=== PATIENT | female | born 1965 | race Caucasian/White ===

== ENCOUNTER → 2017-11-23 15:37 | Outpatient (CLI) | payer OTHER, SELFPAY ==
[2017-11-23 17:53] LABS: ALB/GLOB Ratio 1.3 RATIO (0.9-2.4); AST(SGOT) 10 U/L (15-37); Alanine Aminotransfer ALT/SGPT 23 U/L (13-56); Albumin, Serum 3.7 g/dL (3.2-5.0); Alkaline Phosphatase 45 U/L (45-117); Anion Gap 9 (5-15); BUN 13 mg/dL (7-18); BUN/Creat Ratio 14.6 RATIO (10-20); Calcium,Total 7.8 mg/dL (8.5-10.1); Chloride 105 mmol/L (98-107); Creatinine, Serum 0.89 mg/dL (0.55-1.02); EST Glomerular Filtration Rate 70 mL/min (>60); Est Glom Filt Rate - Afr Amer 85 mL/min (>60); Globulin 2.9 g/dL (2.2-4.2); Glucose 103 mg/dL (74-106); Phosphorus 3.5 mg/dL (2.5-4.9); Potassium 3.6 mmol/L (3.5-5.1); Protein, Total 6.6 g/dL (6.4-8.2); Sodium Level 139 mmol/L (136-145)
[2017-11-23 18:01] LABS: PTHIN 34.9 pg/mL (18.4-80.1)
[2017-11-25 10:27] LABS: Vitamin D,25 Hydroxy 41.2 ng/mL (19.95-100.01)
== END ==
PROVIDERS: Family Provider Family Medicine; PCP Family Medicine; Visit Provider Family Medicine
DX: E83.51 Hypocalcemia (principal)
CPT/HCPCS: 36415; 80053; 82306; 82330; 83970; 84100

== ENCOUNTER → 2018-01-02 18:43 | Outpatient (CLI) | payer OTHER, SELFPAY ==
[2018-01-02 18:46] LABS: Bacteria 0 SEEN /hpf (None Seen); Mucous, Urine 0 SEEN /hpf (<or=2+); Red Blood Cells-Urine 0 SEEN /hpf (0-5); White Blood Cells 0 SEEN /hpf (0-5)
[2018-01-02 19:09] LABS: Color, Urine YELLOW (Yellow); Glucose, Dipstick Normal (Normal); Ketone-Dipstick Negative (Negative); Leukocyte Esterase-Dipstick Negative /ul (Negative); Nitrite-Dipstick Negative (Negative); Occult Blood-Urine Negative /ul (Negative); Protein-Dipstick Negative (Negative); Squamous Epithelial Cells - UA 0-5 SEEN /hpf (5-10); Urine Bilirubin Dipstick Negative (Negative); Urine Clarity Sl Cldy (Clear); Urine Urobilinogen Normal (Normal)
[2018-01-02 19:10] LABS: Urine pH 6.5 (5.0 - 8.0)
== END ==
PROVIDERS: Family Provider Family Medicine; PCP Family Medicine; Visit Provider Physician Assistant
DX: R30.0 Dysuria (principal)
CPT/HCPCS: 81001; 87086

== ENCOUNTER → 2018-01-10 10:03 | Outpatient (CLI) | payer OTHER, SELFPAY | PROVIDERS: Visit Provider Family Medicine | DX: N39.0 Urinary tract infection, site not specified (principal) | CPT/HCPCS: 87086; 87088 ==

== ENCOUNTER → 2020-01-03 16:26 | Outpatient (CLI) | payer OTHER, SELFPAY ==
[2019-01-06 09:18] VITALS: BMI 29.7
--- NOTE | 2020-01-03 16:31 | RAD_ITS ---
STUDY: X-RAY - SOFT TISSUE NECK REASON FOR EXAM: Female, 54 years old. anterior neck throat pain and swelling for several days TECHNIQUE: 2 view(s) of the neck were obtained. COMPARISON: None. FINDINGS: Normal visualized nasopharynx, oropharynx, hypopharynx. Normal epiglottis. Normal visualized subglottic tracheal air column. Normal prevertebral soft tissue structures. Normal visualized osseous structures. The soft tissue structures are unremarkable. Diffuse degenerative disc changes of the cervical spine. RAD/Neck for Soft Tissue IMPRESSION: Normal x-ray soft tissue neck. Electronically Signed: Negar Mae MD at 17:11 EDT , Service support ,
[2020-01-03 18:12] LABS: Absolute Lymphocyte Count 1.87 X10^3/uL (0.83-4.51); Absolute Neutrophil Count 3.1 X10^3/uL (2.0-7.7); Basophil# 0.05 X10^3/uL; Basophil% 0.9 % (0-1); Eosinophil# 0.29 X10^3/uL; Eosinophils% 5.1 % (0-5); Hematocrit 38.2 % (37-47); Hemoglobin 12.8 g/dL (12.0-15.0); Lymphocyte # 1.87 X10^3/ul (4.0); Lymphocyte % 33.2 % (19-41); Mean Corp Hgb Conc 33.5 g/dL (32-36); Mean Corpuscular Hgb 30.5 pg (27.0-32.0); Mean Corpuscular Volume 91.2 fL (81-99); Mean Platelet Vol. 9.8 fl (6.2-12.0); Monocyte# 0.34 X10^3/uL; NRBC Flagged by Analyzer 0 % (0-5); Neutrophil # 3.07 X10^3/uL (2.7-7.7); Neutrophil % 54.4 % (47-70); Platelet Count 305 K/mm3 (150-450); RBC Distribution Width CV 12.6 % (11.6-14.6); RBC Distribution Width SD 41.3 fl (35.1-43.9); Red Blood Count 4.19 M/mm3 (4.2-5.4); White Blood Count 5.6 K/mm3 (4.4-11.0)
[2020-01-03 18:18] LABS: Erythrocyte Sedimentation Rate < 1 mm/hr (0-30)
== END ==
PROVIDERS: PCP Family Medicine; Referring Provider Family Medicine; Visit Provider Family Medicine
DX: M54.2 Cervicalgia (principal)
CPT/HCPCS: 36415; 70360; 85025; 85652

== ENCOUNTER → 2020-01-17 08:34 | Outpatient (CLI) | payer OTHER, SELFPAY ==
[2019-01-06 09:18] VITALS: BMI 29.7
--- NOTE | 2020-01-17 08:37 | RAD_ITS ---
STUDY: AIR-CONTRAST ESOPHAGRAM STUDY REASON FOR EXAM: Female, 54 years old. Difficulty swelling FLUOROSCOPY TIME (if supplied): (0:38) minutes/seconds, 14 images. TECHNIQUE: Barium pill swallow with sips of water is performed at the beginning of the study without difficulty. Multiple barium swallows were performed under fluoroscopic monitoring. Multiple views of the esophagus, the upper stomach were performed. COMPARISON: None. FINDINGS: Barium pill swallow with sips of water is performed at the beginning of the study without difficulty. The esophagus appears normal in size and shape it shows unremarkable mucosal pattern. There is no evidence of hiatal hernia or abnormal vascular compression. RAD/Esophagus Dual Contrast IMPRESSION: Unremarkable study. Electronically Signed: Renata Sanz, at 13:05 EDT Tel , Service support ,
== END ==
PROVIDERS: PCP Family Medicine; Referring Provider Family Medicine; Visit Provider Family Medicine
DX: R13.10 Dysphagia, unspecified (principal)
CPT/HCPCS: 74221

== ENCOUNTER → 2020-08-27 15:33 | Outpatient (CLI) | payer OTHER, SELFPAY ==
[2019-01-06 09:18] VITALS: BMI 29.7
[2020-08-27 17:30] LABS: Absolute Lymphocyte Count 1.56 X10^3/uL (0.83-4.51); Absolute Neutrophil Count 2.5 X10^3/uL (2.0-7.7); Basophil# 0.04 X10^3/uL; Basophil% 0.9 % (0-1); Eosinophil# 0.11 X10^3/uL; Eosinophils% 2.5 % (0-5); Hematocrit 39.6 % (37-47); Hemoglobin 13.4 g/dL (12.0-15.0); Lymphocyte # 1.56 X10^3/ul (4.0); Lymphocyte % 34.8 % (19-41); Mean Corp Hgb Conc 33.8 g/dL (32-36); Mean Corpuscular Hgb 31.2 pg (27.0-32.0); Mean Corpuscular Volume 92.3 fL (81-99); Mean Platelet Vol. 10.5 fl (6.2-12.0); Monocyte# 0.23 X10^3/uL; Monocyte% 5.1 % (0-10); NRBC Flagged by Analyzer 0 % (0-5); Neutrophil # 2.53 X10^3/uL (2.7-7.7); Neutrophil % 56.5 % (47-70); Platelet Count 287 K/mm3 (150-450); RBC Distribution Width CV 12.5 % (11.6-14.6); RBC Distribution Width SD 42.1 fl (35.1-43.9); Red Blood Count 4.29 M/mm3 (4.2-5.4); White Blood Count 4.5 K/mm3 (4.4-11.0)
[2020-08-27 17:44] LABS: Erythrocyte Sedimentation Rate 4 mm/hr (0-30)
[2020-08-27 17:57] LABS: ALB/GLOB Ratio 1.3 RATIO (0.9-2.4); AST(SGOT) 21 U/L (15-37); Alanine Aminotransfer ALT/SGPT 35 U/L (13-56); Alkaline Phosphatase 59 U/L (45-117); Anion Gap 6 (5-15); BUN 13 mg/dL (7-18); BUN/Creat Ratio 13.5 RATIO (10-20); CRP < 2.90 mg/L (0.0-3.0); Calcium,Total 7.7 mg/dL (8.5-10.1); Chloride 107 mmol/L (98-107); Creatinine, Serum 0.96 mg/dL (0.55-1.02); EST Glomerular Filtration Rate 64 mL/min (>60); Est Glom Filt Rate - Afr Amer 77 mL/min (>60); Ferritin 31 ng/mL (8-252); Glucose 120 mg/dL (74-106); Iron 86 ug/dL (50-170); Magnesium 2.2 mg/dL (1.6-2.6); Potassium 3.8 mmol/L (3.5-5.1); Sodium Level 138 mmol/L (136-145); Thyroid Stim Hormone (TSH) 2.17 uIU/mL (0.358-3.74)
[2020-08-29 14:19] LABS: Vitamin B12 414 pg/mL (211-911); Vitamin D,25 Hydroxy 32.3 ng/mL
[2020-09-01 20:06] LABS: ANTINUCLEAR ANTIBODIES DIRECT Negative (Negative)
== END ==
PROVIDERS: PCP Family Medicine; Referring Provider Family Medicine; Visit Provider Family Medicine
DX: G62.9 Polyneuropathy, unspecified (principal)
CPT/HCPCS: 36415; 80053; 82306; 82607; 82728; 83540; 83735; 84443; 85025; 85652; 86038; 86140

== ENCOUNTER → 2020-09-09 10:43 | Outpatient (CLI) | payer OTHER, SELFPAY ==
[2019-01-06 09:18] VITALS: BMI 29.7
[2020-09-09 12:43] LABS: PTHIN 38.5 pg/mL (18.4-80.1)
== END ==
PROVIDERS: PCP Family Medicine; Visit Provider Family Medicine
DX: E05.00 Thyrotoxicosis with diffuse goiter without thyrotoxic crisis or storm (principal); G62.9 Polyneuropathy, unspecified
CPT/HCPCS: 36415; 83970

== ENCOUNTER → 2020-11-17 10:59 | Outpatient (CLI) | payer OTHER, SELFPAY ==
[2019-01-06 09:18] VITALS: BMI 29.7
[2020-11-17 12:28] LABS: Anion Gap 6 (5-15); BUN 12 mg/dL (7-18); BUN/Creat Ratio 14.1 RATIO (10-20); Calcium,Total 8.1 mg/dL (8.5-10.1); Chloride 103 mmol/L (98-107); Creatinine, Serum 0.85 mg/dL (0.55-1.02); EST Glomerular Filtration Rate 73 mL/min (>60); Est Glom Filt Rate - Afr Amer 89 mL/min (>60); Glucose 126 mg/dL (74-106); Potassium 3.8 mmol/L (3.5-5.1); Sodium Level 137 mmol/L (136-145)
[2020-11-17 12:30] LABS: Vitamin D,25 Hydroxy 44.8 ng/mL
[2020-11-24 13:02] LABS: VITAMIN B6 34.3 ug/L (2.0-32.8)
== END ==
PROVIDERS: PCP Family Medicine; Visit Provider Family Medicine
DX: E83.51 Hypocalcemia (principal)
CPT/HCPCS: 36415; 80048; 82306; 83735; 84207

== ENCOUNTER → 2021-02-18 09:35 | Outpatient (CLI) | payer OTHER, SELFPAY ==
[2019-01-06 09:18] VITALS: BMI 29.7
[2021-02-18 12:40] LABS: Phosphorus 2.9 mg/dL (2.5-4.9)
[2021-02-18 12:52] LABS: BNP,B-Type NATRIURETIC PEPTIDE 46.8 pg/mL (0-100)
[2021-02-18 14:00] LABS: PTHIN 26.1 pg/mL (18.4-80.1)
== END ==
PROVIDERS: PCP Family Medicine; Referring Provider Family Medicine; Visit Provider Family Medicine
DX: E83.51 Hypocalcemia (principal)
CPT/HCPCS: 36415; 82330; 83735; 83880; 83970; 84100

== ENCOUNTER → 2021-04-22 09:06 | Outpatient (CLI) | payer OTHER, SELFPAY ==
[2019-01-06 09:18] VITALS: BMI 29.7
[2021-04-22 10:51] LABS: Ferritin 49 ng/mL (8-252); Iron 125 ug/dL (50-170)
[2021-04-22 10:56] LABS: Vitamin B12 > 2000 pg/mL (211-911)
[2021-04-22 10:57] LABS: Vitamin D,25 Hydroxy 48.1 ng/mL
[2021-04-25 08:34] LABS: Zinc, Plasma or Serum 74 ug/dL (44-115)
== END ==
PROVIDERS: PCP Family Medicine; Visit Provider Family Medicine
DX: L60.8 Other nail disorders (principal)
CPT/HCPCS: 36415; 82306; 82607; 82728; 83540; 84630

== ENCOUNTER → 2021-05-29 08:22 | Outpatient (CLI) | payer OTHER, SELFPAY ==
[2019-01-06 09:18] VITALS: BMI 29.7
--- NOTE | 2021-05-29 09:58 | NEURO_ITS ---
NCS and/or EMG Patient Report Ordering Doctor: Angela King DATE OF SERVICE: 05/29/21 Indication: Approximately one year of bilateral foot pain, numbness, burning and tingling. Evaluate for peripheral neuropathy Findings: Nerve conduction studies were performed in the bilateral lower extremities. The right peroneal motor study recording the extensor digitorum brevis showed a normal amplitude, normal distal latency and normal conduction velocity. No conduction block or focal slowing was present across the fibular neck. The right tibial motor study recording the abductor hallucis brevis showed a normal amplitude, normal distal latency and normal conduction velocity. Right sural sensory response showed a normal amplitude and conduction velocity. Right superficial peroneal sensory response showed a normal amplitude and conduction velocity. Right medial plantar sensory response showed a normal amplitude and conduction velocity. Right lateral plantar sensory response showed a normal amplitude and conduction velocity. The left peroneal motor study recording the extensor digitorum brevis showed a normal amplitude, normal distal latency and normal conduction velocity. No conduction block or focal slowing was present across the fibular neck. The left tibial motor study recording the abductor hallucis brevis showed a normal amplitude, normal distal latency and normal conduction velocity. Left sural sensory response showed a normal amplitude and conduction velocity. Left superficial peroneal sensory response showed a normal amplitude and conduction velocity. Left medial plantar sensory response showed a normal amplitude and conduction velocity. Left lateral plantar sensory response showed a normal amplitude and conduction velocity. Needle EMG of the right lower extremity muscles was performed. No denervation was present in any muscle. Motor unit morphology, activation, and recruitment pa tterns were normal. Needle EMG of the left lower extremity was deferred given the symmetry of symptoms and the paucity of findings on the right side. Impression: This is a normal study. There is no electrophysiologic evidence of peripheral neuropathy. In addition, there was no electrophysiologic evidence of lumbar radiculopathy in the right lower extremity. Please note: routine nerve conduction studies and needle EMG assess the larger, myelinated motor and sensory fibers. Thus, routine electrodiagnostic studies may be insensitive in detecting a peripheral neuropathy restricted to small fibers alone (i.e., pain, temperature and autonomic fibers). However, most peripheral neuropathies with predominantly small fiber large dysfunction will also involve large fibers to a lesser extent, and will demonstrate abnormalities on electrodiagnostic studies. Thus, clinical correlation is required in the interpretation of this negative electrodiagnostic study if an isolated small fiber neuropathy is considered. Albino Goodwin D.O.
== END ==
PROVIDERS: PCP Family Medicine; Referring Provider Podiatrist Foot & Ankle Surgery; Visit Provider Podiatrist Foot & Ankle Surgery
DX: G62.9 Polyneuropathy, unspecified (principal); T87.33 Neuroma of amputation stump, right lower extremity; D36.10 Benign neoplasm of peripheral nerves and autonomic nervous system, unspecified
CPT/HCPCS: 95886; 95912

== ENCOUNTER 2021-12-10 08:30 | Outpatient (CLI) | payer OTHER, SELFPAY ==
[2021-12-10 10:23] LABS: Vitamin D,25 Hydroxy 30.2 ng/mL
[2021-12-10 10:37] LABS: PTHIN 32.7 pg/mL (18.4-80.1)
[2021-12-10 10:40] LABS: ALB/GLOB Ratio 1.3 RATIO (0.9-2.4); AST(SGOT) 15 U/L (15-37); Alanine Aminotransfer ALT/SGPT 29 U/L (13-56); Alkaline Phosphatase 51 U/L (45-117); Anion Gap 5 (5-15); BUN 13 mg/dL (7-18); BUN/Creat Ratio 14.6 RATIO (10-20); Calcium,Total 8.1 mg/dL (8.5-10.1); Chloride 105 mmol/L (98-107); Cholesterol 254 mg/dL (200); Creatinine, Serum 0.89 mg/dL (0.55-1.02); EST Glomerular Filtration Rate 69 mL/min (>60); Est Glom Filt Rate - Afr Amer 84 mL/min (>60); Free T3 2.2 pg/mL (2.18-3.98); Glucose 101 mg/dL (74-106); High Density Lipoprotein 48 mg/dL; Phosphorus 3.5 mg/dL (2.5-4.9); Potassium 3.9 mmol/L (3.5-5.1); Sodium Level 138 mmol/L (136-145); T4 Free Direct 1.34 ng/dL (0.76-1.46); Thyroid Stim Hormone (TSH) 0.56 uIU/mL (0.358-3.74); Triglycerides 156 mg/dL; Very Low Density Lipoprotein 31 mg/dL (5-40)
== END 2021-12-10 23:59 | disposition home or self-care (01) ==
LOC: MTLAB 08:32
PROVIDERS: PCP Family Medicine; Referring Provider Family Medicine; Visit Provider Family Medicine
DX: E03.2 Hypothyroidism due to medicaments and other exogenous substances (principal); E05.00 Thyrotoxicosis with diffuse goiter without thyrotoxic crisis or storm; E83.51 Hypocalcemia
CPT/HCPCS: 36415; 80053; 80061; 82306; 82330; 83970; 84100; 84439; 84443; 84481

== ENCOUNTER 2021-12-17 07:14 | Outpatient (CLI) | payer OTHER, SELFPAY ==
--- NOTE | 2021-12-17 07:24 | MRI_ITS ---
STUDY: MRI LEFT FOREFOOT WITHOUT CONTRAST REASON FOR EXAM: Left forefoot pain across distal metatarsals, evaluate for capsulitis, neuroma. TECHNIQUE: Standardized fat and water weighted pulse sequences were obtained in all 3 orthogonal planes. COMPARISON: None. FINDINGS: Normal metatarsophalangeal joint of the hallux. Normal tibial and fibular sesamoids, with normal sesamoids-first metatarsal articulations. Normal interphalangeal joint of the hallux. Normal proximal and distal phalanges of the great toe. Normal medial and lateral heads of the flexor hallucis brevis tendons. Normal flexor and extensor hallucis longus tendons. Normal second through fifth metatarsophalangeal (MTP) joints without demonstrated capsulitis. Normal interphalangeal joints of the second through fifth toes. Normal proximal, middle and distal phalanges of the second through fifth toes. There is soft tissue fullness at the plantar aspect of the second webspace (T1 short axis image 22) measuring 0.3 cm in transverse dimension suggestive of a small intermetatarsal neuroma. There is a small volume of fluid in the intermetatarsal bursa of the second webspace (inversion recovery short axis image 22). Normal flexor and extensor tendons of the second through fifth toes. Normal metatarsals. Normal intrinsic muscles of the forefoot. There is a pressure lesion in the subcutis adipose space plantar to the fifth metatarsal head (T1 short axis image 16). MRI/Lower Ext/No Jt/w/o IMPRESSION: Small intermetatarsal neuroma and mild intermetatarsal bursitis of the second webspace. Pressure lesion in the subcutis adipose space plantar to the fifth metatarsal head. No demonstrated capsulitis of the metatarsophalangeal joints. Electronically Signed: Zi Crow MD at 10:22 EDT ,
== END 2021-12-17 23:59 | disposition home or self-care (01) ==
PROVIDERS: PCP Family Medicine; Visit Provider Podiatrist
DX: M77.52 Other enthesopathy of left foot and ankle (principal); G57.62 Lesion of plantar nerve, left lower limb
CPT/HCPCS: 73718

== ENCOUNTER 2021-12-29 15:20 | Outpatient (CLI) | payer OTHER, SELFPAY ==
--- NOTE | 2021-12-29 | IMM_PTH ---
PATIENT: RONNIE REINOSO LOC: [facility] U#:[id number] AGE/SX: 56/F ROOM: RE12/29/[address]: Dr. Albino Richards MD : 1965 BED: DIS: 12/29/2021 SPEC #: [id number] RECD: 01/01/22 07:42 STATUS: DELIO WATSON #: [id number] SOPHIE: 12/29/21 00:[address]: Albino Richards DEPT: IMMUNOHISTOCHEMISTRY RECD BY: Angie Gonsales Tissues: Skin of arm Procedures: CK5-6 (add) MART1 (add) P40 (add) S100 (initial) PHYSICIAN & INSTITUTION [place] [id number] SPECIMEN INFORMATION: Tissue Source: Right arm mole Clinical Info: Right arm mole, rule out melanoma Specimen Number: [id number] CPT code: 70448, 78570 x3 METHODOLOGY: Deparaffinized sections of prefer/formalin-fixed tissue or PAP/DQ stained slides are incubated with monoclonal/polyclonal antibodies/oligonucleotide probes. Localization is made via biotin free immunoperoxidase method. Appropriate controls are performed and reacted as expected. Results on target cell population are indicated in the following table: RESULTS: ANTIBODY / CLONE RESULT S-100 (4C4.9) positive MART-1 (A-103) positive CK5-6 (D5 & 1684) negative P40 (BC28) negative These tests were developed and their performance characteristics determined by [facility]. They may not have been cleared or approved by the U.S. Food and Drug Administration. The FDA has determined that such clearance or approval is not necessary. The above immunohistochemical/dualISH markers are ordered and reviewed by the Pathologist. INTERPRETATION: Right arm mole, punch excision: Atypical melanocytic proliferation at junction, close to lateral margin. See comment. OLIVER:vania 01/05/2022 Comment: The specimen is sent to [facility] for expert opinion, reviewed by Dr. Abiel Rod and the above diagnosis is rendered. The complete report is viewable in the patient's EMR. Case has been reviewed in consultation with Dr. Bowden who concurs with the above diagnosis. IDC:AM
--- NOTE | 2021-12-29 11:45 | TISS_PTH ---
PATIENT: RONNIE REINOSO LOC: [facility] U#:[id number] AGE/SX: 56/F ROOM: RE12/29/[address]: Dr. Albino Richards MD : 1965 BED: DIS: 12/29/2021 SPEC #: [id number] RECD: 12/29/21 15:08 STATUS: DELIO WATSON #: [id number] SOPHIE: 12/29/21 11:[address]: Albino Richards DEPT: SURGICAL PATHOLOGY RECD BY: Teetee Ring Tissues: TISSUE SURGICALLY REMOVED Procedures: Surgery Specimen Level IV HEADER OPERATION: Punch excision right arm PRE-OP DIAGNOSIS: Rule out melanoma TISSUE SUBMITTED: Right arm mole MICROSCOPIC DIAGNOSIS Right arm mole, punch excision: Atypical melanocytic proliferation at junction, close to lateral margin. See comment. OLIVER:vania 01/05/2022 COMMENT The specimen is sent to [facility] for expert opinion, reviewed by Dr. Abiel Rod and the above diagnosis is rendered. Dr. Abiel Rod also commented that ?the lesion is small and close to lateral margin. Early melanoma in situ cannot be ruled out. Re-excision to ensure a clear margin is recommended.? The complete report is viewable in the patient's EMR. Immunohistochemistry ([id number]) supports the above diagnosis. Case has been reviewed in consultation with Dr. Bowden who concurs with the above diagnosis. IDC:AM MICROSCOPIC DESCRIPTION Slides are reviewed. GROSS DESCRIPTION Received in fixative is one container labeled with the patient's name and designated right arm. The specimen consists of a punch biopsy of angulo-white skin measuring 0.3 cm in diameter and up to 0.4 cm in length. A angulo-brown lesion is noted in the center measuring 0.2 cm in greatest dimension. The specimen is totally submitted in one cassette. / SJ:rg 12/30/2021 TC: CPT: 08017
== END 2021-12-29 23:59 | disposition home or self-care (01) ==
PROVIDERS: PCP Family Medicine; Visit Provider Family Medicine
DX: D22.61 Melanocytic nevi of right upper limb, including shoulder (principal)
CPT/HCPCS: 88305; 88341; 88342

== ENCOUNTER 2022-01-01 09:47 | Outpatient (CLI) | payer OTHER, SELFPAY ==
--- NOTE | 2022-01-01 10:25 | MRI_ITS ---
STUDY: MRI RIGHT FOREFOOT WITHOUT CONTRAST REASON FOR EXAM: Right foot pain at the ball of the foot and toes for one year, prior surgery, evaluate for stump neuroma in the second webspace. TECHNIQUE: Standardized fat and water weighted pulse sequences were obtained in all 3 orthogonal planes. COMPARISON: None. FINDINGS: Normal metatarsophalangeal joint of the hallux. Normal tibial and fibular sesamoids, with normal sesamoids-first metatarsal articulations. Normal interphalangeal joint of the hallux. Normal proximal and distal phalanges of the great toe. Normal medial and lateral heads of the flexor hallucis brevis tendons. Normal flexor and extensor hallucis longus tendons. There is a small subchondral cyst at the third proximal phalangeal base (T2 long axis image 15). Otherwise, unremarkable second through fifth metatarsophalangeal (MTP) joints without demonstrated capsulitis. Normal interphalangeal joints of the second through fifth toes. Normal proximal, middle and distal phalanges of the second through fifth toes. There is soft tissue fullness at the plantar aspect of the second webspace (T1 short axis images 16, 17) measuring 0.25 cm in transverse dimension suggestive of a stump neuroma. Normal flexor and extensor tendons of the second through fifth toes. Normal metatarsals. Normal intrinsic muscles of the forefoot. There is a small pressure lesion in the subcutis adipose space at the plantar aspect of the fifth metatarsophalangeal joint (T1 short axis image 7). MRI/Lower Ext/No Jt/w/o IMPRESSION: Stump neuroma of the second webspace. Small pressure lesion in the subcutis adipose space plantar to the fifth metatarsophalangeal joint. Electronically Signed: Zi Crow MD at 12:31 EDT ,
== END 2022-01-01 23:59 | disposition home or self-care (01) ==
PROVIDERS: PCP Family Medicine; Referring Provider Podiatrist; Visit Provider Podiatrist
DX: M77.51 Other enthesopathy of right foot and ankle (principal); G57.61 Lesion of plantar nerve, right lower limb; M79.671 Pain in right foot
CPT/HCPCS: 73718

== ENCOUNTER → 2022-07-29 | Outpatient (CLI) | payer OTHER, SELFPAY ==
[2022-07-29 15:22] LABS: Absolute Lymphocyte Count 1.78 X10^3/uL (0.83-4.51); Absolute Neutrophil Count 3.1 X10^3/uL (2.0-7.7); Basophil# 0.05 X10^3/uL; Basophil% 0.9 % (0-1); Eosinophil# 0.08 X10^3/uL; Eosinophils% 1.5 % (0-5); Hematocrit 39.2 % (37-47); Hemoglobin 13.3 g/dL (12.0-15.0); Lymphocyte # 1.78 X10^3/ul (0.83-4.51); Lymphocyte % 33.5 % (19-41); Mean Corp Hgb Conc 33.9 g/dL (32-36); Mean Corpuscular Hgb 30.8 pg (27.0-32.0); Mean Corpuscular Volume 90.7 fL (81-99); Mean Platelet Vol. 10.9 fl (6.2-12.0); Monocyte% 5.6 % (0-10); NRBC Flagged by Analyzer 0 % (0-5); Neutrophil # 3.09 X10^3/uL (2.7-7.7); Neutrophil % 58.1 % (47-70); Platelet Count 256 K/mm3 (150-450); RBC Distribution Width SD 43.2 fl (35.1-43.9); Red Blood Count 4.32 M/mm3 (4.2-5.4); White Blood Count 5.3 K/mm3 (4.4-11.0)
[2022-07-29 15:51] LABS: ALB/GLOB Ratio 1.2 RATIO (0.9-2.4); AST(SGOT) 13 U/L (15-37); Alanine Aminotransfer ALT/SGPT 20 U/L (13-56); Albumin, Serum 3.5 g/dL (3.2-5.0); Alkaline Phosphatase 51 U/L (45-117); Anion Gap 7 (5-15); BUN 16 mg/dL (7-18); BUN/Creat Ratio 16.8 RATIO (10-20); Calcium,Total 7.8 mg/dL (8.5-10.1); Chloride 105 mmol/L (98-107); Creatinine, Serum 0.95 mg/dL (0.55-1.02); EST Glomerular Filtration Rate 64 mL/min (>60); Est Glom Filt Rate - Afr Amer 78 mL/min (>60); Globulin 2.9 g/dL (2.2-4.2); Glucose 85 mg/dL (74-106); Potassium 3.8 mmol/L (3.5-5.1); Protein, Total 6.4 g/dL (6.4-8.2); Sodium Level 137 mmol/L (136-145); Thyroid Stim Hormone (TSH) 1.26 uIU/mL (0.358-3.74)
== END | disposition home or self-care (01) ==
LOC: MFPLAB 12:01
PROVIDERS: PCP Family Medicine; Referring Provider Family Medicine; Visit Provider Family Medicine
DX: Z01.812 Encounter for preprocedural laboratory examination (principal); E03.2 Hypothyroidism due to medicaments and other exogenous substances
CPT/HCPCS: 36415; 80053; 84443; 85025

== ENCOUNTER 2022-08-13 06:00 | Day surgery (SDC) | payer OTHER, SELFPAY ==
--- NOTE | 2022-08-13 | NEUR_PTH ---
PATIENT: RONNIE REINOSO LOC: [facility] [place] U#:[id number] AGE/SX: 57/F ROOM: RE08/13/[address]: Dr. Hernando Gonzalez DPM : 1965 BED: DIS: 08/13/2022 SPEC #: [id number] RECD: 08/13/22 12:00 STATUS: DELIO SHIRLEY #: [id number] SOPHIE: 08/13/22 00:[address]: Hernando Gonzalez DEPT: SURGICAL PATHOLOGY RECD BY: Uri Bui ENTERED: 08/13/22 12:01 SP TYPE: NEUROMA OTHR DR: Dr. Albino Richards MD Tissues: NEUROMA Procedures: Surgery Specimen Level III HEADER OPERATION: Excision of foot second interspace stump neuroma PRE-OP DIAGNOSIS: Right foot second interspace stump neuroma TISSUE SUBMITTED: Neuroma right foot MICROSCOPIC DIAGNOSIS Neuroma right foot: Consistent with traumatic/Croft?s neuroma. /SJ 08/16/22 MICROSCOPIC DESCRIPTION Slides are reviewed. GROSS DESCRIPTION Received in fixative is one container labeled with the patient's name and designated neuroma right foot. The specimen consists of an elongated piece of angulo soft tissue measuring 2.2 x 0.5 x 0.2 cm. The specimen is bisected and submitted entirely in one cassette. / OLIVER:vania 08/13/2022 TC:5 [facility]: [id number]
[2022-08-13] MEDS: Lactated Ringers 1,000 ML 15 ML IV (06:15)
[2022-08-13 06:36] VITALS: BP 117/73; PULSE 70; RESP 16; TEMP 36.5; O2SAT 98; BMI 32.4
[2022-08-13] MEDS: Cefazolin 2 GM in 0.9% Normal Saline 100 ML IV (07:38)
[2022-08-13] MEDS: Bupivacaine 0.25% 30 ML Vial (08:43)
--- NOTE | 2022-08-13 08:53 | PCM.OPRPT ---
Problems Associated Problem List Diagnoses (1) Croft's neuroma of right foot: (2) Neuroma of second interspace of right foot: Report of Operation Date of Procedure: 08/13/22 Pre-Operative Diagnosis: Stump neuroma right second interspace Post-Operative Diagnosis: Neuroma right second interspace Surgery/Procedure Performed:: Excision neuroma right second interspace Description of Surgical Findings:: Upon dissection there is noted to be an intact plantar interdigital nerve into the second interspace just plantar to the deep transverse intermetatarsal ligament which appeared bulbous in nature with significant fibrosis this was excised and appeared to be fully intact and not previously resected Surgeon: Hernando Gonzalez Type of Anesthesia: Local MAC and Local Special Medications: 20 cc of quarter percent Marcaine plain Specimen's removed: Neuroma right second interspace Drains: None Estimated Blood Loss (mL): Minimal Description of Procedure: Patient brought back the operating placed comfortably in the supine position on the operating room table. Patient induced under MAC anesthesia. Enriquez block performed to the second metatarsal using 10 cc quarter percent Marcaine plain preoperatively using aseptic technique. Well-padded right ankle tourniquet applied. Hip bump applied to knock out any external rotation right lower extremity. Right lower extremity scrubbed prepped draped using typical aseptic manner. Right lower extremity was elevated exsanguinated tourniquet inflated 250 mmHg. The second metatarsal head as well as the plantar aspect of the third metatarsal head were palpated and identified a linear incision was made along the plantar foot extending into the second digit in between the second and third metatarsal heads a splint was made with a 15 blade through epidermis dermis into subcutaneous tissue blunt dissection was taken further any bleeders were cauterized all neurovascular structures were identified and bluntly retracted. A thickened bulbous neuroma was noted just deep to the deep transverse intermetatarsal ligament within the second interdigital space this was completely dissected out from its digital branches and proximal branches. Upon examination it did not appear to be previously resected and may have represented a fully intact neuroma that may have been missed on initial treatment. This was resected from its digital branches distally and proximally just proximal to the second and third metatarsal heads in the stump was then the 8 buried into the interossei muscle bellies. This was sent to pathology for further examination. Additional exploration yielded no residual stump neuroma or any other issues at this time. Incision site was flushed with copious gloria normal sterile saline. Incision was closed with deep closure using 3-0 Vicryl simple interrupted buried. Skin closure was performed with 3-0 Prolene using simple interrupted and horizontal mattress technique. Tourniquet was deflated any hematoma was decompressed using the hematoma rules. Incision was then dressed with Betadine paint Adaptic 4 x 4's Kerlix and Tuan bandage. Patient was then transferred to PACU vital signs stable vascular status intact all digits for further monitoring prior to discharge patient tolerated procedure and anesthesia well apparent satisfactory condition. Patient remain nonweightbearing until follow-up which time we will change her dressing. No complications, minimal bleeding, resection of previously on resected neuroma to the plantar second interspace Admit VTE Documentation VTE Present on Admission: Yes VTE Mechan Device Prophylaxis: SCD's VTE Pharm Prophylaxis ordered?: Yes
[2022-08-13 08:57] VITALS: BP 117/73; BP 134/85; PULSE 70; RESP 18; TEMP 36.6; O2SAT 98
[2022-08-13 09:00] VITALS: BP 117/73; BP 123/88; PULSE 71; RESP 16; O2SAT 99
[2022-08-13 09:15] VITALS: BP 117/73; BP 134/91; PULSE 66; RESP 16; O2SAT 100
[2022-08-13 09:27] VITALS: BP 117/73; BP 133/86; PULSE 65; RESP 12; TEMP 36.5; O2SAT 99
[2022-08-13] MEDS: oxyCODONE 5 MG Tablet PO (09:49)
[2022-08-13 10:00] VITALS: BP 117/73
== END 2022-08-13 10:10 | disposition home or self-care (01) ==
LOC: SDC 06:00 → AC 06:01
PROVIDERS: PCP Family Medicine; Referring Provider Podiatrist; Visit Provider Podiatrist
PROC: (CPT 64782; principal; 2022-08-13 07:15)
DX: G57.61 Lesion of plantar nerve, right lower limb (principal); Z87.891 Personal history of nicotine dependence; E03.2 Hypothyroidism due to medicaments and other exogenous substances; Z87.19 Personal history of other diseases of the digestive system; Z97.3 Presence of spectacles and contact lenses
CPT/HCPCS: 64782; 01470; 88304; J7120; J2405

== ENCOUNTER 2022-09-10 06:01 | Day surgery (SDC) | payer OTHER, SELFPAY ==
[2022-09-10 06:43] VITALS: BP 109/75; PULSE 74; RESP 18; TEMP 36.7; O2SAT 98; BMI 32.3
[2022-09-10] MEDS: Lactated Ringers 1,000 ML 15 ML IV (06:50)
--- NOTE | 2022-09-10 07:30 | NEUR_PTH ---
PATIENT: RONNIE REINOSO [place] [facility] [place][id number] AGE/SX: 57/F ROOM: RE09/10/[address]: Dr. Hernando Gonzalez DPM : 1965 BED: DIS: 09/10/2022 SPEC #: [id number] RECD: 09/10/22 11:52 STATUS: DELIO SHIRLEY #: [id number] SOPHIE: 09/10/22 07:[address]: Hernando Gonzalez DEPT: SURGICAL PATHOLOGY RECD BY: Courtney Hogan ENTERED: 09/10/22 12:15 SP TYPE: NEUROMA OTHR DR: Dr. Albino Richards MD Tissues: NEUROMA Procedures: Surgery Specimen Level III HEADER OPERATION: Excision neuroma foot PRE-OP DIAGNOSIS: Left foot neuroma TISSUE SUBMITTED: Left foot neuroma MICROSCOPIC DIAGNOSIS Left foot neuroma, excision: Consistent with Lang?s neuroma. SJ:vania 09/13/2022 MICROSCOPIC DESCRIPTION Slides are reviewed. GROSS DESCRIPTION Received in fixative is one container labeled with the patient's name and designated left foot neuroma. The specimen consists of an elongated fragment of glistening angulo-white soft tissue measuring 4 cm in length and 0.2 cm in greatest diameter. The specimen is submitted in its entirety in one cassette. / AM:vania 09/10/2022 TC:5 CPT: 77638
[2022-09-10] MEDS: Cefazolin 2 GM in 0.9% Normal Saline 100 ML IV (07:36)
[2022-09-10] MEDS: Bupivacaine Mpf 0.5% 30 ML VIAL (07:58)
--- NOTE | 2022-09-10 08:28 | PCM.OPRPT ---
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 Patient induced under MAC anesthesia.? Enriquez block performed to let the second metatarsal using 10 cc quarter percent Marcaine plain preoperatively using aseptic technique.? Well-padded left ankle tourniquet applied.? Hip bump applied to knock out any external rotation right lower extremity.? Left lower extremity scrubbed prepped draped using typical aseptic manner. left lower extremity was elevated exsanguinated tourniquet inflated 250 mmHg.? The second metatarsal head as well as the plantar aspect of the third metatarsal head were palpated and identified a linear incision was made along the plantar foot extending into the second digit in between the second and third metatarsal heads a splint was made with a 15 blade through epidermis dermis into subcutaneous tissue blunt dissection was taken further any bleeders were cauterized all neurovascular structures were identified and bluntly retracted.? A thickened bulbous neuroma was noted just deep to the deep transverse intermetatarsal ligament within the second interdigital space this was completely dissected out from its digital branches and proximal branches.? This was resected from its digital branches distally and proximally just proximal to the second and third metatarsal heads in the stump was then the 8 buried into the interossei muscle bellies.? This was sent to pathology for further examination.? Additional exploration yielded no residual neuroma or any other issues at this time.? Incision site was flushed with copious gloria normal sterile saline.? Incision was closed with deep closure using 3-0 Vicryl simple interrupted buried.? Skin closure was performed with 3-0 Prolene using simple interrupted and horizontal mattress technique.? Tourniquet was deflated any hematoma was decompressed using the hematoma rolls.? Incision was then dressed with Betadine paint Adaptic 4 x 4's Kerlix and Tuan bandage.? Patient was then transferred to PACU vital signs stable vascular status intact all digits for further monitoring prior to discharge patient tolerated procedure and anesthesia well apparent satisfactory condition.? Patient remain nonweightbearing until follow-up which time we will change her dressing. No complications, minimal bleeding, resection of previously on resected neuroma to the plantar second interspace Admit VTE Documentation VTE Present on Admission: Yes VTE Mechan Device Prophylaxis: SCD's VTE Pharm Prophylaxis ordered?: Yes
[2022-09-10 08:44] VITALS: BP 109/75; BP 111/63; PULSE 69; RESP 14; TEMP 36; O2SAT 99
[2022-09-10 08:52] VITALS: BP 109/75; BP 114/74; PULSE 62; RESP 14; TEMP 36.2; O2SAT 99
[2022-09-10 09:06] VITALS: BP 109/75
[2022-09-10] MEDS: oxyCODONE 5 MG Tablet PO (09:41)
[2022-09-10 10:05] VITALS: BP 109/75; BP 114/70; PULSE 74; RESP 18; TEMP 36.6; O2SAT 100
== END 2022-09-10 10:08 | disposition home or self-care (01) ==
LOC: SDC 06:01 → AC 06:03
PROVIDERS: PCP Family Medicine; Referring Provider Podiatrist; Visit Provider Podiatrist
PROC: (CPT 28080; principal; 2022-09-10 07:15)
DX: G57.82 Other specified mononeuropathies of left lower limb (principal); E89.0 Postprocedural hypothyroidism; Z79.890 Hormone replacement therapy; Z79.899 Other long term (current) drug therapy; Z87.891 Personal history of nicotine dependence
CPT/HCPCS: 28080; 01470; 88304; J7120

== ENCOUNTER → 2022-11-11 | Outpatient (CLI) | payer OTHER, SELFPAY ==
[2022-11-11 10:56] LABS: Erythrocyte Sedimentation Rate 5 mm/hr (0-30)
[2022-11-11 11:14] LABS: Rheumatoid Factor < 10.0 IU/mL (<15); Uric Acid 5.5 mg/dL (2.6-6.0)
[2022-11-12 20:06] LABS: ANTINUCLEAR ANTIBODIES DIRECT Negative (Negative)
== END | disposition home or self-care (01) ==
LOC: MFPLAB 08:43
PROVIDERS: PCP Family Medicine; Referring Provider Family Medicine; Visit Provider Family Medicine
DX: M13.0 Polyarthritis, unspecified (principal)
CPT/HCPCS: 36415; 84550; 85652; 86038; 86431

== ENCOUNTER → 2023-08-29 | Outpatient (CLI) | payer OTHER, SELFPAY ==
[2023-08-29 10:51] LABS: Anion Gap 8 (5-15); BUN 12 mg/dL (7-18); BUN/Creat Ratio 10.9 RATIO (10-20); Calcium,Total 8.5 mg/dL (8.5-10.1); Chloride 106 mmol/L (98-107); Cholesterol 289 mg/dL (200); EST Glomerular Filtration Rate 54 mL/min (>60); Est Glom Filt Rate - Afr Amer 66 mL/min (>60); Glucose 105 mg/dL (74-106); High Density Lipoprotein 57 mg/dL; Potassium 3.9 mmol/L (3.5-5.1); Sodium Level 142 mmol/L (136-145); Triglycerides 153 mg/dL; Very Low Density Lipoprotein 31 mg/dL (5-40)
[2023-08-29 10:56] LABS: Vitamin D,25 Hydroxy 54.4 ng/mL
== END | disposition home or self-care (01) ==
PROVIDERS: PCP Family Medicine; Referring Provider Family Medicine; Visit Provider Family Medicine
DX: R79.89 Other specified abnormal findings of blood chemistry (principal); E78.00 Pure hypercholesterolemia, unspecified; E83.51 Hypocalcemia
CPT/HCPCS: 36415; 80048; 80061; 82306

== ENCOUNTER → 2023-10-31 | Outpatient (CLI) | payer OTHER, SELFPAY ==
--- OUTSIDE RECORDS SUMMARY | 2023-10-31 13:06 | XMS RPT_ITS | CCD ---
Author Name Unknown Address [address] [place] [address] Organization [facility] Care Team Providers Care Shade Classifier Name Role Phone Richard Richards MD Primary Care Provider DARRELL BAI Referring Unavailable RICHARD RICHARDS Primary Care DARRELL Deng Referring Unavailable RICHARD RICHARDS Primary Care UnavailRICHARD Callahan Primary Care UnavailDARRELL Wiley Referring Unavailable Richard Richards MD Primary Care Provider DARRELL BAI Attending Unavailable RICHARD RICHARDS Primary Care UnavailDARRELL Wiley Referring Unavailable RICHARD RICHARDS Primary Care UnavailDARRELL Wiley Attending Unavailable RICHARD RICHARDS Primary Care Richard Delacruz Primary Care Provider [phone] RICHARD RICAHRDS Primary Care Unavailable WILBER ZAMBRANO Referring Unavailable WILBER ZAMBRANO Attending Unavailable RICHARD RICHARDS Primary Care Unavailable WILBER ZAMBRANO Attending Unavailable Allergies Allergy Classification Reported Allergen(s) Allergy Type Date of Onset Reaction(s) Facility (11 sources) Chlorhexidine; Translations: [CHLORHEXIDINE] Drug Allergy 12-06-2018 [facility] Work Phone: Medications Current Medications Medication Drug Class(es) Dates Sig (Normalized) Sig (Original) bifidobacterium infantis 10.5 mg chewable tablet (3 sources) Probiotic Produc t (Align) chewable tablet Chew. 0 Active calcitriol 0.0005 mg oral capsule (9 sources) Vitamin D3 Analog take 1 capsule by mouth in the morning calcitriol (Rocaltrol) 0.5 MCG capsule Take 0.5 mcg by mouth in the morning. 0 Active Completed/Discontinued Medications Medication Drug Class(es) Dates Sig (Normalized) Sig (Original) ascorbic acid/zinc (ZINC WITH VITAMIN C ORAL) (6 sources) ascorbic acid/zi nc (ZINC WITH VITAMIN C ORAL) Take by mouth. 0 Active Problems Active Problems Problem Classification Problem Date Documented Date Episodic/Chronic Cancer of thyroid (7 sources) Papillary thyroid carcinoma; Translations: [Malignant neoplasm of thyroid gland] Onset: 05-18-2016 05-18-2016 Chronic Complications of surgical procedures or medical care (11 sources) Postoperative hypothyroidism; Translations: [Postprocedural hypothyroidism] Onset: 11-11-2011 05-18-2016 Chronic Disorders of lipid metabolism (9 sources) Mixed hyperlipidemia; Translations: [Mixed hyperlipidemia] Onset: 10-09-2019 04-08-2020 Chronic Nonmalignant breast conditions (9 sources) Fibrocystic changes of bilateral breasts; Translations: [Diffuse cystic mastopathy of right breast] Onset: 09-06-2017 04-08-2020 Chronic Nutritional deficiencies (6 sources) Vitamin D deficiency; Translations: [Vitamin D deficiency, unspecified] Onset: 03-25-2017 03-25-2017 Chronic Other nutritional; endocrine; and metabolic disorders (9 sources) Body mass index 30+ - obesity; Translations: [Body mass index (BMI) 31.0-31.9, adult] Onset: 09-11-2018 04-08-2020 Chronic Other upper respiratory disease (6 sources) Seasonal allergy; Translations: [Other seasonal allergic rhinitis] Onset: 11-30-2018 11-30-2018 Chronic Other upper respiratory disease (6 sources) Allergic rhinitis; Translations: [Allergic rhinitis, unspecified] Onset: 04-08-2020 04-08-2020 Chronic Residual codes; unclassified (1 source) Flushing; Translations: [Flushing] Episodic Spondylosis; intervertebral disc disorders; other back problems (6 sources) Cervical spondylosis; Translations: [Spondylosis without myelopathy or radiculopathy, cervical region] Onset: 04-16-2020 04-16-2020 Chronic Past or Other Problems Problem Classification Problem Date Documented Da te Episodic/Chronic Nonmalignant breast conditions (18 sources) Breast lump; Translations: [Unspecified lump in the right breast, upper outer quadrant] Onset: 09-29-2015 04-08-2020 Episodic Other non-traumatic joint disorders (5 sources) Shoulder pain; Translations: [Pain in right shoulder] Onset: 04-16-2020 04-16-2020 Episodic Other non-traumatic joint disorders (1 source) Pain in right shoulder; Translations: [Pain in joint, shoulder region] Onset: 04-16-2020 04-16-2020 Episodic Residual codes; unclassified (9 sources) Family history of malignant neoplasm of breast in first degree relative; Translations: [Family history of malignant neoplasm of breast] Onset: 09-06-2017 04-08-2020 Episodic Residual codes; unclassified (2 sources) Flushing; Translations: [Flushing] Onset: 12-14-2022 Episodic Sprains and strains (6 sources) Strain of rotator cuff of shoulder; Translations: [Strain of muscle(s) and tendon(s) of the rotator cuff of unspecified shoulder, initial encounter] Onset: 04-16-2020 04-16-2020 Episodic Results Test Name Value Interpretation Reference Range Facil ity Encounters Encounter Date Encounter Type Care Provider Facility Start: 08-30-2023 Telephone encounter Wilber hillman MD Work Phone: [facility] Procedures Date Procedure Procedure Detail Performing Clinician Start: 08-15-2023 Thyrotropin [Units/v olume] in Serum or Plasma Wilber Zambrano MD Work Phone: Start: 02-16-2023 Mammography Wilber hillman MD Work Phone: Start: 12-21-2022 Thyrotropin [Units/v olume] in Serum or Plasma Wilber Zambrano MD Work Phone: Start: 01-11-2022 Mammography Wilber hillman MD Work Phone: Start: 10-18-2018 Mammography Darrell zhou MD Work Phone: Start: 09-11-2018 Lipid 1996 panel - S [place] or Plasma Darrell Bai MD Work Phone: Plan of Treatment Date Care Activity Detail Author Start: 11-05-2030 DTaP/Tdap/Td Vaccines (3 - Td or Tdap) DTaP/Tdap/Td Vaccines (3 - Td or Tdap) [facility] Start: 11-05-2030 Urine microalbumin profile [facility] Start: 2025 RSV Immunization aged 60 or older (1 - 1-dose 60+ series) RSV Immunization aged 60 or older (1 - 1-dose 60+ series) [facility] Start: 08-15-2024 Thyroid stimulating hormone measurement TSH Level [facility] Start: 02-17-2024 Mammography Mammogram Screening [facility] Start: 02-17-2024 Screening for malignant neoplasm of breast Mammogram [facility] Start: 02-16-2024 End: 05-17-2024 Thyrotropin [Units/volume] in Serum or Plasma TSH BLD Lab Routine Postsurgical hypothyroidism Expected: 02/16/2024 (Approximate), Expires: 05/17/2024 [facility] Work Phone: Immunizations Immunization Date Immunization Notes Care Provider Fa nanette 07-01-2022 influenza virus vacc ine, unspecified formulation Darrell Bai MD Work Phone: [facility] 11-05-2020 tetanus toxoid, redu al diphtheria toxoid, and acellular pertussis vaccine, adsorbed Darrell Bai MD Work Phone: [facility] 09-01-2019 influenza virus vacc ine, unspecified formulation Darrell Bai MD Work Phone: [facility] 07-24-2019 influenza, seasonal, injectable Darrell Bai MD Work Phone: [facility] 08-07-2018 influenza, injectabl e, quadrivalent, contains preservative Darrell Bai MD Work Phone: [facility] 07-07-2018 influenza virus vacc ine, unspecified formulation Darrell Bai MD Work Phone: [facility] 08-10-2017 influenza, injectabl e, quadrivalent, contains preservative Darrell Bai MD Work Phone: [facility] 07-21-2016 influenza, seasonal, injectable Darrell Bai MD Work Phone: [facility] 09-03-2015 influenza, seasonal, injectable Darrell Bai MD Work Phone: [facility] 08-07-2014 influenza, injectabl e, quadrivalent, preservative free Darrell Bai MD Work Phone: [facility] 08-02-2014 influenza virus vacc ine, unspecified formulation Darrell Bai MD Work Phone: [facility] 07-30-2014 tetanus toxoid, redu al diphtheria toxoid, and acellular pertussis vaccine, adsorbed Darrell Bai MD Work Phone: [facility] 08-03-2013 influenza, injectabl e, quadrivalent, preservative free Darrell Bai MD Work Phone: [facility] 07-03-2012 influenza, seasonal, injectable Darrell Bai MD Work Phone: [facility] 08-02-2009 novel Influenza-H1N1 -09, live virus for nasal administration Darrell Bai MD Work Phone: [facility] Payers Date Payer Category Payer Unknown [facility] [employer] [id number] 2020-Present [phone] [address] [place] [address] O [id number] 2020 Unknown [id number] 2020 Unknown [id number] Social History Date Type Detail Facility [facility]: [facility]11-[facility] Work Phone: Start: 11-11-2011 End: 02-16-2023 Tobacco use and exposure Smokeless tobacco non-user [facility] Work Phone: Start: 11-13-2021 End: 02-16-2023 Alcohol intake Current drinker of alcohol (finding) [facility] Start: 11-13-2021 End: 02-16-2023 Alcohol intake [facility] Start: 1965 Sex Assigned At Female C [facility] Start: 1965 Sex Assigned At Not on file S [facility] Start: 11-13-2021 End: 02-16-2023 Tobacco use panel [facility] National Score (1-10 0), lower number is lower risk 61 [facility] Start: 04-23-2020 Gender identity Identifies as female gender (finding) [facility] Start: 04-23-2020 Sexual orientation Heterosexual (fin ding) [facility] Start: 02-16-2023 Tobacco smoking stat [facility] Ex-smoker [facility] History of tobacco use Current smoker [facility] History of tobacco use Cigarette Smoker S [facility] Clinical Notes 01-21-2022 to 09-05-2023 Telephone Encounter - Jonny Parmar MA - 09/05/2023 12:55 PM ESTTelephone Encounter - Jonny Parmar MA - 09/05/2023 12:55 PM ESTTelephone Encounter - Yolie Sanders - 08/30/2023 3:28 PM EST Note Date & Type Note Facility 09-05-2023 Telephone encounter Note Spoke with patient, Patient will contact insurance company and get back with us. [facility] 09-05-2023 Miscellaneous Notes Spoke with patient, Patient will contact insurance company and get back with us. Name of caller: Ewa Hope Contact phone number: [phone] Relationship to Patient: patient Provider: Dr Zambrano Practice: [facility] location Chief Complaint/Reason for Call: 08/30/23 Pt calling to check to see if medication very expensive estradiol (Vivelle-DOT) 0.0375 MG/24HR asking if anything is comparable too but cheaper for her ? pt would like a call back to discuss options Best time of day caller can be reached: PM Patient advised that office/PCP has 24-48 business hours to return their call: Yes documented in this encounter [facility] 08-30-2023 Telephone encounter Note Name of caller: Ewa Hope Contact phone number: [phone] Relationship to Patient: patient Provider: Dr Zambrano Practice: [facility] location Chief Complaint/Reason for Call: 08/30/23 Pt calling to check to see if medication very expensive estradiol (Vivelle-DOT) 0.0375 MG/24HR asking if anything is comparable too but cheaper for her ? pt would like a call back to discuss options Best time of day caller can be reached: PM Patient advised that office/PCP has 24-48 business hours to return their call: Yes [facility] 08-18-2023 Note HNO ID: [id number] Author: Darrell Bai MD Service: ? Author Type: Physician Type: Progress Notes Filed: 08/18/2023 7:08 PM Note Text: Virtual Visit utilizing both audio and video components [employer] I have communicated my name and active licensure. The patient's identity and physical location were verified at the time of this visit. Either the patient or their legal manufacturers representative has been informed of the risks and benefits of -- and alternatives to -- treatment through a remote evaluation and consents to proceed with the evaluation remotely. Patient location: at parents' home in [place], [place] Assessment / Plan Assessment: 1) Surgical hypothyroidism for resolution of Graves disease (she failed 2 rounds of tapazole). Labs are ideal now on 125 mcg levothyroxine daily, I'll keep her on this and have her return in 6 months for followup Unchanged 1) Papillary microcarcinoma, multifocal, <0.1cm max diameter, no need for intervention. TG undetectable with low Ab 2) Vaccine hesitancy, never vaccinated against COVID. Plan: 1) continue on 125 mcg levothyroxine daily. 2) return to [place] 6 [place] with labs before the visit. Darrell Bai MD Data Component Latest Ref Rng AND Units 02/16/2023 07/22/2023 08/15/2023 Free T4 0.9 - 1.7 ng/dL 1.8 (H) 1.6 1.9 (H) TSH 0.270 - 4.200 mIU/L 0.908 5.300 (H) 1.970 History Problem name: hypothyroidism Quality: postsurgical Severity: complete Duration: surgery 12/26/15 Context: 1) Graves disease, s/p failed 2 cycles of tapazole 2) Incidental papillary microcarcinoma, multifocal, largest nodule <0.1cm Modifying factors: levothyroxine 125 mc daily Thyroid CA History Surgery (12/26/15): total thyroidectomy, Dr. Ibarra Pathology (05/18/16): multifocal papillary microcarcinoma in right lobe, 2 foci, <0.1cm max diam, no extrathyroidal extension, one node=neg, Scan (05/18/16): not needed LOMBARDO (05/18/16): not needed Thyroglobulin Component Thyroglobulin TG Antibody Screen Latest Ref Rng AND Units <14.4 IU/mL 10/15/2016 <0.2 (L) 2.1 04/27/2017 <0.2 (L) 1.4 03/23/2019 <0.2 <1.0 ([facility]) Graves Ab Component TSI Latest Ref Rng <150 % Normal 08/11/2011 833 (H) Vitamin D Component Vitamin D 25 Hydroxy Latest Ref Rng 31.0 - 80.0 ng/mL 11/03/2015 24.9 (L) 12/06/18 49 (done at [facility]) ROS PHYSICAL EXAM PAST MED / SURG / FAMILY / SOCIAL HISTORY PAST MEDICAL HISTORY Diagnosis Date Diverticulitis Goiter Graves disease IBS (irritable bowel syndrome) Kidney stones Postsurgical hypothyroidism Seasonal allergies 11/30/2018 Thyroid cancer (HCC) PAST SURGICAL HISTORY Procedure Laterality Date APPENDECTOMY BREAST BIOPSY 2010 benign BREAST BIOPSY INCISIONAL RIGHT 12/01/2018 EXCISION INTERDIGITAL PRIETO NEUROMA SINGLE EACH Right HYSTERECTOMY HX 2003 without bso LITHOTRIPSY ESWL FORTEC 2004 THYROIDECTOMY TOTAL/COMPLETE 12/23/2014 FAMILY HISTORY Problem Relation Age of Onset Breast Cancer Mother Ischemic Heart Disease Father Prostate Cancer Father Asthma Father COPD Father Heart Attack Brother other (Liver disease) Brother Social History Tobacco Use Smoking status: Never Smokeless tobacco: Never Vaping Use Vaping Use: Never used Substance Use Topics Alcohol use: Yes Alcohol/week: 5.0 standard drinks of alcohol Types: 2 Mixed Drinks per week Drug use: No MEDICATIONS AND ALLERGIES Current Outpatient Medications Medication Sig Dispense Refill levothyroxine (SYNTHROID) 125 mcg tablet Take 1 tablet by mouth once daily. 90 tablet 4 calcitriol (ROCALTROL) 0.5 mcg capsule Take 0.5 mcg by mouth once daily. gabapentin (NEURONTIN) 300 mg capsule Take 300 mg by mouth three times daily. ESTRADIOL TRANSDERM. Apply 1 Patch as directed two times a week. Estradiol 0.05mg patch cyanocobalamin, vitamin B-12, (VITAMIN B12 ORAL) Take 5,000 mcg by mouth twice daily. ascorbic acid/zinc (ZINC WITH VITAMIN C ORAL) Take by mouth. aspirin, enteric coated (ASPIRIN, ENTERIC COATED) 81 mg EC tablet Take 81 mg by mouth once daily. Potassium 99 mg tab Take by mouth. EPINEPHrine (EPIPEN) 0.3 mg/0.3 mL auto-injector ADMINISTER 1 PEN INJECTOR INTRAMUSCULARLY SINGLE DOSE NEEDED escitalopram oxalate (LEXAPRO) 10 mg tablet Take 10 mg by mouth once daily. glucosamine HCl/chondroitin pierce (GLUCOSAMINE-CHONDROITIN ORAL) 1,000 mg. mv,Ca,min-folic acid-vit K1 (ONE-A-DAY WOMEN'S 50 PLUS) 400-20 mcg tab Gummies BIOTIN ORAL Take 5,000 mcg by mouth. L.acid/B.bifidum/B.animal/FOS (PROBIOTIC COMPLEX ORAL) Take by mouth. Align gummies Cholecalciferol, Vitamin D3, 25 mcg (1,000 unit) cap Take 1 capsule by mouth once daily. Olopatadine 0.6 % spry Use 1 [place] in each nostril once daily. (Patient not taking: Reported on 11/13/2021 ) Carbinoxamine Maleate (PALGIC) 4 mg ORAL Tab Take 1 tablet by mouth once daily. 0 COMPOUNDED PRESCRIPTION Allergy injections ever 2-3 weeks (P (more content not included)... [facility] 08-18-2023 Instructions Darrell Bai MD - 08/18/2023 7:08 PM EST Assessment / Plan Assessment: 1) Surgical hypothyroidism for resolution of Graves disease (she failed 2 rounds of tapazole). Labs are ideal now on 125 mcg levothyroxine daily, I'll keep her on this and have her return in 6 months for followup Unchanged 1) Papillary microcarcinoma, multifocal, <0.1cm max diameter, no need for intervention. TG undetectable with low Ab 2) Vaccine hesitancy, never vaccinated against COVID. Plan: 1) continue on 125 mcg levothyroxine daily. 2) return to [place] 6 [place] with labs before the visit. Darrell Bai MD Data Component Latest Ref Rng & Units 02/16/2023 07/22/2023 08/15/2023 Free T4 0.9 - 1.7 ng/dL 1.8 (H) 1.6 1.9 (H) TSH 0.270 - 4.200 mIU/L 0.908 5.300 (H) 1.970 documented in this encounter [facility] 08-18-2023 History of Presen t illness Narrative Virtual Visit utilizing both audio and video components [employer] I have communicated my name and active licensure. The patient's identity and physical location were verified at the time of this visit. Either the patient or their legal manufacturers representative has been informed of the risks and benefits of -- and alternatives to -- treatment through a remote evaluation and consents to proceed with the evaluation remotely. Patient location: at parents' home in [place], [place] Assessment / Plan Assessment: 1) Surgical hypothyroidism for resolution of Graves disease (she failed 2 rounds of tapazole). Labs are ideal now on 125 mcg levothyroxine daily, I'll keep her on this and have her return in 6 months for followup Unchanged 1) Papillary microcarcinoma, multifocal, <0.1cm max diameter, no need for intervention. TG undetectable with low Ab 2) Vaccine hesitancy, never vaccinated against COVID. Plan: 1) continue on 125 mcg levothyroxine daily. 2) return to [place] 6 months with labs before the visit. Darrell Bai MD Data Component Latest Ref Rng & Units 02/16/2023 07/22/2023 08/15/2023 Free T4 0.9 - 1.7 ng/dL 1.8 (H) 1.6 1.9 (H) TSH 0.270 - 4.200 mIU/L 0.908 5.300 (H) 1.970 History Problem name: hypothyroidism Quality: postsurgical Severity: complete Duration: surgery 12/26/15 Context: 1) Graves disease, s/p failed 2 cycles of tapazole 2) Incidental papillary microcarcinoma, multifocal, largest nodule <0.1cm Modifying factors: levothyroxine 125 mc daily Thyroid CA History Surgery (12/26/15): total thyroidectomy, Dr. Ibarra Pathology (05/18/16): multifocal papillary microcarcinoma in right lobe, 2 foci, <0.1cm max diam, no extrathyroidal extension, one node=neg, Scan (05/18/16): not needed LOMBARDO (05/18/16): not needed Thyroglobulin Component Thyroglobulin TG Antibody Screen Latest Ref Rng & Units <14.4 IU/mL 10/15/2016 <0.2 (L) 2.1 04/27/2017 <0.2 (L) 1.4 03/23/2019 <0.2 <1.0 ([facility]) Graves Ab Component TSI Latest Ref Rng <150 % Normal 08/11/2011 833 (H) Vitamin D Component Vitamin D 25 Hydroxy Latest Ref Rng 31.0 - 80.0 ng/mL 11/03/2015 24.9 (L) 12/06/18 49 (done at [facility]) ROS PHYSICAL EXAM PAST MED / SURG / FAMILY / SOCIAL HISTORY PAST MEDICAL HISTORY Diagnosis Date Diverticulitis Goiter Graves disease IBS (irritable bowel syndrome) Kidney stones Postsurgical hypothyroidism Seasonal allergies 11/30/2018 Thyroid cancer (HCC) PAST SURGICAL HISTORY Procedure Laterality Date APPENDECTOMY BREAST BIOPSY 2010 benign BREAST BIOPSY INCISIONAL RIGHT 12/01/2018 EXCISION INTERDIGITAL PRIETO NEUROMA SINGLE EACH Right HYSTERECTOMY HX 2003 without bso LITHOTRIPSY ESWL FORTEC 2004 THYROIDECTOMY TOTAL/COMPLETE 12/23/2014 FAMILY HISTORY Problem Relation Age of Onset Breast Cancer Mother Ischemic Heart Disease Father Prostate Cancer Father Asthma Father COPD Father Heart Attack Brother other (Liver disease) Brother Social History Tobacco Use Smoking status: Never Smokeless tobacco: Never Vaping Use Vaping Use: Never used Substance Use Topics Alcohol use: Yes Alcohol/week: 5.0 standard drinks of alcohol Types: 2 Mixed Drinks per week Drug use: No MEDICATIONS & ALLERGIES Current Outpatient Medications Medication Sig Dispense Refill levothyroxine (SYNTHROID) 125 mcg tablet Take 1 tablet by mouth once daily. 90 tablet 4 calcitriol (ROCALTROL) 0.5 mcg capsule Take 0.5 mcg by mouth once daily. gabapentin (NEURONTIN) 300 mg capsule Take 300 mg by mouth three times daily. ESTRADIOL TRANSDERM. Apply 1 Patch as directed two times a week. Estradiol 0.05mg patch cyanocobalamin, vitamin B-12, (VITAMIN B12 ORAL) Take 5,000 mcg by mouth twice daily. ascorbic acid/zinc (ZINC WITH VITAMIN C ORAL) Take by mouth. aspirin, enteric coated (ASPIRIN, ENTERIC COATED) 81 mg EC tablet Take 81 mg by mouth once daily. Potassium 99 mg tab Take by mouth. EPINEPHrine (EPIPEN) 0.3 mg/0.3 mL auto-injector ADMINISTER 1 PEN INJECTOR INTRAMUSCULARLY SINGLE DOSE NEEDED escitalopram oxalate (LEXAPRO) 10 mg tablet Take 10 mg by mouth once daily. glucosamine HCl/chondroitin pierce (GLUCOSAMINE-CHONDROITIN ORAL) 1,000 mg. mv,Ca,min-folic acid-vit K1 (ONE-A-DAY WOMEN'S 50 PLUS) 400-20 mcg tab Gummies BIOTIN ORAL Take 5,000 mcg by mouth. L.acid/B.bifidum/B.animal/FOS (PROBIOTIC COMPLEX ORAL) Take by mouth. Align gummies Cholecalciferol, Vitamin D3, 25 mcg (1,000 unit) cap Take 1 capsule by mouth once daily. Olopatadine 0.6 % spry Use 1 [place] in each nostril once daily. (Patient not taking: Reported on 11/13/2021 ) Carbinoxamine Maleate (PALGIC) 4 mg ORAL Tab Take 1 tablet by mouth once daily. 0 COMPOUNDED PRESCRIPTION Allergy injections ever 2-3 weeks (Patient not taking: Reported on 11/13/2021 ) 0 No current facility-administered medications for this visit. ALLERGIES Allergen Reactions Chlorhexidine Rash documented in this encounter [facility] 01-24-2023 Telephone encounter Note 01/24/23 Pt requesting Estradiol 0.0375 mg patch Last visit 12/14/22 Next visit [facility] 01-24-2023 Miscellaneous Notes 01/24/23 Pt requesting Estradiol 0.0375 mg patch Last visit 12/14/22 Next visit documented in this encounter [facility] 01-24-2023 Telephone encounter Note Name of caller: Ewa Contact phone number: [phone] Relationship to Patient: patient Provider: Bryce Practice: [facility] Oralia Guzman Chief Complaint/Reason for Call: Patient reported that her estradiol (Vivelle-DOT) 0.025 MG/24HR is not working to control her hot flashes. Patient requesting to go back to the marco a dose - estradiol (Vivelle-DOT) 0.0375 MG/24HR. Please advise. Best time of day caller can be reached: Any Patient advised that office/PCP has 24-48 business hours to return their call: No [facility] 01-24-2023 Miscellaneous Notes Name of caller: Ewa Contact phone number: [phone] Relationship to Patient: patient Provider: [place] Practice: [facility] Megan Chief Complaint/Reason for Call: Patient reported that her estradiol (Vivelle-DOT) 0.025 MG/24HR is not working to control her hot flashes. Patient requesting to go back to the [facility] a dose - estradiol (Vivelle-DOT) 0.0375 MG/24HR. Please advise. Best time of day caller can be reached: Any Patient advised that office/PCP has 24-48 business hours to return their call: No documented in this encounter [facility] 12-20-2022 Note HNO ID: [id number] Author: Darrell Bai MD Service: ? Author Type: Physician Type: Progress Notes Filed: 12/20/2022 4:40 PM Note Text: Virtual Visit utilizing both audio and video components [employer] I have communicated my name and active licensure. The patient's identity and physical location were verified at the time of this visit. Either the patient or their legal manufacturers representative has been informed of the risks and benefits of -- and alternatives to -- treatment through a remote evaluation and consents to proceed with the evaluation remotely. Patient location: at parents' home in [place], [place] Assessment / Plan Assessment: 1) Surgical hypothyroidism for resolution of Graves disease (she failed 2 rounds of tapazole). No labs prior to this visit, will order these now and send comment. Followup in a year. 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 TG undetectable with low Ab 2) Vaccine hesitancy, never vaccinated against COVID. Plan: 1) continue on 6 AND 1/2 per week of levothyroxine 137 mcg, thus 1/2 pill on Tuesday, whole pill daily the rest of the week. 2) return to [place] 1 [place], with labs before the visit, by virtual visit Darrell Bai MD Data Review History Problem name: hypothyroidism Quality: postsurgical Severity: complete Duration: surgery 12/26/15 Context: 1) Graves disease, s/p failed 2 cycles of tapazole 2) Incidental papillary microcarcinoma, multifocal, largest nodule <0.1cm Modifying factors: levothyroxine 137 mcg x 6.5/wk Thyroid CA History Surgery (12/26/15): total thyroidectomy, Dr. Ibarra Pathology (05/18/16): multifocal papillary microcarcinoma in right lobe, 2 foci, <0.1cm max diam, no extrathyroidal extension, one node=neg, Scan (05/18/16): not needed LOMBARDO (05/18/16): not needed Thyroglobulin Component Thyroglobulin TG Antibody Screen Latest Ref Rng AND Units <14.4 IU/mL 10/15/2016 <0.2 (L) 2.1 04/27/2017 <0.2 (L) 1.4 03/23/2019 <0.2 <1.0 ([facility]) Graves Ab Component TSI Latest Ref Rng <150 % Normal 08/11/2011 833 (H) Vitamin D Component Vitamin D 25 Hydroxy Latest Ref Rng 31.0 - 80.0 ng/mL 11/03/2015 24.9 (L) 12/06/18 49 (done at [facility]) ROS PHYSICAL EXAM PAST MED / SURG / FAMILY / SOCIAL HISTORY PAST MEDICAL HISTORY Diagnosis Date Diverticulitis Goiter Graves disease IBS (irritable bowel syndrome) Kidney stones Postsurgical hypothyroidism Seasonal allergies 11/30/2018 Thyroid cancer (HCC) PAST SURGICAL HISTORY Procedure Laterality Date APPENDECTOMY BREAST BIOPSY 2010 benign BREAST BIOPSY INCISIONAL RIGHT 12/01/2018 EXCISION INTERDIGITAL PRIETO NEUROMA SINGLE EACH Right HYSTERECTOMY HX 2003 without bso LITHOTRIPSY ESWL FORTEC 2003 THYROIDECTOMY TOTAL/COMPLETE 12/23/2014 FAMILY HISTORY Problem Relation Age of Onset Breast Cancer Mother Ischemic Heart Disease Father Prostate Cancer Father Asthma Father COPD Father Heart Attack Brother other (Liver disease) Brother Social History Tobacco Use Smoking status: Never Smokeless tobacco: Never Vaping Use Vaping Use: Never used Substance Use Topics Alcohol use: Yes Alcohol/week: 5.0 standard drinks Types: 2 Mixed Drinks per week Drug use: No MEDICATIONS AND ALLERGIES Current Outpatient Medications Medication Sig Dispense Refill levothyroxine (SYNTHROID) 137 mcg tablet TAKE ONE TABLET BY MOUTH ONCE A DAY, BUT ONLY HALF TABLET ON TUESDAY (6 AND 1/2 PER WEEK) 90 tablet 3 calcitriol (ROCALTROL) 0.5 mcg capsule Take 0.5 mcg by mouth once daily. gabapentin (NEURONTIN) 300 mg capsule Take 300 mg by mouth three times daily. ESTRADIOL TRANSDERM. Apply 1 Patch as directed two times a week. Estradiol 0.05mg patch cyanocobalamin, vitamin B-12, (VITAMIN B12 ORAL) Take 5,000 mcg by mouth twice daily. ascorbic acid/zinc (ZINC WITH VITAMIN C ORAL) Take by mouth. aspirin, enteric coated (ASPIRIN, ENTERIC COATED) 81 mg EC tablet Take 81 mg by mouth once daily. Potassium 99 mg tab Take by mouth. EPINEPHrine (EPIPEN) 0.3 mg/0.3 mL auto-injector ADMINISTER 1 PEN INJECTOR INTRAMUSCULARLY SINGLE DOSE NEEDED escitalopram oxalate (LEXAPRO) 10 mg tablet Take 10 mg by mouth once daily. glucosamine HCl/chondroitin pierce (GLUCOSAMINE-CHONDROITIN ORAL) 1,000 mg. mv,Ca,min-folic acid-vit K1 (ONE-A-DAY WOMEN'S 50 PLUS) 400-20 mcg tab Gummies BIOTIN ORAL Take 5,000 mcg by mouth. L.acid/B.bifidum/B.animal/FOS (PROBIOTIC COMPLEX ORAL) Take by mouth. Align gummies Cholecalciferol, Vitamin D3, 25 mcg (1,000 unit) cap Take 1 capsule by mouth once daily. Olopatadine 0.6 % spry Use 1 [place] in each nostril once daily. (Patient not taking: Reported on 11/13/2021 ) Carbinoxamine Maleate (PALGIC) 4 mg ORAL Tab Take 1 tablet by mouth once daily. 0 COMPOUNDED PRESCRIPTION Allergy injections ever 2-3 weeks (Patient not taking: Reported on 11/13/2021 ) (more content not included)... [facility] 02-15-2022 Instructions Darrell Bai MD - 02/15/2022 4:01 PM EDT Assessment / Plan Assessment: 1) Surgical hypothyroidism for resolution of Graves disease (she failed 2 rounds of tapazole). TSH again ideal, I will have her continue on present dose of 6.5/wk x 137 mcg levothyroxine. 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 TG undetectable with low Ab 3) Vaccine hesitancy, never vaccinated against COVID. Plan: 1) continue on 6 & 1/2 per week of levothyroxine 137 mcg, thus 1/2 pill on Tuesday, whole pill daily the rest of the week. 2) return to [place] in 1 [place], with labs before the visit, by virtual visit Darrell Bai MD Data Review Component Latest Ref Rng & Units 01/28/2022 TSH 0.270 - 4.200 mIU/L 0.393 Free T4 0.9 - 1.7 ng/dL 1.7 Thyroglobulin Ab <14.4 IU/mL <1.0 Thyroglobulin 1.6 - 59.9 ng/mL <0.2 (L) documented in this encounter [facility] 02-15-2022 History of Presen t illness Narrative This Team Access Model visit is a phone encounter. It required patient-provider interaction for the medical decision making as documented below. The patient consented to a telephone visit. Duration 15 min Assessment / Plan Assessment: 1) Surgical hypothyroidism for resolution of Graves disease (she failed 2 rounds of tapazole). TSH again ideal, I will have her continue on present dose of 6.5/wk x 137 mcg levothyroxine. 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 TG undetectable with low Ab 3) Vaccine hesitancy, never vaccinated against COVID. Plan: 1) continue on 6 & 1/2 per week of levothyroxine 137 mcg, thus 1/2 pill on Tuesday, whole pill daily the rest of the week. 2) return to me in 1 year, with labs before the visit, by virtual visit Darrell Bai MD Data Review Component Latest Ref Rng & Units 01/28/2022 TSH 0.270 - 4.200 mIU/L 0.393 Free T4 0.9 - 1.7 ng/dL 1.7 Thyroglobulin Ab <14.4 IU/mL <1.0 Thyroglobulin 1.6 - 59.9 ng/mL <0.2 (L) History Problem name: hypothyroidism Quality: postsurgical Severity: complete Duration: surgery 12/26/15 Context: 1) Graves disease, s/p failed 2 cycles of tapazole 2) Incidental papillary microcarcinoma, multifocal, largest nodule <0.1cm Modifying factors: levothyroxine 137 mcg x 6.5/wk Thyroid CA History Surgery (12/26/15): total thyroidectomy, Dr. Ibarra Pathology (05/18/16): multifocal papillary microcarcinoma in right lobe, 2 foci, <0.1cm max diam, no extrathyroidal extension, one node=neg, Scan (05/18/16): not needed LOMBARDO (05/18/16): not needed Thyroglobulin Component Thyroglobulin TG Antibody Screen Latest Ref Rng & Units <14.4 IU/mL 10/15/2016 <0.2 (L) 2.1 04/27/2017 <0.2 (L) 1.4 03/23/2019 <0.2 <1.0 ([facility]) Graves Ab Component TSI Latest Ref Rng <150 % Normal 08/11/2011 833 (H) Vitamin D Component Vitamin D 25 Hydroxy Latest Ref Rng 31.0 - 80.0 ng/mL 11/03/2015 24.9 (L) 12/06/18 49 (done at [facility]) ROS PHYSICAL EXAM PAST MED / SURG / FAMILY / SOCIAL HISTORY PAST MEDICAL HISTORY Diagnosis Date Diverticulitis Goiter Graves disease IBS (irritable bowel syndrome) Kidney stones Postsurgical hypothyroidism Seasonal allergies 11/30/2018 Thyroid cancer (HCC) PAST SURGICAL HISTORY Procedure Laterality Date APPENDECTOMY BREAST BIOPSY 2010 benign BREAST BIOPSY INCISIONAL RIGHT 12/01/2018 EXCISION INTERDIGITAL PRIETO NEUROMA SINGLE EACH Right HYSTERECTOMY HX 2003 without bso LITHOTRIPSY ESWL FORTEC 2003 THYROIDECTOMY TOTAL/COMPLETE 12/23/2014 FAMILY HISTORY Problem Relation Age of Onset Breast Cancer Mother Ischemic Heart Disease Father Prostate Cancer Father Asthma Father COPD Father Heart Attack Brother other (Liver disease) Brother Social History Tobacco Use Smoking status: Never Smoker Smokeless tobacco: Never Used Vaping Use Vaping Use: Never used Substance Use Topics Alcohol use: Yes Alcohol/week: 5.0 standard drinks Types: 2 Mixed Drinks per week Drug use: No MEDICATIONS & ALLERGIES Current Outpatient Medications Medication Sig Dispense Refill levothyroxine (SYNTHROID) 137 mcg tablet take one a day, but only half pill on Tuesday (6 & 1/2 per week) 30 tablet 0 calcitriol (ROCALTROL) 0.5 mcg capsule Take 0.5 mcg by mouth once daily. gabapentin (NEURONTIN) 300 mg capsule Take 300 mg by mouth three times daily. ESTRADIOL TRANSDERM. Apply 1 Patch as directed two times a week. Estradiol 0.05mg patch cyanocobalamin, vitamin B-12, (VITAMIN B12 ORAL) Take 5,000 mcg by mouth twice daily. ascorbic acid/zinc (ZINC WITH VITAMIN C ORAL) Take by mouth. aspirin, enteric coated (ASPIRIN, ENTERIC COATED) 81 mg EC tablet Take 81 mg by mouth once daily. Potassium 99 mg tab Take by mouth. EPINEPHrine (EPIPEN) 0.3 mg/0.3 mL auto-injector ADMINISTER 1 PEN INJECTOR INTRAMUSCULARLY SINGLE DOSE NEEDED escitalopram oxalate (LEXAPRO) 10 mg tablet Take 10 mg by mouth once daily. glucosamine HCl/chondroitin pierce (GLUCOSAMINE-CHONDROITIN ORAL) 1,000 mg. mv,Ca,min-folic acid-vit K1 (ONE-A-DAY WOMEN'S 50 PLUS) 400-20 mcg tab Gummies BIOTIN ORAL Take 5,000 mcg by mouth. L.acid/B.bifidum/B.animal/FOS (PROBIOTIC COMPLEX ORAL) Take by mouth. Align gummies Cholecalciferol, Vitamin D3, 25 mcg (1,000 unit) cap Take 1 capsule by mouth once daily. Olopatadine 0.6 % spry Use 1 [place] in each nostril once daily. (Patient not taking: Reported on 11/13/2021 ) Carbinoxamine Maleate (PALGIC) 4 mg ORAL Tab Take 1 tablet by mouth once daily. 0 COMPOUNDED PRESCRIPTION Allergy injections ever 2-3 weeks (Patient not taking: Reported on 11/13/2021 ) 0 No current facility-administered medications for this visit. ALLERGIES Allergen Reactions Chlorhexidine Rash documented in this encounter [facility] 01-25-2022 Miscellaneous Notes Patient scheduled for first VV available 02/[address] Bai. Patient requesting lab work be ordered for her to complete prior to visit and for her levothyroxine to be refilled because she just took her last one today. Callback: [phone] Thank you documented in this encounter [facility] 01-21-2022 Miscellaneous Notes Patient has been identified by name and date of : Yes RX INSTRUCTIONS: Patient aware RX will be sent to pharmacy. No need to notify patient. Pharmacy verified:Yes [facility]- [id number] [place] [address] - [address] [phone] [facility] [place] [address] documented in this encounter [facility] documented [facility] Diagnosis Postsurgical hypothyroidism- Primary [facility] Diagnosis Hot [facility]- [facility] Diagnosis Postsurgical hypothyroidism- Primary documented in this encounter [facility] Summary Purpose Family History No Family History Records FoundNo Family History Records FoundNo Family History Records FoundNo Family History Records FoundNo Family History Records Found Advance Directives No Advanced Directives Records FoundDocuments on File Type Date Recorded Patient Commission Associate Expl anation Advance Directive(s) 11/05/2020 7:33 PM Advance Directive(s) 12/01/2018 8:14 AM Advance Directive(s) 09/19/2018 2:14 PM Additional Source Comments INFORMATION SOURCE (unrecogn ized section and content) DATE CREATED AUTHOR AUTHOR'S ORGANIZ ATION 01/12/2022 [facility] DATE CREATED AUTHOR AUTHOR'S ORGANIZ ATION 08/16/2023 [facility] DATE CREATED AUTHOR AUTHOR'S ORGANIZ ATION 08/21/2023 [facility] DATE CREATED AUTHOR AUTHOR'S ORGANIZ ATION 09/07/2023 [facility] Source Comments (unrecognize d section and content) In the event this informatio n is protected by the Federal Confidentiality of Alcohol and Drug Abuse Patient Records regulations: The Federal rules restrict any use of the information to criminally investigate or prosecute any alcohol or drug abuse patient.[facility] the event this information is protected by the Federal Confidentiality of Alcohol and Drug Abuse Patient Records regulations: The Federal rules restrict any use of the information to criminally investigate or prosecute any alcohol or drug abuse patient.[facility] the event this information is protected by the Federal Confidentiality of Alcohol and Drug Abuse Patient Records regulations: The Federal rules restrict any use of the information to criminally investigate or prosecute any alcohol or drug abuse patient.[facility] the event this information is protected by the Federal Confidentiality of Alcohol and Drug Abuse Patient Records regulations: The Federal rules restrict any use of the information to criminally investigate or prosecute any alcohol or drug abuse patient.[facility] the event this information is protected by the Federal Confidentiality of Alcohol and Drug Abuse Patient Records regulations: The Federal rules restrict any use of the information to criminally investigate or prosecute any alcohol or drug abuse patient.[facility] the event this information is protected by the Federal Confidentiality of Alcohol and Drug Abuse Patient Records regulations: The Federal rules restrict any use of the information to criminally investigate or prosecute any alcohol or drug abuse patient.[facility] Reason for Visit (unrecogniz ed section and content) Reason Comments thyroid Reason Comments Med Refill Reason Onset Date Comments Medication Problem 01/24/2023 Reason Comments Thyroid Problem Reason Onset Date Comments Medication Problem 08/30/2023 08/30/23 Pt c alling to check to see if medication very expensive estradiol (Vivelle-DOT) 0.0375 MG/24HR asking if anything is comparable too but cheaper for her ? pt would like a call back to discuss options Care Teams (unrecognized sec tion and content) Shade Classifier Relationship Specialty Start Date End Date Richard Richards MD [address] [place] [address] PCP - General Family Practice 04/15/20 Shade Classifier Relationship Specialty Start Date End Date Richard Richards MD [address] [place] [address] PCP - General Family Practice 04/15/20 Shade Classifier Relationship Specialty Start Date End Date Richard Richards MD [address] [place] [address] PCP - General Family Medicine 04/15/20 Shade Classifier Relationship Specialty Start Date End Date Richard Richards [address] [facility] [address] [place] [address] PCP - General 10/09/19 Shade Classifier Relationship Specialty Start Date End Date Richard Richards [address] [facility] [address] [place] [address] PCP - General 10/09/19 Shade Classifier Relationship Specialty Start Date End Date Richard Richards MD [address] [place] [address] PCP - General Family Medicine 04/15/20 Shade Classifier Relationship Specialty Start Date End Date Richard Richards [address] [place] [address] PCP - General 10/09/19 FOR RECORDS PERTAINING TO PATIENTS WHO ARE OR HAVE BEEN ENROLLED IN A CHEMICAL DEPENDENCY/SUBSTANCEABUSE PROGRAM, SOME INFORMATION MAY BE OMITTED. This clinical summary was aggregated from multiple sources. Caution should be exercised in using it in the provision of clinical care. This summary normalizes information from multiple sources, and as a consequence, information in this document may materially change the coding, format and clinical context of patient data. In addition, data may be omitted in some cases. CLINICAL DECISIONS SHOULD BE BASED ON THE PRIMARY CLINICAL RECORDS. [facility] [employer] [facility]. provides no warranty or guarantee of the accuracy or completeness of information in this document.
[2023-10-31 15:04] LABS: Absolute Lymphocyte Count 1.75 X10^3/uL (0.83-4.51); Absolute Neutrophil Count 2.1 X10^3/uL (2.0-7.7); Basophil# 0.06 X10^3/uL; Basophil% 1.3 % (0-1); Eosinophil# 0.45 X10^3/uL; Eosinophils% 9.6 % (0-5); Hematocrit 37.4 % (37-47); Hemoglobin 12.8 g/dL (12.0-15.0); Lymphocyte # 1.75 X10^3/ul (0.83-4.51); Lymphocyte % 37.5 % (19-41); Mean Corp Hgb Conc 34.2 g/dL (32-36); Mean Corpuscular Volume 81.8 fL (81-99); Mean Platelet Vol. 10.4 fl (6.2-12.0); Monocyte# 0.27 X10^3/uL; Monocyte% 5.8 % (0-10); NRBC Flagged by Analyzer 0 % (0-5); Neutrophil # 2.14 X10^3/uL (2.7-7.7); Neutrophil % 45.8 % (47-70); Platelet Count 324 K/mm3 (150-450); RBC Distribution Width CV 13.5 % (11.6-14.6); RBC Distribution Width SD 39.8 fl (35.1-43.9); Red Blood Count 4.57 M/mm3 (4.2-5.4); White Blood Count 4.7 K/mm3 (4.4-11.0)
[2023-10-31 15:20] LABS: ALB/GLOB Ratio 1.5 RATIO (0.9-2.4); AST(SGOT) 16 U/L (15-37); Alanine Aminotransfer ALT/SGPT 29 U/L (13-56); Alkaline Phosphatase 70 U/L (45-117); Anion Gap 9 (5-15); BUN 14 mg/dL (7-18); BUN/Creat Ratio 13.7 RATIO (10-20); Calcium,Total 8.9 mg/dL (8.5-10.1); Chloride 106 mmol/L (98-107); Creatinine, Serum 1.02 mg/dL (0.55-1.02); EST Glomerular Filtration Rate 59 mL/min (>60); Est Glom Filt Rate - Afr Amer 71 mL/min (>60); Globulin 2.7 g/dL (2.2-4.2); Glucose 96 mg/dL (74-106); Protein, Total 6.7 g/dL (6.4-8.2); Sodium Level 140 mmol/L (136-145)
== END | disposition home or self-care (01) ==
LOC: MFPLAB 12:44
PROVIDERS: PCP Family Medicine; Visit Provider Family Medicine
DX: R10.9 Unspecified abdominal pain (principal)
CPT/HCPCS: 36415; 80053; 85025

== ENCOUNTER → 2023-11-16 | Outpatient (CLI) | payer OTHER, SELFPAY ==
--- NOTE | 2023-11-16 09:51 | RAD_ITS ---
STUDY: X-RAY - LEFT HAND REASON FOR EXAM: Female, 58 years old. ARTHRITIS TECHNIQUE: 3 view(s) of the hand. COMPARISON: None. FINDINGS: Normal radiocarpal articulation. Normal distal radioulnar joint. Normal visualized carpal bones. Normal carpal articulations Normal carpometacarpal articulation of the thumb. Normal second through fifth carpometacarpal joints. Normal metacarpi. Normal metacarpophalangeal joint of the thumb. Normal interphalangeal joint of the thumb. Normal proximal and distal phalanges of the thumb. Normal metacarpophalangeal joints of the second through fifth fingers. Normal proximal and distal interphalangeal joints of the second through fifth fingers. Normal phalanges of the second through fifth fingers. The soft tissue structures are unremarkable. RAD/Hand Min 3 Views IMPRESSION: Normal x-ray examination of the hand. Electronically Signed: Herberth Gary MD at 14:41 EST ,
--- NOTE | 2023-11-16 09:51 | RAD_ITS ---
STUDY: X-RAY - RIGHT HAND REASON FOR EXAM: Female, 58 years old. ARTHRITIS TECHNIQUE: 3 view(s) of the hand. COMPARISON: None. FINDINGS: Normal radiocarpal articulation. Normal distal radioulnar joint. Normal visualized carpal bones. Normal carpal articulations Normal carpometacarpal articulation of the thumb. Normal second through fifth carpometacarpal joints. Normal metacarpi. Normal metacarpophalangeal joint of the thumb. Normal interphalangeal joint of the thumb. Normal proximal and distal phalanges of the thumb. Normal metacarpophalangeal joints of the second through fifth fingers. Normal proximal and distal interphalangeal joints of the second through fifth fingers. Normal phalanges of the second through fifth fingers. The soft tissue structures are unremarkable. RAD/Hand Min 3 Views IMPRESSION: Normal x-ray examination of the hand. Electronically Signed: Herberth Gary MD at 14:41 EST ,
== END | disposition home or self-care (01) ==
PROVIDERS: PCP Family Medicine; Referring Provider Family Medicine; Visit Provider Family Medicine
DX: M19.041 Primary osteoarthritis, right hand (principal); M19.042 Primary osteoarthritis, left hand
CPT/HCPCS: 73130

== ENCOUNTER → 2024-02-02 | Outpatient (CLI) | payer OTHER, SELFPAY ==
[2024-02-02 12:41] LABS: Cholesterol 276 mg/dL (200); High Density Lipoprotein 55 mg/dL; Triglycerides 146 mg/dL; Very Low Density Lipoprotein 29 mg/dL (5-40)
== END | disposition home or self-care (01) ==
LOC: MFPLAB 09:55
PROVIDERS: PCP Family Medicine; Visit Provider Family Medicine
DX: E78.5 Hyperlipidemia, unspecified (principal)
CPT/HCPCS: 36415; 80061

== ENCOUNTER → 2024-05-07 | Outpatient (CLI) | payer OTHER, SELFPAY ==
[2024-05-07 12:27] LABS: ALB/GLOB Ratio 1.2 RATIO (0.9-2.4); AST(SGOT) 19 U/L (15-37); Alanine Aminotransfer ALT/SGPT 26 U/L (13-56); Albumin, Serum 3.8 g/dL (3.2-5.0); Alkaline Phosphatase 68 U/L (45-117); Anion Gap 7 (5-15); BUN 15 mg/dL (7-18); BUN/Creat Ratio 14.3 RATIO (10-20); Calcium,Total 8.8 mg/dL (8.5-10.1); Chloride 106 mmol/L (98-107); Cholesterol 183 mg/dL (200); Creatinine, Serum 1.05 mg/dL (0.55-1.02); EST Glomerular Filtration Rate 57 mL/min (>60); Est Glom Filt Rate - Afr Amer 69 mL/min (>60); Globulin 3.1 g/dL (2.2-4.2); Glucose 99 mg/dL (74-106); High Density Lipoprotein 54 mg/dL; Protein, Total 6.9 g/dL (6.4-8.2); Sodium Level 139 mmol/L (136-145); Triglycerides 128 mg/dL; Very Low Density Lipoprotein 26 mg/dL (5-40)
== END | disposition home or self-care (01) ==
LOC: MTLAB 09:24
PROVIDERS: PCP Family Medicine; Referring Provider Family Medicine; Visit Provider Family Medicine
DX: E78.5 Hyperlipidemia, unspecified (principal)
CPT/HCPCS: 36415; 80053; 80061

== ENCOUNTER → 2024-11-06 | Outpatient (CLI) | payer OTHER, SELFPAY ==
[2024-11-06 13:21] LABS: Ferritin 4 ng/mL (8-252); Iron 22 ug/dL (50-170); Iron Binding Capacity,Total 368 ug/dL (250-450)
[2024-11-06 13:23] LABS: Absolute Lymphocyte Count 1.19 X10^3/uL (0.83-4.51); Absolute Neutrophil Count 1.7 X10^3/uL (2.0-7.7); Basophil# 0.04 X10^3/uL; Basophil% 1.2 % (0-1); Eosinophil# 0.08 X10^3/uL; Eosinophils% 2.5 % (0-5); Hematocrit 28.8 % (37-47); Hemoglobin 8.8 g/dL (12.0-15.0); Lymphocyte # 1.19 X10^3/ul (0.83-4.51); Lymphocyte % 36.8 % (19-41); Mean Corp Hgb Conc 30.6 g/dL (32-36); Mean Corpuscular Hgb 22.4 pg (27.0-32.0); Mean Corpuscular Volume 73.5 fL (81-99); Mean Platelet Vol. 10.7 fl (6.2-12.0); Monocyte# 0.23 X10^3/uL; Monocyte% 7.1 % (0-10); NRBC Flagged by Analyzer 0 % (0-5); Neutrophil # 1.68 X10^3/uL (2.7-7.7); Neutrophil % 52.1 % (47-70); Platelet Count 326 K/mm3 (150-450); RBC Distribution Width CV 15.2 % (11.6-14.6); RBC Distribution Width SD 39.8 fl (35.1-43.9); Red Blood Count 3.92 M/mm3 (4.2-5.4); White Blood Count 3.2 K/mm3 (4.4-11.0)
== END | disposition home or self-care (01) ==
LOC: MFPLAB 09:27
PROVIDERS: PCP Family Medicine; Referring Provider Family Medicine; Visit Provider Family Medicine
DX: D64.9 Anemia, unspecified (principal)
CPT/HCPCS: 36415; 82728; 83540; 83550; 85025

== ENCOUNTER → 2024-12-03 | Outpatient (CLI) | payer OTHER, SELFPAY ==
[2024-12-03 10:48] LABS: Absolute Neutrophil Count 1.9 X10^3/uL (2.0-7.7); Basophil# 0.04 X10^3/uL; Basophil% 1.1 % (0-1); Eosinophil# 0.05 X10^3/uL; Eosinophils% 1.4 % (0-5); Hematocrit 23.9 % (37-47); Hemoglobin 7.3 g/dL (12.0-15.0); Lymphocyte % 38.9 % (19-41); Mean Corp Hgb Conc 30.5 g/dL (32-36); Mean Corpuscular Hgb 22.7 pg (27.0-32.0); Mean Corpuscular Volume 74.5 fL (81-99); Mean Platelet Vol. 10.3 fl (6.2-12.0); Monocyte# 0.24 X10^3/uL; Monocyte% 6.7 % (0-10); NRBC Flagged by Analyzer 0 % (0-5); Neutrophil # 1.86 X10^3/uL (2.7-7.7); Neutrophil % 51.6 % (47-70); Platelet Count 333 K/mm3 (150-450); RBC Distribution Width CV 18.3 % (11.6-14.6); RBC Distribution Width SD 49.2 fl (35.1-43.9); RET-HE 24.2 pg (30-35); Red Blood Count 3.21 M/mm3 (4.2-5.4); Reticulocyte Count 2.97 % (0.5-1.5); White Blood Count 3.6 K/mm3 (4.4-11.0)
[2024-12-03 13:38] LABS: Ferritin 60 ng/mL (22-378); Iron 17 ug/dL (50-170); Iron Binding Capacity,Total 356 ug/dL (250-450); Iron Binding Capacity,Unsat 339 ug/dL (228-428)
== END | disposition home or self-care (01) ==
LOC: MFPLAB 09:18
PROVIDERS: PCP Family Medicine; Referring Provider Family Medicine; Visit Provider Family Medicine
DX: D64.9 Anemia, unspecified (principal)
CPT/HCPCS: 36415; 82728; 83540; 83550; 85025; 85045

== ENCOUNTER 2024-12-05 10:58 | Outpatient (CLI) | payer OTHER, SELFPAY ==
[2024-12-05 11:28] VITALS: BP 128/55; PULSE 91; RESP 16; TEMP 36.3; O2SAT 99; BMI 29.9
[2024-12-05] MEDS: Iron Sucrose Complex 200 MG in 0.9% Normal Saline (100mL Bag) 100 ML 220 MG IV (11:53)
[2024-12-05 12:56] VITALS: BP 106/59; PULSE 67; RESP 16; TEMP 36.1; O2SAT 97
== END 2024-12-05 23:59 | disposition home or self-care (01) ==
LOC: MEDOUTP 10:59
PROVIDERS: PCP Family Medicine; Referring Provider Family Medicine; Visit Provider Family Medicine
DX: D64.9 Anemia, unspecified (principal)
CPT/HCPCS: 96365; J1756; A4216

== ENCOUNTER 2024-12-07 08:52 | Outpatient (CLI) | payer OTHER, SELFPAY ==
[2024-12-07 09:07] VITALS: BP 107/44; PULSE 68; RESP 16; TEMP 36.3; O2SAT 100; BMI 30.2
[2024-12-07] MEDS: 0.9% NaCl Peripheral Flush Adult/Peds IV (09:24)
[2024-12-07] MEDS: Iron Sucrose Complex 200 MG in 0.9% Normal Saline (100mL Bag) 100 ML 220 MG IV (09:24)
[2024-12-07 10:08] VITALS: BP 101/50; PULSE 82; RESP 16; O2SAT 98
== END 2024-12-07 23:59 | disposition home or self-care (01) ==
LOC: MEDOUTP 08:52
PROVIDERS: PCP Family Medicine; Referring Provider Family Medicine; Visit Provider Family Medicine
DX: D64.9 Anemia, unspecified (principal)
CPT/HCPCS: 96365; J1756; A4216

== ENCOUNTER 2024-12-10 10:21 | Outpatient (CLI) | payer OTHER, SELFPAY ==
[2024-12-10 10:40] VITALS: BP 108/64; PULSE 85; RESP 16; TEMP 36; O2SAT 100; BMI 30.2
[2024-12-10] MEDS: 0.9% NaCl Peripheral Flush Adult/Peds IV (10:49)
[2024-12-10] MEDS: Iron Sucrose Complex 200 MG in 0.9% Normal Saline (100mL Bag) 100 ML 220 MG IV (10:54)
[2024-12-10 11:40] VITALS: BP 95/45; PULSE 62; RESP 16; TEMP 36.2; O2SAT 99
== END 2024-12-10 23:59 | disposition home or self-care (01) ==
LOC: MEDOUTP 10:21
PROVIDERS: PCP Family Medicine; Referring Provider Family Medicine; Visit Provider Family Medicine
DX: D64.9 Anemia, unspecified (principal)
CPT/HCPCS: 96365; J1756; A4216

== ENCOUNTER 2024-12-12 10:38 | Outpatient (CLI) | payer OTHER, SELFPAY ==
[2024-12-12] MEDS: 0.9% NaCl Peripheral Flush Adult/Peds IV (10:46)
[2024-12-12] MEDS: 0.9% Normal Saline (100mL Bag) 100 ML 15 ML IV (10:46)
[2024-12-12 10:47] VITALS: BP 106/60; PULSE 76; RESP 16; TEMP 35.9; O2SAT 100
[2024-12-12] MEDS: Iron Sucrose Complex 200 MG in 0.9% Normal Saline (100mL Bag) 100 ML 220 MG IV (11:06)
[2024-12-12 11:51] VITALS: BP 99/58; PULSE 66; RESP 16; TEMP 36.1; O2SAT 97
== END 2024-12-12 23:59 | disposition home or self-care (01) ==
LOC: MEDOUTP 10:38
PROVIDERS: PCP Family Medicine; Referring Provider Family Medicine; Visit Provider Family Medicine
DX: D64.9 Anemia, unspecified (principal)
CPT/HCPCS: 96365; J1756; A4216

== ENCOUNTER 2024-12-14 10:28 | Outpatient (CLI) | payer OTHER, SELFPAY ==
[2024-12-14 11:00] VITALS: BP 98/56; PULSE 68; RESP 16; TEMP 36.2; O2SAT 94; BMI 30.2
[2024-12-14] MEDS: Iron Sucrose Complex 200 MG in 0.9% Normal Saline (100mL Bag) 100 ML 220 MG IV (11:02)
[2024-12-14] MEDS: 0.9% Normal Saline (100mL Bag) 100 ML 15 ML IV (11:02)
[2024-12-14] MEDS: 0.9% NaCl Peripheral Flush Adult IV (11:02)
[2024-12-14 11:59] VITALS: BP 89/58; PULSE 80
== END 2024-12-14 23:59 | disposition home or self-care (01) ==
LOC: MEDOUTP 10:28
PROVIDERS: PCP Family Medicine; Referring Provider Family Medicine; Visit Provider Family Medicine
DX: D64.9 Anemia, unspecified (principal)
CPT/HCPCS: 96365; J1756; A4216

== ENCOUNTER → 2024-12-20 | Outpatient (CLI) | payer OTHER, SELFPAY | END | disposition home or self-care (01) | LOC: PAVLAB 11:47 | PROVIDERS: PCP Family Medicine; Referring Provider Internal Medicine Medical Oncology; Visit Provider Internal Medicine Medical Oncology | DX: D50.0 Iron deficiency anemia secondary to blood loss (chronic) (principal) | CPT/HCPCS: 82274 ==

== ENCOUNTER → 2025-01-30 | Outpatient (CLI) | payer OTHER, SELFPAY ==
[2025-01-30 10:36] LABS: Absolute Lymphocyte Count 1.51 X10^3/uL (0.83-4.51); Absolute Neutrophil Count 1.7 X10^3/uL (2.0-7.7); Basophil# 0.04 X10^3/uL; Basophil% 1.1 % (0-1); Eosinophil# 0.06 X10^3/uL; Eosinophils% 1.7 % (0-5); Hematocrit 39.8 % (37-47); Hemoglobin 13.5 g/dL (12.0-15.0); Lymphocyte # 1.51 X10^3/ul (0.83-4.51); Lymphocyte % 42.2 % (19-41); Mean Corp Hgb Conc 33.9 g/dL (32-36); Mean Corpuscular Hgb 26.8 pg (27.0-32.0); Mean Platelet Vol. 9.9 fl (6.2-12.0); Monocyte# 0.22 X10^3/uL; Monocyte% 6.1 % (0-10); NRBC Flagged by Analyzer 0 % (0-5); Neutrophil # 1.73 X10^3/uL (2.7-7.7); Neutrophil % 48.3 % (47-70); Platelet Count 261 K/mm3 (150-450); RBC Distribution Width CV 18.6 % (11.6-14.6); RBC Distribution Width SD 53.8 fl (35.1-43.9); Red Blood Count 5.04 M/mm3 (4.2-5.4); White Blood Count 3.6 K/mm3 (4.4-11.0)
[2025-01-30 13:25] LABS: Ferritin 95 ng/mL (22-378); Iron 92 ug/dL (50-170); Iron Binding Capacity,Total 311 ug/dL (250-450); Iron Binding Capacity,Unsat 219 ug/dL (228-428)
[2025-01-30 13:49] LABS: ALB/GLOB Ratio 1.8 RATIO (0.9-2.4); AST(SGOT) 21 U/L (<=31); Alanine Aminotransfer ALT/SGPT 21 U/L (<=34); Albumin, Serum 4.5 g/dL (3.5-5.0); Alkaline Phosphatase 61 U/L (35-104); Anion Gap 14 (5-15); BUN 15 mg/dL (4-19); BUN/Creat Ratio 16.1 RATIO (10-20); Calcium,Total 9.3 mg/dL (7.6-11.0); Carbon Dioxide 20.8 mmol/L (21.0-32.0); Chloride 104 mmol/L (98-108); Cholesterol 266 mg/dL (<=200); Creatinine, Serum 0.94 mg/dL (0.70-1.20); EST Glomerular Filtration Rate 70 (>60); Globulin 2.5 g/dL (2.2-4.2); Glucose 92 mg/dL (70-99); High Density Lipoprotein 50 mg/dL; Low Density Lipoprotein Calc. 190 mg/dL; Potassium 3.8 mmol/L (3.3-5.1); Sodium Level 139 mmol/L (133-145); Thyroid Stim Hormone (TSH) 0.057 uIU/mL (0.300-4.200); Total Bilirubin 0.31 mg/dL (0.00-1.30); Triglycerides 128 mg/dL; Very Low Density Lipoprotein 26 mg/dL (5-40); Vitamin D,25 Hydroxy 60.7 ng/mL (30-100); cholesterol:hdl ratio screen 5.32
== END | disposition home or self-care (01) ==
LOC: MFPLAB 09:24
PROVIDERS: Internal Medicine Hematology & Oncology; PCP Family Medicine; Referring Provider Family Medicine; Visit Provider Family Medicine
DX: Z00.00 Encounter for general adult medical examination without abnormal findings (principal); D50.0 Iron deficiency anemia secondary to blood loss (chronic)
CPT/HCPCS: 36415; 80053; 80061; 82306; 82728; 83540; 83550; 84439; 84443; 85025

== ENCOUNTER → 2025-03-20 | Outpatient (CLI) | payer OTHER, SELFPAY ==
[2025-03-20 18:01] LABS: Hematocrit 24.3 % (37-47); Hemoglobin 8.1 g/dL (12.0-15.0); Mean Corp Hgb Conc 33.3 g/dL (32-36); Mean Corpuscular Hgb 28.8 pg (27.0-32.0); Mean Corpuscular Volume 86.5 fL (81-99); Mean Platelet Vol. 10.6 fl (6.2-12.0); Platelet Count 311 K/mm3 (150-450); RBC Distribution Width CV 16.6 % (11.6-14.6); RBC Distribution Width SD 52.4 fl (35.1-43.9); Red Blood Count 2.81 M/mm3 (4.2-5.4); White Blood Count 3.6 K/mm3 (4.4-11.0)
[2025-03-20 18:37] LABS: Ferritin 17 ng/mL (22-378); Iron 174 ug/dL (50-170)
[2025-03-26 08:08] LABS: Endomysial Antibody IgA Negative (Negative); Immunoglobulin A 50 mg/dL (87-352); t-Transglutaminase IgA <2 U/mL (0-3)
== END | disposition home or self-care (01) ==
LOC: MTLAB 14:14
PROVIDERS: PCP Family Medicine; Referring Provider Internal Medicine Gastroenterology; Visit Provider Internal Medicine Gastroenterology
DX: D50.9 Iron deficiency anemia, unspecified (principal)
CPT/HCPCS: 36415; 82728; 82784; 83516; 83540; 85027; 86255

== ENCOUNTER 2025-05-21 05:46 | Day surgery (SDC) | payer OTHER, SELFPAY ==
[2025-05-21] VITALS (8 sets, daily range): BP systolic 88–96; BP diastolic 57–64; PULSE 61–71; RESP 16–18; TEMP 36.1–36.2; O2SAT 87–100; BMI 30.9
--- OUTSIDE RECORDS SUMMARY | 2025-05-21 05:52 | XMS RPT_ITS | CCD ---
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 Ramos Primary Care Provider Susie CHAVEZ, Dr. Ramos Referring Provider [phone] Richard Richards MD Attending Provider Marian Richards MD, Dr. Ramos Attending Provider Susie CHAVEZ, Dr. Ramos Primary Care Provider Susie CHAVEZ, Dr. Ramos Referring Provider Richard Richards MD Attending Provider Marian Richards MD, Dr. Ramos Attending Provider Nicol CHAVEZ, Dr. Diaz Attending Provider Nicol CHAVEZ, Dr. Diaz Referring Provider Susie CHAVEZ, Dr. Ramos Primary Care Provider Susie CHAVEZ, Dr. Ramos Referring Provider Nicol CHAVEZ, Dr. Diaz Referring Provider Dr. Daniel Flynn MD Attending Provider Sallie CHAVEZ, Dr. Price Attending Provider Sallie CHAVEZ, Dr. Price Referring Provider DARRELL BAI Referring Unavailable RANNEY, CHRISTOPHER B Primary Care Unavailabl e SHEDARRELL JANSEN Referring Unavailable RANNEY, CHRISTOPHER B Primary Care Unavailabl e DARRELL BAI Referring Unavailable RANNEY, CHRISTOPHER B Primary Care Unavailabl e SHEWDARRELL ZHOU Attending Unavailable RANNEY, CHRISTOPHER B Primary Care Unavailabl e SHEWDARRELL ZHOU Attending Unavailable RANNEY, CHRISTOPHER B Primary Care Unavailabl e SHEWDARRELL ZHOU Attending Unavailable RANNEY, CHRISTOPHER B Primary Care Unavailabl e COOK, WILBER Attending Unavailable COOK, WILBER Referring Unavailable RANNEY, CHRISTOPHER Primary Care Unavailable COOK WILBER Attending Unavailable SUSIE, CHRISTOPHER Primary Care Unavailable Susie CHAVEZ, Dr. Ramos Primary Care Provider Susie CHAVEZ, Dr. Ramos Referring Provider Susie CHAVEZ, Dr. Ramos Attending Provider Dr. Joe Camarena MD Attending Provider Dr. Joe Camarena MD Referring Provider Marga Childs Attending Provider SALLIE CHAVEZ, DR PRICE Attending UnavailDR RICHARD Callahan MD Primary Care Unavai vega Richards, Christophrodrick Primary Care Unavailable Richard Richards Referring Unavailable Richard Contreras Attending Unavaila ble Richard Richards Attending Unavailable Ranlarry, Christopher Primary Care Unavailable Susie, Christmeme Referring Unavailable Susie Christmeme Referring Unavailable Marga Figueroa Attending Unavailable Susie, Christopher Primary Care Unavailable Ranlarry, Richard Referring Unavailable Ranlarry, Christopher Primary Care Unavailable Daniel Flynn Attending Unavailable Susie, Richard Referring Unavailable Daniel Flynn Attending Unavailable Ranlarry, Christopher Primary Care Unavailable Ranlarry, Christopher Primary Care Unavailable Ranlarry, Christopher Referring Unavailable Marga Figueroa Attending Unavailable Ranney, Christopher Referring Unavailable Ranney, Christopher Primary Care Unavailable Prah, Joe Attending Unavailable Ranney, Christopher Attending Unavailable Ranney, Christopher Primary Care Unavailable Ranney, Christopher Referring Unavailable Ranney, Christopher Attending Unavailable Ranney, Christopher Referring Unavailable Ranney, Christopher Primary Care Unavailable Ranney, Christopher Attending Unavailable Ranney, Christopher Referring Unavailable Ranney, Christopher Primary Care Unavailable Ranney, Christopher Attending Unavailable Ranney, Christopher Primary Care Unavailable Ranney, Christopher Referring Unavailable Ranney, Christopher Attending Unavailable Ranney, Christopher Primary Care Unavailable Ranney, Christopher Referring Unavailable Prah, Joe Attending Unavailable Ranney, Christopher Primary Care Unavailable Prah, Joe Referring Unavailable Ranney, Christopher Referring Unavailable Ranney, Christopher Attending Unavailable Ranney, Christopher Primary Care Unavailable Prah, Joe Attending Unavailable Ranney, Christopher Primary Care Unavailable Prah, Joe Referring Unavailable Albert Rizo Referring Unavailable Albert Rizo Attending Unavailable Ranney, [facility] Primary Care Unavailable Ranney, Christopher Primary Care Unavailable Ranney, Christopher Referring Unavailable Al Kyle Attending Unavailable Allergies Allergy Classification Reported Allergen(s) Allergy Type Date of Onset Reaction(s) Facility (20 sources) Chlorhexidine; Translations: [CHLORHEXIDINE] Drug Allergy 12-06-2018 Rash [facility] Work Phone: Medications Current Medications Medication Drug Class(es) Dates Sig (Normalized) Sig (Original) allergy shots (20 sources) Start: 01-06-2019 allergy shots Active IM January 06, 2019 9:20am Start: 01-06-2019 allergy shots Active 1 NMA IM .Q3W 0 January 06, 2019 12:00am Start: 01-06-2019 allergy shots Active 1 NMA IM .Q3W January 06, 2019 12:00am Start: 01-06-2019 allergy shots Active 1 NMA IM .Q3W January 05, 2019 11:00pm Start: 01-06-2019 allergy shots Active 1 EACH IM .Q3W January 06, 2019 12:00am Start: 01-06-2019 allergy shots Active 1 EACH IM .Q3W January 05, 2019 11:00pm Start: 01-06-2019 allergy shots Active IM .Q3W January 05, 2019 11:00pm Start: 01-06-2019 allergy shots Active IM January 06, 2019 12:00am Ascorbic Acid (8 sources) Vitamin C Start: 12-05-2024 take 1 tablet by mouth once daily Ascorbic Acid (Vitamin C) (C-1000) 1,000 mg tablet Active 1 g PO DAILY December 05, 2024 1:00am Start: 12-05-2024 take 1 tablet by mouth once da karl Ascorbic Acid (Vitamin C) (C-1000) 1,000 mg tablet Active 1 g PO DAILY December 05, 2024 12:00am ascorbic acid/zinc (ZINC WIT H VITAMIN C ORAL) (14 sources) ascorbic acid/zi nc (ZINC WITH VITAMIN C ORAL) Take by mouth. Active ascorbic acid/zi nc (ZINC WITH VITAMIN C ORAL) Take by mouth. 0 Active Comment on above: Take by mouth. aspirin 81 mg delayed release oral tablet (19 sources) Platelet Aggregation Inhibitor, Nonsteroidal Anti-inflammatory Drug End: 12-15-19 take 1 tablet by mouth once daily aspirin, enteric coated (ASPIRIN, ENTERIC COATED) 81 mg EC tablet Take 81 mg by mouth once daily. Active Comment on above: Take 81 mg by mouth once daily. bifidobacterium infantis 10.5 mg chewable tablet (16 sources) Probiotic Produc t (Align) chewable tablet Chew. Active biotin 1 mg oral capsule (20 sources) Start: 12-06-19 take 1 capsule by mouth once daily Biotin 1 mg capsule Active 1 mg PO DAILY December 05, 2024 1:00am BIOTIN ORAL Take 5,000 mcg by mouth. Active BIOTIN ORAL Take 5,000 mcg by mouth. 0 Active Comment on above: Take 5,000 mcg by [facility]. calcitriol 0.0005 mg oral capsule (20 sources) Vitamin D3 Analog Start: 12-26-2023 calcitriol 0.5 mcg oral capsule Dose : 0.5 mcg = 1 cap(s), Oral, Daily, 0 Refill(s) Start Date: 12/26/23 Status: Ordered Repeat number: 1 Start: 08-06-2022 take 1 capsule by [facility] once daily Calcitriol 0.5 mcg capsule Active 0.5 ug PO DAILY August 06, 2022 12:00am Comment on above: Take 0.5 mcg by [facility] once daily. calcium carbonate 1250 mg oral tablet (3 sources) Start: 01-03-20 18 take 1 tablet by mouth twice daily Calcium Carbonate (Calcium 500) 500 mg calcium (1,250 mg) tablet Active 500 MG PO TWICE A DAY January 02, 2018 3:42pm carbinoxamine maleate 4 mg oral tablet (20 sources) Histamine-1 Receptor Antagonist Start: 11-30-19 19 take 1 tablet by mouth once daily Carbinoxamine Maleate 4 mg tablet Active 4 mg PO DAILY January 06, 2019 12:00am ALLERGIES Comment on above: Take 1 tablet by [facility] once daily. cholecalciferol 0.025 mg oral capsule (17 sources) Vitamin D Start: 12-20-19 take 1 capsule by mouth once daily Cholecalciferol (Vitamin D3) 25 mcg (1,000 unit) capsule Active 25 ug PO daily December 19, 2024 12:00am take 1 capsule by mouth once [place] Cholecalciferol, Vitamin D3, 25 mcg (1,000 unit) cap Take 1 capsule by mouth once daily. Active Comment on above: Take 1 capsule by [facility] once daily. COMPOUNDED PRESCRIPTION (14 sources) Start: 2 COMPOUNDED PRESCRIPTION Allergy injections ever 2-3 weeks 0 11/11/2011 Active Comment on above: Allergy injections e jose 2-3 weeks cyanocobalamin, vitamin B-12, (VITAMIN B12 ORAL) (14 sources) take 5000 ug by mouth twice daily cyanocobalamin, vitamin B-12, (VITAMIN B12 ORAL) Take 5,000 mcg by mouth twice daily. Active take 5000 ug by mouth twice jaime y cyanocobalamin, vitamin B-12, (VITAMIN B12 ORAL) Take 5,000 mcg by mouth twice daily. 0 Active Comment on above: Take 5,000 mcg by [facility] twice daily. [id number] 0.3 ml EPINEPHrine 1 mg/ml auto-injector (14 sources) alpha-Adrenergic Agonist, beta-Adrenergic Agonist, Catecholamine Start: 020 EPINEPHrine (EPIPEN) 0.3 mg/0.3 mL auto-injector ADMINISTER 1 PEN INJECTOR INTRAMUSCULARLY SINGLE DOSE NEEDED 01/10/2020 Active Comment on above: ADMINISTER 1 PEN INJ FELICIA INTRAMUSCULARLY SINGLE DOSE NEEDED escitalopram 10 mg oral tablet (20 sources) Serotonin Reuptake Inhibitor Start: 025 take 1 tablet by mouth once daily Escitalopram Oxalate 10 mg tablet Active 10 mg PO DAILY December 05, 2024 1:00am Start: 03-17-2020 End: 2024 take 1 tablet by mouth once daily escitalopram oxalate (LEXAPRO) 10 mg tablet Take 10 mg by mouth once daily. 03/17/2020 Active Comment on above: Take 10 mg by mouth once daily. 84 hr estradiol 0.51021 mg/hr transdermal system (20 sources) Estrogen Start: 04-22-2025 apply 1 dose transdermal route two times weekly Grace 0.025 MG/24HR Indications: Hot flashes Place 1 patch on the skin Twice a Week. 24 patch 4 04/22/2025 Active Start: 02-16-2024 End: 02-15-2025 estradiol (Vivelle-DOT) 0.02 5 MG/24HR Indications: Hot flashes Place 1 patch on the skin Twice a Week. 24 patch 4 02/16/2024 Active Start: 01-24-2023 End: 2024 estradiol (Vivelle-DOT) 0.03 75 MG/24HR Indications: Hot flashes APPLY 1 PATCH TWICE WEEKLY 8 patch 12 01/24/2023 2024 Discontinued (Therapy completed) Start: 12-16-2022 End: 2024 estradiol (Vivelle-DOT) 0.02 5 MG/24HR Indications: Hot flashes Place 1 patch on the skin Twice a Week. 24 patch 4 12/16/2022 2024 Discontinued (Reorder) Start: 07-20-2022 End: 12-14-2022 estradiol (Vivelle-DOT) 0.03 75 MG/24HR APPLY 1 PATCH TWICE A WEEK Strength: 0.0375 MG/24HR 8 patch 0 11/30/2022 12/14/2022 Discontinued (Therapy completed) ESTRADIOL TRANSDERM. (14 sources) apply 0.05 mg transd ermal route two times weekly ESTRADIOL TRANSDERM. Apply 1 Patch as directed two times a week. Estradiol 0.05mg patch Active apply 0.05 mg transd ermal route two times weekly ESTRADIOL TRANSDERM. Apply 1 Patch as directed two times a week. Estradiol 0.05mg patch 0 Active Comment on above: Apply 1 Patch as dir ected two times a week. Estradiol 0.05mg patch ferrous sulfate 325 mg oral tablet (8 sources) Start: 5 take 1 tablet by mouth once daily Ferrous Sulfate 325 mg (65 mg iron) tablet Active 325 mg PO daily December 05, 2024 1:00am On Hold: on hold per gabapentin 300 mg oral capsule (20 sources) Anti-epileptic Agent Start: 2 take 1 capsule by mouth three times daily Gabapentin 300 mg capsule Active 300 mg PO THREE TIMES A DAY August 06, 2022 12:00am Comment on above: Take 300 mg by mouth three times daily. glucosamine HCl/chondroitin pierce (GLUCOSAMINE-CHONDROI TIN ORAL) (14 sources) Start: 9 glucosamine HCl/chondroitin pierce (GLUCOSAMINE-CHONDRO ITIN ORAL) 1,000 mg. 09/02/2019 Active Start: 09-02-2019 glucosamine HC l/chondroitin pierce (GLUCOSAMINE-CHONDROITIN ORAL) 1,000 mg. 0 09/02/2019 Active Comment on above: 1,000 mg. Ejipjybejwz-Tpqlff-Cyi well-Tur 750 mg-600 mg- 50 mg-125 mg tablets, sequential (3 sources) Start: 12-19-2024 Pjyiltvlfih-Lpkkmb-Cc swell-Tur 750 mg-600 mg- 50 mg-125 mg tablets, sequential Active 1 NMA PO TWICE A DAY December 19, 2024 12:00am ipratropium bromide 0.042 mg/actuat metered dose nasal spray (2 sources) Anticholinergic Start: 12-26-2023 take 2 spray(s) nasal route three times daily as needed ipratropium 42 mcg/inh (0.06%) nasal spray instill 2 sprays in EACH nostril THREE TIMES DAILY NEEDED Start Date: 12/26/23 Status: Ordered Repeat number: 1 L.acid/B.bifidum/B.ani mal/FOS (PROBIOTIC COMPLEX ORAL) (14 sources) L.acid/B.bifidum /B.an imal/FOS (PROBIOTIC COMPLEX ORAL) Take by mouth. Align gummies Active L.acid/B.bifidum /B.animal/FOS (PROBIOTIC COMPLEX ORAL) Take by mouth. Align gummies 0 Active Comment on above: Take by mouth. Align gummies levothyroxine sodium 0.112 mg oral tablet (20 sources) l-Thyroxine Start: 5 take 1 tablet by mouth once daily levothyroxine (SYNTHROID) 112 mcg tablet Take 1 tablet by mouth once daily. 90 tablet 3 03/07/2025 Active Start: 12-26-2023 levothyroxine 125 mcg (0.125 mg) oral tablet Dose : 125 mcg = 1 tab(s), Oral, qDay, # 30 tab(s), 0 Refill(s) Start Date: 12/26/23 Status: Ordered Quantity: 30.0 Unit: tab(s) Repeat number: 1 Start: 07-31-2023 End: 03-01-2024 take 1 tablet by mouth once daily levothyroxine (SYNTHROID) 125 mcg tablet Take 1 tablet by mouth once daily. 90 tablet 4 07/31/2023 03/01/2024 Discontinued Start: 12-24-2022 take 1 tablet by ambreen [facility] once daily levothyroxine (SYNTHROID) 112 mcg tablet Take 1 tablet by mouth once daily. 90 tablet 3 12/24/2022 Active Start: 01-02-2018 End: 03-07-2025 take 1 tablet by mouth once daily Levothyroxine (Synthroid) 137 mcg tablet Active 137 ug PO DAILY 0 January 02, 2018 12:00am Start: 01-02-2018 Levothyroxine (Synthroid) 137 mcg tablet Active PO January 02, 2018 3:41pm Comment on above: take one a day, but only half pill on Tuesday (6 & 1/2 per week) Take 1 tablet by [facility] once daily. TAKE ONE TABLET BY M OUT ONCE A DAY, BUT ONLY HALF TABLET ON TUESDAY (6 & 1/2 PER WEEK) magnesium oxide 400 mg oral tablet (3 sources) Start: 12-19-2024 take 1 tablet by mouth once daily Magnesium Oxide 400 mg (241.3 mg magnesium) tablet Active 400 mg PO daily December 19, 2024 12:00am Multivitamin (Daily Multi-Vitamin) tablet (8 sources) Start: 12-05-2024 Multivitamin (Daily Multi-Vitamin) tablet Active 1 {tbl} PO DAILY December 05, 2024 1:00am Start: 12-05-2024 Multivitamin ( Daily Multi-Vitamin) tablet Active 1 {tbl} PO DAILY December 05, 2024 12:00am mv,Ca,min-folic acid-vit K1 (ONE-A-DAY WOMEN'S 50 PLUS) 400-20 mcg tab (14 sources) Start: 10-03-2019 mv,Ca,min-foli c acid-vit K1 (ONE-A-DAY WOMEN'S 50 PLUS) 400-20 mcg tab Gummies 10/03/2019 Active Start: 10-03-2019 mv,Ca,min-foli c acid-vit K1 (ONE-A-DAY WOMEN'S 50 PLUS) 400- 20 mcg tab Gummies 0 10/03/2019 Active Comment on above: Gummies olopatadine hydrochloride 0.665 mg/actuat metered dose nasal spray (14 sources) Histamine-1 Receptor Inhibitor Start: 9 take 1 spray(s) nasal route once daily Olopatadine 0.6 % spry Use 1 [place] in each nostril once daily. 10/27/2018 Active Comment on above: Use 1 [place] in each nostril once daily. omeprazole 40 mg delayed release oral capsule (10 sources) Proton Pump Inhibitor Start: 4 take 1 capsule by mouth once daily Omeprazole 40 mg capsule,delayed release(DR/EC) Active 40 mg PO DAILY December 05, 2024 1:00am ondansetron 4 mg disintegrating oral tablet (1 source) Serotonin-3 Receptor Antagonist Start: 2 take 4 mg by mouth every eight hours Ondansetron Active 4 MG PO Q8H August 13, 2022 12:00am potassium 99 mg extended release oral tablet (3 sources) Start: 5 take 1 tablet by mouth once daily Potassium 99 mg tablet Active 99 mg PO daily December 19, 2024 12:00am potassium gluconate 2.5 meq oral tablet (19 sources) Potassium 99 mg tab Take by mouth. Active End: 12-14-2022 Potassium Gluconate 2.5 MEQ tablet Take by mouth. 0 12/14/2022 Discontinued (Therapy completed) Comment on above: Take by mouth. Completed/Discontinued Medications Medication Drug Class(es) Dates Sig (Normalized) Sig (Original) amoxicillin 875 mg / clavulanate 125 mg oral tablet (20 sources) Penicillin-class Antibacterial Start: 01-06-2019 End: 01-16-2019 Amoxicillin-Pot Clavulanate 875-125 mg tablet Discontinued 1 {tbl} PO Q12H 20 10 0 January 06, 2019 12:00am January 15, 2019 12:00am January 16, 2019 12:09am Start: 01-06-2019 End: 01-16-2019 take 1 tablet by mouth every twelve hours Amoxicillin-Pot Clavulanate Discontinued 1 TABLET PO Q12H 20 10 January 06, 2019 12:00am January 16, 2019 12:09am carbinoxamine / Pseudoephedrine (8 sources) alpha-Adrenergic Agonist, Histamine-1 Receptor Antagonist Start: 01-02-2018 End: 01-06-2019 Carbinoxamine-Pseudoephedrin e 8-80 mg tablet extended release 12 hr Discontinued {tbl} PO 0 January 02, 2018 12:00am January 06, 2019 9:19am Start: 01-02-2018 End: 01-06-2019 Carbinoxamine-Pseudoephedrin e 8-80 mg tablet extended release 12 hr Discontinued {tbl} PO January 02, 2018 12:00am January 06, 2019 9:19am Start: 01-02-2018 End: 01-06-2019 Carbinoxamine-Pseudoephedrin e 8-80 mg tablet extended release 12 hr Discontinued {tbl} PO January 01, 2018 11:00pm January 06, 2019 8:19am carbinoxamine-pseudoephedrin e ER 8 mg-80 mg tablet,ext.release,12 hr (13 sources) Start: 01-02-2018 End: 01-06-2019 take 1 tablet by mouth every hour carbinoxamine-pseudoephedrine ER 8 mg-80 mg tablet,ext.release,12 hr Discontinued TABLET PO January 02, 2018 3:41pm January 06, 2019 9:19am Start: 01-02-2018 End: 01-06-2019 take 1 tablet by mouth every hour carbinoxamine-pseudoephedrine ER 8 mg-80 mg tablet,ext.release,12 hr Discontinued TABLET PO January 01, 2018 11:00pm January 06, 2019 8:19am Start: 01-02-2018 End: 01-06-2019 take 1 tablet by mouth every hour carbinoxamine-pseudoephedrine ER 8 mg-80 mg tablet,ext.release,12 hr Discontinued TABLET PO January 02, 2018 12:00am January 06, 2019 9:19am oxyCODONE hydrochloride 5 mg oral capsule (15 sources) Opioid Agonist Start: 09-10-2022 End: 01-16-2025 take 1 capsule by mouth every four hours as needed for pain Oxycodone 5 mg capsule Discontinued 5 mg PO EVERY 4 HOURS NEEDED as needed for pain 42 7 0 September 10, 2022 January 16, 2025 1:08pm Neuroma of second interspace of left foot Lesion of plantar nerve, left lower limb Start: 08-13-2022 take 5 mg by mouth e very four hours Oxycodone Active 5 MG PO Q4H 42 7 August 13, 2022 predniSONE 10 mg oral tablet (20 sources) Start: 03-19-2023 Prednisone [place] 10 MG PO As Directed March 19, 2023 12:00am 40 mg x 3 days 20 mg x 3 days 10 mg x 3 days Start: 02-16-2023 End: 12-05-2024 Prednisone 10 mg tablet Disc ontinued 10 mg PO As Directed March 19, 2023 12:00am December 05, 2024 12:20pm Contact dermatitis due to poison fartun Allergic contact dermatitis due to plants, except food 40 mg x 3 days 20 mg x 3 days 10 mg x 3 days therapeutic multivitamin-minerals (Theragran-M) tablet (5 sources) End: 12-14-2022 take 1 tablet by mouth once daily therapeutic multivitamin-minerals (Theragran-M) tablet Take 1 tablet by mouth daily. 0 12/14/2022 Discontinued (Therapy completed) take 1 tablet by mouth once jaime y therapeutic multivitamin-minerals (Theragran- M) tablet Take 1 tablet by mouth daily. 0 Active triamcinolone acetonide 1 mg/ml topical cream (12 sources) Corticosteroid Start: 03-19-2023 End: 12-19-2024 Triamcinolone Acetonide 0.1 % cream Discontinued 1 NMA TOPICAL TWICE A DAY 30 0 March 19, 2023 12:00am December 19, 2024 3:02pm Contact dermatitis due to poison fartun Allergic contact dermatitis due to plants, except food Problems Active Problems Problem Classification Problem Date Documented Da te Episodic/Chronic Allergic reactions (12 sources) Contact dermatitis due to poison fartun; Translations: [Allergic contact dermatitis due to plants, except food] 02-16-2023 Episodic Cancer of thyroid (15 sources) Papillary thyroid carcinoma; Translations: [Malignant neoplasm of thyroid gland] Onset: 05-18-2016 05-18-2016 Chronic Complications of surgical procedures or medical care (20 sources) Postoperative hypothyroidism; Translations: [Postprocedural hypothyroidism] Onset: 11-11-2011 05-18-2016 Chronic Deficiency and other anemia (6 sources) Iron 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 Still tired. Deficiency and other anemia (5 sources) Deficiency and other anemia Disorders of lipid metabolism (20 sources) Mixed hyperlipidemia; Translations: [Mixed hyperlipidemia] Onset: 10-09-2019 04-08-2020 Chronic Gastrointestinal hemorrhage (2 sources) Melena; Translations: [Melena] Onset: 12-26-2023 Episodic Genitourinary symptoms and ill-defined conditions (20 sources) Dysuria; Translations: [Dysuria] 01-02-2018 Episodic Hemorrhoids (5 sources) Hemorrhoids; Translations: [Unspecified hemorrhoids] 12-19-2024 Episodic Comment on above: She bleeds on and of f. Nonmalignant breast conditions (20 sources) Fibrocystic changes of bilateral breasts; Translations: [Diffuse cystic mastopathy of right breast] Onset: 09-06-2017 04-08-2020 Chronic Nutritional deficiencies (14 sources) Vitamin D deficiency; Translations: [Vitamin D deficiency, unspecified] Onset: 03-25-2017 03-25-2017 Chronic Osteoarthritis (3 sources) Arthritis; Translations: [Unspecified osteoarthritis, unspecified site] 12-19-2024 Chronic Other nervous system disorders (15 sources) Mortons neuroma of right foot; Translations: [Lesion of plantar nerve, right lower limb] 08-13-2022 Chronic Other nervous system disorders (20 sources) Neuroma of foot; Translations: [Lesion of plantar nerve, right lower limb] 09-10-2022 Chronic Other nervous system disorders (6 sources) Lesion of plantar nerve, right lower limb; Translations: [Lesion of plantar nerve] Chronic Other nervous system disorders (2 sources) Lesion of plantar nerve, left lower limb; Translations: [Lesion of plantar nerve] Chronic Other nutritional; endocrine; and metabolic disorders (20 sources) Body mass index 30+ - obesity; Translations: [Body mass index (BMI) 31.0-31.9, adult] Onset: 09-11-2018 04-08-2020 Chronic Other screening for suspected conditions (not mental disorders or infectious disease) (8 sources) Patient encounter status; Translations: [Encounter for screening mammogram for malignant neoplasm of breast] Onset: 04-10-2025 02-20-2024 Episodic Other upper respiratory disease (14 sources) Seasonal allergy; Translations: [Other seasonal allergic rhinitis] Onset: 11-30-2018 11-30-2018 Chronic Other upper respiratory disease (14 sources) Allergic rhinitis; Translations: [Allergic rhinitis, unspecified] Onset: 04-08-2020 04-08-2020 Chronic Residual codes; unclassified (4 sources) Flushing; Translations: [Flushing] Episodic Spondylosis; intervertebral disc disorders; other back problems (14 sources) Cervical spondylosis; Translations: [Spondylosis without myelopathy or radiculopathy, cervical region] Onset: 04-16-2020 04-16-2020 Chronic Past or Other Problems Problem Classification Problem Date Documented Da te Episodic/Chronic Deficiency and other anemia (1 source) Anemia, unspecified; Translations: [Anemia, unspecified] Onset: 12-25-2024 Episodic Nonmalignant breast conditions (20 sources) Breast lump; Translations: [Unspecified lump in the right breast, upper outer quadrant] Onset: 09-29-2015 04-08-2020 Episodic Other non-traumatic joint disorders (5 sources) Shoulder pain; Translations: [Pain in right shoulder] Onset: 04-16-2020 04-16-2020 Episodic Other non-traumatic joint disorders (9 sources) Pain in right shoulder; Translations: [Pain in joint, shoulder region] Onset: 04-16-2020 04-16-2020 Episodic Residual codes; unclassified (20 sources) Family history of malignant neoplasm of breast in first degree relative; Translations: [Family history of malignant neoplasm of breast] Onset: 09-06-2017 04-08-2020 Episodic Sprains and strains (14 sources) Strain of rotator cuff of shoulder; Translations: [Strain of muscle(s) and tendon(s) of the rotator cuff of unspecified shoulder, initial encounter] Onset: 04-16-2020 04-16-2020 Episodic Results Test Name Value Interpretation Reference [facility] Facility Gastroenterology Visit Repor ton 05-03-2025 Gastroenterology Visit Report [facility] Gastroenterology [address] [place] [address] OFFICE VISIT Date of Service: 05/03/25 MR#: [id number] Acct: [id number] Name: RONNIE HOPE Rep #: [id number] : 1965 Provider: DEBORAH tello Age/Sex: 60/F Location: [facility] Status: Signed Intake Vital Signs 04/11/25 13:09 04/25/25 10:15 Height 5 ft 5 ft Intake Visit Reasons: CONSULT TO DISCUSS CAPSULE Chief Complaint: Anemia Allergies No Known Allergies Allergy (Verified 05/03/25 09:37) Medications ???Medication ???Instructions ???Recorded ???Confirmed ???Type levothyroxine 137 mcg tablet 137 mcg PO DAILY 01/02/18 05/03/25 History (Synthroid) allergy shots 1 ea IM .Q3W 01/06/19 05/03/25 His tory carbinoxamine maleate 4 mg tablet 4 mg PO DAILY ALLERGIES 01/06/19 05/03/25 History calcitriol 0.5 mcg capsule 0.5 mcg PO DAILY 08/06/22 05/03/25 History gabapentin 300 mg capsule 300 mg PO TID 08/06/22 05/03/25 Hi story ascorbic acid (vitamin C) 1,000 mg 1 g PO DAILY 12/05/24 05/03/25 H istory tablet (C-1000) biotin 1 mg capsule 1 mg PO DAILY 12/05/24 05/03/25 Hi story escitalopram oxalate 10 mg tablet 10 mg PO DAILY 12/05/24 05/03/25 History ferrous sulfate 325 mg (65 mg 325 mg PO QDAY 12/05/24 05/03/25 H istory iron) tablet Held on 12/07/24. Instructions: on hold per multivitamin (Daily Multi-Vitamin 1 tab PO DAILY 12/05/24 05/03/25 History tablet) omeprazole 40 mg capsule,delayed 40 mg PO DAILY 12/05/24 05/03/25 H istory release cholecalciferol (vitamin D3) 25 25 mcg PO QDAY 12/19/24 05/03/25 H istory mcg (1,000 unit) capsule glucosamine 750 mg-chondr 600 1 ea PO BID 12/19/24 05/03/25 Hist ory mg-[place] 50 mg-turmeric 125 mg tablets magnesium oxide 400 mg (241.3 mg 400 mg PO QDAY 12/19/24 05/03/25 H istory magnesium) tablet potassium 99 mg tablet 99 mg PO QDAY 12/19/24 05/03/25 Hi story [facility] Medical History Iron deficiency anemia due to chronic blood loss Arthritis Anemia Contact dermatitis due to poison fartun Wears glasses Wears contact lenses Alcohol use Thyroid disease History of IBS Non-smoker Graves disease Surgical History History of foot surgery History of breast biopsy History of lithotripsy History of partial hysterectomy Hx of section History of thyroidectomy Family History Mother Breast cancer Father Prostate cancer Social History Smoking Status: Never smoker alcohol intake: current alcohol intake frequency: a few times a month substance use type: does not use HPI HPI Chief Complaint: Anemia Details: RONNIE HOPE, is a 60 F who presents to the office today for for establishment with [facility] regarding possible capsule endoscopy. She has been working with a another GI provider with last colonoscopy performed March 2025, without upper endoscopy as it was felt unnecessary at that time, last EGD done was this provider December 2023. She has been treated for acute blood loss anemia by her PCP since November of this year. She is transition from oral iron to IV iron infusions. She is also working with hematology, Dr. Flynn. She reports dark stools, but notes she is on iron. She is familiar with dark tarry stools from GI bleeding. She states that she has a BM every other day with occasional straining, increased flatulence, and uses MiraLAX 3 times a week. She denies heartburn, reflux, nausea, diarrhea, abdominal pain, hematochezia, and melena. ROS Const Constitutional: Positive for fatigue; No fever(s) or weight change ENT ENT: Positive for difficulty swallowing Gastro GI: Positive for abdominal pain, bloating, change in bowel habits, constipation, difficulty swallowing and excessive flatus; No belching, change in stool character, coffee ground emesis, cramping, diarrhea, heartburn, feeling full early, incontinent of stools, Vomiting blood/hematemesis, Blood in stool, loose stools, Black,tarry stools, nausea/dyspepsia, pain with swallowing, vomiting or other Musc Musculoskeletal: Positive for joint pain, muscle cramps, Arthritis and restless legs Skin Skin: No yellowing of the eye or itchy eyes Neuro Neurology: Positive for restless legs Psych Psychiatric: No anxiety and No depression Endo Endocrine: Positive for fatigue; No weight change Aller/Imm Allergy/Immunologic: No itchy eyes Ulises/Lymp Hematologic/Lymphatic: No easy bleeding or easy bruising Exam Const General: cooperative, healthy appearing, comfortable, no acute distress and well groomed Nutritional Appearance: average body habitus O (more content not included)... Normal [facility] 36on 04-22-2025 36 EVON: 03/12/2025 NOV: 04/01/2026 Refill pended for approval Grace with 4 refills. Normal [facility] DBT Breast - bilateral scree galilea 04-10-2025 No mammographic evidence of malignancy. ASSESSMENT: Category 2 Benign RECOMMENDATION: Routine screening mammogram in 1 year. Bilateral CANCER RISK ASSESSMENT: This risk assessment is based on patient provided information collected in a risk survey taken at the time of this examination. LIFETIME BREAST CANCER RISK: Stormy 8: 15.61% - If greater than or equal to 20%, consider annual mammogram and annual screening Breast MRI or follow up in high risk clinic. Is the patient at elevated risk based on the HBOC criteria? No (Hereditary Breast and Ovarian Cancer) - If Yes, consider genetic counseling and testing with high risk follow up Is the patient at elevated risk based on the Talbot Syndrome criteria? No - If Yes, consider genetic counseling and testing with high risk follow up. Report Dictated on Electronically Signed By: Misael Collazo MD Electronically Signed Date/Time: 04/10/2025 1:13 PM EDT [facility] Patient Name: RONNIE HOPE : 1965 Exam Date/Time: 04/10/2025 09:54 Procedure: BI MAMMOGRAM SCREENING TOMOSYNTHESIS BILATERAL Ordering Provider: WU JOHANNA Reason For Exam: This exam was performed at [facility] [address] [place] [address] PATIENT CANCER HISTORY: No Personal History of Cancer FAMILY CANCER HISTORY: Mother Breast Cancer age 70 Father Prostate Cancer Image views: 2D Bilateral CC and MLO views were acquired. 3D Bilateral CC and MLO views were acquired. Images were reviewed with CAD. Markings on images: BB's = Nipples; skin lesions Open havasupai = Palpable Line = Scar COMPARISON: 2021 TISSUE DENSITY: BIRADS C - The breasts are heterogeneously dense, which may obscure small masses. FINDINGS: There are post surgical changes in the right breast. No suspicious masses, architectural distortions or suspiciously clustered microcalcifications are identified. There are no significant changes when compared with prior studies. [facility] Misael Collazo MD - 04/10/2025 Patient Name: RONNIE HOPE : 1965 Exam Date/Time: 04/10/2025 09:54 Procedure: BI MAMMOGRAM SCREENING TOMOSYNTHESIS BILATERAL Ordering Provider: WU JOHANNA Reason For Exam: This exam was performed at [facility] at [facility] [address] [place] [address] PATIENT CANCER HISTORY: No Personal History of Cancer FAMILY CANCER HISTORY: Mother Breast Cancer age 70 Father Prostate Cancer Image views: 2D Bilateral CC and MLO views were acquired. 3D Bilateral CC and MLO views were acquired. Images were reviewed with CAD. Markings on images: BB's = Nipples; skin lesions Open havasupai = Palpable Line = Scar COMPARISON: 2023; 2021 TISSUE DENSITY: BIRADS C - The breasts are heterogeneously dense, which may obscure small masses. FINDINGS: There are post surgical changes in the right breast. No suspicious masses, architectural distortions or suspiciously clustered microcalcifications are identified. There are no significant changes when compared with prior studies. IMPRESSION: No mammographic evidence of malignancy. ASSESSMENT: Category 2 Benign RECOMMENDATION: Routine screening mammogram in 1 year. Bilateral CANCER RISK ASSESSMENT: This risk assessment is based on patient provided information collected in a risk survey taken at the time of this examination. LIFETIME BREAST CANCER RISK: Stormy 8: 15.61% - If greater than or equal to 20%, consider annual mammogram and annual screening Breast MRI or follow up in high risk clinic. Is the patient at elevated risk based on the HBOC criteria? No (Hereditary Breast and Ovarian Cancer) - If Yes, consider genetic counseling and testing with high risk follow up Is the patient at elevated risk based on the Talbot Syndrome criteria? No - If Yes, consider genetic counseling and testing with high risk follow up. Report Dictated on Electronically Signed By: Misael Collazo MD Electronically Signed Date/Time: 04/10/2025 1:13 PM EDT [facility] Radiology Study observation (narrative) [facility] DBT Breast - bilateral scree ningOrdered By: Misael Collazo on 04-10-2025 [facility] [employer] Work Phone: Absolute lymphocyte countOrd ered By: Daniel Flynn on 04-03-2025 Lymphocytes Auto (Unsp spec) [#/Vol] 1.27 10*3/uL 0.83-4.51 [facility] Absolute neutrophil countOrd ered By: Daniel Flynn on 04-03-2025 Neutrophils (Bld) [#/Vol] 2.4 10*3/uL 2.0-7.7 [facility] Automated lymphocyte count a s percentage of total leukocytesOrdered By: Daniel Flynn on 04-03-2025 Lymphocytes/100 WBC Auto (Unsp spec) 30.8 % 19-41 [facility] Basophil percentageOrdered B y: Daniel Flynn on 04-03-2025 Basophils/100 WBC (Bld) 1.0 % 0-[address] [facility] CBC W/Diff, Automatedon 07-0 2-2024 Absolute Lymph 1.27 X10 3/uL Normal 0.83-4.51 [facility] Comment on above: Performed By: #### L 100.0100, L503.6030, L503.6550, L3410.9998 #### [facility] [address] [place], [address] Absolute Neut 2.4 X10 3/uL Normal 2.0-7.7 [facility] Comment on above: Performed By: #### L 100.0100, L503.6030, L503.6550, [id number] #### [facility] [address] [place], [address] Basophils/100 WBC (Bld) 1.0 % Normal 0-[address] [facility] Comment on above: Performed By: #### L 100.0100, L503.6030, L503.6550, [id number] #### [facility] [address] [place], [address] Eosinophils/100 WBC (Bld) 3.2 % Normal 0-5 [facility] Comment on above: Performed By: #### L 100.0100, L503.6030, L503.6550, [id number] #### [facility] [address] [place], [address] Erythrocyte distribution width (RBC) [Ratio] 15.1 % High 11.6-14.6 [facility] Comment on above: Performed By: #### L 100.0100, L503.6030, L503.6550, [id number] #### [facility] [address] [place], [address] Hematocrit (Bld) [Volume fraction] 32.1 % Low 37-47 [facility] Comment on above: Performed By: #### L 100.0100, L503.6030, L503.6550, [id number] #### [facility] [address] [place], [address] Hemoglobin (Bld) [Mass/Vol] 10.5 g/dL Low 12.0-15.0 [facility] Comment on above: Performed By: #### L 100.0100, L503.6030, L503.6550, [id number] #### [facility] [address] [place], [address] IG% 0.200 Normal 0.0-0.9 [facility] Comment on above: Result Comment: IG% - Immature Granulocytes (promyelocytes, myelocytes and metamyelocytes) > 1% indicates that a LEFT SHIFT is Present. Performed By: #### L 100.0100, L503.6030, L503.6550, [id number] #### [facility] [address] [place], [address] Lymphocytes/100 WBC (Bld) 30.8 % Normal 19-41 [facility] Comment on above: Performed By: #### L 100.0100, L503.6030, L503.6550, [id number] #### [facility] [address] [place], [address] MCH (RBC) [Entitic mass] 28.5 pg Normal 27.0-32.0 [facility] Comment on above: Performed By: #### L 100.0100, L503.6030, L503.6550, [id number] #### [facility] [address] [place], [address] MCHC (RBC) [Mass/Vol] 32.7 g/dL Normal 32-36 [facility] Comment on above: Performed By: #### L 100.0100, L503.6030, L503.6550, [id number] #### [facility] [address] [place], [address] MCV (RBC) [Entitic vol] 87.0 fL Normal 81-[address] [facility] Comment on above: Performed By: #### L 100.0100, L503.6030, L503.6550, [id number] #### [facility] [address] [place], [address] Monocytes/100 WBC (Bld) 5.6 % Normal 0-10 [facility] Comment on above: Performed By: #### L 100.0100, L503.6030, L503.6550, [id number] #### [facility] [address] [place], [address] Neutrophils/100 WBC (Bld) 59.2 % Normal 47-70 [facility] Comment on above: Performed By: #### L 100.0100, L503.6030, L503.6550, [id number] #### [facility] [address] [place], [address] Nucleated RBC (Bld) [#/Vol] 0 10*3/uL Normal 0-5 [facility] Comment on above: Performed By: #### L 100.0100, L503.6030, L503.6550, [id number] #### [facility] [address] [place], [address] Platelet mean volume (Bld) [Entitic vol] 9.9 fL Normal 6.2-12.0 [facility] Comment on above: Performed By: #### L 100.0100, L503.6030, L503.6550, L3410.9998 #### [facility] [address] [place], [address] Platelets (Bld) [#/Vol] 322 10*3/uL Normal 150-450 [facility] Comment on above: Performed By: #### L 100.0100, L503.6030, L503.6550, [id number] #### [facility] [address] [place], [address] RBC (Bld) [#/Vol] 3.69 10*6/uL Low 4.2-5.4 [facility] Comment on above: Performed By: #### L 100.0100, L503.6030, L503.6550, [id number] #### [facility] [address] [place], [address] RDW SD 47.7 fl High 35.1-43.9 [facility] Comment on above: Performed By: #### L 100.0100, L503.6030, L503.6550, [id number] #### [facility] [address] [place], [address] WBC (Bld) [#/Vol] 4.1 10*3/uL Low 4.4-11.0 [facility] Comment on above: Performed By: #### L 100.0100, L503.6030, L503.6550, [id number] #### [facility] [address] [place], [address] Eosinophil percentageOrdered By: Daniel Flynn on 04-03-2025 Eosinophils/100 WBC (Bld) 3.2 % 0-5 [facility] Erythrocyte distribution wid th ratioOrdered By: Daniel Flynn on 04-03-2025 Erythrocyte distribution width (RBC) [Ratio] 15.1 % High 11.6-14.6 [facility] Erythrocyte distribution wid th standard deviationOrdered By: Daniel Flynn on 04-03-2025 Erythrocyte distribution width (RBC) [Ratio] 47.7 fl High 35.1-43.9 [facility] Ferritinon 04-03-2025 Ferritin [Mass/Vol] 48 ng/mL Normal 22-378 [facility] Comment on above: Performed By: #### L 100.0100, L503.6030, L503.6550, [id number] #### [facility] [address] [place], [address] Hematocrit Auto (Bld) [Volum e fraction]Ordered By: Daniel Flynn on 04-03-2025 Hematocrit (Bld) [Volume fraction] 32.1 % Low 37-47 [facility] Hemoglobin measurementOrdere d By: Daniel Flynn on 04-03-2025 Hemoglobin (Bld) [Mass/Vol] 10.5 g/dL Low 12.0-15.0 [facility] Immature granulocytes/100 WB C Auto (Bld)Ordered By: [facility] Flynn on 04-03-2025 Immature granulocytes/100 WBC (Bld) 0.200 % 0.0-0.9 [facility] Comment on above: IG% - Immature Granu locytes (promyelocytes, myelocytes and metamyelocytes) > 1% indicates that a LEFT SHIFT is Present. Iron measurement (mass/mass) Ordered By: Daniel Flynn on 04-03-2025 Iron (Unsp spec) [Mass/Mass] 34 ug/dL Low 50-170 [facility] Iron+Iron Binding Capacityon 04-03-2025 Iron [Mass/Vol] 34 ug/dL Low 50-170 [facility] Comment on above: Performed By: #### L 100.0100, L503.6030, L503.6550, [id number] #### [facility] [address] [place], [address] IRON SATURATION 9.0 Low 13-59 [facility] Comment on above: Performed By: #### L 100.0100, L503.6030, L503.6550, [id number] #### [facility] [address] [place], [address] TIBC 360 ug/dL Normal 250-450 [facility] Comment on above: Performed By: #### L 100.0100, L503.6030, L503.6550, [id number] #### [facility] [address] [place], [address] UIBC 326 ug/dL Normal 228-428 [facility] Comment on above: Performed By: #### L 100.0100, L503.6030, L503.6550, L3410.9998 #### [facility] [address] [place], [address] MCV (mean corpuscular volume ) determinationOrdered By: Daniel Flynn on 04-03-2025 MCV (RBC) [Entitic vol] 87.0 fL 81-[address] [facility] Mean corpuscular hemoglobin (MCH) determinationOrdered By: Daniel Flynn on 04-03-2025 MCH (RBC) [Entitic mass] 28.5 pg 27.0-32.0 [facility] Mean corpuscular hemoglobin concentration (MCHC) determinationOrdered By: Daniel Flynn on 04-03-2025 MCHC (RBC) [Mass/Vol] 32.7 g/dL 32-36 [facility] Mean platelet volume determi nationOrdered By: Daniel Flynn on 04-03-2025 Platelet mean volume (Bld) [Entitic vol] 9.9 fL 6.2-12.0 [facility] Monocyte percentageOrdered B y: Daniel Flynn on 04-03-2025 Monocytes/100 WBC (Bld) 5.6 % 0-[address] [facility] Neutrophil percentageOrdered By: Daniel Flynn on 04-03-2025 Neutrophils/100 WBC (Bld) 59.2 % 47-70 [facility] No Panel InformationOrdered By: Daniel Flynn on 04-03-2025 Unsaturated Iron Binding Capacity 326 ug/dL 228-428 [facility] Nucleated red blood cell per centageOrdered By: Daniel Flynn on 04-03-2025 Nucleated RBC/100 WBC (Bld) [Ratio] 0 % 0-5 [facility] Platelet countOrdered By: oSfia Flynn on 04-03-2025 Platelets (Bld) [#/Vol] 322 10*3/uL 150-450 [facility] RBC Auto (Bld) [#/Vol]Ordere d By: Daniel Flynn on 04-03-2025 RBC (Bld) [#/Vol] 3.69 10*6/uL Low 4.2-5.4 [facility] Retic Panelon 04-03-2025 IM RET FRACTION 18.70 High 3.00-15.90 [facility] Comment on above: Performed By: #### L 100.0100, L503.6030, L503.6550, L3410.9998 #### [facility] [address] [place], [address] RET-HE 31.3 pg Normal -35 [facility] Comment on above: Performed By: #### L 100.0100, L503.6030, L503.6550, L3410.9998 #### [facility] [address] [place], [address] Retic Count 4.39 High 0.5-1.5 [facility] Comment on above: Performed By: #### L 100.0100, L503.6030, L503.6550, [id number] #### [facility] [address] [place], [address] Reticulocyte hemoglobin equi valent (RET-He) measurementOrdered By: Daniel Flynn on 04-03-2025 Hemoglobin (Reticulocytes) [Entitic mass] 31.3 pg 30-35 [facility] Reticulocytes Auto (Bld) [#/ Vol]Ordered By: Daniel Flynn on 04-03-2025 Reticulocytes/100 RBC (Bld) 4.39 % High 0.5-1.5 [facility] Serum or plasma ferritin damian surement (mass/volume)Ordered By: Daniel Flynn on 04-03-2025 Ferritin [Mass/Vol] 48 ng/mL 22-378 [facility] Serum or plasma iron saturat ion measurement (mass fraction)Ordered By: Daniel Flynn on 07-02-2025 Iron saturation [Mass fraction] 9.0 % Low 13-59 [facility] T4 Free SerPl-mCncon 025 Free T4 [Mass/Vol] 1.7 ng/dL Normal 0.9-1.7 [facility] Comment on above: Order Comment: Tavon kelly Type: BLOOD SPECIMEN Ordering Facility: [facility] Address: [address] [place] [address] Performed By: #### 3 024-7 #### [facility] [place] [place] [facility] CLIA [id number] [address] [place] TSH SerPl-aCncon 04-03-2025 TSH Qn 1.150 m[IU]/L Normal 0.270-4.200 [facility] Comment on above: Order Comment: Tavon kelly Type: BLOOD SPECIMEN Ordering Facility: [facility] Address: [address] [place] [address] Performed By: #### 3 016-3 #### [facility] [place] [place] [facility] CLIA [id number] [address] [place], [place] [id number] [place] White blood cell (WBC) count Ordered By: Daniel Flynn on 04-03-2025 WBC (Bld) [#/Vol] 4.1 10*3/uL Low 4.4-11.0 [facility] Oncology Visit Reporton 03-04 Oncology Visit Report [facility] [address] [place] [address]. [place] [address] OFFICE VISIT Date of Service: 03/28/25 1353 MR#: [id number] Acct: [id number] Name: RONNIE HOPE Rep #: [id number] : 1965 From: Daniel Flynn MD Age/Sex: 60/F Location: [facility] Status: Signed HPI Subjective Date of Service 03/28/25 Chief Complaint Iron deficiency anemia. History of Present Illness 59-year-old woman with a history of hemorrhoids, was found to have a deficiency anemia. She was started on oral iron, she had a decrease in hemoglobin to 7.3 so received IV iron-Venofer from 12/05/2024 to 12/14/2024 and had anemia was corrected. She reports that she had upper and lower GI endoscopies by Dr. Sosa and no other source of bleeding was identified. Then she had a colonoscopy in March 2025 that she reports followed an episode of lower GI bleeding (bright red ) by a couple of weeks. The colonoscopy showed internal hemorrhoids that were not bleeding at the time [facility] Medical History Iron deficiency anemia due to chronic blood loss Arthritis Anemia Contact dermatitis due to poison fartun Wears glasses Wears contact lenses Alcohol use Thyroid disease History of IBS Non-smoker Graves disease Surgical History History of foot surgery History of breast biopsy History of lithotripsy History of partial hysterectomy Hx of section History of thyroidectomy Family History Mother Breast cancer Father Prostate cancer Social History Smoking Status: Never smoker alcohol intake: current alcohol intake frequency: a few times a month substance use type: does not use ROS Constitutional Constitutional: Reports fatigue ENT HEENT: Denies bleeding gums Gastrointestinal Gastrointestinal: Reports as per HPI, hemorrhoids and other Details: An episode on red rectal bleed in early March 2025 ; Denies change in bowel habits or melena Genitourinary Genitourinary: Reports other Details: No vaginal bleeding Integumentary Integumentary: Denies bleeding lesions Intake Vital Signs 01/16/25 13:10 03/28/25 13:54 Height 5 ft 5 ft Weight: 70.307 kg BMI 30.2 BP 106/71 Blood Pressure Location Lt brachial Position Sitting Respiration 18 Pulse 73 Pulse Source Monitor Temp 98.5 F Temperature Source Temporal Artery Pulse Oximetry (%) 97 Oxygen Delivery Method room air Intake Is patient in pain?: No Allergies No Known Allergies Allergy (Verified 03/28/25 13:53) Medications ???Medication ???Instructions ???Recorded ???Confirmed ???Type levothyroxine 137 mcg tablet 137 mcg PO DAILY 01/02/18 03/28/25 History (Synthroid) allergy shots 1 ea IM .Q3W 01/06/19 03/28/25 His tory carbinoxamine maleate 4 mg tablet 4 mg PO DAILY ALLERGIES 01/06/19 03/28/25 History calcitriol 0.5 mcg capsule 0.5 mcg PO DAILY 08/06/22 03/28/25 History gabapentin 300 mg capsule 300 mg PO TID 08/06/22 03/28/25 Hi story ascorbic acid (vitamin C) 1,000 mg 1 g PO DAILY 12/05/24 03/28/25 H istory tablet (C-1000) biotin 1 mg capsule 1 mg PO DAILY 12/05/24 03/28/25 Hi story escitalopram oxalate 10 mg tablet 10 mg PO DAILY 12/05/24 03/28/25 History ferrous sulfate 325 mg (65 mg 325 mg PO QDAY 12/05/24 03/28/25 H istory iron) tablet Held on 12/07/24. Instructions: on hold per multivitamin (Daily Multi-Vitamin 1 tab PO DAILY 12/05/24 03/28/25 History tablet) omeprazole 40 mg capsule,delayed 40 mg PO DAILY 12/05/24 03/28/25 H istory release cholecalciferol (vitamin D3) 25 25 mcg PO QDAY 12/19/24 03/28/25 H istory mcg (1,000 unit) capsule glucosamine 750 mg-chondr 600 1 ea PO BID 12/19/24 03/28/25 Hist ory mg-Michael 50 mg-turmeric 125 mg tablets magnesium oxide 400 mg (241.3 mg 400 mg PO QDAY 12/19/24 03/28/25 H istory magnesium) tablet potassium 99 mg tablet 99 mg PO QDAY 12/19/24 03/28/25 Hi story Central Venous Access Central Venous Access: No Laboratory Tests 10/31/23 11/06/24 12/03/24 12:49 09:36 09:19 Hgb 12.8 8.8 L 7.3 L Retic Count Iron Saturation Ferritin 4 L 60 Vitamin B12 12/19/24 01/15/25 01/30/25 16:00 09:52 09:25 Hgb 10.3 L 13.5 13.5 Retic Count 1.02 Iron Saturation 29.8 29.0 Ferritin 84 95 Vitamin B12 725 03/20/25 14:19 Hgb 8.1 L Retic Count Iron Saturation Ferritin 17 L Vitamin B12 Coding Level of Care Code Off vis,est,level 3 Exam Problem Focused Diagnoses Iron deficiency anemia due to chronic blood loss D50.0 Asses (more content not included)... Normal [facility] Celiac Disease Profileon ENDOMYSIAL IGA Negative Normal Negative [facility] Comment on above: Performed By: #### L 100.0100, L503.6030, L503.6550, L3410.9998 #### [facility] [address] [place], [place], [id number] IMMUNOGLOB A QN 50 mg/dL Low 87-352 [facility] Comment on above: Result Comment: Resu lt confirmed on concentration. Performed By: #### L 100.0100, L503.6030, L503.6550, L3410.9998 #### [facility] [address] [place], [place], [id number] tTG IGA <2 Normal 0-3 [facility] Comment on above: Result Comment: Nega tive 0 - 3 Weak Positive 4 - 10 Positive >10 Tissue Transglutaminase (tTG) has been identified as the endomysial antigen. Studies have demonstr- ated that endomysial IgA antibodies have over 99% specificity for gluten sensitive enteropathy. Performed By: #### L 100.0100, L503.6030, L503.6550, L3410.9998 #### [facility] [address] [place], [place], [id number] tTG IGG 3 U/mL Normal 0-5 [facility] Comment on above: Result Comment: Nega tive 0 - 5 Weak Positive 6 - 9 Positive >9 Performed at: [address] [id number] Reimbursement Coordinator: Albert Romero PhD, Phone: [phone] Performed By: #### L 100.0100, L503.6030, L503.6550, L3410.9998 #### [facility] [address] [place], [address] CBC-Complete Blood Cnt No Di ffon 03-20-2025 Erythrocyte distribution width (RBC) [Ratio] 16.6 % High 11.6-14.6 [facility] Comment on above: Performed By: #### L 100.0100, L503.6030, L503.6550, L3410.9998 #### [facility] [address] [place], [address] Hematocrit (Bld) [Volume fraction] 24.3 % Low 37-47 [facility] Comment on above: Performed By: #### L 100.0100, L503.6030, L503.6550, L3410.9998 #### [facility] [address] [place], [address] Hemoglobin (Bld) [Mass/Vol] 8.1 g/dL Low 12.0-15.0 [facility] Comment on above: Performed By: #### L 100.0100, L503.6030, L503.6550, L3410.9998 #### [facility] [address] [place], [address] MCH (RBC) [Entitic mass] 28.8 pg Normal 27.0-32.0 [facility] Comment on above: Performed By: #### L 100.0100, L503.6030, L503.6550, L3410.9998 #### [facility] [address] [place], [address] MCHC (RBC) [Mass/Vol] 33.3 g/dL Normal 32-36 [facility] Comment on above: Performed By: #### L 100.0100, L503.6030, L503.6550, L3410.9998 #### [facility] [address] [place], [address] MCV (RBC) [Entitic vol] 86.5 fL Normal 81-[address] [facility] Comment on above: Performed By: #### L 100.0100, L503.6030, L503.6550, L3410.9998 #### [facility] [address] [place], [address] Platelet mean volume (Bld) [Entitic vol] 10.6 fL Normal 6.2-12.0 [facility] Comment on above: Performed By: #### L 100.0100, L503.6030, L503.6550, L3410.9998 #### [facility] [address] [place], [address] Platelets (Bld) [#/Vol] 311 10*3/uL Normal 150-450 [facility] Comment on above: Performed By: #### L 100.0100, L503.6030, L503.6550, L3410.9998 #### [facility] [address] [place], [address] RBC (Bld) [#/Vol] 2.81 10*6/uL Low 4.2-5.4 [facility] Comment on above: Performed By: #### L 100.0100, L503.6030, L503.6550, L3410.9998 #### [facility] [address] [place], [address] RDW SD 52.4 fl High 35.1-43.9 [facility] Comment on above: Performed By: #### L 100.0100, L503.6030, L503.6550, L3410.9998 #### [facility] [address] [place], [address] WBC (Bld) [#/Vol] 3.6 10*3/uL Low 4.4-11.0 [facility] Comment on above: Performed By: #### L 100.0100, L503.6030, L503.6550, L3410.9998 #### [facility] [address] [place], [place], [id number] Erythrocyte distribution wid th ratioOrdered By: Albert Rizo on 03-20-2025 Erythrocyte distribution width (RBC) [Ratio] 16.6 % High 11.6-14.6 [facility] Erythrocyte distribution wid th standard deviationOrdered By: Albert Rizo on 03-20-2025 Erythrocyte distribution width (RBC) [Ratio] 52.4 fl High 35.1-43.9 [facility] Ferritinon 03-20-2025 Ferritin [Mass/Vol] 17 ng/mL Low 22-378 [facility] Comment on above: Performed By: #### L 100.0100, L503.6030, L503.6550, L3410.9998 #### [facility] [address] [place], [place], [id number] Hematocrit Auto (Bld) [Volum e fraction]Ordered By: Albert Rizo on 03-20-2025 Hematocrit (Bld) [Volume fraction] 24.3 % Low 37-47 [facility] Hemoglobin measurementOrdere d By: Albert Rizo on 03-20-2025 Hemoglobin (Bld) [Mass/Vol] 8.1 g/dL Low 12.0-15.0 [facility] Ironon 03-20-2025 Iron [Mass/Vol] 174 ug/dL High 50-170 [facility] Comment on above: Performed By: #### L 100.0100, L503.6030, L503.6550, L3410.9998 #### [facility] [address] [place], [place], [id number] Iron measurement (mass/mass) Ordered By: Albert Rizo on 03-20-2025 Iron (Unsp spec) [Mass/Mass] 174 ug/dL High 50-170 [facility] MCV (mean corpuscular volume ) determinationOrdered By: Albert Rizo on 03-20-2025 MCV (RBC) [Entitic vol] 86.5 fL 81-[address] [facility] Mean corpuscular hemoglobin (MCH) determinationOrdered By: Albert Rizo on 03-20-2025 MCH (RBC) [Entitic mass] 28.8 pg 27.0-32.0 [facility] Mean corpuscular hemoglobin concentration (MCHC) determinationOrdered By: Albert Rizo on 03-20-2025 MCHC (RBC) [Mass/Vol] 33.3 g/dL 32-36 [facility] Mean platelet volume determi nationOrdered By: Albert Rizo on 03-20-2025 Platelet mean volume (Bld) [Entitic vol] 10.6 fL 6.2-12.0 [facility] No Panel InformationOrdered By: Albert Rizo on 03-20-2025 Tissue Transglutaminase IgG Ab 3 U/mL 0-5 [facility] Comment on above: Negative 0 - 5 Weak Positive 6 - 9 Positive >9Performed at: [facility] [id number] Director: Albert Romero PhD, Phone: [phone] Platelet countOrdered By: Olivia Rizo on 03-20-2025 Platelets (Bld) [#/Vol] 311 10*3/uL 150-450 [facility] RBC Auto (Bld) [#/Vol]Ordere d By: Albert Rizo on 03-20-2025 RBC (Bld) [#/Vol] 2.81 10*6/uL Low 4.2-5.4 [facility] Serum or plasma IgA measurem ent (mass/volume)Ordered By: Albert Rizo on 03-20-2025 IgA [Mass/Vol] 50 mg/dL Low 87-352 [facility] Comment on above: Result confirmed on concentration. Serum or plasma ferritin damian surement (mass/volume)Ordered By: Albert Rizo on 03-20-2025 Ferritin [Mass/Vol] 17 ng/mL Low 22-378 [facility] Serum tissue transglutaminas e (tTG) IgA antibody assay (units/volume)Ordered By: Albert Rizo on 03-20-2025 tTG IgA Qn (S) <2 U/mL 0-3 [facility] Comment on above: Negative 0 - 3 Weak Positive 4 - 10 Positive >10 Tissue Transglutaminase (tTG) has been identified as the endomysial antigen. Studies have demonstr- ated that endomysial IgA antibodies have over 99% specificity for gluten sensitive enteropathy. White blood cell (WBC) count Ordered By: Albert Rizo on 03-20-2025 WBC (Bld) [#/Vol] 3.6 10*3/uL Low 4.4-11.0 [place] [facility] Office Visiton 03-12-2025 Follow-up visit [id number] Ronnie Hope 1965 F Date Provider Department Center 03/12/2025 [facility] Family History Problem Relation Age of Onset Heart disease Father Hypertension Father Prostate cancer Father Heart attack Brother 56 No Known Problems Brother No Known Problems Other No Known Problems Maternal Grandmother No Known Problems Daughter No Known Problems Daughter Alzheimer's disease Paternal Grandfather Lung cancer Maternal Grandfather No Known Problems Son Breast cancer Mother 70 No Known Problems Paternal Grandmother Family Status - Relation Status Age at Father Alive Brother Brother Alive Other Alive Maternal Grandmother Daughter Alive Daughter Alive Paternal Grandfather Maternal Grandfather Son Alive Mother Alive Paternal Grandmother Level of Service:28559 MA PERIODIC PREVENTIVE MED EST PATIENT 40-64YRS Reason for Visit and Comments: Annual Exam [83] Normal [facility] Progress Noteon 03-12-2025 Progress Note Ronnie Cohen Meng 03/12/2025 60 y.o. Primary Care Physician: Richard Richards Chief Complaint Patient presents with Annual Exam HPI : Ronnie Cohen Meng is a 60 y.o. female here for annual exam On estrogen patch 0.025 mg for vasomotor symptoms, symptoms are well controlled. She tried to go off this past year, and was off for about 5-6 months, but reports her symptoms of hot flashes were bad enough that she restarted. She did experience some relief from hot flashes while anemic, because [she] was always cold but which correction of her anemia, the hot flashes became worse again. Father in Oct 2021. She lives with her elderly Mother. S/p supracervical hysterectomy ____ Gynecologic History: No LMP recorded. Patient has had a hysterectomy. Vaginal Bleeding in past year: No Sexually Active: Yes, with Rik of 30 years. Monogamous relationship. Feels safe. OB History Para Term AB Living 3 3 3 3 SAB IAB Ectopic Multiple Live Births 3 # Outcome Date GA Lbr Jamin/2nd Weight Sex Type Anes PTL Lv 3 Term 1995 M CS-Unspec DOMINGO 2 Term 1993 F CS-Unspec [place]O 1 Term 1989 F CS-Unspec [place]O Preventative Health Testing: Date of Last Pap Smear: 2021 Abnormal Pap Smear History: none Date of Last Mammogram: 02/2024 ___ Medical History[1] Surgical History[2] Family History[3] Social History Socioeconomic History Marital status: Spouse name: Not on file Number of children: Not on file Years of education: Not on file Highest education level: Not on file Occupational History Not on file Tobacco Use Smoking status: Former Types: Cigarettes Smokeless tobacco: Never Vaping Use Vaping status: Never Used Substance and Sexual Activity Alcohol use: Yes Drug use: No Sexual activity: Yes Comment: Tubal ligation Other Topics Concern Not on file Social History Narrative Not on file Social Drivers of Health Financial Resource Strain: Low Risk (2024) Overall Financial Resource Strain (CARDIA) Difficulty of Paying Living Expenses: Not hard at all Food Insecurity: Not on file Transportation Needs: No Transportation Needs (2024) PRAPARE - Transportation Lack of Transportation (Medical): No Lack of Transportation (Non-Medical): No Physical Activity: Not on file Stress: No Stress Concern Present (2024) [employer] - Occupational Stress Questionnaire Feeling of Stress : Not at all Social Connections: Not on file Intimate Partner Violence: Not At Risk (2024) Humiliation, Afraid, Rape, and Kick questionnaire Fear of Current or Ex-Partner: No Emotionally Abused: No Physically Abused: No Sexually Abused: No Housing Stability: Unknown (2024) Housing Stability Vital Sign Unable to Pay for Housing in the Last Year: No Number of Places Lived in the Last Year: Not on file Unstable Housing in the Last Year: No MEDICATIONS: Current Medications[4] ALLERGIES: Allergies as of 03/12/2025 - Reviewed 03/12/2025 Allergen Reaction Noted Chlorhexidine Rash 12/06/2018 REVIEW OF SYSTEMS: CONSTITUTIONAL: No unexpected weight change or fatigue CV: No Chest Pain with Exertion. RESPIRATORY: No SOB or Cough BREAST: No breast abnormalities or lumps GI: Hemorrhoids and hematochezia. See's her GI next weeks. No melena : No Dysuria or Hematuria. No Vaginal Discharge. No vaginal bleeding. No dyspareunia. Occasional UI (improved from last year, no longer wears a pad daily). NEURO: No CVA, Migraines, Seizure Hx, or Limb Weakness DERM: No Rash, Itching, Mole Changes or Cancer PSYCH: Depression and anxiety controlled. No SI. MUSCULOSKELETAL: arthritis in hands and feet HEME and LYMPH: Anemia of unknown cause. Following with hematology. No Lymphoma, Von Willebrand's, Hemophillia or Bleeding History PHYSICAL EXAM: Vitals: 03/12/25 1042 BP: 117/68 Weight: 154 lb (69.9 kg) Height: 5' (1.524 m) Body mass index is 30.08 kg/m?. TERMINAL SYSTEM OPERATOR: BREASTS: normal, no masses, tenderness or skin changes. EXTERNAL GENITALIA: normal female structures VAGINA: atrophy CERVIX: cervical stenosis, no lesions. UTERUS: N/A ADNEXA: normal, non tender no masses. URETHRA: normal. nontender BLADDER: non tender. PELVIC SUPPORT DEFECTS: Normal support of vagina, uterus, and bladder ANUS/PERINEUM: no hemorrhoids, masses or warts noted. GENERAL EXAM CONSTITUTIONAL: Well developed, well nourished, well groomed. no acute distress NECK: no thyromegaly, supple. CARDIOVASCULAR: normal rate, no edema LUNGS: Normal effort, ABDOMEN:soft, non-tender, non-distended, no hepatospleenomegaly NEUROLOGICAL: no gross motor or sensory deficits noted. . LYMPH NODES: no lymphadenapathy axillary or inguinal. SKIN: intact, dry MUSCULOSKELETAL: normal gait, no cyanosis. PSYCHIATRIC Normal mood and affect, A&O x (more content not included)... Normal [facility] Progress Note Editor [place] was offere d to the patient for exam. 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 Yes Duration of symptoms: N/A Person calling: Melonie from Dr Jeffrey Richards's Call patient at: [phone] Was an appointment scheduled: No Closing statement: Results or non-symptom based questions: Thank you for calling [facility], your call will be returned within the next business day. Melonie from Dr Jeffrey Richards's calling regarding the recommendation that the patient has a colonoscopy; the patient is not due for one and they would like more information and visit notes. Please advise. Thank you, Darrell Salgado MD 03/11/2025 5:54 PM Signed The reason was because of her anemia without an etiology. Please let Dr. Richards's office know, though whether he wants to pursue this is up to him. Beata Nunez, RN 03/12/2025 11:25 AM Addendum RN spoke with Rafaela nurse at Dr. Richards and explained that Dr. Bai reasoning regarding colonoscopy. Rafaela states that patient has been refereed to GI already. Most recent chart note faxed to them [phone] with confirmation. Allergies As of Date: 03/07/2025 Noted Allergy Reaction CHLORHEXIDINE 12/06/2018 2 - Rash Date Reviewed: 11/13/2021 Reviewed by: Clara Crocker MA - Fully Assessed Reason for Visit: Wheel Assembler - Other [3602] Prescriptions as of 03/12/2025 - levothyroxine (SYNTHROID) 112 mcg tablet Take 1 tablet by mouth once daily. - calcitriol (ROCALTROL) 0.5 mcg capsule Take 0.5 mcg by mouth once daily. - gabapentin (NEURONTIN) 300 mg capsule Take 300 mg by mouth three times daily. - ESTRADIOL TRANSDERM. Apply 1 Patch as directed two times a week. Estradiol 0.05mg patch - cyanocobalamin, vitamin B-12, (VITAMIN B12 ORAL) Take 5,000 mcg by mouth twice daily. - ascorbic acid/zinc (ZINC WITH VITAMIN C ORAL) Take by mouth. - aspirin, enteric coated (ASPIRIN, ENTERIC COATED) 81 mg EC tablet Take 81 mg by mouth once daily. - Potassium 99 mg tab Take by mouth. - EPINEPHrine (EPIPEN) 0.3 mg/0.3 mL auto-injector ADMINISTER 1 PEN INJECTOR INTRAMUSCULARLY SINGLE DOSE NEEDED - escitalopram oxalate (LEXAPRO) 10 mg tablet Take 10 mg by mouth once daily. - glucosamine HCl/chondroitin pierce (GLUCOSAMINE-CHONDROIT IN ORAL) 1,000 mg. - mv,Ca,min-folic acid-vit K1 (ONE-A-DAY WOMEN'S 50 PLUS) 400-20 mcg tab Gummies - BIOTIN ORAL Take 5,000 mcg by mouth. - L.acid/B.bifidum/B.ani mal/FOS (PROBIOTIC COMPLEX ORAL) Take by mouth. Align gummies - Cholecalciferol, Vitamin D3, 25 mcg (1,000 unit) cap Take 1 capsule by mouth once daily. - Olopatadine 0.6 % spry Use 1 [place] in each nostril once daily. - Carbinoxamine Maleate (PALGIC) 4 mg ORAL Tab Take 1 tablet by mouth once daily. 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 Vitamin D deficiency [E55.9] 03/25/2017 BMI 31.0-31.9,adult [Z68.31] 09/11/2018 Seasonal allergies [J30.2] 11/30/2018 Breast lump on right side at 10 o'clock positio*09/29/2015 Family history of breast cancer in mother [Z80.*09/06/2017 Fibrocystic breast changes of both breasts [N60*09/06/2017 Mixed hyperlipidemia [E78.2] 10/09/2019 Breast pain, left [N64.4] 09/02/2016 Allergic rhinitis [J30.9] 04/08/2020 Pain in right shoulder [M25.511] 04/16/2020 Strain of muscle(s) and tendon(s) of the rotato*04/16/2020 Degenerative joint disease of cervical spine [M*04/16/2020 Encounter Status:Closed by BEATA NUNEZ on 03/12/25 Normal [facility] T4 Free SerPl-mCncon 025 Free T4 [Mass/Vol] 1.8 ng/dL High 0.9-1.7 [facility] Comment on above: Order Comment: Tavon kelly Type: BLOOD SPECIMEN Ordering Facility: [facility] Address: [address] [place] [address] Performed By: #### 3 024-7 #### [facility] [place] [place] [facility] CLIA [id number] [address] [place] TSH SerPl-aCncon 03-04-2025 TSH Qn 0.113 m[IU]/L Low 0.270-4.200 [facility] Comment on above: Order Comment: Tavon kelly Type: BLOOD SPECIMEN Ordering Facility: [facility] Address: [address] [place] [address] Performed By: #### 3 016-3 #### [facility] [place] [place] [facility] CLIA [id number] [address] [place] [address] [place] Ericka 02-18-2025 CNPN Telephone (ENDLKW) RONNIE HOPE ([id number]) 1965 F Date Time Provider Department 02/18/25 DARRELL BAI During your visit today, we recorded the following information about you: Monserrat Jordan 02/18/2025 11:28 AM Signed Patient calling in to see if the lab work from her primary care's office was received. Patient states she was anemic and her thyroid levels were out of whack. Patient wants to make sure provider has it before upcoming visit in March. Contact Information [phone] Thank you Chitra Woo RN 02/20/2025 9:29 AM Signed Lab results placed in providers folder and sent to scanning. Chitra Woo RN Allergies As of Date: 02/18/2025 Noted Allergy Reaction CHLORHEXIDINE 12/06/2018 2 - Rash Date Reviewed: 11/13/2021 Reviewed by: Clara Crocker MA - Fully Assessed Reason for Visit: Results [95] Prescriptions as of 02/21/2025 - levothyroxine (LEVOXYL) 137 mcg tablet Take 1 tablet by mouth once daily. - calcitriol (ROCALTROL) 0.5 mcg capsule Take 0.5 mcg by mouth once daily. - gabapentin (NEURONTIN) 300 mg capsule Take 300 mg by mouth three times daily. - ESTRADIOL TRANSDERM. Apply 1 Patch as directed two times a week. Estradiol 0.05mg patch - cyanocobalamin, vitamin B-12, (VITAMIN B12 ORAL) Take 5,000 mcg by mouth twice daily. - ascorbic acid/zinc (ZINC WITH VITAMIN C ORAL) Take by mouth. - aspirin, enteric coated (ASPIRIN, ENTERIC COATED) 81 mg EC tablet Take 81 mg by mouth once daily. - Potassium 99 mg tab Take by mouth. - EPINEPHrine (EPIPEN) 0.3 mg/0.3 mL auto-injector ADMINISTER 1 PEN INJECTOR INTRAMUSCULARLY SINGLE DOSE NEEDED - escitalopram oxalate (LEXAPRO) 10 mg tablet Take 10 mg by mouth once daily. - glucosamine HCl/chondroitin pierce (GLUCOSAMINE-CHONDROIT IN ORAL) 1,000 mg. - mv,Ca,min-folic acid-vit K1 (ONE-A-DAY WOMEN'S 50 PLUS) 400-20 mcg tab Gummies - BIOTIN ORAL Take 5,000 mcg by mouth. - L.acid/B.bifidum/B.ani mal/FOS (PROBIOTIC COMPLEX ORAL) Take by mouth. Align gummies - Cholecalciferol, Vitamin D3, 25 mcg (1,000 unit) cap Take 1 capsule by mouth once daily. - Olopatadine 0.6 % spry Use 1 [place] in each nostril once daily. - Carbinoxamine Maleate (PALGIC) 4 mg ORAL Tab Take 1 tablet by mouth once daily. 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/2016 Vitamin D deficiency [E55.9] 03/25/2017 BMI 31.0-31.9,adult [Z68.31] 09/11/2018 Seasonal allergies [J30.2] 11/30/2018 Breast lump on right side at 10 o'clock positio*09/29/2015 Family history of breast cancer in mother [Z80.*09/06/2017 Fibrocystic breast changes of both breasts [N60*09/06/2017 Mixed hyperlipidemia [E78.2] 10/09/2019 Breast pain, left [N64.4] 09/02/2016 Allergic rhinitis [J30.9] 04/08/2020 Pain in right shoulder [M25.511] 04/16/2020 Strain of muscle(s) and tendon(s) of the rotato*04/16/2020 Degenerative joint disease of cervical spine [M*04/16/2020 Encounter Status:Closed by DIOGENES HARP on 02/18/25 Normal [facility] Absolute lymphocyte countOrd ered By: Richard Richards on 01-30-2025 Lymphocytes Auto (Unsp spec) [#/Vol] 1.51 10*3/uL 0.83-4.51 [facility] Absolute neutrophil countOrd ered By: Richard Richards on 01-30-2025 Neutrophils (Bld) [#/Vol] 1.7 10*3/uL Low 2.0-7.7 [facility] Anion gap in Serum or Plasma Ordered By: Richard Richards on 01-30-2025 Anion gap [Moles/Vol] 14 mmol/L 5-15 [facility] Automated lymphocyte count a s percentage of total leukocytesOrdered By: Richard Richards on 01-30-2025 Lymphocytes/100 WBC Auto (Unsp spec) 42.2 % High 19-41 [facility] BUN/creatinine ratioOrdered By: Richard Richards on 01-30-2025 Urea nitrogen/Creatinine [Mass ratio] 16.1 mg/mg 10- [facility] Basophil percentageOrdered B y: Richard Richards on 01-30-2025 Basophils/100 WBC (Bld) 1.1 % High 0-[address] [facility] Bilirubin, totalOrdered By: Richard Richards on 01-30-2025 Bilirubin [Mass/Vol] 0.31 mg/dL 0.00-1.30 [facility] CBC W/Diff, Automatedon 01-03 Absolute Lymph 1.51 X10 3/uL Normal 0.83-4.51 [facility] Comment on above: Order Comment: Order Date: 12/10/24Order Info: 0184-1 - CBCD Performed By: #### L 100.0100, L503.6030, L503.6550, L3410.9998 #### [facility] [address] [place], [address] Absolute Neut 1.7 X10 3/uL Low 2.0-7.7 [facility] Comment on above: Order Comment: Order Date: 12/10/24Order Info: 0184-1 - CBCD Performed By: #### L 100.0100, L503.6030, L503.6550, [id number] #### [facility] [address] [place], [address] Basophils/100 WBC (Bld) 1.1 % High 0-[address] [facility] Comment on above: Order Comment: Order Date: 12/10/24Order Info: 0184-1 - CBCD Performed By: #### L 100.0100, L503.6030, L503.6550, [id number] #### [facility] [address] [place], [address] Eosinophils/100 WBC (Bld) 1.7 % Normal 0-5 [facility] Comment on above: Order Comment: Order Date: 12/10/24Order Info: 0184-1 - CBCD Performed By: #### L 100.0100, L503.6030, L503.6550, [id number] #### [facility] [address] [place], [address] Erythrocyte distribution width (RBC) [Ratio] 18.6 % High 11.6-14.6 [facility] Comment on above: Order Comment: Order Date: 12/10/24Order Info: 018- - CBCD Performed By: #### L 100.0100, L503.6030, L503.6550, [id number] #### [facility] [address] [place], [address] Hematocrit (Bld) [Volume fraction] 39.8 % Normal 37-47 [facility] Comment on above: Order Comment: Order Date: 12/10/24Order Info: 018-1 - CBCD Performed By: #### L 100.0100, L503.6030, L503.6550, [id number] #### [facility] [address] [place], [address] Hemoglobin (Bld) [Mass/Vol] 13.5 g/dL Normal 12.0-15.0 [facility] Comment on above: Order Comment: Order Date: 12/10/24Order Info: 0184-1 - CBCD Performed By: #### L 100.0100, L503.6030, L503.6550, [id number] #### [facility] [address] [place], [address] IG% 0.600 Normal 0.0-0.9 [facility] Comment on above: Order Comment: Order Date: 12/10/24Order Info: 0184-1 - CBCD Result Comment: IG% - Immature Granulocytes (promyelocytes, myelocytes and metamyelocytes) > 1% indicates that a LEFT SHIFT is Present. Performed By: #### L 100.0100, L503.6030, L503.6550, L3410.9998 #### [facility] [address] [place], [address] Lymphocytes/100 WBC (Bld) 42.2 % High 19-41 [facility] Comment on above: Order Comment: Order Date: 12/10/24Order Info: [id number] - CBCD Performed By: #### L 100.0100, L503.6030, L503.6550, L3410.9998 #### [facility] [address] [place], [address] MCH (RBC) [Entitic mass] 26.8 pg Low 27.0-32.0 [facility] Comment on above: Order Comment: Order Date: 12/10/24Order Info: [id number] - CBCD Performed By: #### L 100.0100, L503.6030, L503.6550, [id number] #### [facility] [address] [place], [address] MCHC (RBC) [Mass/Vol] 33.9 g/dL Normal 32-36 [facility] Comment on above: Order Comment: Order Date: 12/10/24Order Info: [id number] - CBCD Performed By: #### L 100.0100, L503.6030, L503.6550, L3410.9998 #### [facility] [address] [place], [address] MCV (RBC) [Entitic vol] 79.0 fL Low 81-[address] [facility] Comment on above: Order Comment: Order Date: 12/10/24Order Info: [id number] - CBCD Performed By: #### L 100.0100, L503.6030, L503.6550, [id number] #### [facility] [address] [place], [address] Monocytes/100 WBC (Bld) 6.1 % Normal 0-[address] [facility] Comment on above: Order Comment: Order Date: 12/10/24Order Info: [id number] - CBCD Performed By: #### L 100.0100, L503.6030, L503.6550, L3410.9998 #### [facility] [address] [place], [address] Neutrophils/100 WBC (Bld) 48.3 % Normal 47-70 [facility] Comment on above: Order Comment: Order Date: 12/10/24Order Info: [id number]- - CBCD Performed By: #### L 100.0100, L503.6030, L503.6550, L3410.9998 #### [facility] [address] [place], [address] Nucleated RBC (Bld) [#/Vol] 0 10*3/uL Normal 0-5 [facility] Comment on above: Order Comment: Order Date: 12/10/24Order Info: 0184- - CBCD Performed By: #### L 100.0100, L503.6030, L503.6550, L3410.9998 #### [facility] [address] [place], [address] Platelet mean volume (Bld) [Entitic vol] 9.9 fL Normal 6.2-12.0 [facility] Comment on above: Order Comment: Order Date: 12/10/24Order Info: [id number] - CBCD Performed By: #### L 100.0100, L503.6030, L503.6550, L3410.9998 #### [facility] [address] [place], [address] Platelets (Bld) [#/Vol] 261 10*3/uL Normal 150-450 [facility] Comment on above: Order Comment: Order Date: 12/10/24Order Info: [id number] - CBCD Performed By: #### L 100.0100, L503.6030, L503.6550, [id number] #### [facility] [address] [place], [address] RBC (Bld) [#/Vol] 5.04 10*6/uL Normal 4.2-5.4 [facility] Comment on above: Order Comment: Order Date: 12/10/24Order Info: 0184-1 - CBCD Performed By: #### L 100.0100, L503.6030, L503.6550, [id number] #### [facility] [address] [place], [address] RDW SD 53.8 fl High 35.1-43.9 [facility] Comment on above: Order Comment: Order Date: 12/10/24Order Info: 0184-1 - CBCD Performed By: #### L 100.0100, L503.6030, L503.6550, [id number] #### [facility] [address] [place], [address] WBC (Bld) [#/Vol] 3.6 10*3/uL Low 4.4-11.0 [facility] Comment on above: Order Comment: Order Date: 12/10/24Order Info: 0184-1 - CBCD Performed By: #### L 100.0100, L503.6030, L503.6550, [id number] #### [facility] [address] [place], [address] Calculated very low density lipoprotein (VLDL) cholesterol measurementOrdered By: Richard Richards on 01-30-2025 Calculated very low density lipoprotein (VLDL) cholesterol measurement 26 mg/dL 5-40 [facility] Carbon dioxide, total [Moles /volume] in Central venous bloodOrdered By: Richard Richards on 01-30-2025 CO2 [Moles/Vol] 20.8 mmol/L Low 21.0-32.0 [facility] Chloride assayOrdered By: Alanis Richards on 01-30-2025 Chloride [Moles/Vol] 104 mmol/L 98-108 [facility] Comprehensive Metabolic Prof ilon 01-30-2025 Albumin [Mass/Vol] 4.5 g/dL Normal 3.5-5.0 [facility] Comment on above: Order Comment: 0 RETICULOCYTE COUNT RF Performed By: #### L 100.0100, L503.6030, L503.6550, [id number] #### [facility] [address] [place], [address] Albumin/Globulin [Mass ratio] 1.8 {ratio} Normal 0.9-2.4 [facility] Comment on above: Order Comment: 0 RETICULOCYTE COUNT RF Performed By: #### L 100.0100, L503.6030, L503.6550, [id number] #### [facility] [address] [place], [address] ALK PHOS 61 U/L Normal 35-104 [facility] Comment on above: Order Comment: 0 RETICULOCYTE COUNT RF Performed By: #### L 100.0100, L503.6030, L503.6550, [id number] #### [facility] [address] [place], [address] ALT [Catalytic activity/Vol] 21 U/L Normal <=34 [facility] Comment on above: Order Comment: 0 RETICULOCYTE COUNT RF Performed By: #### L 100.0100, L503.6030, L503.6550, L3410.9998 #### [facility] [address] [place], [address] AST [Catalytic activity/Vol] 21 U/L Normal <=31 [facility] Comment on above: Order Comment: 0 RETICULOCYTE COUNT RF Performed By: #### L 100.0100, L503.6030, L503.6550, [id number] #### [facility] [address] [place], [address] Bilirubin [Mass/Vol] 0.31 mg/dL Normal 0.00-1.30 [facility] Comment on above: Order Comment: 0 RETICULOCYTE COUNT RF Performed By: #### L 100.0100, L503.6030, L503.6550, [id number] #### [facility] [address] [place], [address] BUN/CRE 16.1 RATIO Normal 10-20 [facility] Comment on above: Order Comment: 0 RETICULOCYTE COUNT RF Performed By: #### L 100.0100, L503.6030, L503.6550, [id number] #### [facility] [address] [place], [address] Calcium [Mass/Vol] 9.3 mg/dL Normal 7.6-11.0 [facility] Comment on above: Order Comment: 0 RETICULOCYTE COUNT RF Performed By: #### L 100.0100, L503.6030, L503.6550, [id number] #### [facility] [address] [place], [address] Chloride [Moles/Vol] 104 mmol/L Normal 98-108 [facility] Comment on above: Order Comment: 0 RETICULOCYTE COUNT RF Performed By: #### L 100.0100, L503.6030, L503.6550, [id number] #### [facility] [address] [place], [address] CO2 [Moles/Vol] 20.8 mmol/L Low 21.0-32.0 [facility] Comment on above: Order Comment: 0 RETICULOCYTE COUNT RF Performed By: #### L 100.0100, L503.6030, L503.6550, [id number] #### [facility] [address] [place], [address] Creatinine [Mass/Vol] 0.94 mg/dL Normal 0.70-1.20 [facility] Comment on above: Order Comment: 0 RETICULOCYTE COUNT RF Performed By: #### L 100.0100, L503.6030, L503.6550, [id number] #### [facility] [address] [place], [address] GAP 14 Normal 5-15 [facility] Comment on above: Order Comment: 0 RETICULOCYTE COUNT RF Performed By: #### L 100.0100, L503.6030, L503.6550, L3410.9998 #### [facility] [address] [place], [address] GFR/1.73 sq M.predicted among non-blacks MDRD (S/P/Bld) [Vol rate/Area] 70 mL/min/{1.73_m2} Normal >60 [facility] Comment on above: Order Comment: 0 RETICULOCYTE COUNT RF Result Comment: mL/m in/1.73m2 CKD-EPI Creatinine Equation (2020) Performed By: #### L 100.0100, L503.6030, L503.6550, L3410.9998 #### [facility] [address] [place], [address] Globulin (S) [Mass/Vol] 2.5 g/dL Normal 2.2-4.2 [facility] Comment on above: Order Comment: 44185 0 RETICULOCYTE COUNT RF Performed By: #### L 100.0100, L503.6030, L503.6550, [id number] #### [facility] [address] [place], [address] Glucose [Mass/Vol] 92 mg/dL Normal 70-99 [facility] Comment on above: Order Comment: 0 RETICULOCYTE COUNT RF Performed By: #### L 100.0100, L503.6030, L503.6550, [id number] #### [facility] [address] [place], [address] Potassium [Moles/Vol] 3.8 mmol/L Normal 3.3-5.1 [facility] Comment on above: Order Comment: 0 RETICULOCYTE COUNT RF Performed By: #### L 100.0100, L503.6030, L503.6550, [id number] #### [facility] [address] [place], [address] Sodium [Moles/Vol] 139 mmol/L Normal 133-145 [facility] Comment on above: Order Comment: 0 RETICULOCYTE COUNT RF Performed By: #### L 100.0100, L503.6030, L503.6550, L3410.9998 #### [facility] [address] [place], [address] T PROT 7.0 g/dL Normal 5.9-8.4 [facility] Comment on above: Order Comment: 0 RETICULOCYTE COUNT RF Performed By: #### L 100.0100, L503.6030, L503.6550, L3410.9998 #### [facility] [address] [place], [address] Urea nitrogen [Mass/Vol] 15 mg/dL Normal 4-19 [facility] Comment on above: Order Comment: 0 RETICULOCYTE COUNT RF Performed By: #### L 100.0100, L503.6030, L503.6550, L3410.9998 #### [facility] [address] [place], [address] Eosinophil percentageOrdered By: Richard Richards on 01-30-2025 Eosinophils/100 WBC (Bld) 1.7 % 0-5 [facility] Erythrocyte distribution wid th ratioOrdered By: Richard Richards on 01-30-2025 Erythrocyte distribution width (RBC) [Ratio] 18.6 % High 11.6-14.6 [facility] Erythrocyte distribution wid th standard deviationOrdered By: Richard Richards on 01-30-2025 Erythrocyte distribution width (RBC) [Ratio] 53.8 fl High 35.1-43.9 [facility] Ferritinon 01-30-2025 Ferritin [Mass/Vol] 95 ng/mL Normal 22-378 [facility] Comment on above: Performed By: #### L 100.0100, L503.6030, L503.6550, L3410.9998 #### [facility] [place], [place], [id number] Glomerular filtration rate ( GFR) estimation/1.73 sq m using serum, plasma, or whole bOrdered By: Richard Richards on 01-30-2025 GFR/1.73 sq M.predicted among non-blacks MDRD (S/P/Bld) [Vol rate/Area] 70 mL/min/{1.73_m2} >60 [facility] Comment on above: mL/min/1.73m2 CKD-EP I Creatinine Equation (2020) Hematocrit Auto (Bld) [Volum e fraction]Ordered By: Richard Richards on 01-30-2025 Hematocrit (Bld) [Volume fraction] 39.8 % 37-47 [facility] Hemoglobin measurementOrdere d By: Richard Richards on 01-30-2025 Hemoglobin (Bld) [Mass/Vol] 13.5 g/dL 12.0-15.0 [facility] Immature granulocytes/100 WB C Auto (Bld)Ordered By: Richard Richards on 01-30-2025 Immature granulocytes/100 WBC (Bld) 0.600 % 0.0-0.9 [facility] Comment on above: IG% - Immature Granu locytes (promyelocytes, myelocytes and metamyelocytes) > 1% indicates that a LEFT SHIFT is Present. Iron measurement (mass/mass) Ordered By: Daniel Flynn on 01-30-2025 Iron (Unsp spec) [Mass/Mass] 92 ug/dL 50-170 [facility] Iron+Iron Binding Capacityon 01-30-2025 Iron [Mass/Vol] 92 ug/dL Normal 50-170 [facility] Comment on above: Performed By: #### L 100.0100, L503.6030, L503.6550, L3410.9998 #### [facility] [address] [facility] [address] IRON SATURATION 29.0 Normal 13-59 [facility] Comment on above: Performed By: #### L 100.0100, L503.6030, L503.6550, L3410.9998 #### [facility] [address] [place], [address] TIBC 311 ug/dL Normal 250-450 [facility] Comment on above: Performed By: #### L 100.0100, L503.6030, L503.6550, L3410.9998 #### [facility] [address] [place], [address] UIBC 219 ug/dL Low 228-428 [facility] Comment on above: Performed By: #### L 100.0100, L503.6030, L503.6550, L3410.9998 #### [facility] [address] [place], [address] LDL calc ser/plasOrdered By: Richard Richards on 01-30-2025 Cholesterol in LDL [Mass/Vol] 190 mg/dL [facility] Comment on above: Rtxmypmize=076-734 m g/dL & Higher Pidk=690 mg/dL or greater Laboratory - Chemistry and C hemistry - challengeOrdered By: Richard Richards on 01-30-2025 AST [Catalytic activity/Vol] 21 U/L <32 [facility] Lipid Profileon 01-30-2025 CHOL:HDL 5.32 Normal [facility] Comment on above: Order Comment: 0 RETICULOCYTE COUNT RF Performed By: #### L 100.0100, L503.6030, L503.6550, L3410.9998 #### [facility] [address] [facility] [address] Cholesterol [Mass/Vol] 266 mg/dL High <=200 [facility] Comment on above: Order Comment: 0 RETICULOCYTE COUNT RF Result Comment: Chol esterol level, Desirable <200 mg/dL Borderline high cholesterol 200-239 mg/dL High cholesterol >=240 mg/dL Recommendations of the NCEP Adult Treatment Panel for the following risk-cutoff thresholds for the [place] population. Performed By: #### L 100.0100, L503.6030, L503.6550, L3410.9998 #### [facility] [address] [facility] [id number] (148) Cholesterol in HDL [Mass/Vol] 50 mg/dL Normal [facility] Comment on above: Order Comment: 0 RETICULOCYTE COUNT RF Result Comment: Ebonie onal Cholesterol Education Program (NCEP) guidelines: <40 mg/dL: Low HDL-cholesterol (major risk factor for CHD) >= 60 mg/dL: High HDL-cholesterol (negative risk factor for CHD) HDL-cholesterol is affected by a number of factors, e.g. smoking, exercise, hormones, sex and age. Performed By: #### L 100.0100, L503.6030, L503.6550, L3410.9998 #### [facility] [address] [facility] [address] Cholesterol in LDL [Mass/Vol] 190 mg/dL Normal [facility] Comment on above: Order Comment: 0 RETICULOCYTE COUNT RF Result Comment: Bord puarvf=286-050 mg/dL Higher Rxoq=611 mg/dL or greater Performed By: #### L 100.0100, L503.6030, L503.6550, L3410.9998 #### [facility] [address] [place] [id number] Cholesterol in VLDL [Mass/Vol] 26 mg/dL Normal 5-40 [facility] Comment on above: Order Comment: 30672 0 RETICULOCYTE COUNT RF Performed By: #### L 100.0100, L503.6030, L503.6550, L3410.9998 #### [facility] [address] [place], [place], [address] Triglyceride [Mass/Vol] 128 mg/dL Normal [facility] Comment on above: Order Comment: 14704 0 RETICULOCYTE COUNT RF Result Comment: The drugs N-Acetylcysteine and Metamizole may falsely depress this assay. Normal range: <150 mg/dL Borderline High: 150-199 mg/dL High: 200-499 mg/dL Very High: >500 mg/dL Performed By: #### L 100.0100, L503.6030, L503.6550, L3410.9998 #### [facility] [address] [place], [place], [id number] MCV (mean corpuscular volume ) determinationOrdered By: Richard Richards on 01-30-2025 MCV (RBC) [Entitic vol] 79.0 fL Low 81-99 [facility] Mean corpuscular hemoglobin (MCH) determinationOrdered By: Richard Richards on 01-30-2025 MCH (RBC) [Entitic mass] 26.8 pg Low 27.0-32.0 [facility] Mean corpuscular hemoglobin concentration (MCHC) determinationOrdered By: Richard Richards on 01-30-2025 MCHC (RBC) [Mass/Vol] 33.9 g/dL 32-36 [facility] Mean platelet volume determi nationOrdered By: Richard Richards on 01-30-2025 Platelet mean volume (Bld) [Entitic vol] 9.9 fL 6.2-12.0 [facility] Monocyte percentageOrdered B y: Richard Richards on 01-30-2025 Monocytes/100 WBC (Bld) 6.1 % 0-[address] [facility] Neutrophil percentageOrdered By: Richard Richards on 01-30-2025 Neutrophils/100 WBC (Bld) 48.3 % 47-70 [facility] No Panel InformationOrdered By: Daniel Flynn on 01-30-2025 Unsaturated Iron Binding Capacity 219 ug/dL Low 228-428 [facility] Nucleated red blood cell per centageOrdered By: Richard Richards on 01-30-2025 Nucleated RBC/100 WBC (Bld) [Ratio] 0 % 0-5 [facility] Platelet countOrdered By: Alanis Richards on 01-30-2025 Platelets (Bld) [#/Vol] 261 10*3/uL 150-450 [facility] Potassium measurement (mass/ volume)Ordered By: Richard Richards on 01-30-2025 Potassium (Unsp spec) [Mass/Vol] 3.8 mmol/L 3.3-5.1 [facility] RBC Auto (Bld) [#/Vol]Ordere d By: Richard Richards on 01-30-2025 RBC (Bld) [#/Vol] 5.04 10*6/uL 4.2-5.4 [facility] Screening total cholesterol/ high density lipoprotein (HDL) cholesterol ratioOrdered By: Richard Richards on 01-30-2025 Cholesterol.total/Jolene sterol in HDL [Mass ratio] 5.32 {ratio} [facility] Serum creatinine measurement (mass/volume)Ordered By: Richard Richards on 01-30-2025 Creatinine [Mass/Vol] 0.94 mg/dL 0.70-1.20 [facility] Serum globulin measurementOr dered By: Richard Richards on 01-30-2025 Globulin (S) [Mass/Vol] 2.5 g/dL 2.2-4.[address] [facility] Serum glucose measurement (m ass/volume)Ordered By: Richard Richards on 01-30-2025 Glucose [Mass/Vol] 92 mg/dL 70-99 [facility] Serum or plasma alanine christopher otransferase (ALT) measurementOrdered By: Richard Richards on 01-30-2025 ALT [Catalytic activity/Vol] 21 U/L <35 [facility] Serum or plasma albumin irene urement (mass/volume)Ordered By: Richard Richards on 01-30-2025 Albumin [Mass/Vol] 4.5 g/dL 3.5-5.0 [facility] Serum or plasma albumin/glob ulin mass ratioOrdered By: [facility] Richards on 01-30-2025 Albumin/Globulin [Mass ratio] 1.8 {ratio} 0.9-2.4 [facility] Serum or plasma alkaline stephanie sphatase measurementOrdered By: [facility] Richards on 01-30-2025 ALP [Catalytic activity/Vol] 61 U/L 35-104 [facility] Serum or plasma calcium irene urement (mass/volume)Ordered By: Richard Richards on 01-30-2025 Calcium [Mass/Vol] 9.3 mg/dL 7.6-11.0 [facility] Serum or plasma cholesterol in HDL measurement (mass/volume)Ordered By: Richard Richards on 01-30-2025 Cholesterol in HDL [Mass/Vol] 50 mg/dL >40 [facility] Comment on above: National Cholesterol Education Program (NCEP) guidelines:<40 mg/dL: Low HDL-cholesterol (major risk factor for CHD)>= 60 mg/dL: High HDL-cholesterol (negative risk factor for CHD)HDL-cholesterol is affected by a number of factors, e.g. smoking, exercise, hormones, sex and age. Serum or plasma cholesterol measurement (mass/volume)Ordered By: Richard Richards on 01-30-2025 Cholesterol [Mass/Vol] 266 mg/dL High <201 [facility] Comment on above: Cholesterol level, D esirable <200 mg/dLBorderline high cholesterol 200-239 mg/dLHigh cholesterol >=240 mg/dLRecommendations of the NCEP Adult Treatment Panel for the following risk-cutoff thresholds for the [place] population. Serum or plasma ferritin damian surement (mass/volume)Ordered By: Daniel Flynn on 01-30-2025 Ferritin [Mass/Vol] 95 ng/mL 22-378 [facility] Serum or plasma iron saturat ion measurement (mass fraction)Ordered By: Daniel Flynn on 01-30-2025 Iron saturation [Mass fraction] 29.0 % 13-59 [facility] Serum or plasma urea nitroge n measurement (mass/volume)Ordered By: Richard Richards on 01-30-2025 Urea nitrogen [Mass/Vol] 15 mg/dL 4-19 [facility] Sodium levelOrdered By: Maya Richards on 01-30-2025 Sodium [Moles/Vol] 139 mmol/L 133-145 [facility] T4 Free Directon 01-30-2025 T4 FREE DIRECT 2.20 ng/dL High 0.76-1.46 [facility] Comment on above: Order Comment: [id number] 0 RETICULOCYTE COUNT RF Performed By: #### L 100.0100, L503.6030, L503.6550, L3410.9998 #### [facility] [address] [place], [address] T4 freeOrdered By: Ash Richards on 01-30-2025 Free T4 [Mass/Vol] 2.20 ng/dL High 0.76-1.46 [facility] TSH DL <= 0.005 mIU/L QnOrde red By: Richard Richards on 01-30-2025 TSH Qn 0.057 uIU/mL Low 0.300-4.200 [facility] Thyroid Stim Hormone (TSH)on 01-30-2025 TSH 0.057 uIU/mL Low 0.300-4.200 [facility] Comment on above: Order Comment: 18084 0 RETICULOCYTE COUNT RF Performed By: #### L 100.0100, L503.6030, L503.6550, L3410.9998 #### [facility] [address] [place], [address] Total proteinOrdered By: Joe Richards on 01-30-2025 Protein [Mass/Vol] 7.0 g/dL 5.9-8.4 [facility] Triglycerides measurementOrd ered By: Richard Richards on 01-30-2025 Triglyceride [Mass/Vol] 128 mg/dL <[address] [facility] Comment on above: The drugs N-Acetylcy steine and Metamizole may falsely depress this assay. Normal range: <150 mg/dLBorderline High: 150-199 mg/dLHigh: 200-499 mg/dLVery High: >500 mg/dL Vitamin D,25 Hydroxyon 01-30 Vitamin D 25-OH 60.7 ng/mL Normal 30-100 [facility] Comment on above: Order Comment: Order Date: 01/29/25Order Info: [id number] - CMPOrder Info: [id number] - LIPIDOrder Info: [id number] - TSHOrder Info: [id number] - T4F Result Comment: Felecia min D Status Deficiency: <20 ng/mL (50nmol/L) Insufficiency: 20-30 ng/mL (50-75 nmol/L) Sufficiency: 30-100 ng/mL (75-250 nmol/L) Toxicity: >100 ng/mL (>250 nmol/L) Performed By: #### L 100.0100, L503.6030, L503.6550, L3410.9998 #### [facility] [address] [facility] [place], [address] White blood cell (WBC) count Ordered By: Richard Richards on 01-30-2025 WBC (Bld) [#/Vol] 3.6 10*3/uL Low 4.4-11.0 [facility] Oncology Visit Reporton 01-01 Oncology Visit Report [facility] [address] [facility] [place] [address] OFFICE VISIT Date of Service: 01/16/25 1305 MR#: [id number] Acct: [id number] Name: RONNIE HOPE Rep #: [id number] : 1965 From: Daniel Flynn MD Age/Sex: 59/F Location: [facility] Status: Signed HPI Subjective Date of Service 01/16/25 Chief Complaint Iron deficiency anemia. History of Present Illness 59-year-old woman with a history of hemorrhoids, was found to have a deficiency anemia. She was started on oral iron, she had a decrease in hemoglobin to 7.3 so received IV iron-Venofer from 12/05/2024 to 12/14/2024 and had anemia was corrected. She reports that she had upper and lower GI endoscopies by Dr. Sosa and no other source of bleeding was identified. [facility] Medical History (Updated 01/16/25 @ 13:[address] Daniel Flynn MD) Iron deficiency anemia due to chronic blood loss Arthritis Anemia Contact dermatitis due to poison fartun Wears glasses Wears contact lenses Alcohol use Thyroid disease History of IBS Non-smoker Graves disease Surgical History History of foot surgery History of breast biopsy History of lithotripsy History of partial hysterectomy Hx of section History of thyroidectomy Family History Mother Breast cancer Father Prostate cancer Social History Smoking Status: Never smoker alcohol intake: current alcohol intake frequency: a few times a month substance use type: does not use ROS Constitutional Constitutional: Reports systems reviewed and no addt'l complaints, except as documented and fatigue ENT HEENT: Denies bleeding gums or epistaxis Gastrointestinal Gastrointestinal: Reports hemorrhoids and other Details: Hemorrhoids bleed every 2 to 3 months ; Denies heartburn or melena Genitourinary Genitourinary: Reports other Details: No vaginal bleeding ; Denies hematuria Intake Vital Signs 12/19/24 14:50 01/16/25 13:06 01/16/25 13:10 Height 5 ft 5 ft 5 ft Weight: 71.214 kg 69.626 kg BMI 30.7 29.9 BP 96/65 101/69 Blood Pressure Location Lt brachial Lt brachial Position Sitting Sitting Respiration 14 16 Pulse 70 77 Pulse Source Monitor Monitor Temp 98.5 F 98.0 F Temperature Source Temporal Artery Temporal Artery Pulse Oximetry (%) 99 97 Oxygen Delivery Method room air room air Intake Is patient in pain?: No Allergies No Known Allergies Allergy (Verified 01/16/25 13:08) Medications ???Medication ???Instructions ???Recorded ???Confirmed ???Type levothyroxine 137 mcg tablet 137 mcg PO DAILY 01/02/18 01/16/25 History (Synthroid) allergy shots 1 ea IM .Q3W 01/06/19 01/16/25 His tory carbinoxamine maleate 4 mg tablet 4 mg PO DAILY ALLERGIES 01/06/19 01/16/25 History calcitriol 0.5 mcg capsule 0.5 mcg PO DAILY 08/06/22 01/16/25 History gabapentin 300 mg capsule 300 mg PO TID 08/06/22 01/16/25 Hi story ascorbic acid (vitamin C) 1,000 mg 1 g PO DAILY 12/05/24 01/16/25 H istory tablet (C-1000) biotin 1 mg capsule 1 mg PO DAILY 12/05/24 01/16/25 Hi story escitalopram oxalate 10 mg tablet 10 mg PO DAILY 12/05/24 01/16/25 History ferrous sulfate 325 mg (65 mg 325 mg PO QDAY 12/05/24 01/16/25 H istory iron) tablet Held on 12/07/24. Instructions: on hold per multivitamin (Daily Multi-Vitamin 1 tab PO DAILY 12/05/24 01/16/25 History tablet) omeprazole 40 mg capsule,delayed 40 mg PO DAILY 12/05/24 01/16/25 H istory release cholecalciferol (vitamin D3) 25 25 mcg PO QDAY 12/19/24 01/16/25 H istory mcg (1,000 unit) capsule glucosamine 750 mg-chondr 600 1 ea PO BID 12/19/24 01/16/25 Hist ory mg-[place] 50 mg-turmeric 125 mg tablets magnesium oxide 400 mg (241.3 mg 400 mg PO QDAY 12/19/24 01/16/25 H istory magnesium) tablet potassium 99 mg tablet 99 mg PO QDAY 12/19/24 01/16/25 Hi story Have you fallen in the past year?: No Central Venous Access Central Venous Access: No Laboratory Tests 10/31/23 11/06/24 12/03/24 12:49 09:36 09:19 Hgb 12.8 8.8 L 7.3 L Retic Count Iron Saturation Ferritin 4 L 60 Vitamin B12 12/19/24 01/15/25 16:00 09:52 Hgb 10.3 L 13.5 Retic Count 1.02 Iron Saturation 29.8 Ferritin 84 Vitamin B12 725 Exam Physical Exam Const alert, oriented x3 and healthy appearing Coding Level of Care Code Off vis,est,level 3 Exam Problem Focused Diagnoses Iron deficiency anemia due to chronic blood loss D50.0 Assessment and Plan Assessment and Plan (1) Iron deficiency anemia due to chronic blood loss: Status: Chronic Plan 59-year-old f (more content not included)... Normal [facility] Absolute lymphocyte countOrd ered By: Joe Camarena on 01-15-2025 Lymphocytes Auto (Unsp spec) [#/Vol] 1.46 10*3/uL 0.83-4.51 [facility] Absolute neutrophil countOrd ered By: Joe Camarena on 01-15-2025 Neutrophils (Bld) [#/Vol] 2.3 10*3/uL 2.0-7.7 [facility] Anion gap in Serum or Plasma Ordered By: Joe Camarena on 01-15-2025 Anion gap [Moles/Vol] 15 mmol/L - [facility] Comment on above: Previous reported re sult: 12 Edited by: HickiesYessica on 01/15/25:1112 AMENDED REPORT 01/15/25 1112 GAP previously reported as: 12 Automated lymphocyte count a s percentage of total leukocytesOrdered By: Joe Camarena on 01-15-2025 Lymphocytes/100 WBC Auto (Unsp spec) 35.5 % 19-41 [facility] BUN/creatinine ratioOrdered By: Joe Camarena on 01-15-2025 Urea nitrogen/Creatinine [Mass ratio] 13.6 mg/mg 10-20 [facility] Comment on above: Previous reported re sult: 14.0 RATIOEdited by: HickiesYessica on 01/15/25:1112 AMENDED REPORT 01/15/25 1112 BUN/CRE previously reported as: 14.0 RATIO Basophil percentageOrdered B y: Joe Camarena on 01-15-2025 Basophils/100 WBC (Bld) 0.7 % 0-[address] [facility] Bilirubin, totalOrdered By: Joe Camarena on 01-15-2025 Bilirubin [Mass/Vol] 0.29 mg/dL 0.00-1.30 [facility] Comment on above: Previous reported re sult: 0.27 mg/dLEdited by: HickiesYessica on 01/15/25:1112 AMENDED REPORT 01/15/25 1112 T BILI previously reported as: 0.27 mg/dL CBC W/Diff, Automatedon 01-01 Anisocytosis Ql (Bld) 1+ Normal [facility] Comment on above: Performed By: #### L 100.0100, L503.6030, L503.6550, L3410.9998 #### [facility] [address] [place], [address] PLT EST A Normal ADEQ [facility] Comment on above: Performed By: #### L 100.0100, L503.6030, L503.6550, [id number] #### [facility] [address] [place], [address] REACTIVE LYMPH 2+ Normal [facility] Comment on above: Performed By: #### L 100.0100, L503.6030, L503.6550, [id number] #### [facility] [address] [place], [address] CRPon 01-15-2025 C-REACTIVE PROT < 3.00 Normal 0.0-3.0 [facility] Comment on above: Performed By: #### L 100.0100, L503.6030, L503.6550, [id number] #### [facility] [address] [place], [address] Carbon dioxide, total [Moles /volume] in Central venous bloodOrdered By: Joe Camarena on 01-15-2025 CO2 [Moles/Vol] 22.4 mmol/L 21.0-32.0 [facility] Comment on above: Previous reported re sult: 24.1 mmol/LEdited by: LIZBETH on 01/15/25:1112 AMENDED REPORT 01/15/25 111 CO2 previously reported as: 24.1 mmol/L Chloride assayOrdered By: Laura Camarena on 01-15-2025 Chloride [Moles/Vol] 102 mmol/L 98-108 [facility] Comprehensive Metabolic Prof ilon 01-15-2025 Albumin [Mass/Vol] 4.6 g/dL Normal 3.5-5.0 [facility] Comment on above: Performed By: #### L 100.0100, L503.6030, L503.6550, [id number] #### [facility] [address] [place], [address] Albumin/Globulin [Mass ratio] 1.9 {ratio} Normal 0.9-2.4 [facility] Comment on above: Result Comment: AMENDED REPORT 01/15/251111 A/G previously reported as: 1.9 RATIO Performed By: #### L 100.0100, L503.6030, L503.6550, L3410.9998 #### [facility] [address] [place], [address] ALK PHOS 56 U/L Normal 35-104 [facility] Comment on above: Result Comment: AMENDED REPORT 01/15/251111 ALK P previously reported as: 55 U/L Performed By: #### L 100.0100, L503.6030, L503.6550, [id number] #### [facility] [address] [place], [address] ALT [Catalytic activity/Vol] 20 U/L Normal <=34 [facility] Comment on above: Result Comment: AMENDED REPORT 01/15/251111 ALT previously reported as: 21 U/L Performed By: #### L 100.0100, L503.6030, L503.6550, [id number] #### [facility] [address] [place], [address] AST [Catalytic activity/Vol] 23 U/L Normal <=31 [facility] Comment on above: Result Comment: AMENDED REPORT 01/15/251111 AST previously reported as: 22 U/L Performed By: #### L 100.0100, L503.6030, L503.6550, [id number] #### [facility] [address] [place], [address] Bilirubin [Mass/Vol] 0.29 mg/dL Normal 0.00-1.30 [facility] Comment on above: Result Comment: AMENDED REPORT 01/15/251111 T BILI previously reported as: 0.27 mg/dL Performed By: #### L 100.0100, L503.6030, L503.6550, [id number] #### [facility] [address] [place], [address] BUN/CRE 13.6 RATIO Normal 10-20 [facility] Comment on above: Result Comment: AMENDED REPORT 01/15/251111 BUN/CRE previously reported as: 14.0 RATIO Performed By: #### L 100.0100, L503.6030, L503.6550, [id number] #### [facility] [address] [place], [address] Calcium [Mass/Vol] 9.5 mg/dL Normal 7.6-11.0 [facility] Comment on above: Result Comment: AMENDED REPORT 01/15/251111 CA previously reported as: 9.6 mg/dL Performed By: #### L 100.0100, L503.6030, L503.6550, [id number] #### [facility] [address] [place], [address] Chloride [Moles/Vol] 102 mmol/L Normal 98-108 [facility] Comment on above: Performed By: #### L 100.0100, L503.6030, L503.6550, [id number] #### [facility] [address] [place], [address] CO2 [Moles/Vol] 22.4 mmol/L Normal 21.0-32.0 [facility] Comment on above: Result Comment: AMENDED REPORT 01/15/251111 CO2 previously reported as: 24.1 mmol/L Performed By: #### L 100.0100, L503.6030, L503.6550, [id number] #### [facility] [address] [place], [address] Creatinine [Mass/Vol] 1.06 mg/dL Normal 0.70-1.20 [facility] Comment on above: Result Comment: AMENDED REPORT 01/15/251111 CREAT,SERUM previously reported as: 1.05 mg/dL Performed By: #### L 100.0100, L503.6030, L503.6550, [id number] #### [facility] [address] [place], [address] GAP 15 Normal 5-15 [facility] Comment on above: Result Comment: AMENDED REPORT 01/15/251111 GAP previously reported as: 12 Performed By: #### L 100.0100, L503.6030, L503.6550, [id number] #### [facility] [address] [place], [address] Globulin (S) [Mass/Vol] 2.4 g/dL Normal 2.2-4.2 [facility] Comment on above: Result Comment: AMENDED REPORT 01/15/251111 GLOB previously reported as: 2.4 g/dL Performed By: #### L 100.0100, L503.6030, L503.6550, [id number] #### [facility] [address] [place], [address] Glucose [Mass/Vol] 98 mg/dL Normal 70-99 [facility] Comment on above: Result Comment: AMENDED REPORT 01/15/251111 GLU previously reported as: 100 H mg/dL Performed By: #### L 100.0100, L503.6030, L503.6550, [id number] #### [facility] [address] [place], [address] Potassium [Moles/Vol] 4.0 mmol/L Normal 3.3-5.1 [facility] Comment on above: Performed By: #### L 100.0100, L503.6030, L503.6550, [id number] #### [facility] [address] [place], [address] Sodium [Moles/Vol] 140 mmol/L Normal 133-145 [facility] Comment on above: Result Comment: AMENDED REPORT 01/15/251111 NA previously reported as: 138 mmol/L Performed By: #### L 100.0100, L503.6030, L503.6550, [id number] #### [facility] [address] [place], [address] T PROT 7.1 g/dL Normal 5.9-8.4 [facility] Comment on above: Performed By: #### L 100.0100, L503.6030, L503.6550, [id number] #### [facility] [address] [place], [address] Urea nitrogen [Mass/Vol] 14 mg/dL Normal 4-19 [facility] Comment on above: Result Comment: AMENDED REPORT 01/15/251111 BUN previously reported as: 15 mg/dL Performed By: #### L 100.0100, L503.6030, L503.6550, [id number] #### [facility] [address] [place], [address] Eosinophil percentageOrdered By: Joe Camarena on 01-15-2025 Eosinophils/100 WBC (Bld) 1.9 % 0-5 [facility] Erythrocyte Sed Rateon 01-15 SED RATE 4 mm/hr Normal 0-30 [facility] Comment on above: Performed By: #### L 100.0100, L503.6030, L503.6550, [id number] #### [facility] [address] [place], [place], [address] Erythrocyte distribution wid th ratioOrdered By: Joe Camarena on 01-15-2025 Erythrocyte distribution width (RBC) [Ratio] 20.2 % High 11.6-14.6 [facility] Erythrocyte distribution wid th standard deviationOrdered By: Joe Camarena on 01-15-2025 Erythrocyte distribution width (RBC) [Ratio] 57.4 fl High 35.1-43.9 [facility] Erythrocyte sedimentation ra teOrdered By: Joe Camarena on 01-15-2025 ESR (Bld) [Velocity] 4 mm/h 0-30 [facility] Ferritinon 01-15-2025 Ferritin [Mass/Vol] 84 ng/mL Normal 22-378 [facility] Comment on above: Performed By: #### L 503.6550 #### [facility] [address] [place], [place], [id number] Glomerular filtration rate ( GFR) estimation/1.73 sq m using serum, plasma, or whole bOrdered By: Joe Camarena on 01-15-2025 GFR/1.73 sq M.predicted among non-blacks MDRD (S/P/Bld) [Vol rate/Area] 61 mL/min/{1.73_m2} >60 [facility] Comment on above: mL/min/1.73m2 CKD-EP I Creatinine Equation (2020) Hematocrit Auto (Bld) [Volum e fraction]Ordered By: Joe Camarena on 01-15-2025 Hematocrit (Bld) [Volume fraction] 40.4 % 37-47 [facility] Hemoglobin measurementOrdere d By: Joe Camarena on 01-15-2025 Hemoglobin (Bld) [Mass/Vol] 13.5 g/dL 12.0-15.0 [facility] Immature granulocytes/100 WB C Auto (Bld)Ordered By: Joe Camarena on 04-15-2025 Immature granulocytes/100 WBC (Bld) 0.200 % 0.0-0.9 [facility] Comment on above: IG% - Immature Granu locytes (promyelocytes, myelocytes and metamyelocytes) > 1% indicates that a LEFT SHIFT is Present. Iron measurement (mass/mass) Ordered By: Joe Camarena on 01-15-2025 Iron (Unsp spec) [Mass/Mass] 94 ug/dL 50-170 [facility] Iron+Iron Binding Capacityon 01-15-2025 Iron [Mass/Vol] 94 ug/dL Normal 50-170 [facility] Comment on above: Performed By: #### L 100.0100, L503.6030, L503.6550, [id number] #### [facility] [address] [place], [address] UIBC 221 ug/dL Low 228-428 [facility] Comment on above: Performed By: #### L 100.0100, L503.6030, L503.6550, [id number] #### [facility] [address] [place], [address] Laboratory - Chemistry and C hemistry - challengeOrdered By: Joe Camarena on 01-15-2025 AST [Catalytic activity/Vol] 23 U/L <32 [facility] Comment on above: Previous reported re sult: 22 U/LEdited by: AUTOINS on 01/15/25:1112 AMENDED REPORT 01/15/25 1112 AST previously reported as: 22 U/L Laboratory - Hematology and Cell countsOrdered By: Joe Camarena on 01-15-2025 Anisocytosis Ql (Bld) 1+ [facility] MCV (mean corpuscular volume ) determinationOrdered By: Joe Camarena on 01-15-2025 MCV (RBC) [Entitic vol] 79.8 fL Low 81-[address] [facility] Mean corpuscular hemoglobin (MCH) determinationOrdered By: Joe Camarena on 01-15-2025 MCH (RBC) [Entitic mass] 26.7 pg Low 27.0-32.0 [facility] Mean corpuscular hemoglobin concentration (MCHC) determinationOrdered By: Joe Camarena on 01-15-2025 MCHC (RBC) [Mass/Vol] 33.4 g/dL 32-36 [facility] Mean platelet volume determi nationOrdered By: Joe Camarena on 01-15-2025 Platelet mean volume (Bld) [Entitic vol] 9.7 fL 6.2-12.0 [facility] Monocyte percentageOrdered B y: Joe Camarena on 01-15-2025 Monocytes/100 WBC (Bld) 6.6 % 0-[address] [facility] Neutrophil percentageOrdered By: Joe Cmaarena on 01-15-2025 Neutrophils/100 WBC (Bld) 55.1 % 47-70 [facility] No Panel InformationOrdered By: Joe Camarena on 01-15-2025 Unsaturated Iron Binding Capacity 221 ug/dL Low 228-428 [facility] Nucleated red blood cell per centageOrdered By: Joe Camarena on 01-15-2025 Nucleated RBC/100 WBC (Bld) [Ratio] 0 % 0-5 [facility] Platelet countOrdered By: Laura Camarena on 01-15-2025 Platelets (Bld) [#/Vol] 293 10*3/uL 150-450 [facility] Platelet estimateOrdered By: Joe Camarena on 01-15-2025 Platelets LM Ql (Bld) A ADEQ [facility] Potassium measurement (mass/ volume)Ordered By: Joe Camarena on 01-15-2025 Potassium (Unsp spec) [Mass/Vol] 4.0 mmol/L 3.3-5.1 [facility] RBC Auto (Bld) [#/Vol]Ordere d By: oJe Camarena on 01-15-2025 RBC (Bld) [#/Vol] 5.06 10*6/uL 4.2-5.4 [facility] Retic Panelon 01-15-2025 IM RET FRACTION 3.10 Normal 3.00-15.90 [facility] Comment on above: Performed By: #### L 100.0100, L503.6030, L503.6550, L3410.9998 #### [facility] [address] [place], [place], [id number] [phone] RET-HE 33.4 pg Normal 30-35 [facility] Comment on above: Performed By: #### L 100.0100, L503.6030, L503.6550, L3410.9998 #### [facility] [address] [place], [address] Retic Count 1.02 Normal 0.5-1.5 [facility] Comment on above: Performed By: #### L 100.0100, L503.6030, L503.6550, L3410.9998 #### [facility] [address] [place], [address] Reticulocyte hemoglobin equi valent (RET-He) measurementOrdered By: Joe Camarena on 01-15-2025 Hemoglobin (Reticulocytes) [Entitic mass] 33.4 pg 30-35 [facility] Reticulocytes Auto (Bld) [#/ Vol]Ordered By: Joe Camarena on 01-15-2025 Reticulocytes/100 RBC (Bld) 1.02 % 0.5-1.5 [facility] Serum creatinine measurement (mass/volume)Ordered By: Joe Camarena on 01-15-2025 Creatinine [Mass/Vol] 1.06 mg/dL 0.70-1.20 [facility] Comment on above: Previous reported re sult: 1.05 mg/dLEdited by: LIZBETH on 01/15/25:1112 AMENDED REPORT 01/15/25 111 CREAT,SERUM previously reported as: 1.05 mg/dL Serum globulin measurementOr dered By: Joe Camarena on 01-15-2025 Globulin (S) [Mass/Vol] 2.4 g/dL 2.2-4.[address] [facility] Comment on above: Previous reported re sult: 2.4 g/dLEdited by: LIZBETH on 01/15/25:1112 AMENDED REPORT 01/15/25 1112 GLOB previously reported as: 2.4 g/dL Serum glucose measurement (m ass/volume)Ordered By: Joe Camarena on 01-15-2025 Glucose [Mass/Vol] 98 mg/dL 70-99 [facility] Comment on above: Previous reported re sult: 100 mg/dLEdited by: LIZBETH on 01/15/25:1112 AMENDED REPORT 01/15/251111 GLU previously reported as: 100 H mg/dL Serum or plasma C reactive p rotein measurement (mass/volume)Ordered By: Joe Camarena on 01-15-2025 CRP [Mass/Vol] mg/L 0.0-3.0 [facility] Serum or plasma alanine christopher otransferase (ALT) measurementOrdered By: Joe Camarena on 01-15-2025 ALT [Catalytic activity/Vol] 20 U/L <35 [facility] Comment on above: Previous reported re sult: 21 U/LEdited by: LIZBETH on 01/15/25:1112 AMENDED REPORT 01/15/251111 ALT previously reported as: 21 U/L Serum or plasma albumin irene urement (mass/volume)Ordered By: Joe Camarena on 01-15-2025 Albumin [Mass/Vol] 4.6 g/dL 3.5-5.0 [facility] Serum or plasma albumin/glob ulin mass ratioOrdered By: Joe Camarena on 01-15-2025 Albumin/Globulin [Mass ratio] 1.9 {ratio} 0.9-2.4 [facility] Comment on above: Previous reported re sult: 1.9 RATIOEdited by: LIZBETH on 01/15/25:1112 AMENDED REPORT 01/15/251111 A/G previously reported as: 1.9 RATIO Serum or plasma alkaline stephanie sphatase measurementOrdered By: Joe Camarena on 01-15-2025 ALP [Catalytic activity/Vol] 56 U/L 35-104 [facility] Comment on above: Previous reported re sult: 55 U/LEdited by: LIZBETH on 01/15/25:1112 AMENDED REPORT 01/15/251111 ALK P previously reported as: 55 U/L Serum or plasma calcium irene urement (mass/volume)Ordered By: Joe Camarena on 01-15-2025 Calcium [Mass/Vol] 9.5 mg/dL 7.6-11.0 [facility] Comment on above: Previous reported re sult: 9.6 mg/dLEdited by: LIZBETH on 01/15/25:1112 AMENDED REPORT 01/15/25 1112 CA previously reported as: 9.6 mg/dL Serum or plasma ferritin damian surement (mass/volume)Ordered By: Joe Camarena on 01-15-2025 Ferritin [Mass/Vol] 84 ng/mL 22-378 [facility] Serum or plasma iron saturat ion measurement (mass fraction)Ordered By: Joe Camarena on 01-15-2025 Iron saturation [Mass fraction] 29.8 % 13-59 [facility] Comment on above: Previous reported re sult: 30.0 %Edited by: LIZBETH on 01/15/25:1114 AMENDED REPORT 01/15/25 1114 IRON SATURATION previously reported as: 30.0 % Serum or plasma urea nitroge n measurement (mass/volume)Ordered By: Joe Camarena on 01-15-2025 Urea nitrogen [Mass/Vol] 14 mg/dL 4-19 [facility] Comment on above: Previous reported re sult: 15 mg/dLEdited by: LIZBETH on 01/15/25:1112 AMENDED REPORT 01/15/25 1112 BUN previously reported as: 15 mg/dL Sodium levelOrdered By: Luis Camarena on 01-15-2025 Sodium [Moles/Vol] 140 mmol/L 133-145 [facility] Comment on above: Previous reported re sult: 138 mmol/LEdited by: LIZBETH on 01/15/25:1112 AMENDED REPORT 01/15/25 1112 NA previously reported as: 138 mmol/L Total proteinOrdered By: Cali Camarena on 01-15-2025 Protein [Mass/Vol] 7.1 g/dL 5.9-8.4 [facility] Vitamin B12on 01-15-2025 Cobalamin (Vitamin B12) [Mass/Vol] 725 pg/mL Normal 180-914 [facility] Comment on above: Result Comment: AMENDED REPORT 01/15/25 1112 Vitamin B12 previously reported as: 728 pg/mL Performed By: #### L 100.0100, L503.6030, L503.6550, L3410.9998 #### [facility] [address] [place], [address] Vitamin B12 ser/plasOrdered By: Joe Camarena on 01-15-2025 Cobalamin (Vitamin B12) [Mass/Vol] 725 pg/mL 180-914 [facility] Comment on above: Previous reported re sult: 728 pg/mLEdited by: AUTOINS on 01/15/25:1112 AMENDED REPORT 01/15/25 1112 Vitamin B12 previously reported as: 728 pg/mL White blood cell (WBC) count Ordered By: Joe Camarena on 01-15-2025 WBC (Bld) [#/Vol] 4.1 10*3/uL Low 4.4-11.0 [facility] Celiac AB,Comprehensiveon ANTIGLIADIN IGA 2 units Normal 0-19 [facility] Comment on above: Result Comment: Nega tive 0 - 19 Weak Positive 20 - 30 Moderate to Strong Positive >30 Performed By: #### L 3410.2350 #### [facility] [address] [place], [address] ANTIGLIADIN IGG 2 units Normal 0-19 [facility] Comment on above: Result Comment: Nega tive 0 - 19 Weak Positive 20 - 30 Moderate to Strong Positive >30 Performed By: #### L 3410.2350 #### [facility] [address] [place], [place], [id number] ENDOMYSIAL IGA Negative Normal Negative [facility] Comment on above: Performed By: #### L 3410.2350 #### [facility] [address] [place], [place], [id number] IMMUNOGLOB A QN 72 mg/dL Low 87-352 [facility] Comment on above: Result Comment: Perf ormed at: - [facility] [address] [id number] Reimbursement Coordinator: Albert Romero PhD, Phone: [phone] Performed By: #### L 3410.2350 #### [facility] [address] [place], [address] tTG IGA <2 Normal 0-3 [facility] Comment on above: Result Comment: Nega tive 0 - 3 Weak Positive 4 - 10 Positive >10 Tissue Transglutaminase (tTG) has been identified as the endomysial antigen. Studies have demonstr- ated that endomysial IgA antibodies have over 99% specificity for gluten sensitive enteropathy. Performed By: #### L 3410.2350 #### [facility] [address] [place], [address] tTG IGG 4 U/mL Normal 0-5 [facility] Comment on above: Result Comment: Nega tive 0 - 5 Weak Positive 6 - 9 Positive >9 Performed By: #### L 3410.2350 #### [facility] [address] [place], [address] Lower GI hemoglobin IA Ql (S tl)Ordered By: Joe Camarena on 12-20-2024 Stool Occult Blood (EZRA) [facility] Stool Occult Blood iFOBon STOB Negative Normal [facility] Comment on above: Performed By: #### L 100.0100, L503.6030, L503.6550, L3410.9998 #### [facility] [address] [place], [address] Stool gastrointestinal hemog lobin detection by immunologic methodOrdered By: Joe Camarena on 12-20-2024 Lower GI hemoglobin IA Ql (Stl) [facility] Absolute neutrophil countOrd ered By: Joe Camarena on 12-19-2024 Neutrophils (Bld) [#/Vol] 1.6 10*3/uL Low 2.0-7.7 [facility] Basophil percentageOrdered B y: Joe Camarena on 12-19-2024 Basophils/100 WBC (Bld) 1.5 % High 0-[address] [facility] Blood manual differential co mment interpretation (narrative result)Ordered By: Joe Camarena on 12-19-2024 Manual differential comment Christiano (Bld) [Interp] SCANNED [facility] CBC W/Diff, AutomatedOrdered By: Joe Camarena on 12-19-2024 Anisocytosis Ql (Bld) 2+ Normal [facility] Comment on above: Performed By: #### L 100.9950, L501.6710, L100.0100, L101.9900 #### [facility] [address] [place], [address] CBC W/Diff, Automatedon 12-01 SMEAR COMMENT SCANNED Normal [facility] Comment on above: Performed By: #### L 100.9950, L501.6710, L100.0100, L101.9900 #### [facility] [address] [place], [address] CRPon 12-19-2024 C-REACTIVE PROT < 3.00 Normal 0.0-3.0 [facility] Comment on above: Performed By: #### L 100.9950, L501.6710, L100.0100, L101.9900 #### [facility] [address] [place], [address] CRP [Mass/Vol]Ordered By: Laura Camarena on 12-19-2024 C-Reactive Protein Extended Range < 3.00 mg/L 0.0-3.0 [facility] Deamidated gliadin IgA antib maia assayOrdered By: Joe Camarena on 12-19-2024 Anti-Gliadin IgA Antibody 2 units 0- [facility] Comment on above: Negative 0 - 19 Weak Positive 20 - 30 Moderate to Strong Positive >30 Deamidated gliadin IgG antib maia assayOrdered By: Joe Camarena on 12-19-2024 Anti-Gliadin IgG Antibody 2 units 0- [facility] Comment on above: Negative 0 - 19 Weak Positive 20 - 30 Moderate to Strong Positive >30 Endomysial IgA antibody assa yOrdered By: Joe Camarena on 12-19-2024 Endomysial IgA Antibody Negative Negative [facility] Eosinophil percentageOrdered By: Joe Camarena on 12-19-2024 Eosinophils/100 WBC (Bld) 2.7 % 0-5 [facility] Erythrocyte Sed Rateon 12-19 SED RATE 5 mm/hr Normal 0-30 [facility] Comment on above: Performed By: #### L 100.9950, L501.6710, L100.0100, L101.9900 #### [facility] [address] [place], [address] Erythrocyte distribution wid th ratioOrdered By: Joe Camarena on 12-19-2024 Erythrocyte distribution width (RBC) [Ratio] 24.0 % High 11.6-14.6 [facility] Erythrocyte distribution wid th standard deviationOrdered By: Joe Camarena on 12-19-2024 Erythrocyte distribution width (RBC) [Entitic vol] 68.2 fL High 35.1-43.9 [facility] Erythrocyte sedimentation ra teOrdered By: Joe Camarena on 12-19-2024 ESR (Bld) [Velocity] 5 mm/h 0-30 [facility] Hematocrit Auto (Bld) [Volum e fraction]Ordered By: Joe Camarena on 12-19-2024 Hematocrit (Bld) [Volume fraction] 32.5 % Low 37-47 [facility] Hemoglobin (Reticulocytes) [ Entitic mass]Ordered By: Joe Camarena on 12-19-2024 Reticulocyte Hemoglobin Equivalent 34.5 pg 30-35 [facility] Health Hemoglobin measurementOrdere d By: Joe Camarena on 12-19-2024 Hemoglobin (Bld) [Mass/Vol] 10.3 g/dL Low 12.0-15.0 [facility] Immature granulocytes/100 WB C Auto (Bld)Ordered By: Joe Camarena on 12-19-2024 Immature granulocytes/100 WBC (Bld) 0.300 % 0.0-0.9 [facility] Comment on above: IG% - Immature Granu locytes (promyelocytes, myelocytes and metamyelocytes) > 1% indicates that a LEFT SHIFT is Present. Immature reticulocyte fracti onOrdered By: Joe Camarena on 12-19-2024 Immature Reticulocyte Fraction 8.80 % 3.00-15.90 [facility] Lymphocytes Auto (Unsp spec) [#/Vol]Ordered By: Joe Camarena on 12-19-2024 Lymphocytes (Bld) [#/Vol] 1.39 10*3/uL 0.83-4.51 [facility] Lymphocytes/100 WBC Auto (Un sp spec)Ordered By: Joe Camarena on 12-19-2024 Lymphocytes/100 WBC (Bld) 41.0 % 19-41 [facility] MCV (mean corpuscular volume ) determinationOrdered By: Joe Camarena on 12-19-2024 MCV (RBC) [Entitic vol] 80.2 fL Low 81-[address] [facility] Manual differential comment Christiano (Bld) [Interp]Ordered By: Joe Camarena on 12-19-[address] [facility] Mean corpuscular hemoglobin (MCH) determinationOrdered By: Joe Camarena on 12-19-2024 MCH (RBC) [Entitic mass] 25.4 pg Low 27.0-32.0 [facility] Mean corpuscular hemoglobin concentration (MCHC) determinationOrdered By: Joe Camarena on 12-19-2024 MCHC (RBC) [Mass/Vol] 31.7 g/dL Low 32-36 [facility] Mean platelet volume determi nationOrdered By: Joe Camarena on 12-19-2024 Platelet mean volume (Bld) [Entitic vol] 9.9 fL 6.2-12.0 [facility] Monocyte percentageOrdered B y: Joe Camarena on 12-19-2024 Monocytes/100 WBC (Bld) 6.2 % 0-[address] [facility] Neutrophil percentageOrdered By: Joe Camarena on 12-19-2024 Neutrophils/100 WBC (Bld) 48.3 % 47-70 [facility] No Panel InformationOrdered By: Joe Camarena on 12-19-2024 Tissue Transglutaminase IgG Ab 4 U/mL 0-5 [facility] Comment on above: Negative 0 - 5 Weak Positive 6 - 9 Positive >9 Nucleated red blood cell per centageOrdered By: Joe Camarena on 12-19-2024 Nucleated RBC/100 WBC (Bld) [Ratio] 0 % 0-5 [facility] Oncology Visit Reporton 12-01 Oncology Visit Report [facility] [place] [address] OFFICE VISIT Date of Service: 12/19/24 1450 MR#: [id number] Acct: [id number] Name: RONNIE HOPE Rep #: [id number] : 1965 From: Joe Camarena MD Age/Sex: 59/F Location: [facility] [place] Status: Signed HPI Subjective Date of Service 12/19/24 Chief Complaint Referred for Iron deficiency anemia. History of Present Illness 59-year-old woman with a history of hemorrhoids, was found to have a deficiency anemia. She was started on oral iron, she had a decrease in hemoglobin to 7.3 so received IV iron-Venofer from 12/05/2024 to 12/14/2024. She feels still feels tired so referred for further evaluation and management. She becomes very exhausted at the end of the day. [facility] Medical History (Updated 12/19/24 @ 17:[address] Joe Camarena MD) Arthritis Anemia Contact dermatitis due to poison fartun Wears glasses Wears contact lenses Alcohol use Thyroid disease History of IBS Non-smoker Graves disease Surgical History History of foot surgery History of breast biopsy History of lithotripsy History of partial hysterectomy Hx of section History of thyroidectomy Family History Mother Breast cancer Father Prostate cancer Social History (Updated 12/19/24 @ 15:05 by Shi Amezcua) Smoking Status: Never smoker alcohol intake: current alcohol intake frequency: a few times a month substance use type: does not use ROS Constitutional Constitutional: Reports systems reviewed and no addt'l complaints, except as documented Eyes Eyes: Reports systems reviewed and no addt'l complaints, except as documented ENT HEENT: Reports systems reviewed and no addt'l complaints, except as documented Cardiovascular Cardiovascular: Reports systems reviewed and no addt'l complaints, except as documented Respiratory/Chest Respiratory/Chest: Reports systems reviewed and no addt'l complaints, except as documented Gastrointestinal Gastrointestinal: Reports systems reviewed and no addt'l complaints, except as documented Genitourinary Genitourinary: Reports systems reviewed and no addt'l complaints, except as documented Musculoskeletal Musculoskeletal: Reports systems reviewed and no addt'l complaints, except as documented Integumentary Integumentary: Reports systems reviewed and no addt'l complaints, except as documented Neurologic Neurologic: Reports systems reviewed and no addt'l complaints, except as documented Psychiatric Psychiatric: Reports systems reviewed and no addt'l complaints, except as documented Endocrine Endocrinology: Reports systems reviewed and no addt'l complaints, except as documented Hematologic/Lymphatic Hematologic/Lymphatic: Reports systems reviewed and no addt'l complaints, except as documented Allergic/Immunologic Allergic/Immunologic: Reports systems reviewed and no addt'l complaints, except as documented Intake Vital Signs 03/19/23 08:33 12/07/24 09:07 12/14/24 11:00 12/19/24 14:50 Height 5 ft 5 ft 5 ft 5 ft Weight: 71.214 kg BMI 30.7 BP 96/65 Blood Pressure Location Lt brachial Position Sitting Respiration 14 Pulse 70 Pulse Source Monitor Temp 98.5 F Temperature Source Temporal Artery Pulse Oximetry (%) 99 Oxygen Delivery Method room air 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 Accompanied by: daughter, mother Is patient in pain?: No Allergies No Known Allergies Allergy (Verified 12/19/24 15:01) Medications ???Medication ???Instructions ???Recorded ???Confirmed ???Type levothyroxine 137 mcg tablet 137 mcg PO DAILY 01/02/18 12/19/24 History (Synthroid) allergy shots 1 ea IM .Q3W 01/06/19 12/19/24 His tory carbinoxamine maleate 4 mg tablet 4 mg PO DAILY ALLERGIES 01/06/19 12/19/24 History calcitriol 0.5 mcg capsule 0.5 mcg PO DAILY 08/06/22 12/19/24 History gabapentin 300 mg capsule 300 mg PO TID 08/06/22 12/19/24 Hi story oxycodone 5 mg capsule 5 mg PO Q4H PRN PRN pain 7 days 12/19/24 Rx #42 caps ascorbic acid (vitamin C) 1,000 mg 1 g PO DAILY 12/05/24 12/19/24 H istory tablet (C-1000) biotin 1 mg capsule 1 mg PO DAILY 12/05/24 12/19/24 Hi story escitalopram oxalate 10 mg tablet 10 mg PO DAILY 12/05/24 12/19/24 History ferrous sulfate 325 mg (65 mg 325 mg PO QDAY 12/05/24 12/19/24 H istory iron) tablet Held on 12/07/24. Instructions: on hold per multivitamin (Daily Multi-Vitamin 1 tab PO DAILY 12/05/24 12/19/24 History tablet) omeprazole 40 mg capsule,delayed 40 mg PO DAILY 12/05/24 12/19/24 H istory release cholecalciferol (vitamin D3) 25 25 mcg PO QDAY 12/19/24 12/19/24 H istory mcg (1,000 unit) capsule gl (more content not included)... Normal [facility] Platelet countOrdered By: Laura Camarena on 12-19-2024 Platelets (Bld) [#/Vol] 288 10*3/uL 150-450 [facility] RBC Auto (Bld) [#/Vol]Ordere d By: Joe Camarena on 12-19-2024 RBC (Bld) [#/Vol] 4.05 10*6/uL Low 4.2-5.4 [facility] Retic Panelon 12-19-2024 IM RET FRACTION 8.80 Normal 3.00-15.90 [facility] Comment on above: Performed By: #### L 100.9950, L501.6710, L100.0100, L101.9900 #### [facility] [address] [place], [place], [id number] RET-HE 34.5 pg Normal 30-35 [facility] Comment on above: Performed By: #### L 100.9950, L501.6710, L100.0100, L101.9900 #### [facility] [address] [place], [place], [id number] Retic Count 5.32 High 0.5-1.5 [facility] Comment on above: Performed By: #### L 100.9950, L501.6710, L100.0100, L101.9900 #### [facility] [place], [address] Reticulocytes Auto (Bld) [#/ Vol]Ordered By: Joe Camarena on 12-19-2024 Reticulocyte Count 5.32 % High 0.5-1.5 [facility] Serum immunoglobulin A measu rementOrdered By: Joe Camarena on 12-19-2024 Immunoglobulin A 72 mg/dL Low 87-352 [facility] Comment on above: Performed at: [address] [id number] Director: Albert Romero PhD, Phone: [phone] Serum tissue transglutaminas e (tTG) IgA antibody assay (units/volume)Ordered By: Joe Camarena on 12-19-2024 tTG IgA Qn (S) <2 U/mL 0-3 [facility] Comment on above: Negative 0 - 3 Weak Positive 4 - 10 Positive >10 Tissue Transglutaminase (tTG) has been identified as the endomysial antigen. Studies have demonstr- ated that endomysial IgA antibodies have over 99% specificity for gluten sensitive enteropathy. White blood cell (WBC) count Ordered By: Joe Camarena on 12-19-2024 WBC (Bld) [#/Vol] 3.4 10*3/uL Low 4.4-11.0 [facility] tTG IgA Qn (S)Ordered By: Laura Camarena on 12-19-2024 Tissue Transglutaminase IgA Ab <2 U/mL 0-3 [facility] Comment on above: Negative 0 - 3 Weak Positive 4 - 10 Positive >10 Tissue Transglutaminase (tTG) has been identified as the endomysial antigen. Studies have demonstr- ated that endomysial IgA antibodies have over 99% specificity for gluten sensitive enteropathy. Absolute lymphocyte countOrd ered By: Richard Richards on 12-03-2024 Lymphocytes Auto (Unsp spec) [#/Vol] 1.40 10*3/uL 0.83-4.51 [facility] Absolute neutrophil countOrd ered By: Richard Richards on 12-03-2024 Neutrophils (Bld) [#/Vol] 1.9 10*3/uL Low 2.0-7.7 [facility] Automated lymphocyte count a s percentage of total leukocytesOrdered By: Richard Richards on 12-03-2024 Lymphocytes/100 WBC Auto (Unsp spec) 38.9 % 19-41 [facility] Basophil percentageOrdered B y: Richard Richards on 12-03-2024 Basophils/100 WBC (Bld) 1.1 % High 0-[address] [facility] CBC W/Diff, Automatedon Absolute Lymph 1.40 X10 3/uL Normal 0.83-4.51 [facility] Comment on above: Order Comment: [id number] RETICULOCYTE COUNT RF Performed By: #### L 100.0100, L503.6030, L503.6550, L3410.9998 #### [facility] [address] [place], [address] Absolute Neut 1.9 X10 3/uL Low 2.0-7.7 [facility] Comment on above: Order Comment: [id number] 0 RETICULOCYTE COUNT RF Performed By: #### L 100.0100, L503.6030, L503.6550, L3410.9998 #### [facility] [address] [place], [address] Basophils/100 WBC (Bld) 1.1 % High 0-[address] [facility] Comment on above: Order Comment: [id number] 0 RETICULOCYTE COUNT RF Performed By: #### L 100.0100, L503.6030, L503.6550, L3410.9998 #### [facility] [address] [place], [address] Eosinophils/100 WBC (Bld) 1.4 % Normal 0-5 [facility] Comment on above: Order Comment: [id number] 0 RETICULOCYTE COUNT RF Performed By: #### L 100.0100, L503.6030, L503.6550, L3410.9998 #### [facility] [address] [place], [address] Erythrocyte distribution width (RBC) [Ratio] 18.3 % High 11.6-14.6 [facility] Comment on above: Order Comment: 0 RETICULOCYTE COUNT RF Performed By: #### L 100.0100, L503.6030, L503.6550, L3410.9998 #### [facility] [address] [place], [address] Hematocrit (Bld) [Volume fraction] 23.9 % Low 37-47 [facility] Comment on above: Order Comment: 0 RETICULOCYTE COUNT RF Performed By: #### L 100.0100, L503.6030, L503.6550, L3410.9998 #### [facility] [address] [place], [address] Hemoglobin (Bld) [Mass/Vol] 7.3 g/dL Low 12.0-15.0 [facility] Comment on above: Order Comment: 0 RETICULOCYTE COUNT RF Performed By: #### L 100.0100, L503.6030, L503.6550, L3410.9998 #### [facility] [address] [place], [address] IG% 0.300 Normal 0.0-0.9 [facility] Comment on above: Order Comment: 0 RETICULOCYTE COUNT RF Result Comment: IG% - Immature Granulocytes (promyelocytes, myelocytes and metamyelocytes) > 1% indicates that a LEFT SHIFT is Present. Performed By: #### L 100.0100, L503.6030, L503.6550, L3410.9998 #### [facility] [address] [place], [address] Lymphocytes/100 WBC (Bld) 38.9 % Normal 19-41 [facility] Comment on above: Order Comment: 0 RETICULOCYTE COUNT RF Performed By: #### L 100.0100, L503.6030, L503.6550, L3410.9998 #### [facility] [address] [place], [address] MCH (RBC) [Entitic mass] 22.7 pg Low 27.0-32.0 [facility] Comment on above: Order Comment: [id number] 0 RETICULOCYTE COUNT RF Performed By: #### L 100.0100, L503.6030, L503.6550, L3410.9998 #### [facility] [address] [place], [address] MCHC (RBC) [Mass/Vol] 30.5 g/dL Low 32-36 [facility] Comment on above: Order Comment: [id number] 0 RETICULOCYTE COUNT RF Performed By: #### L 100.0100, L503.6030, L503.6550, L3410.9998 #### [facility] [address] [place], [address] MCV (RBC) [Entitic vol] 74.5 fL Low 81-99 [facility] Comment on above: Order Comment: 10526 0 RETICULOCYTE COUNT RF Performed By: #### L 100.0100, L503.6030, L503.6550, L3410.9998 #### [facility] [address] [place], [address] Monocytes/100 WBC (Bld) 6.7 % Normal 0-10 [facility] Comment on above: Order Comment: [id number] 0 RETICULOCYTE COUNT RF Performed By: #### L 100.0100, L503.6030, L503.6550, L3410.9998 #### [facility] [address] [place], [address] Neutrophils/100 WBC (Bld) 51.6 % Normal 47-70 [facility] Comment on above: Order Comment: 39966 0 RETICULOCYTE COUNT RF Performed By: #### L 100.0100, L503.6030, L503.6550, L3410.9998 #### [facility] [address] [place], [address] Nucleated RBC (Bld) [#/Vol] 0 10*3/uL Normal 0-5 [facility] Comment on above: Order Comment: 0 RETICULOCYTE COUNT RF Performed By: #### L 100.0100, L503.6030, L503.6550, L3410.9998 #### [facility] [address] [place], [address] Platelet mean volume (Bld) [Entitic vol] 10.3 fL Normal 6.2-12.0 [facility] Comment on above: Order Comment: 0 RETICULOCYTE COUNT RF Performed By: #### L 100.0100, L503.6030, L503.6550, L3410.9998 #### [facility] [address] [place], [address] Platelets (Bld) [#/Vol] 333 10*3/uL Normal 150-450 [facility] Comment on above: Order Comment: 0 RETICULOCYTE COUNT RF Performed By: #### L 100.0100, L503.6030, L503.6550, L3410.9998 #### [facility] [address] [place], [address] RBC (Bld) [#/Vol] 3.21 10*6/uL Low 4.2-5.4 [facility] Comment on above: Order Comment: 0 RETICULOCYTE COUNT RF Performed By: #### L 100.0100, L503.6030, L503.6550, L3410.9998 #### [facility] [address] [place], [address] RDW SD 49.2 fl High 35.1-43.9 [facility] Comment on above: Order Comment: [id number] 0 RETICULOCYTE COUNT RF Performed By: #### L 100.0100, L503.6030, L503.6550, L3410.9998 #### [facility] [address] [place], [place], [id number] WBC (Bld) [#/Vol] 3.6 10*3/uL Low 4.4-11.0 [facility] Comment on above: Order Comment: [id number] 0 RETICULOCYTE COUNT RF Performed By: #### L 100.0100, L503.6030, L503.6550, L3410.9998 #### [facility] [address] [place], [address] Calculated total iron bindin g capacityOrdered By: Richard Richards on 12-03-2024 Total Iron Binding Capacity 356 ug/dL 250-450 [facility] Eosinophil percentageOrdered By: [facility] Richards on 12-03-2024 Eosinophils/100 WBC (Bld) 1.4 % 0-5 [facility] Erythrocyte distribution wid th ratioOrdered By: Richard Richards on 12-03-2024 Erythrocyte distribution width (RBC) [Ratio] 18.3 % High 11.6-14.6 [facility] Erythrocyte distribution wid th standard deviationOrdered By: [facility] Richards on 12-03-2024 Erythrocyte distribution width (RBC) [Entitic vol] 49.2 fL High 35.1-43.9 [facility] Erythrocyte distribution width (RBC) [Ratio] 49.2 fl High 35.1-43.9 [facility] Ferritinon 12-03-2024 Ferritin [Mass/Vol] 60 ng/mL Normal 22-378 [facility] Comment on above: Order Comment: Order Date: 11/07/24Order Info: [id number] - IBCOrder Info: [id number] - FEOrder Info: [id number] - VARSHA Performed By: #### L 3410.2350 #### [facility] [address] [place], [address] Hematocrit Auto (Bld) [Volum e fraction]Ordered By: Richard Richards on 12-03-2024 Hematocrit (Bld) [Volume fraction] 23.9 % Low 37-47 [facility] Hemoglobin (Reticulocytes) [ Entitic mass]Ordered By: Richard Richards on 12-03-2024 Reticulocyte Hemoglobin Equivalent 24.2 pg Low 30-35 [facility] Hemoglobin measurementOrdere d By: Richard Richards on 12-03-2024 Hemoglobin (Bld) [Mass/Vol] 7.3 g/dL Low 12.0-15.0 [facility] Immature granulocytes/100 WB C Auto (Bld)Ordered By: Richard Richards on 12-03-2024 Immature granulocytes/100 WBC (Bld) 0.300 % 0.0-0.9 [facility] Comment on above: IG% - Immature Granu locytes (promyelocytes, myelocytes and metamyelocytes) > 1% indicates that a LEFT SHIFT is Present. Immature reticulocyte fracti onOrdered By: Richard Richards on 12-03-2024 Immature Reticulocyte Fraction 29.90 % High 3.00-15.90 [facility] Iron (Unsp spec) [Mass/Mass] Ordered By: Richard Richards on 12-03-2024 Iron [Mass/Vol] 17 ug/dL Low 50-170 [facility] Iron measurement (mass/mass) Ordered By: Richard Richards on 12-03-2024 Iron (Unsp spec) [Mass/Mass] 17 ug/dL Low 50-170 [facility] Iron saturation [Mass fracti on]Ordered By: Richard Richards on 12-03-2024 Iron Saturation 5.0 % Low 15.0-55.0 [facility] Iron+Iron Binding Capacityon 12-03-2024 Iron [Mass/Vol] 17 ug/dL Low 50-170 [facility] Comment on above: Order Comment: Order Date: 11/07/24Order Info: [id number] - IBCOrder Info: [id number] - FEOrder Info: [id number] - VARSHA Performed By: #### L 3410.2350 #### [facility] [address] [place], [place], [id number] IRON SATURATION 5.0 Low 15.0-55.0 [facility] Comment on above: Order Comment: Order Date: 11/07/24Order Info: [id number] - IBCOrder Info: [id number] - FEOrder Info: [id number] - VARSHA Performed By: #### L 3410.2350 #### [facility] [address] [place], [address] TIBC 356 ug/dL Normal 250-450 [facility] Comment on above: Order Comment: Order Date: 11/07/24Order Info: [id number] - IBCOrder Info: [id number] - FEOrder Info: [id number] - VARSHA Performed By: #### L 3410.2350 #### [facility] [address] [place], [address] UIBC 339 ug/dL Normal 228-428 [facility] Comment on above: Order Comment: Order Date: 11/07/24Order Info: [id number] - IBCOrder Info: [id number] - FEOrder Info: [id number] - VARSHA Performed By: #### L 3410.2350 #### [facility] [address] [place], [address] Lymphocytes Auto (Unsp spec) [#/Vol]Ordered By: Richard Richards on 12-03-2024 Lymphocytes (Bld) [#/Vol] 1.40 10*3/uL 0.83-4.51 [facility] Lymphocytes/100 WBC Auto (Un sp spec)Ordered By: Richard Richards on 12-03-2024 Lymphocytes/100 WBC (Bld) 38.9 % 19-41 [facility] MCV (mean corpuscular volume ) determinationOrdered By: Richard Richards on 12-03-2024 MCV (RBC) [Entitic vol] 74.5 fL Low 81-[address] [facility] Mean corpuscular hemoglobin (MCH) determinationOrdered By: Richard Richards on 12-03-2024 MCH (RBC) [Entitic mass] 22.7 pg Low 27.0-32.0 [facility] Mean corpuscular hemoglobin concentration (MCHC) determinationOrdered By: Richard Richards on 12-03-2024 MCHC (RBC) [Mass/Vol] 30.5 g/dL Low 32-36 [facility] Mean platelet volume determi nationOrdered By: Richard Richards on 12-03-2024 Platelet mean volume (Bld) [Entitic vol] 10.3 fL 6.2-12.0 [facility] Monocyte percentageOrdered B y: Richard Richards on 12-03-2024 Monocytes/100 WBC (Bld) 6.7 % 0-[address] [facility] Neutrophil percentageOrdered By: Richard Richards on 12-03-2024 Neutrophils/100 WBC (Bld) 51.6 % 47-70 [facility] No Panel InformationOrdered By: Richard Richards on 12-03-2024 Unsaturated Iron Binding Capacity 339 ug/dL 228-428 [facility] Nucleated red blood cell per centageOrdered By: Richard Richards on 12-03-2024 Nucleated RBC/100 WBC (Bld) [Ratio] 0 % 0-5 [facility] Platelet countOrdered By: Alanis Richards on 12-03-2024 Platelets (Bld) [#/Vol] 333 10*3/uL 150-450 [facility] RBC Auto (Bld) [#/Vol]Ordere d By: Richard Richards on 12-03-2024 RBC (Bld) [#/Vol] 3.21 10*6/uL Low 4.2-5.4 [facility] Retic Panelon 12-03-2024 IM RET FRACTION 29.90 High 3.00-15.90 [facility] Comment on above: Order Comment: [id number] 0 RETICULOCYTE COUNT RF Performed By: #### L 100.0100, L503.6030, L503.6550, L3410.9998 #### [facility] [address] [place], [place], [id number] RET-HE 24.2 pg Low 30-35 [facility] Comment on above: Order Comment: [id number] 0 RETICULOCYTE COUNT RF Performed By: #### L 100.0100, L503.6030, L503.6550, L3410.9998 #### [facility] [address] [place], [place], [id number] Retic Count 2.97 High 0.5-1.5 [facility] Comment on above: Order Comment: 0 RETICULOCYTE COUNT RF Performed By: #### L 100.0100, L503.6030, L503.6550, L3410.9998 #### [facility] [address] [place], [place], [id number] Reticulocyte hemoglobin equi valent (RET-He) measurementOrdered By: Richard Richards on 12-03-2024 Hemoglobin (Reticulocytes) [Entitic mass] 24.2 pg Low 30-35 [facility] Reticulocytes Auto (Bld) [#/ Vol]Ordered By: Richard Richards on 12-03-2024 Reticulocyte Count 2.97 % High 0.5-1.5 [facility] Reticulocytes/100 RBC (Bld) 2.97 % High 0.5-1.5 [facility] Serum or plasma ferritin damian surement (mass/volume)Ordered By: Richard Richards on 12-03-2024 Ferritin [Mass/Vol] 60 ng/mL 22-378 [facility] Serum or plasma iron saturat ion measurement (mass fraction)Ordered By: Richard Richards on 12-03-2024 Iron saturation [Mass fraction] 5.0 % Low 15.0-55.0 [facility] White blood cell (WBC) count Ordered By: Richard Richards on 12-03-2024 WBC (Bld) [#/Vol] 3.6 10*3/uL Low 4.4-11.0 [facility] L3410.9998on 11-08-2024 [facility] Misc. COMMENT Normal . [facility] Comment on above: Order Comment: 0 RETICULOCYTE COUNT RF Result Comment: Test Ordered: Reticulocyte Count Reticulocyte Count 1.2 % CB Reference Range: 0.6-2.6 Performed at: CB - [facility] [address] [id number] Reimbursement Coordinator: Albert Romero PhD, Phone: [phone] Performed By: #### L 100.0100, L503.6030, L503.6550, L3410.9998 #### [facility] [address] [place], [address] Absolute neutrophil countOrd ered By: Jesusemme Susie on 11-06-2024 Neutrophils (Bld) [#/Vol] 1.7 10*3/uL Low 2.0-7.7 [facility] Basophil percentageOrdered B y: Richard Richards on 11-06-2024 Basophils/100 WBC (Bld) 1.2 % High 0-[address] [facility] CBC W/Diff, Automatedon Absolute Lymph 1.19 X10 3/uL Normal 0.83-4.51 [facility] Comment on above: Performed By: #### L 100.0100, L503.6030, L503.6550, L3410.9998 #### [facility] [address] [place], [address] Absolute Neut 1.7 X10 3/uL Low 2.0-7.7 [facility] Comment on above: Performed By: #### L 100.0100, L503.6030, L503.6550, L3410.9998 #### [facility] [address] [place], [address] Basophils/100 WBC (Bld) 1.2 % High 0-[address] [facility] Comment on above: Performed By: #### L 100.0100, L503.6030, L503.6550, L3410.9998 #### [facility] [address] [place], [address] Eosinophils/100 WBC (Bld) 2.5 % Normal 0-5 [facility] Comment on above: Performed By: #### L 100.0100, L503.6030, L503.6550, L3410.9998 #### [facility] [address] [place], [address] Erythrocyte distribution width (RBC) [Ratio] 15.2 % High 11.6-14.6 [facility] Comment on above: Performed By: #### L 100.0100, L503.6030, L503.6550, L3410.9998 #### [facility] [address] [place], [address] Hematocrit (Bld) [Volume fraction] 28.8 % Low 37-47 [facility] Comment on above: Performed By: #### L 100.0100, L503.6030, L503.6550, L3410.9998 #### [facility] [address] [place], [address] Hemoglobin (Bld) [Mass/Vol] 8.8 g/dL Low 12.0-15.0 [facility] Comment on above: Performed By: #### L 100.0100, L503.6030, L503.6550, L3410.9998 #### [facility] [address] [place], [address] IG% 0.300 Normal 0.0-0.9 [facility] Comment on above: Result Comment: IG% - Immature Granulocytes (promyelocytes, myelocytes and metamyelocytes) > 1% indicates that a LEFT SHIFT is Present. Performed By: #### L 100.0100, L503.6030, L503.6550, L3410.9998 #### [facility] [address] [place], [address] Lymphocytes/100 WBC (Bld) 36.8 % Normal 19-41 [facility] Comment on above: Performed By: #### L 100.0100, L503.6030, L503.6550, [id number] #### [facility] [address] [place], [address] MCH (RBC) [Entitic mass] 22.4 pg Low 27.0-32.0 [facility] Comment on above: Performed By: #### L 100.0100, L503.6030, L503.6550, [id number] #### [facility] [address] [place], [address] MCHC (RBC) [Mass/Vol] 30.6 g/dL Low 32-36 [facility] Comment on above: Performed By: #### L 100.0100, L503.6030, L503.6550, [id number] #### [facility] [address] [place], [address] MCV (RBC) [Entitic vol] 73.5 fL Low 81-[address] [facility] Comment on above: Performed By: #### L 100.0100, L503.6030, L503.6550, [id number] #### [facility] [address] [place], [address] Monocytes/100 WBC (Bld) 7.1 % Normal 0-10 [facility] Comment on above: Performed By: #### L 100.0100, L503.6030, L503.6550, [id number] #### [facility] [address] [place], [address] Neutrophils/100 WBC (Bld) 52.1 % Normal 47-70 [facility] Comment on above: Performed By: #### L 100.0100, L503.6030, L503.6550, [id number] #### [facility] [address] [place], [address] Nucleated RBC (Bld) [#/Vol] 0 10*3/uL Normal 0-5 [facility] Comment on above: Performed By: #### L 100.0100, L503.6030, L503.6550, [id number] #### [facility] [address] [place] [place], [address] Platelet mean volume (Bld) [Entitic vol] 10.7 fL Normal 6.2-12.0 [facility] Comment on above: Performed By: #### L 100.0100, L503.6030, L503.6550, [id number] #### [facility] [address] [place], [address] Platelets (Bld) [#/Vol] 326 10*3/uL Normal 150-450 [facility] Comment on above: Performed By: #### L 100.0100, L503.6030, L503.6550, [id number] #### [facility] [address] [place], [address] RBC (Bld) [#/Vol] 3.92 10*6/uL Low 4.2-5.4 [facility] Comment on above: Performed By: #### L 100.0100, L503.6030, L503.6550, [id number] #### [facility] [address] [place], [address] RDW SD 39.8 fl Normal 35.1-43.9 [facility] Comment on above: Performed By: #### L 100.0100, L503.6030, L503.6550, [id number] #### [facility] [address] [place], [address] WBC (Bld) [#/Vol] 3.2 10*3/uL Low 4.4-11.0 [facility] Comment on above: Performed By: #### L 100.0100, L503.6030, L503.6550, [id number] #### [facility] [address] [place], [address] Eosinophil percentageOrdered By: Richard Richards on 11-06-2024 Eosinophils/100 WBC (Bld) 2.5 % 0-5 [facility] Erythrocyte distribution wid th ratioOrdered By: Richard Richards on 11-06-2024 Erythrocyte distribution width (RBC) [Ratio] 15.2 % High 11.6-14.6 [facility] Erythrocyte distribution wid th standard deviationOrdered By: [facility] Richards on 11-06-2024 Erythrocyte distribution width (RBC) [Entitic vol] 39.8 fL 35.1-43.9 [facility] Ferritinon 11-06-2024 Ferritin [Mass/Vol] 4 ng/mL Low 8-252 [facility] Comment on above: Performed By: #### L 100.0100, L503.6030, L503.6550, L3410.9998 #### [facility] [address] [place], [address] Ferritin measurementOrdered By: [facility] Richards on 11-06-2024 Ferritin [Mass/Vol] 4 ng/mL Low 8-252 [facility] Hematocrit Auto (Bld) [Volum e fraction]Ordered By: Richard Richards on 11-06-2024 Hematocrit (Bld) [Volume fraction] 28.8 % Low 37-47 [facility] Hemoglobin measurementOrdere d By: Richard Richards on 11-06-2024 Hemoglobin (Bld) [Mass/Vol] 8.8 g/dL Low 12.0-15.0 [facility] Immature granulocytes/100 WB C Auto (Bld)Ordered By: [facility] on 11-06-2024 Immature granulocytes/100 WBC (Bld) 0.300 % 0.0-0.9 [facility] Comment on above: IG% - Immature Granu locytes (promyelocytes, myelocytes and metamyelocytes) > 1% indicates that a LEFT SHIFT is Present. Iron (Unsp spec) [Mass/Mass] Ordered By: [facility] Richards on 11-06-2024 Iron [Mass/Vol] 22 ug/dL Low 50-170 [facility] Comment on above: Slight Hemolysis, Re sult may be falsely increased. Iron saturation [Mass fracti on]Ordered By: Richard Richards on 11-06-2024 Iron Saturation 6.0 % Low 15.0-55.0 [facility] Iron+Iron Binding Capacityon 11-06-2024 Iron [Mass/Vol] 22 ug/dL Low 50-170 [facility] Comment on above: Result Comment: Slig ht Hemolysis, Result may be falsely increased. Performed By: #### L 100.0100, L503.6030, L503.6550, [id number] #### [facility] [address] [place], [address] IRON SATURATION 6.0 Low 15.0-55.0 [facility] Comment on above: Performed By: #### L 100.0100, L503.6030, L503.6550, [id number] #### [facility] [address] [place], [address] TIBC 368 ug/dL Normal 250-450 [facility] Comment on above: Performed By: #### L 100.0100, L503.6030, L503.6550, [id number] #### [facility] [address] [place], [address] Lymphocytes Auto (Unsp spec) [#/Vol]Ordered By: Richard Richards on 11-06-2024 Lymphocytes (Bld) [#/Vol] 1.19 10*3/uL 0.83-4.51 [facility] Lymphocytes/100 WBC Auto (Un sp spec)Ordered By: Richard Richards on 11-06-2024 Lymphocytes/100 WBC (Bld) 36.8 % 19-41 [facility] MCV (mean corpuscular volume ) determinationOrdered By: Richard Richards on 11-06-2024 MCV (RBC) [Entitic vol] 73.5 fL Low 81-[address] [facility] Mean corpuscular hemoglobin (MCH) determinationOrdered By: Richard Richards on 11-06-2024 MCH (RBC) [Entitic mass] 22.4 pg Low 27.0-32.0 [facility] Mean corpuscular hemoglobin concentration (MCHC) determinationOrdered By: Richard Richards on 11-06-2024 MCHC (RBC) [Mass/Vol] 30.6 g/dL Low 32-36 [facility] Mean platelet volume determi nationOrdered By: Richard Richards on 11-06-2024 Platelet mean volume (Bld) [Entitic vol] 10.7 fL 6.2-12.0 [facility] Monocyte percentageOrdered B y: Richard Richards on 11-06-2024 Monocytes/100 WBC (Bld) 7.1 % 0-[address] [facility] Neutrophil percentageOrdered By: Richard Richards on 11-06-2024 Neutrophils/100 WBC (Bld) 52.1 % 47-70 [facility] Nucleated red blood cell per centageOrdered By: iRchard Richards on 11-06-2024 Nucleated RBC/100 WBC (Bld) [Ratio] 0 % 0-5 [facility] Platelet countOrdered By: Alanis Richards on 11-06-2024 Platelets (Bld) [#/Vol] 326 10*3/uL 150-450 [facility] RBC Auto (Bld) [#/Vol]Ordere d By: Richard Richards on 11-06-2024 RBC (Bld) [#/Vol] 3.92 10*6/uL Low 4.2-5.4 [facility] TIBCOrdered By: Richard Richards on 11-06-2024 Total Iron Binding Capacity 368 ug/dL 250-450 [facility] White blood cell (WBC) count Ordered By: Richard Richards on 11-06-2024 WBC (Bld) [#/Vol] 3.2 10*3/uL Low 4.4-11.0 [facility] T4 Free SerPl-mCncon 024 Free T4 [Mass/Vol] 1.8 ng/dL High 0.9-1.7 [facility] Comment on above: Order Comment: Speci men Type: BLOOD SPECIMEN Ordering Facility: [facility] Address: [address] [place] [address] Performed By: #### 3 024-7 #### [facility] [place] [facility] CLIA [id number] [address] OF [place] TSH SerPl-aCncon 09-11-2024 TSH Qn 0.614 m[IU]/L Normal 0.270-4.200 [facility] Comment on above: Order Comment: Tavon robin Type: BLOOD SPECIMEN Ordering Facility: [facility] Address: [address] [place] [address] Performed By: #### 3 016-3 #### [facility] CLIA [id number] [address] [place], [place] [id number] [facility] DBT Breast - bilateral scree ningon 02-20-2024 No mammographic evidence of malignancy. ASSESSMENT: Category 1 Negative RECOMMENDATION: Routine screening mammogram in 1 year. Bilateral CANCER RISK ASSESSMENT: This risk assessment is based on patient provided information collected in a risk survey taken at the time of this examination. LIFETIME BREAST CANCER RISK: Stormy: 16.05% - If greater than or equal to 20%, consider annual mammogram and annual screening Breast MRI or follow up in high risk clinic. Is the patient at elevated risk based on the HBOC criteria? No (Hereditary Breast and Ovarian Cancer) - If Yes, consider genetic counseling and testing with high risk follow up. Is the patient at elevated risk based on the Talbot Syndrome criteria? No - If Yes, consider genetic counseling and testing with high risk follow up. Report Dictated on Electronically Signed By: Misael Collazo MD Electronically Signed Date/Time: 02/20/2024 9:14 AM [facility] Patient Name: [facility]ON[facility]IE [facility] : 1965 [id number] Exam Date/Time: 02/20/2024 08:07 Procedure: BI MAMMOGRAM SCREENING TOMOSYNTHESIS BILATERAL Ordering Provider: WU JOHANNA Reason For Exam: Z12.31 Image views: 2D Bilateral CC and MLO views were acquired. 3D Bilateral CC and MLO views were acquired. Images were reviewed with CAD. Markings on images: BB's = Nipples; skin lesions Open havasupai = Palpable Line = Scar COMPARISON: 2022; 2021; 2020 TISSUE DENSITY: BIRADS C - The breast tissue is heterogeneously dense, which could obscure underlying abnormalities. FINDINGS: No suspicious masses, architectural distortions or suspiciously clustered microcalcifications are identified. There are no significant changes when compared with prior studies. [facility] Misael Collazo MD - 02/20/2024 Patient Name: RNONIE HOPE : 1965 Exam Date/Time: 02/20/2024 08:07 Procedure: BI MAMMOGRAM SCREENING TOMOSYNTHESIS BILATERAL Ordering Provider: WU JOHANNA Reason For Exam: Z12.31 Image views: 2D Bilateral CC and MLO views were acquired. 3D Bilateral CC and MLO views were acquired. Images were reviewed with CAD. Markings on images: BB's = Nipples; skin lesions Open havasupai = Palpable Line = Scar COMPARISON: 2022; 2021; 2020 TISSUE DENSITY: BIRADS C - The breast tissue is heterogeneously dense, which could obscure underlying abnormalities. FINDINGS: No suspicious masses, architectural distortions or suspiciously clustered microcalcifications are identified. There are no significant changes when compared with prior studies. IMPRESSION: No mammographic evidence of malignancy. ASSESSMENT: Category 1 Negative RECOMMENDATION: Routine screening mammogram in 1 year. Bilateral CANCER RISK ASSESSMENT: This risk assessment is based on patient provided information collected in a risk survey taken at the time of this examination. LIFETIME BREAST CANCER RISK: Masoner-Ezzick: 16.05% - If greater than or equal to 20%, consider annual mammogram and annual screening Breast MRI or follow up in high risk clinic. Is the patient at elevated risk based on the HBOC criteria? No (Hereditary Breast and Ovarian Cancer) - If Yes, consider genetic counseling and testing with high risk follow up. Is the patient at elevated risk based on the Talbot Syndrome criteria? No - If Yes, consider genetic counseling and testing with high risk follow up. Report Dictated on Electronically Signed By: Misael Collazo MD Electronically Signed Date/Time: 02/20/2024 9:14 AM EDT [facility] Radiology Study observation (narrative) [facility]th DBT Breast - bilateral scree ningOrdered By: Misael Collazo on 02-20-2024 [employer] Work Phone: Basophil percentageOrdered B y: Richard Richards on 02-02-2024 Cholesterol [Mass/Vol] 276 mg/dL <200 [facility] Comment on above: <200 mg/dL Desirable 200-240 mg/dL Borderline >240 mg/dL High Risk Triglyceride [Mass/Vol] 146 mg/dL <[address] [facility] Comment on above: The drugs N-Acetylcy steine and Metamizole may falsely depress this assay.Serum Triglycerides Reference Interval Normal <150 mg/dL Borderline high 150 - 199 mg/dL High 200 - 499 mg/dL Very High > or = 500 mg/dL Laboratory - Chemistry and C hemistry - challengeOrdered By: Richard Richards on 02-02-2024 Cholesterol in HDL [Mass/Vol] 55 mg/dL >40 [facility] Comment on above: The drugs N-Acetylcy steine and Metamizole may falsely depress this assay. Reference Range HDL <40 mg/dL Low HDL Cholesterol HDL >or= 60 mg/dL High HDL Cholesterol Cholesterol in LDL [Mass/Vol] 192 mg/dL 0-130 [facility] No Panel InformationOrdered By: Richard Richards on 02-02-2024 VLDL Cholesterol 29 mg/dL 5-40 [facility] Final Surgical Pathology Rep [facility] 12-29-2023 Final Surgical Pathology Report . Pathology Reports Accession: Collected Date/Time: Received Date/Time: Pathologist: [id number] 12/26/2023 09:45 EDT 12/27/2023 07:59 EDT HERNANDO LOPEZ MD Final Surgical Pathology Report DIAGNOSIS: STOMACH, BIOPSY: - MODERATE CHRONIC GASTRITIS. IMMUNOHISTOCHEMICAL STUDIES ARE NEGATIVE FOR HELICOBACTER CLINICAL INFORMATION: PROCEDURE: EGD PREOPERATIVE DIAGNOSIS: MELENA POSTOPERATIVE DIAGNOSIS: MELENA SPECIMEN: A GASTRIC ANTRUM BX GROSS DESCRIPTION: All parts labelled with patient name and [id number] Received in formalin labeled gastric antrum is 1 angulo-pink tissue fragment measuring 0.2 cm. TS-1 Abbie Bonilla, Grossing Advertising Assistant Manager/ Dr. Hernando Lopez, Pathologist Dictated by Abbie Bonilla MICROSCOPIC DESCRIPTION: The microscopic examination is performed, except in the case of Gross Only. Electronically Signed by Pathology Report verified by [facility] HERNANDO WASDAHL Sign out Date: 12/29/2023 13:38 Performing Lab: [facility], [address] [place] [address] States Pathology Dept Disclaimer If ancillary studies were utilized, the following Laboratory Developed Test (LDT) disclaimer will apply: Under CLIA requirements, [facility] is qualified to perform high complexity testing. For all ancillary stains, positive and negative controls stain appropriately. Performance characteristics of immunohistochemical and chromogenic in-situ hybridization tests have been determined by [facility]. These tests are used for clinical purposes, They should not be regarded as investigational or for research. [facility] Absolute lymphocyte countOrd ered By: Fredo Lai on 10-31-2023 Lymphocytes Auto (Unsp spec) [#/Vol] 1.75 10*3/uL 0.83-4.51 [facility] Automated lymphocyte count a s percentage of total leukocytesOrdered By: Fredo Lai on 10-31-2023 Lymphocytes/100 WBC Auto (Unsp spec) 37.5 % 19-41 [facility] Basophil percentageOrdered B y: Fredo Lai on 10-31-2023 Basophils/100 WBC (Bld) 1.3 % 0-[address] [facility] Bilirubin [Mass/Vol] 0.50 mg/dL 0.20-1.00 [facility] Comment on above: For patients on eltr ombopag therapy, use of Dimension [place] TBIL is not recommended. Chloride [Moles/Vol] 106 mmol/L 98-107 [facility] Eosinophils/100 WBC (Bld) 9.6 % 0-5 [facility] Glucose [Mass/Vol] 96 mg/dL 74-106 [facility] Hemoglobin (Bld) [Mass/Vol] 12.8 g/dL 12.0-15.0 [facility] Monocytes/100 WBC (Bld) 5.8 % 0-[address] [facility] Neutrophils (Bld) [#/Vol] 2.1 10*3/uL 2.0-7.7 [facility] Neutrophils/100 WBC (Bld) 45.8 % 47-70 [facility] Potassium [Moles/Vol] 4.0 mmol/L 3.5-5.1 [facility] Protein [Mass/Vol] 6.7 g/dL 6.4-8.2 [facility] Sodium [Moles/Vol] 140 mmol/L 136-145 [facility] WBC (Bld) [#/Vol] 4.7 10*3/uL 4.4-11.0 [facility] Determination of erythrocyte mean corpuscular volume (MCV)Ordered By: Fredo Lai on 10-31-2023 MCV (RBC) [Entitic vol] 81.8 fL 81-[address] [facility] Erythrocyte distribution wid th ratioOrdered By: Fredo Lai on 10-31-2023 Erythrocyte distribution width (RBC) [Ratio] 13.5 % 11.6-14.6 [facility] Erythrocyte distribution wid th standard deviationOrdered By: Fredo Lai on 10-31-2023 Erythrocyte distribution width (RBC) [Entitic vol] 39.8 fL 35.1-43.9 [facility] Hematocrit Auto (Bld) [Volum e fraction]Ordered By: Fredo Lai on 10-31-2023 Hematocrit (Bld) [Volume fraction] 37.4 % 37-47 [facility] Immature granulocytes/100 WB C Auto (Bld)Ordered By: Fredo Lai on 10-31-2023 Immature granulocytes/100 WBC (Bld) 0.000 % 0.0-0.9 [facility] Comment on above: IG% - Immature Granu locytes (promyelocytes, myelocytes and metamyelocytes) > 1% indicates that a LEFT SHIFT is Present. Laboratory - Chemistry and C hemistry - challengeOrdered By: Fredo Lai on 10-31-2023 Albumin/Globulin [Mass ratio] 1.5 {ratio} 0.9-2.4 [facility] ALP [Catalytic activity/Vol] 70 U/L 45-117 [facility] ALT [Catalytic activity/Vol] 29 U/L 13-56 [facility] CO2 [Moles/Vol] 25.0 mmol/L 21.0-32.0 [facility] Globulin (S) [Mass/Vol] 2.7 g/dL 2.2-4.2 [facility] Urea nitrogen/Creatinine [Mass ratio] 13.7 mg/mg 10-20 [facility] - Hematology and Cell countsOrdered By: Fredo Lai on 10-31-2023 MCH (RBC) [Entitic mass] 28.0 pg 27.0-32.0 [facility] MCHC (RBC) [Mass/Vol] 34.2 g/dL 32-36 [facility] Nucleated RBC/100 WBC (Bld) [Ratio] 0 % 0-5 [facility] Platelets (Bld) [#/Vol] 324 10*3/uL 150-450 [facility] No Panel InformationOrdered By: Fredo Lai on 10-31-2023 Estimated GFR (MDRD) Amer 71 mL/min >60 [facility] Comment on above: GFR Calc Estimated GFR (MDRD) Non-Af Amer 59 mL/min >60 [facility] Comment on above: Non- GFR Calc Platelet mean volume Shun-Ec ker (Bld) [Entitic vol]Ordered By: Fredo Lai on 10-31-2023 Platelet mean volume (Bld) [Entitic vol] 10.4 fL 6.2-12.0 [facility] RBC Auto (Bld) [#/Vol]Ordere d By: Fredo Lai on 10-31-2023 RBC (Bld) [#/Vol] 4.57 10*6/uL 4.2-5.4 [facility] Serum or plasma calcium irene urement (mass/volume)Ordered By: Fredo Lai on 10-31-2023 Calcium [Mass/Vol] 8.9 mg/dL 8.5-10.1 [facility] Serum or plasma creatinine m easurement (mass/volume)Ordered By: Fredo Lai on 10-31-2023 Creatinine [Mass/Vol] 1.02 mg/dL 0.55-1.02 [facility] Comment on above: The validity of the calculated GFR & GFRAA in patients over 70 years has not been determined. Clinical correlation is essential. Serum or plasma urea nitroge n measurement (mass/volume)Ordered By: Fredo Lai on 10-31-2023 Urea nitrogen [Mass/Vol] 14 mg/dL 7-18 [facility] Thin prep Papanicolaou smear with manual screeningOrdered By: Fredo Lai on 01-29-2024 Thin prep Papanicolaou smear with manual screening 4.0 g/dL 3.2-5.0 [facility] Thin prep Papanicolaou smear with manual screening 16 U/L 15-37 [facility] Thin prep Papanicolaou smear with manual screening 9 5-15 [facility] Basophil percentageOrdered B y: Ayan Richards on 08-29-2023 Chloride [Moles/Vol] 106 mmol/L 98-107 [facility] Cholesterol [Mass/Vol] 289 mg/dL <200 [facility] Comment on above: <200 mg/dL Desirable 200-240 mg/dL Borderline >240 mg/dL High Risk Glucose [Mass/Vol] 105 mg/dL 74-106 [facility] Comment on above: Fasting Glucose resu lt from 100 to 125 mg/dL suggests IMPAIRED HOMEOSTASIS per A.D.A. criteria. Potassium [Moles/Vol] 3.9 mmol/L 3.5-5.1 [facility] Sodium [Moles/Vol] 142 mmol/L 136-145 [facility] Triglyceride [Mass/Vol] 153 mg/dL <[address] [facility] Comment on above: The drugs N-Acetylcy steine and Metamizole may falsely depress this assay.Serum Triglycerides Reference Interval Normal <150 mg/dL Borderline high 150 - 199 mg/dL High 200 - 499 mg/dL Very High > or = 500 mg/dL Laboratory - Chemistry and C hemistry - challengeOrdered By: Ayan Richards on 08-29-2023 CO2 [Moles/Vol] 28.0 mmol/L 21.0-32.0 [facility] Urea nitrogen/Creatinine [Mass ratio] 10.9 mg/mg 10-20 [facility] No Panel InformationOrdered By: Ayan Richards on 08-29-2023 Estimated GFR (MDRD) Amer 66 mL/min >60 [facility] Comment on above: GFR Calc Estimated GFR (MDRD) Non-Af Amer 54 mL/min >60 [facility] Comment on above: Non- GFR Calc Vitamin D 25-Hydroxy 54.4 ng/mL [facility] Comment on above: Vitamin D 25(OH) Sta tus Range Deficiency <20 ng/mL (50nmol/L) Insufficiency 20 - 30 ng/mL (50 - 75 nmol/L) Sufficiency 30 - 100 ng/mL (75 - 250 nmol/L) Toxicity >100 ng/mL (>250 nmol/L) Serum or plasma calcium irene urement (mass/volume)Ordered By: Ayan Richards on 08-29-2023 Calcium [Mass/Vol] 8.5 mg/dL 8.5-10.1 [facility] Serum or plasma cholesterol in HDL measurement (mass/volume)Ordered By: Ayan Richards on 08-29-2023 Cholesterol in HDL [Mass/Vol] 57 mg/dL >40 [facility] Comment on above: The drugs N-Acetylcy steine and Metamizole may falsely depress this assay. Reference Range HDL <40 mg/dL Low HDL Cholesterol HDL >or= 60 mg/dL High HDL Cholesterol Serum or plasma cholesterol in VLDL measurement (mass/volume)Ordered By: Ayna Richards on 08-29-2023 Cholesterol in VLDL [Mass/Vol] 31 mg/dL 5-40 [facility] Serum or plasma creatinine m easurement (mass/volume)Ordered By: Ayan Richards on 08-29-2023 Creatinine [Mass/Vol] 1.10 mg/dL 0.55-1.02 [facility] Comment on above: The validity of the calculated GFR & GFRAA in patients over 70 years has not been determined. Clinical correlation is essential. Serum or plasma low density lipoprotein (LDL) cholesterol measurement (mass/volume)Ordered By: Ayan Richards on 08-29-2023 Cholesterol in LDL [Mass/Vol] 201 mg/dL 0-130 [facility] Serum or plasma urea nitroge n measurement (mass/volume)Ordered By: Ayan Richards on 08-29-2023 Urea nitrogen [Mass/Vol] 12 mg/dL 7-18 [facility] Thin prep Papanicolaou smear with manual screeningOrdered By: Ayan Richards on 08-29-2023 Thin prep Papanicolaou smear with manual screening 8 5-15 [facility] Erythrocyte sedimentation ra teOrdered By: Dr. Richards on 11-11-2022 ESR (Bld) [Velocity] 5 mm/h 0-30 [facility] No Panel InformationOrdered By: Dr. Richards on 11-11-2022 Anti-Nuclear Antibody Screen Negative Negative [facility] Comment on above: Performed at: - [address] [id number] Director: Albert Romero PhD, Phone: [phone] Serum or plasma uric acid me asurement (mass/volume)Ordered By: Dr. Richards on 11-11-2022 Urate [Mass/Vol] 5.5 mg/dL 2.6-6.0 [facility] Comment on above: The drugs N-Acetylcy steine and Metamizole may falsely depress this assay. Serum rheumatoid factor dete ctionOrdered By: Dr. Richards on 11-11-2022 Rheumatoid factor Ql (S) < 10.0 IU/mL <15 [facility] Absolute lymphocyte countOrd ered By: Dr. Richards on 07-29-2022 Lymphocytes Auto (Unsp spec) [#/Vol] 1.78 10*3/uL 0.83-4.51 [facility] Basophil percentageOrdered B y: Dr. Richards on 07-29-2022 Basophils/100 WBC (Bld) 0.9 % 0-[address] [facility] Bilirubin [Mass/Vol] 0.30 mg/dL 0.20-1.00 [facility] Comment on above: For patients on eltr ombopag therapy, use of Dimension [place] TBIL is not recommended. Chloride [Moles/Vol] 105 mmol/L 98-107 [facility] Eosinophils/100 WBC (Bld) 1.5 % 0-5 [facility] Glucose [Mass/Vol] 85 mg/dL 74-106 [facility] Neutrophils (Bld) [#/Vol] 3.1 10*3/uL 2.0-7.7 [facility] Neutrophils/100 WBC (Bld) 58.1 % 47-70 [facility] Potassium [Moles/Vol] 3.8 mmol/L 3.5-5.1 [facility] Protein [Mass/Vol] 6.4 g/dL 6.4-8.2 [facility] Sodium [Moles/Vol] 137 mmol/L 136-145 [facility] WBC (Bld) [#/Vol] 5.3 10*3/uL 4.4-11.0 [facility] Blood erythrocytes count (nu mber/volume)Ordered By: Dr. Richards on 07-29-2022 RBC (Bld) [#/Vol] 4.32 10*6/uL 4.2-5.4 [facility] Blood hemoglobin measurement (mass/volume)Ordered By: Dr. Richards on 07-29-2022 Hemoglobin (Bld) [Mass/Vol] 13.3 g/dL 12.0-15.0 [facility] Blood lymphocytes/100 leukoc ytesOrdered By: Dr. Richards on 07-29-2022 Lymphocytes/100 WBC (Bld) 33.5 % 19-41 [facility] Blood monocytes/100 leukocyt esOrdered By: Dr. Richards on 07-29-2022 Monocytes/100 WBC (Bld) 5.6 % 0-[address] [facility] Blood platelet mean volumeOr dered By: Dr. Richards on 07-29-2022 Platelet mean volume (Bld) [Entitic vol] 10.9 fL 6.2-12.0 [facility] Determination of erythrocyte mean corpuscular volume (MCV)Ordered By: Dr. Richards on 07-29-2022 MCV (RBC) [Entitic vol] 90.7 fL 81-[address] [facility] Hematocrit Auto (Bld) [Volum e fraction]Ordered By: Dr. Richards on 07-29-2022 Hematocrit (Bld) [Volume fraction] 39.2 % 37-47 [facility] Laboratory - Chemistry and C hemistry - challengeOrdered By: Dr. Richards on 07-29-2022 ALP [Catalytic activity/Vol] 51 U/L 45-117 [facility] ALT [Catalytic activity/Vol] 20 U/L 13-56 [facility] CO2 [Moles/Vol] 25.0 mmol/L 21.0-32.0 [facility] Globulin (S) [Mass/Vol] 2.9 g/dL 2.2-4.2 [facility] Urea nitrogen/Creatinine [Mass ratio] 16.8 mg/mg 10-20 [facility] - Hematology and Cell countsOrdered By: Dr. Richards on 07-29-2022 Erythrocyte distribution width (RBC) [Entitic vol] 43.2 fL 35.1-43.9 [facility] Erythrocyte distribution width (RBC) [Ratio] 13.0 % 11.6-14.6 [facility] Immature granulocytes/100 WBC (Bld) 0.400 % 0.0-0.9 [facility] Comment on above: IG% - Immature Granu locytes (promyelocytes, myelocytes and metamyelocytes) > 1% indicates that a LEFT SHIFT is Present. MCH (RBC) [Entitic mass] 30.8 pg 27.0-32.0 [facility] Nucleated RBC/100 WBC (Bld) [Ratio] 0 % 0-5 [facility] MCHC Auto (RBC) [Mass/Vol]Or dered By: Dr. Richards on 07-29-2022 MCHC (RBC) [Mass/Vol] 33.9 g/dL 32-36 [facility] No Panel InformationOrdered By: Dr. Richards on 07-29-2022 Estimated GFR (MDRD) Amer 78 mL/min >60 [facility] Comment on above: GFR Calc Estimated GFR (MDRD) Non-Af Amer 64 mL/min >60 [facility] Comment on above: Non- GFR Calc Thyroid Stimulating Hormone (TSH) 1.26 uIU/mL 0.358-3.74 [facility] Platelets bldOrdered By: Dr. Richards on 07-29-2022 Platelets (Bld) [#/Vol] 256 10*3/uL 150-450 [facility] Serum or plasma albumin irene urement (mass/volume)Ordered By: Dr. Richards on 07-29-2022 Albumin [Mass/Vol] 3.5 g/dL 3.2-5.0 [facility] Serum or plasma albumin/glob ulin mass ratioOrdered By: Dr. Richards on 07-29-2022 Albumin/Globulin [Mass ratio] 1.2 {ratio} 0.9-2.4 [facility] Serum or plasma calcium irene urement (mass/volume)Ordered By: Dr. Richards on 07-29-2022 Calcium [Mass/Vol] 7.8 mg/dL 8.5-10.1 [facility] Serum or plasma creatinine m easurement (mass/volume)Ordered By: Dr. Richards on 07-29-2022 Creatinine [Mass/Vol] 0.95 mg/dL 0.55-1.02 [facility] Comment on above: The validity of the calculated GFR & GFRAA in patients over 70 years has not been determined. Clinical correlation is essential. Serum or plasma urea nitroge n measurement (mass/volume)Ordered By: Dr. Richards on 07-29-2022 Urea nitrogen [Mass/Vol] 16 mg/dL 7-18 [facility] Thin prep Papanicolaou smear with manual screeningOrdered By: Dr. Richards on 07-29-2022 Thin prep Papanicolaou smear with manual screening 13 U/L 15-37 [facility] Thin prep Papanicolaou smear with manual screening 7 5-15 [facility] MG Breast Tomosynthesis Scr Blon 01-11-2022 MG Breast Tomosynthesis Scr Bl Patient Name: RONNIE HOPE Mammography ACCESSION EXAM DATE/TIME PROCEDURE ORDERING PROVIDER [id number] 01/11/2022 07:58 EDT MG Breast Tomosynthesis Alison WU, WILBER BI Scr CPT code 09564 [id number] Reason For Exam (MG Breast Tomosynthesis BI Scr) screening Report TIME SINCE LAST MAMMOGRAM: Last mammogram was performed 1 year ago. REASON FOR EXAM: screening, asymptomatic. PROCEDURE: MG BREAST TOMOSYNTHESIS BL SCR: JANUARY 11, 2022 - 2D/3D Procedure 3D Bilateral CC and MLO view(s) were taken. 2D Bilateral CC and MLO view(s) were taken. Prior study comparison: January 09, 2021, bilateral MG breast tomosynthesis bl scr performed at [facility]. November 21, 2019, bilateral diagnostic mammogram performed at [facility]. October 18, 2018, bilateral mammogram performed at [facility]. TISSUE DENSITY: BIRADS C - The breast tissue is heterogeneously dense, which could obscure underlying abnormalities. . RISK ALERT: The Cancer Risk Assessment scores below the recommendation of this report contain an outcome above the normal risk range. PATIENT CANCER HISTORY: No Personal History of Cancer FAMILY CANCER HISTORY: Mother Breast Cancer age 70 Father Pancreatic Cancer age 65 Maternal Grandfather Lung Cancer . FINDINGS: No suspicious masses, architectural distortions or suspiciously clustered microcalcifications are identified. There are no significant changes when compared with prior studies. IMPRESSION: No mammographic evidence of malignancy. Mammography Report Markings on images: BB's = Nipples; skin lesions Open havasupai = Palpable Line = Scar 2D digital mammography and tomosynthesis imaging were performed and reviewed with CAD. ASSESSMENT: Category 1 Negative RECOMMENDATION: Routine screening mammogram of both breasts in 1 year. . Report Dictated on Cancer Risk Assessment: This risk assessment is based on patient provided information collected in a risk survey taken at the time of this examination. Lifetime breast cancer risk: Average Risk - If greater than or equal to 20%, consider annual mammogram and annual screening Breast MRI or follow up in high risk clinic. A score of Average Risk indicates a score of less than 20%. Is the patient at elevated risk based on the HBOC criteria? Yes (Hereditary Breast and Ovarian Cancer) - If yes, consider genetic counseling and testing with high risk follow up. Is the patient at elevated risk based on the Talbot Syndrome criteria? No - If yes, consider genetic counseling and testing with high risk follow up. Final Signed Date and Time: 01/11/2022 8:10 am Signed by: MD HOA, MISAEL [facility] Basophil percentageon 2021 Basophil percentage 3.5 mg/dL 2.5-4.9 [facility] Work Phone: Bilirubin [Mass/Vol] 0.50 mg/dL 0.20-1.00 [facility] Work Phone: Comment on above: For patients on eltr ombopag therapy, use of Dimension [place] TBIL is not recommended. Chloride [Moles/Vol] 105 mmol/L 98-107 [facility] Work Phone: Cholesterol [Mass/Vol] 254 mg/dL <200 [facility] Work Phone: Comment on above: <200 mg/dL Desirable 200-240 mg/dL Borderline >240 mg/dL High Risk Glucose [Mass/Vol] 101 mg/dL 74-106 [facility] Work Phone: Comment on above: Fasting Glucose resu lt from 100 to 125 mg/dL suggests IMPAIRED HOMEOSTASIS per A.D.A. criteria. Potassium [Moles/Vol] 3.9 mmol/L 3.5-5.1 [facility] Work Phone: Protein [Mass/Vol] 7.0 g/dL 6.4-8.2 [facility] Work Phone: Sodium [Moles/Vol] 138 mmol/L 136-145 [facility] Work Phone: Triglyceride [Mass/Vol] 156 mg/dL [facility] Work Phone: Comment on above: The drugs N-Acetylcy steine and Metamizole may falsely depress this assay.Serum Triglycerides Reference Interval Normal <150 mg/dL Borderline high 150 - 199 mg/dL High 200 - 499 mg/dL Very High > or = 500 mg/dL Laboratory - Chemistry and C hemistry - challengeon 12-10-2021 ALP [Catalytic activity/Vol] 51 U/L 45-117 [facility] Work Phone: ALT [Catalytic activity/Vol] 29 U/L 13-56 [facility] Work Phone: CO2 [Moles/Vol] 28.0 mmol/L 21.0-32.0 [facility] Work Phone: Free T4 [Mass/Vol] 1.34 ng/dL 0.76-1.46 [facility] Work Phone: Globulin (S) [Mass/Vol] 3.0 g/dL 2.2-4.[address] [facility] Work Phone: Urea nitrogen/Creatinine [Mass ratio] 14.6 mg/mg 10-20 [facility] Work Phone: No Panel Informationon 12-10 Estimated GFR (MDRD) Amer 84 mL/min >60 [facility] Work Phone: Comment on above: GFR Calc Estimated GFR (MDRD) Non-Af Amer 69 mL/min >60 [facility] Work Phone: Comment on above: Non- GFR Calc Free Triiodothyronine (T3) pg/dL 2.2 pg/mL 2.18-3.98 [facility] Work Phone: Ionized Calcium 4.8 mg/dL [facility] Work Phone: Comment on above: Performed at: [facility] [employer] [address] [id number] Director: Albert Romero PhD, Phone: [phone] Parathyroid Hormone (Intact) 32.7 pg/mL 18.4-80.1 [facility] Work Phone: Thyroid Stimulating Hormone (TSH) 0.56 uIU/mL 0.358-3.74 [facility] Work Phone: Vitamin D 25-Hydroxy 30.2 ng/mL [facility] Work Phone: Comment on above: Vitamin D 25(OH) Sta tus Range Deficiency <20 ng/mL (50nmol/L) Insufficiency 20 - 30 ng/mL (50 - 75 nmol/L) Sufficiency 30 - 100 ng/mL (75 - 250 nmol/L) Toxicity >100 ng/mL (>250 nmol/L) Serum or plasma albumin irene urement (mass/volume)on 12-10-2021 Albumin [Mass/Vol] 4.0 g/dL 3.2-5.0 [facility] Work Phone: Serum or plasma albumin/glob ulin mass ratioon 12-10-2021 Albumin/Globulin [Mass ratio] 1.3 {ratio} 0.9-2.4 [facility] Work Phone: Serum or plasma calcium irene urement (mass/volume)on 12-10-2021 Calcium [Mass/Vol] 8.1 mg/dL 8.5-10.1 [facility] Work Phone: Serum or plasma cholesterol in HDL measurement (mass/volume)on 12-10-2021 Cholesterol in HDL [Mass/Vol] 48 mg/dL [facility] Work Phone: Comment on above: The drugs N-Acetylcy steine and Metamizole may falsely depress this assay. Reference Range HDL <40 mg/dL Low HDL Cholesterol HDL >or= 60 mg/dL High HDL Cholesterol Serum or plasma cholesterol in VLDL measurement (mass/volume)on 12-10-2021 Cholesterol in VLDL [Mass/Vol] 31 mg/dL 5-40 [facility] Work Phone: Serum or plasma creatinine m easurement (mass/volume)on 12-10-2021 Creatinine [Mass/Vol] 0.89 mg/dL 0.55-1.02 [facility] Work Phone: Comment on above: The validity of the calculated GFR & GFRAA in patients over 70 years has not been determined. Clinical correlation is essential. Serum or plasma low density lipoprotein (LDL) cholesterol measurement (mass/volume)on 12-10-2021 Cholesterol in LDL [Mass/Vol] 175 mg/dL 0-130 [facility] Work Phone: Serum or plasma urea nitroge n measurement (mass/volume)on 12-10-2021 Urea nitrogen [Mass/Vol] 13 mg/dL 7-18 [facility] Work Phone: Thin prep Papanicolaou smear with manual screeningon 12-10-2021 Thin prep Papanicolaou smear with manual screening 15 U/L 15-37 [facility] Work Phone: Thin prep Papanicolaou smear with manual screening 5 5-15 [facility] Work Phone: [facility]ALTHon 11-05-2020 [facility] HNO ID: [id number] Author: Francheska EspinalRt) Prashanth Beverly Service: Radiology Author Type: Advertising Assistant Manager Type: [facility] Filed: 11/05/2020 7:30 PM Note Text: Radiology Service Progress Note PATIENT NAME: Ronnie Cohen Meng DATE OF SERVICE: November 05, 2020 TIME: 7:29 PM PATIENT IDENTITY VERIFICATION COMPLETED USING TWO (2) IDENTIFIERS: Name and Date of confirmed by patient verbally. FALL SCREENING: Has the patient had 2 falls in the last year or 1 fall with injury or currently using an Ambulatory Assistive Device (Walker, Cane, Wheelchair, Crutches, etc.)? Emergency Room Patient: Screened in ED PATIENT GENDER DATA: Female. status: : No status: NO. PATIENT RELEVANT IMPLANT DATA REVIEWED: Not Applicable RADIOLOGY DEPARTMENT: General X-ray: Exam(s) Completed: Lower Extremity X-Ray(s): Ankle, Right: PERIPHERAL IV DATA: Not applicable SIGNED BY: RT Emmy November 05, 2020 7:29 PM [facility] ED NOTEon 11-05-2020 ED NOTE HNO ID: [id number] Author: Darrell EspinalRn) JAH York Service: ? Author Type: Registered Nurse Type: ED Notes Filed: 11/05/2020 9:02 PM Note Text: 4x4 with bacitracin, kerlix applied to wound, post-op shoe applied. Pt d/c to home without script instructed to f/u with MD in 10-14 days. Pt verbalized understanding of plan. Pt ambulated from department with a steady gait, without difficulty. [facility] ED NOTE HNO ID: [id number] Author: Darrell EspinalRn) JAH York Service: ? Author Type: Registered Nurse Type: ED Notes Filed: 11/05/2020 8:29 PM Note Text: PA at bedside for Laceration repair. [facility] ED NOTE HNO ID: [id number] Author: Paula EspinalRn) JAH Maldonado Service: ? Author Type: Registered Nurse Type: ED Notes Filed: 11/05/2020 7:11 PM Note Text: Laceration to right foot Pt dropped a knife on foot [facility] ED PROV NOTEon 11-05-2020 ED PROV NOTE HNO ID: [id number] Author: Saba Peterson) Natalie Service: Emergency Medicine Author Type: Physician Card Dealer Type: ED Provider Notes Filed: 11/05/2020 10:00 PM Note Text: ED Provider Note Patient Name: Ronnie Cohen Meng SERVICE DATE: 11/05/20 History Patient presents with: Laceration: right foot 55 year old female presents to ED c/o laceration to right foot. Pt accidentally dropped a new knife, cutting right foot. She reports pain and bleeding at the site. No numbness. Unsure last tetanus. No anticoagulant use. History provided by: Medical records and patient PAST MEDICAL HISTORY Diagnosis Date - Diverticulitis - Goiter - Graves disease - IBS (irritable bowel syndrome) - Kidney stones - Postsurgical hypothyroidism - Seasonal allergies 11/30/2018 - Thyroid cancer (HCC) PAST SURGICAL HISTORY Procedure Laterality Date - APPENDECTOMY - BREAST BIOPSY 2009 benign - BREAST BIOPSY INCISIONAL RIGHT 12/01/2018 - EXCIS INTERDIGITAL NEUROMA,EA Right - HYSTERECTOMY HX 2003 without bso - LITHOTRIPSY ESWL FORTEC 2003 - THYROIDECTOMY 12/23/2014 FAMILY HISTORY Problem Relation Age of Onset - Breast Cancer Mother - Ischemic Heart Disease Father - Prostate Cancer Father - Asthma Father - COPD Father - Heart Attack Brother - other (Liver disease) Brother Social History Tobacco Use - Smoking status: Never Smoker - Smokeless tobacco: Never Used Substance and Sexual Activity - Alcohol use: Yes Alcohol/week: 5.0 standard drinks Types: 2 Mixed Drinks per week - Drug use: No - Sexual activity: Yes Partners: Male ALLERGIES Allergen Reactions - Chlorhexidine Rash Review of Systems Constitutional: Negative for chills and fever. HENT: Negative. Respiratory: Negative. Cardiovascular: Negative. Gastrointestinal: Negative. Musculoskeletal: Positive for myalgias. Skin: Positive for wound. Neurological: Negative. Hematological: Negative. Psychiatric/Behavioral : Negative. Physical Exam BP 132/63 Pulse 91 Temp (Src) 98.3 (Oral) Resp 20 Ht 5' 0 (1.52m) Wt 156 lb (70.8kg) SpO2 99% LMP 10/03/2004 BMI 30.47 kg/(m2). O2 Therapy: Room Air Physical Exam Vitals and nursing note reviewed. Constitutional: Appearance: Normal appearance. HENT: Head: Normocephalic and atraumatic. Mouth/Throat: Mouth: Mucous membranes are moist. Eyes: Extraocular Movements: Extraocular movements intact. Conjunctiva/sclera: Conjunctivae normal. Pupils: Pupils are equal, round, and reactive to light. Cardiovascular: Rate and Rhythm: Normal rate and regular rhythm. Pulses: Normal pulses. Dorsalis pedis pulses are 2+ on the right side and 2+ on the left side. Posterior tibial pulses are 2+ on the right side and 2+ on the left side. Heart sounds: Normal heart sounds. Pulmonary: Effort: Pulmonary effort is normal. Breath sounds: Normal breath sounds. Musculoskeletal: Cervical back: Normal range of motion. Comments: Dorsiflexion and plantar flexion intact right ankle. Skin: General: Skin is warm and dry. Capillary Refill: Capillary refill takes less than 2 seconds. Comments: 4 cm laceration anterior lateral aspect right ankle Neurological: Mental Status: She is alert and oriented to person, place, and time. Comments: Sensation and strength equal bilaterally. Diagnostic Testing ED Labs Ordered and Reviewed - No data to display LAC REPAIR Date/Time: 11/05/2020 9:54 PM Performed by: Saba Estrada (Pa) Authorized by: Saba Estrada (Pa) Consent: Consent obtained: Verbal Consent given by: Patient Risks discussed: Pain, infection, need for additional repair, poor wound healing and tendon damage Alternatives discussed: No treatment Anesthesia (see MAR for exact dosages): Anesthesia method: Local infiltration Local anesthetic: Lidocaine 1% w/o epi Laceration details: Location: Foot Foot location: R ankle Length (cm): 4 Repair type: Repair type: Simple Pre-procedure details: Preparation: Patient was prepped and draped in usual sterile fashion and imaging obtained to evaluate for foreign bodies Exploration: Hemostasis achieved with: Direct pressure Wound exploration: wound explored through full range of motion and entire depth of wound probed and visualized Wound extent: no foreign bodies/material noted, no muscle damage noted, no tendon damage noted, no underlying fracture noted and no vascular damage noted Treatment: Area cleansed with: Hibiclens Amount of cleaning: Standard Irrigation solution: Sterile saline Irrigation method: Tap Skin repair: Repair method: Sutures Suture size: 5-0 Suture material: Prolene Suture technique: Horizontal mattress Number of sutures: 4 Approximation: Approximation: Close Post-procedure details: Dressing: Antibiotic ointment and non-adherent dressing (post op shoe) Patient tolerance of procedure: Tolerated well, no immediate complications ED Course / Clinical Impression Clinical Impressions as of Nov 05 2151 Laceration of ankle Visit for wound check MDM / Disposition / Plan Course: 55 year old female presents c/o right ankle laceration. Vital signs were reviewed. Triage records were reviewed. Medical records were reviewed. Nursing notes were reviewed and incorporated. Patient dropped a knife accidentally, cutting lateral right ankle. There is a 4 cm laceration. No evidence of tendon injury, full range of motion in the ankle. Neurovascular intact. X-ray shows no evidence of foreign body or bony involvement. Wound irrigated and repaired under sterile procedure. Bacitracin dressing applied. Counseled regarding wound care. Postop shoe given for protection. Tetanus updated. Follow-up in 10 to 14 days for suture removal. Patient understands and is in agreement with the plan. The patient was DISCHARGED: Counseled patient regarding suspected diagnosis AND need for follow-up. Discharged home with verbal and written instructions. They were instructed to return as needed for persistent or worsening symptoms or any new concerns. Condition at time of disposition: stable SIGNATURE: LIZETTE Dominique (Raphael) Natalie 11/05/202199 [facility] XR ANKLE 3V AP/LAT/OBL RTon 11-05-2020 XR ANKLE 3V AP/LAT/OBL RT * * *Final Report* * * DATE OF EXAM: Nov 05 2020 7:32PM MDX [id number] - XR ANKLE 3V AP/LAT/OBL RT / PROCEDURE REASON: Ankle pain, initial exam * * * * Physician Interpretation * * * * PROCEDURE: Right ankle INDICATION: Ankle pain, initial exam.pt dropped knife on ankle TECHNIQUE: XR ANKLE 3V AP/LAT/OBL RT COMPARISON: None FINDINGS/ IMPRESSION: Soft tissue injury seen anterior to the tibiotalar joint on the lateral view. No foreign body. Bones and joint spaces are unremarkable. Accelerator Systems Director: [facility]asha Transcribe Date/Time: Nov 05 2020 7:44P Dictated by : UVALDO GALICIA MD This examination was interpreted and the report reviewed and electronically signed by: UVALDO GALICIA MD on Nov 05 2020 7:45PM EST [id number] [facility] BILon 020 [facility] * * *Final Report* * * DATE OF EXAM: Nov 21 2019 8:00AM SONY 0620 - [facility] / PROCEDURE REASON: R92.8-Abnormal mammogram * * * * Physician Interpretation * * * * #[id number] - [facility] BILATERAL DIGITAL DIAGNOSTIC MAMMOGRAM WITH CAD: 11/21/2019 HISTORY: R92.8-Abnormal Mammogram. RESULT: TECHNIQUE: The study was acquired using full field digital technology and interpreted from soft copy. Current study was also evaluated with a Computer Aided Detection (CAD). Comparison is made to exams dated: 11/15/2018 mammogram, 10/18/2018 mammogram, 02/17/2018 mammogram, 09/15/2017 mammogram, and 08/31/2013 mammogram - [facility]. The tissue of both breasts is heterogeneously dense. This may lower the sensitivity of mammography. No significant masses, calcifications, or other findings are seen in either breast. There has been no significant interval change. IMPRESSION: NEGATIVE There is no mammographic evidence of malignancy. A 1 year screening mammogram is recommended. Octavia winston/sheron:11/21/2019 08:09:21 [address] Engineering Teacher(s): RT Ana(R)(M), [facility] Mammogram BI-RADS: 1 Negative Multiple national specialty organizations have released breast cancer screening guidelines for women at average risk for developing breast cancer - guidelines that are based on both evidence and opinion, yet differ on when to start and how often to screen for breast cancer. With representation from Breast Imaging, Internal Medicine, Women's Health, Family Medicine, and Medical/Surgical Oncology, the [facility] has carefully reviewed the data and reached the following consensus: 1) All women should engage in shared decision-making with their providers to decide when to start and how often to screen; 2) All women should have the opportunity to start screening mammography at age 40; 3) For women ages 45-55, we recommend annual screening mammograms; 4) For women ages 55 and over, we support both the transition from an annual to a biennial interval if this aligns more with patient's values and preferences, or continuation with annual screening; 5) All women should discuss with their providers when to stop screening mammograms. Accelerator Systems Director: Sheron Transcribe Date/Time: Nov 21 2019 7:53A Dictated by : OCTAVIA VELASQUEZ MD This examination was interpreted and the report reviewed and electronically signed by: OCTAVIA VELASQUEZ MD on Nov 21 2019 8:09AM EST [id number] Normal [facility] PROGRESSon 11-21-2019 PROGRESS HNO ID: [id number] Author: Prashanth Perez (Rt) Service: Radiology Author Type: Advertising Assistant Manager Type: Progress Notes Filed: 11/21/2019 8:02 AM Note Text: Radiology Service Progress Note PATIENT NAME: Ronnie Cohen Meng DATE OF SERVICE: November 21, 2019 TIME: 8:02 AM PATIENT IDENTITY VERIFICATION COMPLETED USING TWO (2) IDENTIFIERS: Name and Date of confirmed by patient verbally. PATIENT GENDER DATA: Female. status: : No status: NO. PATIENT RELEVANT IMPLANT DATA REVIEWED: Not Applicable RADIOLOGY DEPARTMENT: Mammography PERIPHERAL IV DATA: Not applicable SIGNED BY: RT Ana November 21, 2019 8:02 AM [facility] Vital Signs Date Time Vital Sign Value Performing Clinician Faci dorcas 04-25-2025 12:26-0400 Diastolic blood pressure 65 mm[Hg] Dr. Richard Richards MD Work Phone: [facility] 04-25-2025 12:26-0400 Heart rate 75 /min Dr. Richard Richards MD Work Phone: [facility] 04-25-2025 12:26-0400 Systolic blood pressure 107 mm[Hg] Dr. Richard Richards MD Work Phone: [facility] 04-25-2025 10:15-0400 Body height 152.[address] Richard Richards MD Work Phone: [facility] 04-25-2025 10:15-0400 Body temperature 96.8 [degF] Dr. Richard Richards MD Work Phone: [facility] 04-25-2025 10:15-0400 Respiratory rate 16 /min Dr. Richard Richards MD Work Phone: [facility] 04-25-2025 10:15-0400 SaO2% (BldA) [Mass fraction] 98 % Dr. Richard Richards MD Work Phone: [facility] 04-18-2025 13:15-0400 Body mass index (BMI) [Ratio] 30 kg/m2 Dr. Richard Richards MD Work Phone: [facility] 04-18-2025 13:15-0400 Body weight 69.[address] Richard Richards MD Work Phone: [facility] 04-10-2025 09:59-0400 Body height 152.4 cm Wilber Wu MD Work Phone: [facility] 04-10-2025 09:59-0400 Body mass index (BMI) [Ratio] 30.08 kg/m2 Wilber Wu MD Work Phone: [facility] 04-10-2025 09:59-0400 Body weight 69.85 kg Wilber Wu MD Work Phone: [facility] 03-28-2025 13:54-0400 Body height 152.[address] Richard Richards MD Work Phone: [facility] 03-28-2025 13:54-0400 Body mass index (BMI) [Ratio] 30.2 kg/m2 Dr. Richard Richards MD Work Phone: [facility] 03-28-2025 13:54-0400 Body temperature 98.5 [degF] Dr. Richard Richards MD Work Phone: [facility] 03-28-2025 13:54-0400 Body weight 70.[address] Richard Richards MD Work Phone: [facility] 03-28-2025 13:54-0400 Diastolic blood pressure 71 mm[Hg] Dr. Richard Richards MD Work Phone: [facility] 03-28-2025 13:54-0400 Heart rate 73 /min Dr. Richard Richards MD Work Phone: [facility] 03-28-2025 13:54-0400 Respiratory rate 18 /min Dr. Richard Richards MD Work Phone: [facility] 03-28-2025 13:54-0400 SaO2% (BldA) [Mass fraction] 97 % Dr. Richard Richards MD Work Phone: [facility] 03-28-2025 13:54-0400 Systolic blood pressure 106 mm[Hg] Dr. Richard Richards MD Work Phone: [facility] 03-12-2025 10:42-0400 Body height 152.4 cm Wilber Wu MD Work Phone: [facility] 03-12-2025 10:42-0400 Body mass index (BMI) [Ratio] 30.08 kg/m2 Wilber Wu MD Work Phone: [facility] 03-12-2025 10:42-0400 Body weight 69.85 kg Wilber Wu MD Work Phone: [facility] 03-12-2025 10:42-0400 Diastolic blood pressure 68 mm[Hg] Wilber Wu MD Work Phone: [facility] 03-12-2025 10:42-0400 Systolic blood pressure 117 mm[Hg] Wilber Wu MD Work Phone: [facility] 01-16-2025 13:10-0400 Body mass index (BMI) [Ratio] 29.9 kg/m2 Dr. Richard Richards MD Work Phone: [facility] 01-16-2025 13:10-0400 Body temperature 98 [degF] Dr. Richard Richards MD Work Phone: [facility] 01-16-2025 13:10-0400 Body weight 69.[address] Richard Richards MD Work Phone: [facility] 01-16-2025 13:10-0400 Diastolic blood pressure 69 mm[Hg] Dr. Richard Richards MD Work Phone: [facility] 01-16-2025 13:10-0400 Heart rate 77 /min Dr. Richard Richards MD Work Phone: [facility] 01-16-2025 13:10-0400 Respiratory rate 16 /min Dr. Richard Richards MD Work Phone: [facility] 01-16-2025 13:10-0400 SaO2% (BldA) [Mass fraction] 97 % Dr. Richard Richards MD Work Phone: [facility] 01-16-2025 13:10-0400 Systolic blood pressure 101 mm[Hg] Dr. Richard Richards MD Work Phone: 4(311)050-182747 [place] [address] 12-19-2024 14:50-0400 Body height 152.[address] Richard Richards MD Work Phone: 1(282)521-336247 [place] [address] 12-19-2024 14:50-0400 Body mass index (BMI) [Ratio] 30.7 kg/m2 Dr. Richard Richards MD Work Phone: 7(007)675-527396 [place] [address] 12-19-2024 14:50-0400 Body temperature 98.5 [degF] Dr. Richard Richards MD Work Phone: 5(590)360-074447 [place] [address] 12-19-2024 14:50-0400 Body weight 71.[address] Richard Richards MD Work Phone: 6(718)476-906647 [place] [address] 12-19-2024 14:50-0400 Diastolic blood pressure 65 mm[Hg] Dr. Richard Richards MD Work Phone: [facility] 12-19-2024 14:50-0400 Heart rate 70 /min Dr. Richard Richards MD Work Phone: [facility] 12-19-2024 14:50-0400 Respiratory rate 14 /min Dr. Richard Richards MD Work Phone: [facility] 12-19-2024 14:50-0400 SaO2% (BldA) [Mass fraction] 99 % Dr. Richard Richards MD Work Phone: [facility] 12-19-2024 14:50-0400 Systolic blood pressure 96 mm[Hg] Dr. Richard Richards MD Work Phone: 0(426)694-312447 [place] [address] 12-14-2024 11:59-0400 Diastolic blood pressure 58 mm[Hg] Dr. Richard Richards MD Work Phone: 2(392)339-466747 [place] [address] 12-14-2024 11:59-0400 Heart rate 80 /min Dr. Richard Richards MD Work Phone: 8(684)816-009596 [place] [address] 12-14-2024 11:59-0400 Systolic blood pressure 89 mm[Hg] Dr. Richard Richards MD Work Phone: 3(201)778-033496 [place] [address] 12-14-2024 11:00-0400 Body height 152.[address] Richard Richards MD Work Phone: 6(483)863-690496 [place] [address] 12-14-2024 11:00-0400 Body mass index (BMI) [Ratio] 30.2 kg/m2 Dr. Richard Richards MD Work Phone: 9(158)708-462596 [place] [address] 12-14-2024 11:00-0400 Body temperature 97.2 [degF] Dr. Richard Richards MD Work Phone: 3(458)804-053296 [place] [address] 12-14-2024 11:00-0400 Body weight 70.[address] Richard Richards MD Work Phone: 5(501)809-460596 [place] [address] 12-14-2024 11:00-0400 Respiratory rate 16 /min Dr. Richard Richards MD Work Phone: 2(673)626-109196 [place] [address] 12-14-2024 11:00-0400 SaO2% (BldA) [Mass fraction] 94 % Dr. Richard Richards MD Work Phone: 5(255)974-205696 [place] [address] 12-12-2024 11:51-0400 Body temperature 96.9 [degF] Dr. Richard Richards MD Work Phone: 3(784)045-034596 [place] [address] 12-12-2024 11:51-0400 Diastolic blood pressure 58 mm[Hg] Dr. Richard Richards MD Work Phone: 3(344)615-727696 [place] [address] 12-12-2024 11:51-0400 Heart rate 66 /min Dr. Richard Richards MD Work Phone: 3(001)035-387596 [place] [address] 12-12-2024 11:51-0400 Respiratory rate 16 /min Dr. Richard Richadrs MD Work Phone: 1(527)624-555896 [place] [address] 12-12-2024 11:51-0400 SaO2% (BldA) [Mass fraction] 97 % Dr. Richard Richards MD Work Phone: 8(850)785-531896 [place] [address] 12-12-2024 11:51-0400 Systolic blood pressure 99 mm[Hg] Dr. Richard Richards MD Work Phone: 8(377)903-273996 [place] [address] 12-12-2024 10:47-0400 Body height 152.[address] Richard Richards MD Work Phone: 8(844)186-024196 [place] [address] 12-10-2024 11:40-0400 Body temperature 97.2 [degF] Dr. Richard Richards MD Work Phone: 2(945)889-507796 [place] [address] 12-10-2024 11:40-0400 Diastolic blood pressure 45 mm[Hg] Dr. Richard Richadrs MD Work Phone: 2(778)023-316696 [place] [address] 12-10-2024 11:40-0400 Heart rate 62 /min Dr. Richard Richards MD Work Phone: 1(856)279-189396 [place] [address] 12-10-2024 11:40-0400 Respiratory rate 16 /min Dr. Richard Richards MD Work Phone: 5(629)401-520296 [place] [address] 12-10-2024 11:40-0400 SaO2% (BldA) [Mass fraction] 99 % Dr. Richard Richards MD Work Phone: 0(941)209-645496 [place] [address] 12-10-2024 11:40-0400 Systolic blood pressure 95 mm[Hg] Dr. Richard Richards MD Work Phone: 0(564)388-865096 [place] [address] 12-10-2024 10:40-0400 Body height 152.[address] Richard Richards MD Work Phone: 0(814)596-823696 [place] [address] 12-10-2024 10:40-0400 Body mass index (BMI) [Ratio] 30.2 kg/m2 Dr. Richard Richards MD Work Phone: [facility] 12-10-2024 10:40-0400 Body weight 70.[address] Richard Richards MD Work Phone: [facility] 12-07-2024 10:08-0500 Diastolic blood pressure 50 mm[Hg] Dr. Richard Richards MD Work Phone: [facility] 12-07-2024 10:08-0500 Heart rate 82 /min Dr. Richard Richards MD Work Phone: [facility] 12-07-2024 10:08-0500 Respiratory rate 16 /min Dr. Richard Richards MD Work Phone: 5(486)724-206008 [address] 12-07-2024 10:08-0500 SaO2% (BldA) [Mass fraction] 98 % Dr. Richard Richards MD Work Phone: 3(269)935-118247 [place] [address] 12-07-2024 10:08-0500 Systolic blood pressure 101 mm[Hg] Dr. Richard Richards MD Work Phone: 4(310)417-444647 [place] [address] 12-07-2024 09:07-0500 Body height 152.[address] Richard Richards MD Work Phone: [facility] 12-07-2024 09:07-0500 Body mass index (BMI) [Ratio] 30.2 kg/m2 Dr. Richard Richards MD Work Phone: [facility] 12-07-2024 09:07-0500 Body temperature 97.4 [degF] Dr. Richard Richards MD Work Phone: [facility] 12-07-2024 09:07-0500 Body weight 70.[address] Richard Richards MD Work Phone: [facility] 12-05-2024 12:56-0500 Body temperature 97 [degF] Dr. Richard Richards MD Work Phone: 2(390)235-551647 [place] [address] 12-05-2024 12:56-0500 Diastolic blood pressure 59 mm[Hg] Dr. Richard Richards MD Work Phone: [facility] 12-05-2024 12:56-0500 Heart rate 67 /min Dr. Richard Richards MD Work Phone: [facility] 12-05-2024 12:56-0500 Respiratory rate 16 /min Dr. Richard Richards MD Work Phone: [facility] 12-05-2024 12:56-0500 SaO2% (BldA) [Mass fraction] 97 % Dr. Richard Richards MD Work Phone: [facility] 12-05-2024 12:56-0500 Systolic blood pressure 106 mm[Hg] Dr. Richard Richards MD Work Phone: [facility] 12-05-2024 11:28-0500 Body mass index (BMI) [Ratio] 29.9 kg/m2 Dr. Richard Richards MD Work Phone: [facility] 12-05-2024 11:28-0500 Body weight 69.[address] Richard Richards MD Work Phone: [facility] 02-20-2024 07:56-0400 Body height 152.4 cm Wilber Wu MD Work Phone: [facility] 02-20-2024 07:56-0400 Body mass index (BMI) [Ratio] 30.47 kg/m2 Wilber Wu MD Work Phone: [facility] 02-20-2024 07:56-0400 Body weight 70.76 kg Wilber Wu MD Work Phone: [facility] 2024 11:31-0400 Body height 152.4 cm Wilber Wu MD Work Phone: [facility] 2024 11:31-0400 Body mass index (BMI) [Ratio] 30.51 kg/m2 Wilber Wu MD Work Phone: [facility] 2024 11:31-0400 Body weight 70.85 kg Wilber Wu MD Work Phone: [facility] 2024 11:31-0400 Diastolic blood pressure 72 mm[Hg] Wilber Wu MD Work Phone: [facility] 2024 11:31-0400 Heart rate 86 /min Wilber Wu MD Work Phone: [facility] 2024 11:31-0400 Systolic blood pressure 118 mm[Hg] Wilber Wu MD Work Phone: [facility] 12-26-2023 10:07-0400 Diastolic Blood Pressure Non-Invasive 81 mm[Hg] DR ALBERT RIZO MD [facility] 12-26-2023 10:07-0400 Heart rate 64 /min DR ALBERT RIZO MD [facility] 12-26-2023 10:07-0400 Respiratory rate 18 /min DR ALBERT RIZO MD [facility] 12-26-2023 10:07-0400 Systolic Blood Pressure Non-Invasive 116 mm[Hg] DR ALBERT RIZO MD [facility] 12-26-2023 10:03-0400 Diastolic Blood Pressure Non-Invasive 84 mm[Hg] DR ALBERT RIZO MD [facility] 12-26-2023 10:03-0400 Heart rate 70 /min DR ALBERT RIZO MD [facility] 12-26-2023 10:03-0400 Respiratory rate 15 /min DR ALBERT RIZO MD [facility] 12-26-2023 10:03-0400 Systolic Blood Pressure Non-Invasive 123 mm[Hg] DR ALBERT RIZO MD [facility] 12-26-2023 09:56-0400 Diastolic Blood Pressure Non-Invasive 77 mm[Hg] DR ALBERT RIZO MD [facility] 12-26-2023 09:56-0400 Heart rate 66 /min DR ALBERT RIZO MD [facility] 12-26-2023 09:56-0400 Respiratory rate 13 /min DR ALBERT RIZO MD [facility] 12-26-2023 09:56-0400 Systolic Blood Pressure Non-Invasive 114 mm[Hg] DR ALBERT RIZO MD [facility] 12-26-2023 09:50-0400 Body temperature 97.7 [degF] DR ALBERT RIZO MD [facility] 12-26-2023 09:40-0400 Respiratory Rate - Anes 15 br/min DR ALBERT RIZO MD [facility] 12-26-2023 09:35-0400 Respiratory Rate - Anes 47 br/min DR ALBERT RIZO MD [facility] 12-26-2023 08:12-0400 Body height 152.[address] ALBERT RIZO MD [facility] 12-26-2023 08:12-0400 Body temperature 97.34 [degF] DR ALBERT RIZO MD [facility] 12-26-2023 08:12-0400 Body weight [address] ALBERT RIZO MD [facility] 12-26-2023 08:12-0400 Heart rate 67 /min DR ALBERT RIZO MD [facility] 12-14-2022 08:23-0400 Body mass index (BMI) [Ratio] 30.39 kg/m2 Wilber Wu MD Work Phone: [facility] 12-14-2022 08:23-0400 Body temperature 97.11 [degF] Wilber Wu MD Work Phone: [facility] 12-14-2022 08:23-0400 Body weight 70.58 kg Wilber Wu MD Work Phone: [facility] 12-14-2022 08:23-0400 Diastolic blood pressure 70 mm[Hg] Wilber Wu MD Work Phone: [facility] 12-14-2022 08:23-0400 Systolic blood pressure 110 mm[Hg] Wilber Wu MD Work Phone: [facility] 09-10-2022 10:05-0500 Body temperature 97.8 [degF] [facility] 09-10-2022 10:05-0500 Diastolic blood pressure 70 mm[Hg] [facility] 09-10-2022 10:05-0500 Heart rate 74 /min [facility] 09-10-2022 10:05-0500 Respiratory rate 18 /min [facility] 09-10-2022 10:05-0500 SaO2% (BldA) [Mass fraction] 100 % [facility] 09-10-2022 10:05-0500 Systolic blood pressure 114 mm[Hg] [facility] 09-10-2022 06:43-0500 Body height 152.4 cm [facility] 09-10-2022 06:43-0500 Body mass index (BMI) [Ratio] 32.3 kg/m2 [facility] 09-10-2022 06:43-0500 Body weight 75 kg [facility] 08-13-2022 09:27-0500 Body temperature 97.7 [degF] [facility] 08-13-2022 09:27-0500 Diastolic blood pressure 86 mm[Hg] [facility] 08-13-2022 09:27-0500 Heart rate 65 /min [facility] 08-13-2022 09:27-0500 Respiratory rate 12 /min [facility] 08-13-2022 09:27-0500 SaO2% (BldA) [Mass fraction] 99 % [facility] 08-13-2022 09:27-0500 Systolic blood pressure 133 mm[Hg] [facility] 08-13-2022 06:36-0500 Body height 152.4 cm [facility] Work Phone: 08-13-2022 06:36-0500 Body mass index (BMI) [Ratio] 32.4 kg/m2 [facility] 08-13-2022 06:36-0500 Body weight 75.38 kg [facility] 01-06-2019 09:18-0400 Body mass index (BMI) [Ratio] 29.7 kg/m2 [facility] Work Phone: Encounters Encounter Date Encounter Type Care Provider Facility Start: 05-21-2025 ambulatory Richard Tilley lity:[facility] Start: 05-03-2025 End: 05-03-2025 Patient encounter procedure Marga CABRERA -[facility] Work Phone: Start: 05-03-2025 End: 05-03-[address] Richard Richards MD Work Phone: -[facility] Start: 04-25-2025 ambulatory Joe Camarena Facility:[facility] Start: 04-25-[address] Joe Camarena MD -[facility] Start: 04-21-2025 End: 04-22-2025 Fabian Wu MD Work Phone: [facility] Obstetrics [facility] Gyne[facility] Comment on above: Hot flashes Start: 04-18-2025 End: 04-18-2025 Telemedicine consultation with patient Darrell Bai MD Work Phone: [facility] [place] Start: 04-18-2025 End: 04-18-2025 ambulatory Darrell Bai MD Work Phone: [facility] Comment on above: Postsurgical hypothy roidism (Primary Dx) Start: 04-16-2025 ambulatory Richard Richards [facility]iane lity:[facility] Start: 04-10-2025 End: 04-10-2025 Subsequent hospital visit by physician Wilber Wu MD Work Phone: [facility] Comment on above: Screening mammogram for breast cancer Start: 04-10-2025 End: 04-10-2025 ambulatory [facility] Start: 04-03-2025 End: 04-06-2025 ambulatory [facility] Facility:[facility] Comment on above: Lab test results Start: 03-28-2025 End: 03-28-[address] Daniel Flynn MD -[facility] Work Phone: Start: 03-28-2025 End: 03-28-[address] Richard Richards MD Work Phone: [facility] Work Phone: Start: 03-25-2025 End: 03-25-[address] ALBERT RIZO MD Facility:[facility] Start: 03-25-2025 End: 03-25-[address] ALBERT RIZO MD [facility] Start: 03-20-[address] Albert Rizo MD -[facility] Work Phone: Start: 03-20-2025 ambulatory Albert Rizo Facility :[facility] Start: 03-12-2025 End: 03-12-2025 Patient encounter procedure Wilber Wu MD Work Phone: [facility] Work Phone: Start: 03-12-2025 End: 03-12-2025 Periodic preventive med est patient 40-64yrs Wilber Wu MD Work Phone: [facility]stetrics [facility]ne[facility] Comment on above: Well woman exam with routine gynecological exam (Primary Dx); Screening mammogram for breast cancer Start: 03-12-2025 End: 03-12-2025 ambulatory [facility] Start: 03-12-2025 End: 03-12-2025 Encounter for gynecological examination (general) (routine) without abnormal findings [facility] Start: 03-07-2025 End: 03-12-2025 Telephone encounter Darrell Bai MD Work Phone: [facility] Comment on above: [employer] Start: 03-07-2025 End: 03-07-2025 Telemedicine consultation with patient Darrell Bai MD Work Phone: [facility] [place] Start: 03-07-2025 End: 03-07-2025 ambulatory Darrell Bai MD Work Phone: [facility] Comment on above: Postsurgical hypothy roidism (Primary Dx) Start: 03-04-2025 End: 03-04-2025 ambulatory DARRELL BAI Facility:[facility] Start: 02-18-2025 End: 02-18-2025 Telephone encounter Darrell Bai MD Work Phone: [facility] Comment on above: Results Start: 02-05-2025 Encounter for genera l adult medical examination [facility] Start: 01-30-2025 End: 01-30-[address] Richard Richards MD -Laboratory [facility] Start: 01-30-2025 End: 01-30-2025 ambulatory Richard Richards Facility:[facility] Start: 01-16-2025 End: 01-16-[address] Daniel Flynn MD -[facility] Work Phone: Start: 01-16-2025 End: 01-16-2025 ambulatory Richard Richards Facility:[facility] Start: 01-15-[address] Joe Camarena MD -[facility] Start: 12-20-2024 End: 12-20-[address] Richard Richards MD Work Phone: [facility] Work Phone: Start: 12-20-2024 End: 12-20-[address] Joe Camarena MD -Labor[facility] Start: 12-19-[address] Joe Camarena MD -[facility] Start: 12-19-2024 End: 12-19-[address] Joe Camarena MD -[facility] Work Phone: Start: 12-19-2024 End: 12-20-2024 ambulatory Joe Camarena Facility:[facility] Start: 12-14-2024 End: 12-14-[address] Richard Richards MD -[facility] Work Phone: Start: 12-14-2024 End: 12-14-[address] Richard Richards MD Work Phone: [facility] Work Phone: Start: 12-12-2024 End: 12-12-[address] Richard Richards MD -[facility] Work Phone: Start: 12-12-2024 End: 12-12-[address] Richard Richards MD Work Phone: [facility] Work Phone: Start: 12-10-2024 End: 12-10-[address] Richard Richards MD -[facility] Work Phone: Start: 12-10-2024 End: 12-10-[address] Richard Richards MD Work Phone: [facility] Work Phone: Start: 12-07-2024 End: 12-07-[address] Richard Richards MD -[facility] Work Phone: Start: 12-07-2024 End: 12-07-[address] Richard Richards MD Work Phone: [facility] Work Phone: Start: 12-05-2024 End: 12-05-[address] Richard Richards MD -[facility] Work Phone: Start: 12-05-2024 End: 12-05-2024 ambulatory Richard Richards Facility:[facility] Start: 12-03-2024 End: 12-03-[address] Richard Richards MD Work Phone: [facility] Work Phone: Start: 12-03-2024 End: 12-03-[address] Richard Richards MD -Laboratory, [facility] Start: 12-03-2024 End: 12-03-2024 ambulatory Richard Richards Facility:[facility] Start: 11-06-2024 End: 11-06-2024 Patient encounter procedure Richard Richards MD -Laboratory, [facility] Start: 11-06-2024 End: 11-06-2024 ambulatory Richard Richards Facility:[facility] Start: 09-13-2024 End: 09-13-2024 ambulatory Darrell Bai MD Work Phone: [facility] Comment on above: Postsurgical hypothy roidism (Primary Dx) Start: 09-13-2024 End: 09-13-2024 Telemedicine consultation with patient Darrell Bai MD Work Phone: [facility] Start: 09-11-2024 End: 09-11-2024 ambulatory DARRELL BAI Facility:[facility] Start: 03-13-2024 ambulatory Darrell christine MD Work Phone: [facility] Comment on above: Medication dose [facility] Start: 03-01-2024 End: 03-01-2024 ambulatory Darrell Bai MD Work Phone: [facility] Comment on above: Postsurgical hypothy roidism (Primary Dx) Start: 03-01-2024 End: 03-01-2024 Telemedicine consultation with patient Darrell Bai MD Work Phone: [facility] Start: 02-20-2024 End: 02-20-2024 Subsequent hospital visit by physician Wilber Wu MD Work Phone: [facility] Comment on above: Encounter for screen ing mammogram for malignant neoplasm of breast Start: 2024 End: 2024 Patient encounter procedure Wilber Wu MD Work Phone: [facility] [employer] Work Phone: Start: 2024 End: 2024 Periodic preventive med est patient 40-64yrs Wilber Wu MD Work Phone: [facility] Comment on above: Well woman exam with routine gynecological exam (Primary Dx); Hot flashes Start: 02-03-2024 End: 05-04-2024 Transcribe Orders Wilber Wu MD Work Phone: [facility] [employer] Comment on above: Encounter for screen ing mammogram for malignant neoplasm of breast (Primary Dx) Start: 02-02-2024 End: 02-02-2024 ambulatory [facility] Work Phone: Start: 02-02-2024 End: 02-02-2024 Patient encounter procedure [facility] Start: 12-26-2023 End: 12-27-[address] RICHARD RICHARDS MD Facility:[facility] Start: 12-26-2023 End: 12-26-[address] ALBERT RIZO MD [facility] Start: 11-16-2023 End: 11-16-2023 ambulatory [facility] Work Phone: Start: 11-16-2023 End: 11-16-2023 Patient encounter procedure [facility] Work Phone: Start: 10-31-2023 End: 10-31-2023 ambulatory [facility] Work Phone: Start: 10-31-2023 End: 10-31-2023 Patient encounter procedure [facility] Start: 08-30-2023 Telephone encounter Wilber hillman MD Work Phone: [facility] Comment on above: Medication Problem ( 08/30/23 Pt calling to check to see if medication very expensive estradiol (Vivelle-DOT) 0.0375 MG/24HR asking if anything is comparable too but cheaper for her ? pt would like a call back to discuss options ) Start: 08-29-2023 End: 08-29-2023 ambulatory [facility] Work Phone: Start: 08-29-2023 End: 08-29-2023 Patient encounter procedure [facility] [place] Work Phone: Start: 08-18-2023 End: 08-18-2023 ambulatory Darrell Bai MD Work Phone: [facility] Comment on above: Postsurgical hypothy roidism (Primary Dx) Start: 08-18-2023 End: 08-18-2023 Telemedicine consultation with patient Darrell Bai MD Work Phone: [facility] Start: 03-14-2023 ambulatory Darrell christine MD Work Phone: [facility] Comment on above: Blood work Start: 01-24-2023 Refill Wilber Patricio Work Phone: [facility] Comment on above: Hot flashes (Primary Dx) Start: 01-24-2023 Telephone encounter Wilber hillman MD Work Phone: [facility] Comment on above: Medication Problem Start: 12-22-2022 ambulatory Darrell christine MD Work Phone: [facility] Comment on above: Question regarding T 4 FREE/FREE THYROX Start: 12-14-2022 End: 12-14-2022 Patient encounter procedure Wilber Wu MD Work Phone: [facility] Start: 12-14-2022 End: 12-14-2022 Periodic preventive med est patient 40-64yrs Wilber Wu MD Work Phone: [facility] Comment on above: Well woman exam with routine gynecological exam (Primary Dx); Hot flashes Start: 12-09-2022 Refill Wilber Patricio Work Phone: [facility] Start: 11-30-2022 Refill Wilber Patricio Work Phone: [facility] Start: 11-11-2022 End: 11-11-2022 ambulatory [facility] Work Phone: Start: 11-11-2022 End: 11-11-2022 Patient encounter procedure [facility] Start: 10-18-2022 Refill Wilber Patricio Work Phone: [facility] Start: 10-07-2022 Refill Wilber Patricio Work Phone: [facility] Start: 09-10-2022 End: 09-10-2022 Admission to same day surgery center [facility] Start: 09-10-2022 End: 09-10-2022 ambulatory [facility] Work Phone: Start: 08-13-2022 End: 08-13-2022 Admission to same day surgery [facility] Start: 08-13-2022 End: 08-13-2022 ambulatory [facility] Work Phone: Start: 07-29-2022 End: 07-29-2022 ambulatory [facility] Work Phone: Start: 07-29-2022 End: 07-29-2022 Patient encounter procedure [facility] Start: 02-15-2022 End: 02-15-2022 ambulatory Darrell Bai MD Work Phone: [facility] Comment on above: Postsurgical hypothy roidism (Primary Dx) Start: 02-15-2022 End: 02-15-2022 Telemedicine consultation with patient Darrell Bai MD Work Phone: [facility] Start: 01-25-2022 ambulatory Darrell christine MD Work Phone: [facility] [place] Comment on above: Levothyroxine Start: 01-21-2022 Refill Darrell christine MD Work Phone: [facility] Comment on above: Refill Request Start: 01-01-2022 End: 01-01-2022 Patient encounter procedure [facility] Start: 12-29-2021 End: 12-29-2021 Patient encounter procedure [facility]Laboratory, Specimen Start: 12-17-2021 End: 12-17-2021 Patient encounter procedure [facility] Start: 12-10-2021 End: 12-10-2021 Patient encounter procedure [facility], [place] Start: 11-17-2021 Registered [facility] Procedures Date Procedure Procedure Detail Performing Clinician Start: 04-10-2025 End: 04-10-2025 Screening digital breast tomosynthesis bi Wilber Wu MD Work Phone: Start: 04-03-[address] fraction Dr[address] Richard Richards MD Work Phone: Start: 04-03-2025 Total iron binding c apacity measurement Dr. Richard Richards MD Work Phone: Start: 04-03-2025 Thyrotropin [Units/v olume] in Serum or Plasma Wilber Wu MD Work Phone: Start: 03-20-20[address] End[address] antibody IgA level Dr. Richard Richards MD Work Phone: Start: 03-12-2025 Adult depression scr eening assessment Wilber Wu MD Work Phone: Start: 03-12-2025 Microscopic observat ion [Identifier] in Cervix by Cyto stain Wilber Wu MD Work Phone: Start: 03-04-2025 Thyrotropin [Units/v olume] in Serum or Plasma Wilber Wu MD Work Phone: Start: 01-30-2025 Total iron binding c apacity measurement Dr. Richard Richards MD Work Phone: Start: 01-30-2025 Vitamin D, 25-hydrox y measurement Dr. Richard Richards MD Work Phone: Comment on above: Vitamin D StatusDefi ciency: <20 ng/mL (50nmol/L)Insufficiency: 20-30 ng/mL (50-75 nmol/L)Sufficiency: 30-100 ng/mL (75-250 nmol/L)Toxicity: >100 ng/mL (>250 nmol/L) Start: 01-15-[address] e fraction Dr. Richard Richards MD Work Phone: Start: 01-15-[address] Richard Richards MD Work Phone: Start: 01-15-2025 Total iron binding c apacity measurement Dr. Richard Richards MD Work Phone: Start: 12-20-2024 Measurement of occul t blood in stool specimen using immunoassay Dr. Richard Richards MD Work Phone: Start: 12-19-2024 Endomysial antibody IgA level Dr. Richard Richards MD Work Phone: Start: 12-19-2024 Gliadin antibody, Ig A measurement Dr. Richard Richards MD Work Phone: Comment on above: Negative 0 - 19 Weak Positive 20 - 30 Moderate to Strong Positive >30 Start: 12-19-2024 Gliadin antibody, Ig G measurement Dr. Richard Richards MD Work Phone: Comment on above: Negative 0 - 19 Weak Positive 20 - 30 Moderate to Strong Positive >30 Start: 12-19-2024 Measurement of immunoglobulin A in serum specimen Dr. Richard Richards MD Work Phone: Comment on above: Performed at: [address] [id number] Director: Albert Romero PhD, Phone: [phone] Start: 12-03-[address] e fraction Dr. Richard Richards MD Work Phone: Start: 12-03-2024 Total iron binding c apacity measurement Dr. Richard Richards MD Work Phone: Start: 02-20-2024 End: 02-20-2024 Screening digital breast tomosynthesis bi Wilber Wu MD Work Phone: Start: 11-16-2023 Plain x-ray of hand Start: 08-15-2023 Thyrotropin [Units/v olume] in Serum or Plasma Wilber Wu MD Work Phone: Start: 02-16-2023 Mammography Wilber hillman MD Work Phone: Start: 12-21-2022 Thyrotropin [Units/v olume] in Serum or Plasma Wilber Wu MD Work Phone: Start: 09-10-2022 Excision of ganglion cyst Start: 08-13-2022 Excision of ganglion cyst Start: 01-11-2022 Mammography Wilber hillman MD Work Phone: Start: 01-01-2022 MRI of lower extremity Start: 12-17-2021 MRI of lower extremity Start: 11-03-2021 Microscopic observat ion [Identifier] in Cervix by Cyto stain Wilber Wu MD Work Phone: Start: 10-18-2018 Mammography Darrell zhou MD Work Phone: Start: 09-11-2018 Lipid 1996 panel - S [place] or Plasma Darrell Bai MD Work Phone: H/O: hysterectomy DR ALBERT RIZO MD History of total thyroidectomy DR ALBERT RIZO MD Plan of Treatment Date Care Activity Detail Author Start: 02-15-2040 RSV Immunization for Adults (1 - 1-dose 75+ series) RSV Immunization for Adults (1 - 1-dose 75+ series) [facility] Start: 02-15-2040 RSV Vaccine (1 - 1-d ose 75+ series) RSV Vaccine (1 - 1-dose 75+ series) [facility] Start: 11-05-2030 DTaP/Tdap/Td Vaccine s (3 - Td or Tdap) DTaP/Tdap/Td Vaccines (3 - Td or Tdap) [facility] Start: 11-05-2030 Urine microalbumin profile [facility] Start: 03-12-2030 Screening for malign ant neoplasm of cervix [facility] Start: 03-12-2028 Screening for malign ant neoplasm of cervix [facility] Start: 11-03-2026 Screening for malign ant neoplasm of cervix [facility] Start: 04-10-2026 Screening for malign ant neoplasm of breast [facility] Start: 04-03-2026 Thyroid stimulating hormone measurement TSH Level [facility] Start: 04-01-2026 End: 04-01-2026 Patient encounter procedure 04/01/2026 9:00 AM EDT Office Visit [facility] Obstetrics and Gynecology [facility] [address] [place] [address] Wilber Wu MD [address] [place] [address] [address] [place], [place] [id number] [facility] Obstetrics and Gynecology [facility] Start: 03-12-2026 Depression Screening Depression Scre ening [facility] Start: 03-04-2026 Thyroid stimulating hormone measurement TSH Level [facility] Start: 02-19-2026 End: 05-12-2026 DBT Breast - bilateral screening Bilateral screening mammogram with tomosynthesis Imaging Routine Screening mammogram for breast cancer Expected: 02/19/2026 (Approximate), Expires: 05/12/2026 [facility] Work Phone: Comment on above: Expected: 02/19/2026 (Approximate), Expires: 05/12/2026 Start: 07-18-2025 End: 07-18-2025 ambulatory 07/18/2025 1:00 PM EDT [facility] [place] [address] [place] [id number] [place] [id number] [address] Thyroid levels [facility] [place] Comment on above: Thyroid levels Start: 07-01-2025 End: 09-30-2025 Thyrotropin [Units/volume] in Serum or Plasma THYROID STIMULATING HORMONE Lab Routine Postsurgical hypothyroidism Expected: 07/01/2025 (Approximate), Expires: 09/30/2025 [facility] Comment on above: Expected: 07/01/2025 (Approximate), Expires: 09/30/2025 Start: 07-01-2025 End: 09-30-2025 Thyroxine (T4) free [Mass/volume] in Serum or Plasma T4 FREE/FREE THYROXINE Lab Routine Postsurgical hypothyroidism Expected: 07/01/2025 (Approximate), Expires: 09/30/2025 [facility] Work Phone: Comment on above: Expected: 07/01/2025 (Approximate), Expires: 09/30/2025 Start: 06-03-2025 Influenza vaccination [facility] Start: 04-18-2025 End: 04-18-2025 ambulatory 04/18/2025 10:00 AM EDT [facility] [place] [address] [place] [id number] [place] [address] [facility] [address] [place] [address] 6 week check up [facility] [place] Comment on above: 6 week check up Start: 04-10-2025 End: 04-10-2025 Patient encounter procedure 04/10/2025 10:20 AM EDT Appointment [facility] [address] [place] [id number] Wilber Wu MD [address] [place] [address] [address] [place] [address] [facility] Start: 04-08-2025 End: 07-08-2025 Thyrotropin [Units/volume] in Serum or Plasma THYROID STIMULATING HORMONE Lab Routine Postsurgical hypothyroidism Expected: 04/08/2025 (Approximate), Expires: 07/08/2025 [facility] Comment on above: Expected: 04/08/2025 (Approximate), Expires: 07/08/2025 Start: 04-08-2025 End: 07-08-2025 Thyroxine (T4) free [Mass/volume] in Serum or Plasma T4 FREE/FREE THYROXINE Lab Routine Postsurgical hypothyroidism Expected: 04/08/2025 (Approximate), Expires: 07/08/2025 [facility] Work Phone: Comment on above: Expected: 04/08/2025 (Approximate), Expires: 07/08/2025 Start: 04-08-2025 End: 04-08-2025 ambulatory 04/08/2025 8:00 AM EDT Results Only [facility] [address] [place] [address] [facility] Start: 03-28-2025 Patient referral [facility] Work Phone: Start: 03-12-2025 End: 03-12-2025 Patient encounter procedure 03/12/2025 11:00 AM EDT Office Visit [facility] Obstetrics & Gynecology [address] [place] [address] Wilber Wu MD [address] [place] [address] [address] [place] [address] [facility]etric[facility] Gyne[facility] Start: 03-07-2025 End: 03-07-2025 Well child visit 03/07/2025 1:00 PM EDT [facility] [place] [address] [place] [address] [place] [address] [facility] [address] [place] [address] 6 month check up [facility] [place] Comment on above: 6 month check up Start: 03-04-2025 End: 03-04-2025 ambulatory 03/04/2025 9:30 AM EDT Results Only [facility] [address] [place] [address] [facility] Start: 03-03-2025 End: 06-02-2025 Thyrotropin [Units/volume] in Serum or Plasma THYROID STIMULATING HORMONE Lab Routine Postsurgical hypothyroidism Expected: 03/03/2025 (Approximate), Expires: 06/02/2025 [facility] Comment on above: Expected: 03/03/2025 (Approximate), Expires: 06/02/2025 Start: 03-03-2025 End: 06-02-2025 Thyroxine (T4) free [Mass/volume] in Serum or Plasma T4 FREE/FREE THYROXINE Lab Routine Postsurgical hypothyroidism Expected: 03/03/2025 (Approximate), Expires: 06/02/2025 [facility] Work Phone: Comment on above: Expected: 03/03/2025 (Approximate), Expires: 06/02/2025 Start: 02-19-2025 Screening for malign ant neoplasm of breast [facility] Start: 2025 RSV Immunization age d 60 or older (1 - 1-dose 60+ series) RSV Immunization aged 60 or older (1 - 1-dose 60+ series) [facility] Start: 12-07-2024 Iv infusion therapy/prophylaxis /dx 1st to 1 hr [facility] Start: 11-03-2024 Screening for malign ant neoplasm of cervix Pap Smear [facility] Start: 09-13-2024 End: 09-13-2024 ambulatory 09/13/2024 9:40 AM EST [facility] [place] [address] [place] [phone] [place] [address] [facility] [address] [place] [address] [facility] [place] Comment on above: Labs Start: 09-11-2024 End: 09-11-2024 ambulatory 09/11/2024 9:30 AM EST Results Only [facility] [address] [place] [address] [facility] Start: 09-01-2024 End: 12-01-2024 Thyrotropin [Units/volume] in Serum or Plasma THYROID STIMULATING HORMONE Lab Routine Postsurgical hypothyroidism Expected: 09/01/2024 (Approximate), Expires: 12/01/2024 [facility] Comment on above: Expected: 09/01/2024 (Approximate), Expires: 12/01/2024 Start: 09-01-2024 End: 12-01-2024 Thyroxine (T4) free [Mass/volume] in Serum or Plasma T4 FREE/FREE THYROXINE Lab Routine Postsurgical hypothyroidism Expected: 09/01/2024 (Approximate), Expires: 12/01/2024 [facility] Work Phone: Comment on above: Expected: 09/01/2024 (Approximate), Expires: 12/01/2024 Start: 08-15-2024 Thyroid stimulating hormone measurement TSH Level [facility] Start: 06-03-2024 Covid-19 Vaccine ( season) Covid-19 Vaccine () [facility] Start: 06-03-2024 Influenza vaccination [facility] Start: 04-01-2024 End: 07-01-2024 Thyrotropin [Units/volume] in Serum or Plasma THYROID STIMULATING HORMONE Lab Routine Postsurgical hypothyroidism Expected: 04/01/2024 (Approximate), Expires: 07/01/2024 [facility] Comment on above: Expected: 04/01/2024 (Approximate), Expires: 07/01/2024 Start: 04-01-2024 End: 07-01-2024 Thyroxine (T4) free [Mass/volume] in Serum or Plasma T4 FREE/FREE THYROXINE Lab Routine Postsurgical hypothyroidism Expected: 04/01/2024 (Approximate), Expires: 07/01/2024 [facility] Work Phone: Comment on above: Expected: 04/01/2024 (Approximate), Expires: 07/01/2024 Start: 02-20-2024 End: 02-20-2024 Patient encounter procedure 02/20/2024 8:00 AM EDT Appointment [facility] [address] [place] [address] Wilber Wu MD [address] [place] [address] [address] [place] [address] [facility] Start: 02-17-2024 Mammography Mammogram Screening [facility] Start: 02-17-2024 Screening for malign ant neoplasm of breast Mammogram [facility] Start: 02-16-2024 End: 05-17-2024 Thyrotropin [Units/volume] in Serum or Plasma TSH BLD Lab Routine Postsurgical hypothyroidism Expected: 02/16/2024 (Approximate), Expires: 05/17/2024 [facility] Work Phone: Comment on above: Expected: 02/16/2024 (Approximate), Expires: 05/17/2024 Start: 02-16-2024 End: 05-17-2024 Thyroxine (T4) free [Mass/volume] in Serum or Plasma T4 FREE/FREE THYROX Lab Routine Postsurgical hypothyroidism Expected: 02/16/2024 (Approximate), Expires: 05/17/2024 [facility] Work Phone: Comment on above: Expected: 02/16/2024 (Approximate), Expires: 05/17/2024 Start: 01-10-2024 End: 01-10-2024 Patient encounter procedure [facility]etric[facility] Gyne[facility] Start: 12-22-2023 Thyroid stimulating hormone measurement TSH Level [facility] Start: 10-03-2023 Behavioral Health Screening Behavioral Health Screening [facility] Start: 09-11-2023 Lipid 1996 panel - Serum or Plasma Lipid Screening [facility] Start: 09-11-2023 Lipid panel Lipid Screening [facility] Start: 06-03-2023 COVID-19 Vaccine ( season) COVID-19 Vaccine ( season) [facility] Start: 06-03-2023 Influenza vaccination Influenza Vacc ine (#1) [facility] Start: 02-16-2023 End: 02-16-2023 Patient encounter procedure 02/16/2023 Appointment Radiology Wilber Wu MD [address] [place] [address] [facility] Start: 02-15-2023 End: 04-17-2023 T4 FREE/FREE THYROX T4 FREE/FREE THYROX Lab Routine Postsurgical hypothyroidism Expected: 02/15/2023 (Approximate), Expires: 04/17/2023 [facility] Work Phone: Comment on above: Expected: 02/15/2023 (Approximate), Expires: 04/17/2023 Start: 02-15-2023 End: 04-17-2023 Thyrotropin [Units/volume] in Serum or Plasma TSH BLD Lab Routine Postsurgical hypothyroidism Expected: 02/15/2023 (Approximate), Expires: 04/17/2023 [facility] Work Phone: Comment on above: Expected: 02/15/2023 (Approximate), Expires: 04/17/2023 Start: 01-21-2023 End: 01-21-2023 Patient encounter procedure 01/21/[address] [facility] Start: 01-11-2023 Screening for malign ant neoplasm of breast Mammogram [facility] Start: 12-14-2022 End: 02-07-2024 DBT Breast - bilateral screening Bilateral screening mammogram with tomosynthesis Imaging Routine Well woman exam with routine gynecological exam Expected: 12/14/2022 (Approximate), Expires: 02/07/2024 [facility] Work Phone: Comment on above: Expected: 12/14/2022 (Approximate), Expires: 02/07/2024 Start: 12-14-2022 End: 12-14-2022 Patient encounter procedure 12/14/2022 Office Visit Obstetrics and Gynecology Wilber Wu MD [address] [place] [address] [facility]etrics [facility] Start: 11-09-2022 End: 11-09-2022 Patient encounter procedure 11/09/2022 Office Visit Obstetrics and Gynecology Wilber Wu MD [address] [place], [place] [id number] [facility]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 Start: 10-03-2022 DEPRESSION ASSESSMENT DEPRESSION ASS ESSMENT [facility] Start: 09-10-2022 Anes nrv/mus/tnd/fas c lower leg/ankle/foot nos ANESTH LOWER LEG SURGERY [facility] Start: 09-10-2022 Excision interdigita l prieto neuroma single each REMOVAL OF FOOT LESION [facility] Start: 09-10-2022 Patient discharge [facility] Start: 08-13-2022 Anes nrv/mus/tnd/fas c lower leg/ankle/foot nos ANESTH LOWER LEG SURGERY [facility] Work Phone: Start: 08-13-2022 Exc neuroma hand/hamida t xcp digital nerve REMOVE LIMB NERVE LESION [facility] Start: 08-13-2022 Patient discharge [facility] Start: 06-03-2022 Influenza vaccination [facility] Start: 01-25-2022 End: 03-27-2022 T4 FREE/FREE THYROX T4 FREE/FREE THYROX Lab Routine Postsurgical hypothyroidism Papillary microcarcinoma of thyroid (HCC) Expected: 01/25/2022 (Approximate), Expires: 03/27/2022 [facility] Work Phone: Comment on above: Expected: 01/25/2022 (Approximate), Expires: 03/27/2022 Start: 01-25-2022 End: 03-27-2022 Thyroglobulin and Thyrogobulin Ab panel - Serum or Plasma THYROGLOBULIN BLD Lab Routine Postsurgical hypothyroidism Papillary microcarcinoma of thyroid (HCC) Expected: 01/25/2022, Expires: 03/27/2022 [facility] Work Phone: Comment on above: Expected: 01/25/2022 , Expires: 03/27/2022 Start: 01-25-2022 End: 03-27-2022 Thyrotropin [Units/volume] in Serum or Plasma TSH BLD Lab Routine Postsurgical hypothyroidism Papillary microcarcinoma of thyroid (HCC) Expected: 01/25/2022 (Approximate), Expires: 03/27/2022 [facility] Work Phone: Comment on above: Expected: 01/25/2022 (Approximate), Expires: 03/27/2022 Start: 09-11-2021 DIABETES SCREEN DIABETES SCREEN [facility] Start: 09-11-2021 Diabetes Screening Diabetes Screenin g [facility] Start: 04-03-2021 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 DISEASE VISIT ANNUAL PCP TEAM CHRONIC DISEASE VISIT [facility] Start: 10-18-2019 Mammography MAMMOGRAM [facility] Start: 08-03-2018 PAP TESTING PAP TESTING [facility] Start: 08-03-2018 Screening for malign ant neoplasm of cervix Pap Testing [facility] Start: 08-03-2016 Screening for malign ant neoplasm of cervix Cervical Cancer Screening [facility] Start: 05-20-2016 LIPID SCREEN LIPID SCREEN [facility] Start: 2015 Pneumococcal Vaccine : 50+ (1 of 1 - PCV) Pneumococcal Vaccine: 50+ (1 of 1 - PCV) [facility] Start: 2015 Pneumococcal Vaccine : 50+ Years (1 of 1 - PCV) Pneumococcal Vaccine: 50+ Years (1 of 1 - PCV) [facility] Start: 2015 SHINGRIX VACCINE (1 of 2) SHINGRIX VACCINE (1 of 2) [facility] Start: 2015 Zoster Vaccines (1 o f 2) Zoster Vaccines (1 of 2) [facility] Start: 2010 COLOGUARD (FIT-DNA) COLOGUARD (FIT-D NA) [facility] Start: 2010 Colonoscopy COLONOSCOPY [facility] Start: 2010 COLORECTAL CANCER SCREENING COLORECTAL CANCER SCREENING [facility] Start: [address] COLONOGRAPHY [facility] Start: 2010 FECAL OCCULT BLOOD FECAL OCCULT BLOO D [facility] Start: 2010 Screening for malign ant neoplasm of colon [facility] Start: 2010 SIGMOIDOSCOPY SIGMOIDOSCOPY [facility] Start: 08-30-2009 MMR Vaccines (1 of 1 - Standard series) MMR Vaccines (1 of 1 - Standard series) [facility] Start: 1995 HPV TESTING HPV TESTING [facility] Start: 1995 Screening for malign ant neoplasm of cervix HPV Testing [facility] Start: 02-15-1984 Hepatitis B Vaccine (1 of 3 - 19+ 3-dose series) Hepatitis B Vaccine (1 of 3 - 19+ 3-dose series) [facility] Start: 02-15-1984 Hepatitis B Vaccines (1 of 3 - 19+ 3-dose series) Hepatitis B Vaccines (1 of 3 - 19+ 3-dose series) [facility] Start: 1983 Annual PCP Team Supervisor Finish End oniel Disease Visit Annual PCP Team Chronic Disease Visit [facility] Start: 1983 Anxiety Screening Anxiety Screening [facility] Start: 1983 Depression Screening Depression Scre ening [facility] Start: 1983 Diabetes mellitus screening Diabetes Screening [facility] Start: 1983 HEPATITIS C SCREENING HEPATITIS C [facility] Start: 1983 Hepatitis C screening Hepatitis C [facility] Start: 1983 HIV SCREENING HIV SCREENING [facility] Start: 1983 HIV screening HIV Screening [facility] Start: 1977 Adult depression screening assessment DEPRESSION SCREENING [facility] Start: 1970 COVID-19 VACCINE (#1) COVID-19 VACCI NE (#1) [facility] Start: 1970 COVID-19 VACCINE (1) COVID-19 VACCIN E (1) [facility] Start: 1965 COVID-19 VACCINE (#1) COVID-19 VACCI NE (#1) [facility] Start: 1965 HEPATITIS B (1 of 3 - 3-dose series) HEPATITIS B (1 of 3 - 3-dose series) [facility] Start: 1965 Hepatitis B Vaccine (1 of 3 - 3-dose series) Hepatitis B Vaccine (1 of 3 - 3-dose series) [facility] Start: 1965 Hepatitis B Vaccines (1 of 3 - 3-dose series) Hepatitis B Vaccines (1 of 3 - 3-dose series) [facility] Start: 1965 HIV screening HIV Screening [facility] Start: 1965 Lipid panel Lipid Panel [facility] Start: 1965 Screening for malign ant neoplasm of colon [facility] Start: 1965 Thyroid stimulating hormone measurement TSH Level [facility] CBC W Auto Different ial panel - Blood [facility] CBC W Auto Different ial panel - Blood [facility] Cytology Cervical or vaginal smear or scraping study Pap Smear Pathology and Cytology Routine Well woman exam with routine gynecological exam Ordered: 03/12/2025 [facility] Comment on above: Ordered: 03/12/2025 Ferritin [Mass/volum e] in Serum or Plasma [facility] Ferritin [Mass/volum e] in Serum or Plasma [facility] Iron and Iron bindin g capacity panel - Serum or Plasma [facility] Iron and Iron bindin g capacity panel - Serum or Plasma [facility] Patient referral [facility] Work Phone: Reticulocyte count [facility] Reticulocyte count [facility] Immunizations Immunization Date Immunization Notes Care Provider Fa cility 08-28-2024 influenza virus vacc ine, unspecified formulation Darrell Bai MD Work Phone: [facility] 07-01-2022 influenza virus vacc ine, unspecified formulation Darrell Bai MD Work Phone: [facility] [facility] 11-05-2020 tetanus toxoid, redu al diphtheria toxoid, and acellular pertussis vaccine, adsorbed Darrell Bai MD Work Phone: [facility] 09-01-2019 influenza virus vacc ine, unspecified formulation Darrell Bai MD Work Phone: [facility] 07-24-2019 influenza, seasonal, injectable Darrell Bai MD Work Phone: [facility] 08-07-2018 influenza, injectabl e, quadrivalent, contains preservative Darrell Bai MD Work Phone: [facility] 07-07-2018 influenza virus vacc ine, unspecified formulation Darrell Bai MD Work Phone: [facility] 08-10-2017 influenza, injectabl e, quadrivalent, contains preservative Darrell Bai MD Work Phone: [facility] 07-21-2016 influenza, seasonal, injectable Darrell Bai MD Work Phone: [facility] 09-03-2015 influenza, seasonal, injectable Darrell Bai MD Work Phone: [facility] 08-07-2014 influenza, injectabl e, quadrivalent, preservative free Darrell Bai MD Work Phone: [facility] 08-02-2014 influenza virus vacc ine, unspecified formulation Darrell Bai MD Work Phone: [facility] 07-30-2014 tetanus toxoid, redu al diphtheria toxoid, and acellular pertussis vaccine, adsorbed Darrell Bai MD Work Phone: [facility] 08-03-2013 influenza, injectabl e, quadrivalent, preservative free Darrell Bai MD Work Phone: [facility] 07-03-2012 influenza, seasonal, injectable Darrell Bai MD Work Phone: [facility] 08-02-2009 novel Influenza-H1N1 -09, live virus for nasal administration Darrell Bai MD Work Phone: [facility] Payers Date Payer Category Payer Self-pay [id number] 2023 Unknown [id number] 2023 Private Health Insurance [id number] 2022 Commercial Managed C are - HMO [id number] 2021 Unknown [id number] 2020 Unknown [facility] SELF FUNDED [id number] 2020-Present [phone] [address] [place] [address] PPO [id number] 2020 Unknown [id number]. [id number] 2017 Unknown [id number] 1965 Unknown [id number] 2.16.840.1.244366.3.579.2. 627 1965 Unknown [id number] 2.16.840.1.971301.3.579.2. 627 Unknown [id number] 2.16.840.1.494020.3.579.2. 462 Unknown [id number] 2.16.840.1.387845.3.579.2. 462 Unknown [id number] 2.16.840.1.666259.3.579.2. 462 Unknown [id number] 2.16.840.1.197477.3.579.2. 462 Unknown [id number] 2.16.840.1.114335.3.579.2. 462 Unknown [id number] 2.16.840.1.595780.3.579.2. 462 Unknown [id number] 2.16.840.1.302468.3.579.2. 462 Unknown [id number] 2.16.840.1.548178.3.579.2. 462 Unknown [id number] 2.16.840.1.093118.3.579.2. 462 Unknown [id number] 2.16.840.1.046445.3.579.2. 462 Unknown [id number] 2.16.840.1.611796.3.579.2. 462 Unknown [id number] 2.16.840.1.669435.3.579.2. 462 Unknown [id number] 2.16.840.1.658260.3.579.2. 462 Unknown [id number] 2.16.840.1.039114.3.579.2. 462 Unknown [id number] 2.16.840.1.725656.3.579.2. 462 Unknown [id number] 2.16.840.1.743795.3.579.2. 462 Unknown [id number] 2.16.840.1.019033.3.579.2. 462 Social History Date Type Detail Facility Start: 01-06-2019 End: 03-19-2023 Tobacco smoking status NHIS Unknown if ever smoked [facility] Start: 1965 Sex Assigned At Female [facility] Start: 11-11-2011 End: 12-19-2024 Tobacco smoking status NHIS Never smoked tobacco [facility] Work Phone: Start: 11-11-2011 End: 02-16-2023 Tobacco use and exposure Smokeless tobacco non-user [facility] Work Phone: Start: 11-13-2021 End: 04-10-2025 Alcohol intake Current drinker of alcohol (finding) [facility] Start: 11-13-2021 End: 2024 Alcohol intake [facility] Start: 1965 Sex Assigned At Not on file [facility] Start: 11-13-2021 End: 2024 Tobacco use panel [facility] National Score (1-100), lower number is lower risk 61 [facility] Start: 04-23-2020 Gender identity Identifies as female gender (finding) [facility] Start: 04-23-2020 Sexual orientation Heterosexual (fin ding) [facility] Start: 02-16-2023 Tobacco smoking stat us NHIS Ex-smoker [facility] History of tobacco use [facility] History of tobacco use Cigarette Smoker [facility] Tobacco smoking status [facility] Within the last year , have you been afraid of your partner or ex-partner? No [facility] Do you feel stress - tense, restless, nervous, or anxious, or unable to sleep at night because your mind is troubled all the time - these days [OSQ] Not at all [facility] Start: 12-04-2022 End: 12-14-2022 Exposure to SARS-CoV-2 (event) Not sure [facility] Start: 05-03-2022 End: 12-08-2024 Sex Female (finding) [facility] NEGATED: Highlighted row [facility] Goals Date Patient Goal Desired Activity /State Functional Status Date Assessment Result Facility 03-12-2025 Patient Health Questionnaire 2 item (PHQ-2) [Reported] [facility] 12-26-2023 Functional Status Awake [facility] [place] 12-26-2023 Functional Status Maintained [facility] 04-23-2015 Are you deaf, or do you have serious difficulty hearing No 04/23/2015 11:10 AM EDT Bri Harris LPN No [facility] 04-23-2015 Are you blind, or do you have serious difficulty seeing, even when wearing glasses No 04/23/2015 11:10 AM EDT Bri Harris LPN No [facility] 04-23-2015 Do you have serious difficulty walking or climbing stairs No 04/23/2015 11:10 AM EDT Bri Harris LPN No [facility] 04-23-2015 Do you have difficul ty dressing or bathing No 04/23/2015 11:10 AM EDT Bri Harris LPN No [facility] 04-23-2015 Because of a physica l, mental, or emotional condition, do you have difficulty doing errands alone such as visiting a physician's office or shopping No 04/23/2015 11:10 AM EDT Bri Harris LPN No [facility] Mental Status Date Assessment Result Facility 04-25-2025 Cognitive function Awake;Alert;A ppropriate;Fo armando Commands [facility] Work Phone: 04-18-2025 Cognitive function Arousable To Voice/Nam e [facility] Work Phone: 12-14-2024 Cognitive function Voice/Name [facility] Work Phone: 12-12-2024 Cognitive function Awake;Alert;A ppropriate;Fo andriaws Commands [facility] Work Phone: 12-10-2024 Cognitive function Voice/Name [facility] Work Phone: 12-07-2024 Cognitive function Level Of Cons ciousness Awake;Alert;Appropriate;Fo andriaws Commands [facility] Work Phone: 12-05-2024 Cognitive function Voice/Name [facility] Work Phone: 12-26-2023 Mental [facility] x [facility] 09-10-2022 Cognitive function Level Of Cons ciousness Appropriate;Drowsy [facility] Work Phone: 09-10-2022 Cognitive function Voice/Name [facility] Work Phone: 08-13-2022 Cognitive function Voice/Name [facility] Work Phone: 04-23-2015 Because of a physica l, mental, or emotional condition, do you have serious difficulty concentrating, remembering, or making decisions No 04/23/2015 11:10 AM EDT Bri Harris LPN No [facility] Clinical Notes 01-21-2022 to 04-22-2025 Telephone Encounter - Jessica Phillips MA - 04/22/2025 2:49 PM EDTTelephone Encounter - Jessica Phillips MA - 04/22/2025 2:49 PM EDTPatient Darrell Galarza MD - 04/18/2025 10:03 AM EDT Note Date & Type Note Facility 04-22-2025 Telephone encounter Note EVON: 03/12/2025 NOV: 04/01/2026 Refill pended for approval Grace with 4 refills. [facility] 04-22-2025 Miscellaneous Notes EVON: 03/12/2025 NOV: 04/01/2026 Refill pended for approval [facility] with 4 refills. documented in this encounter [facility] 04-18-2025 Darrell Galindo MD - 04/18/2025 10:19 AM EDT Assessment / Plan Assessment: 1) Surgical hypothyroidism for resolution of Graves disease (she failed 2 rounds of tapazole). Dropped her levothyroxine from 125 to 112 mcg and TFTs are normal now. She has been taking iron a couple hours away from levothyroxine, asked her to make this 4 hr interval, will followup with her in 3 months. 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 TG undetectable with low Ab 2) Vaccine hesitancy, never vaccinated against COVID. Plan: 1) continue the dose of levothyroxine 112 mcg daily 2) return to dc in 3 months with labs before the visit. Darrell Bai MD Data Free T4 TSH Ref Rng 0.9 - 1.7 ng/dL 0.270 - 4.200 mIU/L 12/21/2022 1.9 (H) 0.266 (L) 02/16/2023 1.8 (H) 0.908 07/22/2023 1.6 5.300 (H) 08/15/2023 1.9 (H) 1.970 02/28/2024 1.5 4.530 (H) 09/11/2024 1.8 0.614 01/31/2024 2.2 0.057 03/04/2025 1.8 0.113 04/03/2025 1.7 1.150 documented in this encounter [facility] 04-18-2025 Note HNO ID: [id number] Author: DARRELL BAI MD Service: ? Author Type: Physician Type: Progress Notes Filed: 04/18/2025 10:21 Note Text: Virtual Visit utilizing both audio and video components MyChart-Zoom I have communicated my name and active licensure. The patient's identity and physical location were verified at the time of this visit. Either the patient or their legal entry level sales representative has been informed of the risks and benefits of -- and alternatives to -- treatment through a remote evaluation and consents to proceed with the evaluation remotely. Patient location: at parents' home in [place], [place] Assessment / Plan Assessment: 1) Surgical hypothyroidism for resolution of Graves disease (she failed 2 rounds of tapazole). Dropped her levothyroxine from 125 to 112 mcg and TFTs are normal now. She has been taking iron a couple hours away from levothyroxine, asked her to make this 4 hr interval, will followup with her in 3 months. 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 TG undetectable with low Ab 2) Vaccine hesitancy, never vaccinated against COVID. Plan: 1) continue the dose of levothyroxine 112 mcg daily 2) return to dc in 3 months with labs before the visit. Darrell Bia MD Data Free T4 TSH Ref Rng 0.9 - 1.7 ng/dL 0.270 - 4.200 mIU/L 12/21/2022 1.9 (H) 0.266 (L) 02/16/2023 1.8 (H) 0.908 07/22/2023 1.6 5.300 (H) 08/15/2023 1.9 (H) 1.970 02/28/2024 1.5 4.530 (H) 09/11/2024 1.8 0.614 01/31/2024 2.2 0.057 03/04/2025 1.8 0.113 04/03/2025 1.7 1.150 History Problem name: hypothyroidism Quality: postsurgical Severity: complete Duration: surgery 12/26/15 Context: 1) Graves disease, s/p failed 2 cycles of tapazole 2) Incidental papillary microcarcinoma, multifocal, largest nodule <0.1cm Modifying factors: levothyroxine 112 mc daily no complaints, just comment that she takes her iron supplement about 2hr after levothyroxine, Thyroid CA History Surgery (12/26/15): total thyroidectomy, Dr. Ibarra Pathology (05/18/16): multifocal papillary microcarcinoma in right lobe, 2 foci, <0.1cm max diam, no extrathyroidal extension, one node=neg, Scan (05/18/16): not needed LOMBARDO (05/18/16): not needed Thyroglobulin Component Thyroglobulin TG Antibody Screen Latest Ref Rng AND Units <14.4 IU/mL 10/15/2016 <0.2 (L) 2.1 04/27/2017 <0.2 (L) 1.4 03/23/2019 <0.2 <1.0 ([facility]) 01/28/2022 Janay Assay <0.2 <1.0 <4.0 IU/mL 02/28/2024 0.3 <0.9 Graves Ab Component TSI Latest Ref Rng <150 % Normal 08/11/2011 833 (H) Vitamin D Component Vitamin D 25 Hydroxy Latest Ref Rng 31.0 - 80.0 ng/mL 11/03/2015 24.9 (L) 12/06/18 49 (done at [facility]) ROS PHYSICAL EXAM PAST MED / SURG / FAMILY / SOCIAL HISTORY PAST MEDICAL HISTORY Diagnosis Date Diverticulitis Goiter Graves disease IBS (irritable bowel syndrome) Kidney stones Postsurgical hypothyroidism Seasonal allergies 11/30/2018 Thyroid cancer (HCC) PAST SURGICAL HISTORY Procedure Laterality Date APPENDECTOMY BREAST BIOPSY 2009 benign BREAST BIOPSY INCISIONAL RIGHT 12/01/2018 EXCISION [...] Never Smokeless tobacco: Never Vaping Use Vaping status: Never Used Substance Use Topics Alcohol use: Yes Alcohol/week: 2.6 standard drinks of alcohol Types: 2 Mixed Drinks per week Drug use: No MEDICATIONS AND ALLERGIES Current Outpatient Medications Medication Sig Dispense Refill levothyroxine (SYNTHROID) 112 mcg tablet Take 1 tablet by mouth once daily. 90 tablet 3 calcitriol (ROCALTROL) 0.5 mcg [...] by mouth. L.acid/B.bifidum/B.animal/FOS (PROBIOTIC COMPLEX ORAL) Take (more content not included)... [facility] 04-18-2025 History of Presen t illness Narrative Virtual Visit utilizing both audio and video components [employer] I have communicated my name and active licensure. The patient's identity and physical location were verified at the time of this visit. Either the patient or their legal entry level sales representative has been informed of the risks and benefits of -- and alternatives to -- treatment through a remote evaluation and consents to proceed with the evaluation remotely. Patient location: at parents' home in [place], [place] Assessment / Plan Assessment: 1) Surgical hypothyroidism for resolution of Graves disease (she failed 2 rounds of tapazole). Dropped her levothyroxine from 125 to 112 mcg and TFTs are normal now. She has been taking iron a couple hours away from levothyroxine, asked her to make this 4 hr interval, will followup with her in 3 months. 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 TG undetectable with low Ab 2) Vaccine hesitancy, never vaccinated against COVID. Plan: 1) continue the dose of levothyroxine 112 mcg daily 2) return to dc in 3 months with labs before the visit. Darrell Bai MD Data Free T4 TSH Ref Rng 0.9 - 1.7 ng/dL 0.270 - 4.200 mIU/L 12/21/2022 1.9 (H) 0.266 (L) 02/16/2023 1.8 (H) 0.908 07/22/2023 1.6 5.300 (H) 08/15/2023 1.9 (H) 1.970 02/28/2024 1.5 4.530 (H) 09/11/2024 1.8 0.614 01/31/2024 2.2 0.057 03/04/2025 1.8 0.113 04/03/2025 1.7 1.150 History Problem name: hypothyroidism Quality: postsurgical Severity: complete Duration: surgery 12/26/15 Context: 1) Graves disease, s/p failed 2 cycles of tapazole 2) Incidental papillary microcarcinoma, multifocal, largest nodule <0.1cm Modifying factors: levothyroxine 112 mc daily no complaints, just comment that she takes her iron supplement about 2hr after levothyroxine, Thyroid CA History Surgery (12/26/15): total thyroidectomy, Dr. Ibarra Pathology (05/18/16): multifocal papillary microcarcinoma in right lobe, 2 foci, <0.1cm max diam, no extrathyroidal extension, one node=neg, Scan (05/18/16): not needed LOMBARDO (05/18/16): not needed Thyroglobulin Component Thyroglobulin TG Antibody Screen Latest Ref Rng & Units <14.4 IU/mL 10/15/2016 <0.2 (L) 2.1 04/27/2017 <0.2 (L) 1.4 03/23/2019 <0.2 <1.0 ([facility]) 01/28/2022 Janay Assay <0.2 <1.0 <4.0 IU/mL 02/28/2024 0.3 <0.9 Graves Ab Component TSI Latest Ref Rng <150 % Normal 08/11/2011 833 (H) Vitamin D Component Vitamin D 25 Hydroxy Latest Ref Rng 31.0 - 80.0 ng/mL 11/03/2015 24.9 (L) 12/06/18 49 (done at [facility]) ROS PHYSICAL EXAM PAST MED / SURG / FAMILY / SOCIAL HISTORY PAST MEDICAL HISTORY Diagnosis Date Diverticulitis Goiter Graves disease IBS (irritable bowel syndrome) Kidney stones Postsurgical hypothyroidism Seasonal allergies 11/30/2018 Thyroid cancer (HCC) PAST SURGICAL HISTORY Procedure Laterality Date APPENDECTOMY BREAST BIOPSY 2010 benign BREAST BIOPSY INCISIONAL RIGHT 12/01/2018 EXCISION INTERDIGITAL PRIETO NEUROMA SINGLE EACH Right HYSTERECTOMY HX 2004 without bso LITHOTRIPSY ESWL FORTEC 2004 THYROIDECTOMY TOTAL/COMPLETE 12/23/2014 FAMILY HISTORY Problem Relation Age of Onset Breast Cancer Mother Ischemic Heart Disease Father Prostate Cancer Father Asthma Father COPD Father Heart Attack Brother other (Liver disease) Brother Social History Tobacco Use Smoking status: Never Smokeless tobacco: Never Vaping Use Vaping status: Never Used Substance Use Topics Alcohol use: Yes Alcohol/week: 2.6 standard drinks of alcohol Types: 2 Mixed Drinks per week Drug use: No MEDICATIONS & ALLERGIES Current Outpatient Medications Medication Sig Dispense Refill levothyroxine (SYNTHROID) 112 mcg tablet Take 1 tablet by mouth once daily. 90 tablet 3 calcitriol (ROCALTROL) 0.5 mcg [...] daily. Olopatadine 0.6 % spry Use 1 [place] in each nostril once daily. (Patient not taking: Reported on 11/13/2021 ) Carbinoxamine Maleate (PALGIC) 4 mg ORAL Tab Take 1 tablet by mouth once daily. 0 COMPOUNDED PRESCRIPTION Allergy injections ever 2-3 weeks (Patient not taking: Reported on 11/13/2021 ) 0 No current facility-administered medications for this visit. ALLERGIES Allergen Reactions Chlorhexidine Rash documented in this encounter [facility] 04-03-2025 Telephone encounter Note Latest Ref Rng 04/03/2025 Free T4 0.9 - 1.7 ng/dL 1.7 TSH 0.270 - 4.200 mIU/L 1.150 [facility] 04-03-2025 Miscellaneous Notes Latest Ref Rng 04/03/2025 Free T4 0.9 - 1.7 ng/dL 1.7 TSH 0.270 - 4.200 mIU/L 1.150 Patient calling in asking for return call to get her lab results. Please call patient at [phone] Thank you Hope Debbie PAC April 03, 2025 12:59 PM documented in this encounter [facility] 04-03-2025 Telephone encounter Note Patient calling in asking for return call to get her lab results. Please call patient at [phone] Thank you Hope Debbie PAC April 03, 2025 12:59 PM [facility] 03-28-2025 Progress note [facility] 03-28-2025 Progress note Note Date/Time March 28, 2025 2:19pm [facility] [place] [address] OFFICE VISIT Date of Service: 03/28/25 1353 MR#: [id number] Acct: [id number] Name: RONNIE HOPE Rep #: [id number] : 1965 From: Daniel flaherty MD Age/Sex: 60/F Location: [facility] [place] Status: Signed HPI Subjective Date of Service 03/28/25 Chief Complaint Iron deficiency anemia. History of Present Illness 59-year-old woman with a history of hemorrhoids, was found to have a deficiency anemia. She was started on oral iron, she had a decrease in hemoglobin to 7.3 so received IV iron-Venofer from 12/05/2024 to 12/14/2024 and had anemia was corrected. She reports that she had upper and lower GI endoscopies by Dr. Sosa and no other source of bleeding was identified. Then she had a colonoscopy in March 2025 that she reports followed an episode oflower GI bleeding (bright red ) by a couple of weeks. The colonoscopy showed internal hemorrhoids that were not bleeding at the time [facility] Medical History Iron deficiency anemia due to chronic blood loss Arthritis Anemia Contact dermatitis due to poison fartun Wears glasses Wears contact lenses Alcohol use Thyroid disease History of IBS Non-smoker Graves disease Surgical History History of foot surgery History of breast biopsy History of lithotripsy History of partial hysterectomy Hx of section History of thyroidectomy Family History Mother Breast cancer Father Prostate cancer Social History Smoking Status: Never smoker alcohol intake: current alcohol intake frequency: a few times a month substance use type: does not use ROS Constitutional Constitutional: Reports fatigue ENT HEENT: Denies bleeding gums Gastrointestinal Gastrointestinal: Reports as per HPI, hemorrhoids and other Details: An episode on red rectal bleed in early March 2025 ; Denies change in bowel habits or melena Genitourinary Genitourinary: Reports other Details: No vaginal bleeding Integumentary Integumentary: Denies bleeding lesions Intake Vital Signs 01/16/25 13:10 03/28/25 13:54 Height 5 ft 5 ft Weight: 70.307 kg BMI 30.2 BP 106/71 Blood Pressure Location Lt brachial Position Sitting Respiration 18 Pulse 73 Pulse Source Monitor Temp 98.5 F Temperature Source Temporal Artery Pulse Oximetry (%) 97 Oxygen Delivery Method room air Intake Is patient in pain?: No Allergies No Known Allergies Allergy (Verified 03/28/25 13:53) Medications ?Medication ?Instructions ?Recorded ?Confirmed ?Type levothyroxine 137 mcg tablet 137 mcg PO DAILY 01/02/18 03/28/25 History (Synthroid) allergy shots 1 ea IM .Q3W 01/06/19 History carbinoxamine maleate 4 mg tablet 4 mg PO DAILY ALLERG IES 01/06/19 03/28/25 History calcitriol 0.5 mcg capsule 0.5 mcg PO DAILY 08/06/22 0 03/28/25 History gabapentin 300 mg capsule 300 mg PO TID 08/06/2203/28 History ascorbic acid (vitamin C) 1,000 mg 1 g PO DAILY 03/28/25 History tablet (C-1000) biotin 1 mg capsule 1 mg PO DAILY 12/05/2403/28 History escitalopram oxalate 10 mg tablet 10 mg PO DAILY 12/0503/28/25 History ferrous sulfate 325 mg (65 mg 325 mg PO QDAY 12/05/24 03/28/25 History iron) tablet Held on 12/07/24. Instructions: on hold per multivitamin (Daily Multi-Vitamin 1 tab PO DAILY 12/0503/28/25 History tablet) omeprazole 40 mg capsule,delayed 40 mg PO DAILY 03/28/25 History release cholecalciferol (vitamin D3) 25 25 mcg PO QDAY 5 03/28/25 History mcg (1,000 unit) capsule glucosamine 750 mg-chondr 600 1 ea PO BID 12/19/24 History mg-[place] 50 mg-turmeric 125 mg tablets magnesium oxide 400 mg (241.3 mg 400 mg PO QDAY 03/28/25 History magnesium) tablet potassium 99 mg tablet 99 mg PO QDAY 12/19/2403/28 History Central Venous Access Central Venous Access: No Laboratory Tests 10/31/23 11/06/24 12/03/24 12:49 09:36 09:19 Hgb 12.8 8.8 L 7.3 L Retic Count Iron Saturation Ferritin 4 L 60 Vitamin B12 12/19/24 01/15/25 01/30/25 16:00 09:52 09:25 Hgb 10.3 L 13.5 13.5 Retic Count 1.02 Iron Saturation 29.8 29.0 Ferritin 84 95 Vitamin B12 725 03/20/25 14:19 Hgb 8.1 L Retic Count Iron Saturation Ferritin 17 L Vitamin B12 Coding Level of Care Code Off vis,est,level 3 Exam Problem Focused Diagnoses Iron deficiency anemia due to chronic blood loss D50.0 Assessment and Plan Assessment and Plan (1) Iron deficiency anemia due to chronic blood loss: Status: Chronic Plan 59-year-old female postmenopausal with chronic iron deficiency anemia due to chronic external blood loss, resolved after IV iron in December 2024. Patient has hemorrhoids with infrequent bleeding (every few months), unaware of any external bleeding, reports she had upper and lower GI endoscopies by and no other source of bleeding was identified in 2023(+/-). repeat colonoscopy in March 2025 showed internal hemorrhoids that would not bleeding at the time but the patient did not report occasional hemorrhoidal bleeds but to her assessment not enough to account for the significant drop in hemoglobin She does not have lab evidence to suggest other nutritional deficiencies that may suggest a systemic malabsorption syndrome and the fact that her anemia and iron profile both improved after IV iron to drop significantly later on is consistent with external blood loss at least partly from hemorrhoids. Recommendations: From hematology: 1. Maintain oral and oral iron supplement 1 tablet daily long-term. She has been on PPI every morning and therefore advised to take the iron with vitamin C in the evenings to maximize iron absorption. She will attempt to increase the oral iron up to a maximum of 3/day provided it does not worsen constipation at her hemorrhoidal bleed 2. Supplement her oral intake of iron with IV to schedule April 2025 . 3. Further workup and management of the source of bleeding: Defer to GI. A capsule study has been advised but yet to be scheduled Patient was seen with her family impression and recommendations discussed March 28, 2025 visit was by telehealth video Daniel Flynn MD [employer], [facility] Divisions of Medical Oncology & Hematology Department of Internal Medicine [place] [address] This note was generated using a voice recognition system software. Although itwas reviewed by the author prior to finalization, it may still contain incorrectwords, spelling, and punctuation that were not noted when reviewing prior to saving. If a clinically significant typo or inaccurately typed phrase is noted, please notify the author. 03/28/25 1419 <Electronically signed by Daniel gale MD> Date _ Daniel Flynn MD Cosigner Signature: Date (if applicable) CC: Dr. Richard Richards MD; Dr. Albert Rizo MD ~ [facility] Work Phone: [phone]) 994-920206-23-2025 Evaluation + Plan noteExtracted from: Title:Clinical Document Author:ALBERT RIZO Date:03/25/25 [place] ADMISSION HISTORY AN D PHYSICIAL CHIEF COMPLAINT: HISTORY OF PRESENT ILLNESS: REVIEW OF SYSTEMS: ACTIVE PROBLEMS: (6) GERD (gastroesophageal reflux disease) ([id number]) Graves disease ([id number]) Hemorrhoid ([id number]) Hypothyroidism (75807628) IBS (irritable bowel syndrome) (59824117) Melena ([id number]) MEDICATIONS: Active Inpt Meds: None Active PRN Meds: None One Time Meds: None Active IV Meds: None ALLERGIES: (1) NKA FAMILY HISTORY: SOCIAL HISTORY: PHYSICAL EXAM: VITALS: LvnlsaStuhVMOpjmqWUOmJ1MRN2QmprUb(kg) 03/25 08:35----[id number] 68.0 24 Hr Tmax: No Data Available 36 Hr Tmax: No Data Available Vital Signs are the last 5 in the past 48 hours. Weights display the last 5 within 7 days. Initial Wt: 03/25 68.0 kg 150 lb Current Wt: 03/25 68.0 kg 150 lb GENERAL: HEENT: CARDIOVASCULAR: RESPIRATORY: ABDOMEN: EXREMETIES: NEUROLOGICAL: PSYCHIATRIC: LABS: No 36hr Lab Data DIAGNOSTICS: IMPRESSION: PLAN: History and Physical Update I have examined the patient; reviewed the H&P and there are no changes to the H&P unless noted below. [facility] 06-23-2025 Hospital Discharge instructions Patient Education 03/25/2025 10:57:21 Monitored Anesthesia Care, Care After Monitored Anesthesia Care, Care After These instructions provide you with information about caring for yourself after your procedure. Your health care provider may also give you more specific instructions. Your treatment has been plannedaccording to current medical practices, but problems sometimes occur. Call your health care provider if you have any problems or questions after your procedure. What can I expect after the procedure? After your procedure, you may: Feel sleepy for several hours. Feel clumsy and have poor balance for several hours. Feel forgetful about what happened after the procedure. Have poor judgment for several hours. Feel nauseous or vomit. Have a sore throat if you had a breathing tube during the procedure. Follow these instructions at home: For at least 24 hours after the procedure: Have a responsible adult stay with you. It is important to have someone help care for you until youare awake and alert. Rest as needed. Do not: ?Participate in activities in which you could fall or become injured. ?Drive. ?Use heavy machinery. ?Drink alcohol. ?Take sleeping pills or medicines that cause drowsiness. ?Make important decisions or sign legal documents. ?Take care of children on your own. Eating and drinking Follow the diet that is recommended by your health care provider. If you vomit, drink water, juice, or soup when you can drink without vomiting. Make sure you have little or no nausea before eating solid foods. General instructions Take hcpf-ibw-vapbxdu and prescription medicines only as told by your health care provider. If you have sleep apnea, surgery and certain medicines can increase your risk for breathing problems. Follow instructions from your health care provider about wearing your sleep device: ?Anytime you are sleeping, including during daytime naps. ?While taking prescription pain medicines, sleeping medicines, or medicines that make you drowsy. If you smoke, do not smoke without supervision. Keep all follow-up visits as told by your health care provider. This is important. Contact a health care provider if: You keep feeling nauseous or you keep vomiting. You feel light-headed. You develop a rash. You have a fever. Get help right away if: You have trouble breathing. Summary For several hours after your procedure, you may feel sleepy and have poor judgment. Have a responsible adult stay with you for at least 24 hours or until you are awake and alert. This information is not intended to replace advice given to you by your health care provider. Make sure you discuss any questions you have with your health care provider. Document Released: 01/09/2017 Document Revised: 12/18/2018 Document Reviewed: 01/09/2017 [employer] Patient Education 2020 [employer]. 03/25/2025 10:57:18 Colonoscopy, Adult, Care After Colonoscopy, Adult, Care After This sheet gives you information about how to care for yourself after your procedure. Your health care provider may also give you more specific instructions. If you have problems or questions, contact your health care provider. What can I expect after the procedure? After the procedure, it is common to have: A small amount of blood in your stool for 24 hours after the procedure. Some gas. Mild abdominal cramping or bloating. Follow these instructions at home: General instructions For the first 24 hours after the procedure: ?Do not drive or use machinery. ?Do not sign important documents. ?Do not drink alcohol. ?Do your regular daily activities at a slower pace than normal. ?Eat soft, pmba-rv-jipfao foods. Take iemg-xwn-vuypfcq or prescription medicines only as told by your health care provider. Relieving cramping and bloating Try walking around when you have cramps or feel bloated. Apply heat to your abdomen as told by your health care provider. Use a heat source that your healthcare provider recommends, such as a moist heat pack or a heating pad. ?Place a towel between your skin and the heat source. ?Leave the heat on for 20 30 minutes. ?Remove the heat if your skin turns bright red. This is especially important if you are unable to feel pain, heat, or cold. You may have a greater risk of getting burned. Eating and drinking Drink enough fluid to keep your urine pale yellow. Resume your normal diet as instructed by your health care provider. Avoid heavy or fried foods thatare hard to digest. Avoid drinking alcohol for as long as instructed by your health care provider. Contact a health care provider if: You have blood in your stool 2 3 days after the procedure. Get help right away if: You have more than a small spotting of blood in your stool. You pass large blood clots in your stool. Your abdomen is swollen. You have nausea or vomiting. You have a fever. You have increasing abdominal pain that is not relieved with medicine. Summary After the procedure, it is common to have a small amount of blood in your stool. You may also have mild abdominal cramping and bloating. For the first 24 hours after the procedure, do not drive or use machinery, sign important documents, or drink alcohol. Contact your health care provider if you have a lot of blood in your stool, nausea or vomiting, a fever, or increased abdominal pain. This information is not intended to replace advice given to you by your health care provider. Make sure you discuss any questions you have with your health care provider. Document Released: 05/03/2005 Document Revised: 07/12/2018 Document Reviewed: 11/30/2016 [employer] Patient Education 2020 CloudOn. Follow Up Care 03/21/2025 09:42:48 With:ALBERT RIZO Address: [address] [place] [address] [phone] Business (1) When: Unknown Comments:Follow-up with Primary Care Physician [facility] 06-23-2025 Note Date of Service March 25, 2025 Procedure Name Colonoscopy to the cecum Consent Taken before procedure Indication With iron deficiency anemia Location [facility] Pre-Procedure Exam Iron deficiency anemia Procedural Sedation Anesthesia provided a MAC Technique Patient was brought to the Endo suite and placed left shoulder down. The colonoscope was passed into the rectum and advanced up to the left colon. The scope was advanced to the base of the cecum the patient had excellent preparation no evidence of any vascular malformations in the right colon. The t erminal ileum was intubated the ileum was normal. Back in the right colon and transverse colon there were no obvious large polyps seen. Splenic flexure down to the left colon there were no obvious large polyps seen no obvious signs of bleeding retroflexion performed the rectum revealed some small internal hemorrhoids colon was decompressed the patient tolerated the procedure Post-Procedure Exam Colonoscopy to the terminal ileum Findings Exam Total Time 25 minutes Assessment/Plan Orders: Bedrest, 03/25/25 10:56:00 EDT, Strict, continuous, Constant order, Lying on side until alert or asordered Bedrest, 03/25/25 10:56:00 EDT, Strict, continuous, Constant order, Lying on side until alert or asordered Call Parameters, 03/25/25 10:56:00 EDT, Notify for vomiting, severe pain, signs of bleeding, severeabdominal pain, distention or rigidity, Constant order Diet Order, 03/25/25 10:56:00 EDT, Start Meal: Next meal, Clear Liquid Diet, Post exam or after gagreflex returns if EGD, Constant Order, : No, per patient, : No Discharge Activity, NO activity restrictions, 03/25/25 10:56:00 EDT Discharge Diet, Follow the post-operative/post-procedure diet instructions provided by your physician's office., 03/25/25 10:56:00 EDT Discharge Wound Care, Follow the post-operative/post-procedure wound care instructions provided by your physician's office., 03/25/25 10:56:00 EDT Post Procedure Assessment, 03/25/25 10:56:00 EDT, Stop Date 03/25/25 10:56:00 EDT, [facility] in [facility] until [facility] Score of 12 or Preprocedure Vital Signs, 03/25/25 10:56:00 EDT, q15min, 1 hour(s), 03/25/25 11:45:00 EDT Vital Signs, 03/25/25 10:56:00 EDT, q30min, 1 hour(s), 03/25/25 11:30:00 EDT Vital Signs PRN, 03/25/25 10:56:00 EDT, PRN order Follow Up/Recommendation Consider hematology evaluation consider upper endoscopy or capsule endoscopy. Digitally Signed by ALBERT RIZO MD on 03/25/2025 10:59 AM [facility] [place] [id number] Summary of episode note Discharge Instructions Thank you for allowing [facility] to assist you with your healthcare needs. The following is importantdischarge information regarding your hospital visit. Your Care Team RICHARD RICHARDS MD What to do next Follow Up Appointments Follow Up with ALBERT RIZO Where:[address] [place] [address] [phone] Business (1) Additional Information: Follow-up with Primary Care Physician The Following Activity and Diet Have Been Ordered for You Discharge Activity - Ordered -- NO activity restrictions, 03/25/25 10:56:00 EDT Discharge Diet - Ordered -- Follow the post-operative/post-procedure diet instructions provided by your physician's office.,03/25/25 10:56:00 EDT Allergies NKA Medications Please ask your primary doctor or pharmacist before taking any other medication not listed, including over the counter drugs, herbal medications, vitamins and or supplements as they may interact withyour home medications. What How Much When Instructions Last Dose Unchanged calcitriol (calcitriol 0.5 mcg oral capsule) 1 cap by mouth Every day Unchanged escitalopram (escitalopram 10 mg oral tablet) 1 tab(s) by mouth Once a day Unchanged gabapentin (gabapentin 300 mg oral capsule) 1 cap by mouth Two (2) times a day Unchanged ipratropium nasal (ipratropium 42 mcg/ inh (0.06%) nasal spray) instill 2 sprays in EACH nostril THREE TIMES DAILY NEEDED Unchanged levothyroxine (levothyroxine 125 mcg (0.125 mg) oral tablet) 1 tab(s) by mouth Once a day Unchanged omeprazole (omeprazole 40 mg oral delayed release capsule) TAKE 1 CAPSULE BY MOUTH DAILY Please take this list to your next doctor s visit. Bring all medications you take, including over the counter medications, herbals and other supplements with you to your doctor s visit. Patients and families are reminded to discard old lists and to update any records with all medication providers or retail pharmacies. Education Materials Monitored Anesthesia Care, Care After These instructions provide you with information about caring for yourself after your procedure. Your health care provider may also give you more specific instructions. Your treatment has been plannedaccording to current medical practices, but problems sometimes occur. Call your health care provider if you have any problems or questions after your procedure. What can I expect after the procedure? After your procedure, you may: Feel sleepy for several hours. Feel clumsy and have poor balance for several hours. Feel forgetful about what happened after the procedure. Have poor judgment for several hours. Feel nauseous or vomit. Have a sore throat if you had a breathing tube during the procedure. Follow these instructions at home: For at least 24 hours after the procedure: Have a responsible adult stay with you. It is important to have someone help care for you until youare awake and alert. Rest as needed. Do not: ? Participate in activities in which you could fall or become injured. ? Drive. ? Use heavy machinery. ? Drink alcohol. ? Take sleeping pills or medicines that cause drowsiness. ? Make important decisions or sign legal documents. ? Take care of children on your own. Eating and drinking Follow the diet that is recommended by your health care provider. If you vomit, drink water, juice, or soup when you can drink without vomiting. Make sure you have little or no nausea before eating solid foods. General instructions Take jspc-uxr-oonseof and prescription medicines only as told by your health care provider. If you have sleep apnea, surgery and certain medicines can increase your risk for breathing problems. Follow instructions from your health care provider about wearing your sleep device: ? Anytime you are sleeping, including during daytime naps. ? While taking prescription pain medicines, sleeping medicines, or medicines that make you drowsy. If you smoke, do not smoke without supervision. Keep all follow-up visits as told by your health care provider. This is important. Contact a health care provider if: You keep feeling nauseous or you keep vomiting. You feel light-headed. You develop a rash. You have a fever. Get help right away if: You have trouble breathing. Summary For several hours after your procedure, you may feel sleepy and have poor judgment. Have a responsible adult stay with you for at least 24 hours or until you are awake and alert. This information is not intended to replace advice given to you by your health care provider. Make sure you discuss any questions you have with your health care provider. Document Released: 01/09/2017 Document Revised: 12/18/2018 Document Reviewed: 01/09/2017 [employer] Patient Education 2020 CloudOn. Colonoscopy, Adult, Care After This sheet gives you information about how to care for yourself after your procedure. Your health care provider may also give you more specific instructions. If you have problems or questions, contact your health care provider. What can I expect after the procedure? After the procedure, it is common to have: A small amount of blood in your stool for 24 hours after the procedure. Some gas. Mild abdominal cramping or bloating. Follow these instructions at home: General instructions For the first 24 hours after the procedure: ? Do not drive or use machinery. ? Do not sign important documents. ? Do not drink alcohol. ? Do your regular daily activities at a slower pace than normal. ? Eat soft, hwqz-iy-sogkxz foods. Take jpnl-dvd-zxzhdia or prescription medicines only as told by your health care provider. Relieving cramping and bloating Try walking around when you have cramps or feel bloated. Apply heat to your abdomen as told by your health care provider. Use a heat source that your healthcare provider recommends, such as a moist heat pack or a heating pad. ? Place a towel between your skin and the heat source. ? Leave the heat on for 20 30 minutes. ? Remove the heat if your skin turns bright red. This is especially important if you are unable to feel pain, heat, or cold. You may have a greater risk of getting burned. Eating and drinking Drink enough fluid to keep your urine pale yellow. Resume your normal diet as instructed by your health care provider. Avoid heavy or fried foods thatare hard to digest. Avoid drinking alcohol for as long as instructed by your health care provider. Contact a health care provider if: You have blood in your stool 2 3 days after the procedure. Get help right away if: You have more than a small spotting of blood in your stool. You pass large blood clots in your stool. Your abdomen is swollen. You have nausea or vomiting. You have a fever. You have increasing abdominal pain that is not relieved with medicine. Summary After the procedure, it is common to have a small amount of blood in your stool. You may also have mild abdominal cramping and bloating. For the first 24 hours after the procedure, do not drive or use machinery, sign important documents, or drink alcohol. Contact your health care provider if you have a lot of blood in your stool, nausea or vomiting, a fever, or increased abdominal pain. This information is not intended to replace advice given to you by your health care provider. Make sure you discuss any questions you have with your health care provider. Document Released: 05/03/2005 Document Revised: 07/12/2018 Document Reviewed: 11/30/2016 [employer] Patient Education 2020 CloudOn. Additional Information VACCINATE! IT SAVES LIVES! Members of the community who have not yet received the COVID-19 vaccine and would like to receive it can visit one of [facility] vaccine clinics. There are many vaccine clinic locations within the [facility]. For locations and available times, please visit https://gettheshot.coronavirus.[place].gov/. It is important to note that some COVID mobile vaccine clinics are held outdoors and may be canceled in rainy or stormy conditions. To learn more about pediatric vaccinations (ages 5-11), we invite you to visit the [facility] webpage. https://www.[facility].org/pages/8782-Eashn-Pmlxmpvmzbz-Vojogvwsff-Wxttm-Ein stions.htmlTo learn more about the COVID-19 vaccine, we invite you to visit the CDC website for a list of frequently asked questions.https://www.cdc.gov/coronavirus/2019-ncov/vaccines/faq.html [facility] Patient Portal Access Instructions: Stay connected with your healthcare team and access your personal medical information anytime with the [facility] Patient Portal. Please follow the directions below to create your [facility] account: 1.Access the email account you provided upon registration to the hospital/physician office.2.Look for an invitation email from [facility].3.Open the email and access the invitation link: AcceptInvitation to [facility].4.Fill in the required inman to create your account. To access your account, visit [employer]. Click the blue button labeled Access Patient Portal and then log in with the username and password that you created in the steps above. You will be able to view your test results, lab results, a summary of your visits, upcoming appointments and more. There is also a convenient messaging option where you can send secure messages to your p rovider. In addition, you will have the ability to download any documents or summaries to your computer and/or send the information securely to a physician. Remember that your healthcare information is confidential, so carefully consider who you will allowto register on the [facility] Patient Portal for access to your information. You can also access the [facility] Patient Portal on the [facility] victoriano. Simply click on Patient Portal and then log into your account. If you would like to receive a full copy of your medical records, please contact the [facility] Medical Records Department by calling [phone], Tuesday through Tuesday between 8 a.m. and 4:30 p.m. HOW TO SAFELY DISPOSE OF PRESCRIPTION MEDICATIONS Please use one of the following methods to safely dispose of your unused medications. 1.Use a drug disposal kit: the drug disposal pouch allows you to safely discard your old and unuseddrugs. Ask your nurse to give you one when you are discharged.2.Visit a local take-back location: Many local pharmacies and police departments have programs that collect old and unwanted prescriptiondrugs. Call your local pharmacy or go to http://CompanyLoop.[employer]/0P7Ak7s to find one close to you.3.Make use of household items: Use cat litter or old coffee grounds to dispose medications if other options arenot available. Mix your drugs with these household products, seal them in an airtight container andthrow it into the garbage. Call [facility]: [phone] to be sure your drugs can be disposed of in this way. Some medicines may require a different approach.4.Never flush your medications down the toilet. IF YOU HAVE BEEN PRESCRIBED AN OPIOID FOR PAIN If you have been prescribed an opioid (such as hydrocodone, oxycodone or morphine), it is critical to understand the possible side effects and risks of opioid pain medications. Even when taken as directed, opioids can have several side effects including: Tolerance, meaning you might need to take more of a medication for the same pain relief. Nausea, vomiting and/or constipation. Sleepiness, dizziness, dry mouth, confusion, depression or itching. Physical dependence, meaning you have withdrawal symptoms when a medication is stopped, can develop within a few days. KNOW YOUR RESPONSIBILITIES It is important to know exactly how much and how often to take the opioid pain medications you are prescribed. Never take opioids in higher amounts or more often than prescribed. Do not combine opioids with alcohol or other drugs that cause drowsiness, such as benzodiazepines, also known as benzos, including diazepam and alprazolam, muscle relaxants or sleep aids. Never sell or share prescription opioids. This is illegal. Store opioids in a secure place and out of reach of others (including children, family, friends and visitors). The last page of this document has been signed and retained as a CHART COPY. Signatures Patient Education Materials Monitored Anesthesia Care, Care After Colonoscopy, Adult, Care After Medication Leaflets My discharge plan and instructions have been reviewed and explained to me and I,RONNIE HOPE understand my current condition and have read and understand these discharge instructions. I have received a written copy of the plan/instructions. If I have questions, I am aware that I should contact my d octor. 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 Signature: Date/Time: Relationship to Patient: Witness Name/Signature: Date/Time: [facility]06-23-2025 Note [place] ADMISSION HISTORY AND PHYSICIAL CHIEF COMPLAINT: HISTORY OF PRESENT ILLNESS: REVIEW OF SYSTEMS: ACTIVE PROBLEMS: (6) GERD (gastroesophageal reflux disease) ([id number]) Graves disease (312709484) Hemorrhoid (775744396) Hypothyroidism (25213605) IBS (irritable bowel syndrome) (56159114) Melena ([id number]) MEDICATIONS: Active Inpt Meds: None Active PRN Meds: None One Time Meds: None Active IV Meds: None ALLERGIES: (1) NKA FAMILY HISTORY: SOCIAL HISTORY: PHYSICAL EXAM: VITALS: CiewpeUqoaVYBilrqSYGnT5KRC9KctyAy(kg) 03/25 08:35----[id number] 68.0 24 Hr Tmax: No Data Available 36 Hr Tmax: No Data Available Vital Signs are the last 5 in the past 48 hours. Weights display the last 5 within 7 days. Initial Wt: 03/25 68.0 kg 150 lb Current Wt: 03/25 68.0 kg 150 lb GENERAL: HEENT: CARDIOVASCULAR: RESPIRATORY: ABDOMEN: EXREMETIES: NEUROLOGICAL: PSYCHIATRIC: LABS: No 36hr Lab Data DIAGNOSTICS: IMPRESSION: PLAN: History and Physical Update I have examined the patient; reviewed the H&P and there are no changes to the H&P unless noted below. Digitally Signed by ALBERT RIZO MD on 03/25/2025 10:36 AM [facility]06-23-2025 Anesthesiology Consult note Patient: RONNIE HOPE Age: 60 years Sex: Female : 1965 Associated Diagnoses: None Author: ANURADHA WONG MANAGER CONTACT-INTERNATIONAL GUEST COORDINATOR Preoperative Information Time of last food or liquid consumption: 03/25/2025 04:00:00 Anesthesia history Patient's history: negative. Family's history: negative. Review of Systems Ear/Nose/Mouth/Throat: Negative. Respiratory: Negative. Cardiovascular: Negative. Gastrointestinal: Reflux. Genitourinary: Negative. Endocrine: nishant, hypothyroid. Musculoskeletal: Negative. Integumentary: Negative. Neurologic: Negative. Health Status Allergies: Allergic Reactions (Selected) NKA, Allergies (1) ActiveSeverityReaction NKANone Documented Current medications: (Selected) Documented Medications Documented calcitriol 0.5 mcg oral capsule: 0.5 mcg, 1 cap(s), Oral, Daily, 0 Refill(s) escitalopram 10 mg oral tablet: 10 mg, 1 tab(s), Oral, qDay, 30 tab(s), 0 Refill(s) gabapentin 300 mg oral capsule: 300 mg, 1 cap(s), Oral, BID, 60 cap(s), 0 Refill(s) ipratropium 42 mcg/inh (0.06%) nasal spray: instill 2 sprays in EACH nostril THREE TIMES DAILY NEEDED levothyroxine 125 mcg (0.125 mg) oral tablet: 125 mcg, 1 tab(s), Oral, qDay, 30 tab(s), 0 Refill(s) omeprazole 40 mg oral delayed release capsule: TAKE 1 CAPSULE BY MOUTH DAILY, No qualifying data available Problem list: Active Problems (6) GERD (gastroesophageal reflux disease) Graves disease Hemorrhoid Hypothyroidism IBS (irritable bowel syndrome) Melena Histories Past Medical History: No active or resolved past medical history items have been selected or recorded. Family History: No family history items have been selected or recorded. Procedure history: History of total thyroidectomy ([id number]). H/O: hysterectomy ([id number]). Social History: Social & Psychosocial Habits Alcohol 03/25/2025 Use: Never Substance Abuse 03/25/2025 Use: Never Tobacco 03/25/2025 Tobacco Use: Never (less than 100 in l Physical Examination Vital Signs 03/25/2025 8:35 EDT Peripheral Pulse Rate 69 bpm Respiratory Rate 15 br/min Systolic Blood Pressure Non-Invasive 114 mmHg Diastolic Blood Pressure Non-Invasive 67 mmHg Vital Signs (last 24 hrs) Last Charted [id number] mmHg (MAR 25 08:35) DBP67 mmHg (MAR 25 08:35) Measurements from flowsheet : Measurements 03/25/2025 8:39 EDT Height 152.4 cm Weight Method Stated [place] Body Weight 45.50 kg 03/25/2025 8:35 EDT Height 152.4 cm Admission Weight 68 kg [place] Body Weight 45.50 kg Pain assessment: Pain Assessment 03/25/2025 8:35 EDT Primary Pain Intensity 0 Pain Scale Type 0-10 Pain scale . General: Alert and oriented. Airway: Normal temporomandibular joint mobility. Mallampati classification: II (soft palate, fauces, uvula visible). Head: Normocephalic. Dentition Evaluation: Own teeth. Neck: Supple. Respiratory: Lungs are clear to auscultation. Cardiovascular: Normal rate. Heart Sounds: Normal. Gastrointestinal: Soft. Musculoskeletal Normal range of motion. Integumentary: Intact. Neurologic: Alert, Oriented. Review / Management Results review: No qualifying data available , Lab results 03/25/2025 10:08 EDT SN - GCD - Post-operative Diagnosis IRON DEFICIENCY ANEMIA, RECTAL BLEEDING SN - GCD - Case Level OPD Level 3 03/25/2025 10:07 EDT SN - CAt - Case Attendee SN - CAt - Case Attendee SN - CAt - Case Attendee SN - CAt - Case Attendee SN - CAt - Case Attendee SN - CAt - Case Attendee SN - CAt - Role Performed Primary Surgeon SN - CAt - Role Performed Frame Pulley Mortising Machine Operator 1 SN - CAt - Role Performed Scrub 1 SN - CAt - Role Performed INTERNATIONAL GUEST COORDINATOR 03/25/2025 8:47 EDT Hand Right 03/25/2025 22 gauge Peripheral IV Activity: Insert new site Peripheral IV Dressing Condition: Clean, Dry, Intact Peripheral IV Dressing Activity: Applied, Transparent dressing Peripheral IV Line Status/Patency: Flushes easily, Continuous infusion Peripheral IV Line Care: Secured with tape Peripheral IV Site Condition: No complications Peripheral IV Number of Attempts: 1 03/25/2025 8:39 EDT Designated Person #1 We May Share SHAKA Jolly Meng [phone] Designated Person #1 Relationship Spouse Privacy Restrictions Requested None Height 152.4 cm Weight Method Stated [place] Body Weight 45.50 kg Status No, per patient Sensory Deficits None Infectious Disease Symptoms Patient states no symptoms Infectious Disease Recent Exposure No Alcohol and Drug Use No Employee of Institutional Living No Health Care Employee No History of Exposure to TB No History of Positive Chest X-Ray for TB No History of Positive TB Skin Test No Homeless No Known Immunosuppression No Recent Immigrant No Resident of Institutional Living No Bloody Sputum No Fatigue No Fever No Loss of Appetite No Night Sweats No Persistent Cough > 3 Weeks No Weight Loss No Barriers to Learning None evident Teaching Method Teach-back Preferred Spoken Language Sammarinese Preferred Written Language Sammarinese Patient's Current Physicians Dr. Richards Discharge To, Anticipated Home independently Prev Test Positive/Diagnosis w/COVID-19 No Current Quarantine/Isolated any Illness No Any Contact with Sick Animals/Birds No Traveled Anywhere in Last 30 Days No No Personal Devices, Patient Valuables Glasses Admission Note-Nursing Procedure/Therapy Intake 03/25/2025 8:35 EDT Height 152.4 cm Admission Weight 68 kg [place] Body Weight 45.50 kg Peripheral Pulse Rate 69 bpm Respiratory Rate 15 br/min Systolic Blood Pressure Non-Invasive 114 mmHg Diastolic Blood Pressure Non-Invasive 67 mmHg Primary Pain Intensity 0 Pain Scale Type 0-10 Pain scale Respirations Unlabored Respiratory Pattern Regular Oxygen Therapy Room air Oxygen Saturation 99 % Abdomen Description Non-distended, Soft Abdomen Palpation Non-Tender Bowel Sounds All Quadrants Present Skin Description [place], Normal for ethnicity, Dry Skin Temperature Warm Skin Integrity Intact Mucous Membrane Color [place] Neurological Symptoms Patient denies Level of Consciousness Alert Affect/Behavior Appropriate, Calm, Cooperative Orientation Oriented x 4 Assistive Device None Positioning Repositions self Standard Safety ID band on, Bed in low position, Wheels locked, personal items within reach . Assessment and Plan [place] Society of Anesthesiologists (ASA) physical status classification: Class II. Anesthetic Preoperative Plan Anesthetic technique: MAC. Postoperative pain management: Per surgeon. Informed consent: signed by patient. Digitally Signed by ANURADHA WONG on 03/25/2025 10:29 AM [facility]06-10-2025 Telephone encounter Note* Telephone Encounter - Beata Nunez RN - 03/12/2025 11:06 AM EDT RN spoke with [facility] nurse at Dr. Richards and explained that Dr. Bai reasoning regarding colonoscopy. [facility] states that patient has been refereed to GI already. Most recent chart note faxed to them [phone] with confirmation. [facility]06-10-2025 Miscellaneous Notes* Telephone Encounter - Beata Nunez RN - 03/12/2025 11:06 AM EDT RN spoke with [facility] nurse at Dr. Richards and explained that Dr. Bai reasoning regarding colonoscopy. [facility] states that patient has been refereed to GI already. Most recent chart note faxed to them [phone] with confirmation. * Telephone Encounter - Darrell Bai MD - 03/11/2025 5:53 PM EDT The reason was because of her anemia without an etiology. Please let Dr. Richards's office know, though whether he wants to pursue this is up to him. * Telephone Encounter - Deborah Gutierrez - 03/07/2025 4:51 PM EDT Melonie from Dr Jeffrey Richards's office is calling Darrell Bai MD today to request Wheel Assembler- Other Patient has been identified by name and birthdate. Yes Duration of symptoms: N/A Person calling: Melonie from Dr Jeffrey Richards's Call patient at: [phone] Was an appointment scheduled: No Closing statement: Results or non-symptom based questions: Thank you for calling [facility], your call will be returned within the next business day. Melonie from Dr Jeffrey Richards's calling regarding the recommendation that the patient has a colonoscopy; the patient is not due for one and they would like more information and visit notes. Please advise. Thank you, Deborah Gutierrez [facility] History of Present illness Narrative* Patti Canseco MA - 03/12/2025 11:00 AM EDT [place] was offered to the patient for exam. Patient declined offer of head animal trainer * Wilber Wu MD - 03/12/2025 11:00 AM EDT Ronnie Cohen Meng 03/12/2025 60 y.o. Primary Care Physician: Richard Richards Chief Complaint Patient presents with Annual Exam HPI : Ronnie Cohen Meng is a 60 y.o. female here for annual exam On estrogen patch 0.025 mg for vasomotor symptoms, symptoms are well controlled. She tried to go off this past year, and was off for about 5-6 months, but reports her symptoms of hot flashes were badenough that she restarted. She did experience some relief from hot flashes while anemic, because [she] was always cold but which correction of her anemia, the hot flashes became worse again. Father in Oct 2021. She lives with her elderly Mother. S/p supracervical hysterectomy Gynecologic History: No LMP recorded. Patient has had a hysterectomy. Vaginal Bleeding in past year: No Sexually Active: Yes, with Rik of 30 years. Monogamous relationship. Feels safe. OB History Para Term AB Living 3 3 3 3 SAB IAB Ectopic Multiple Live Births 3 # Outcome Date GA Lbr Jamin/2nd Weight Sex Type Anes PTL Lv 3 Term 1995 M CS-Unspec DOMINGO 2 Term 1993 F CS-Unspec DOMINGO 1 Term 1989 F CS-Unspec DOMINGO Preventative Health Testing: Date of Last Pap Smear: 2021 Abnormal Pap Smear History: none Date of Last Mammogram: 02/2024 Medical History[1] Surgical History[2] Family History[3] Social History Socioeconomic History Marital status: Spouse name: Not on file Number of children: Not on file Years of education: Not on file Highest education level: Not on file Occupational History Not on file Tobacco Use Smoking status: Former Types: Cigarettes Smokeless tobacco: Never Vaping Use Vaping status: Never Used Substance and Sexual Activity Alcohol use: Yes Drug use: No Sexual activity: Yes Comment: Tubal ligation Other Topics Concern Not on file Social History Narrative Not on file Social Drivers of Health Financial Resource Strain: Low Risk (2024) Overall Financial Resource Strain (CARDIA) Difficulty of Paying Living Expenses: Not hard at all Food Insecurity: Not on file Transportation Needs: No Transportation Needs (2024) PRAPARE - Transportation Lack of Transportation (Medical): No Lack of Transportation (Non-Medical): No Physical Activity: Not on file Stress: No Stress Concern Present (2024) [employer] - Occupational Stress Questionnaire Feeling of Stress : Not at all Social Connections: Not on file Intimate Partner Violence: Not At Risk (2024) Humiliation, Afraid, Rape, and Kick questionnaire Fear of Current or Ex-Partner: No Emotionally Abused: No Physically Abused: No Sexually Abused: No Housing Stability: Unknown (2024) Housing Stability Vital Sign Unable to Pay for Housing in the Last Year: No Number of Places Lived in the Last Year: Not on file Unstable Housing in the Last Year: No MEDICATIONS: Current Medications[4] ALLERGIES: Allergies as of 03/12/2025 - Reviewed 03/12/2025 Allergen Reaction Noted Chlorhexidine Rash 12/06/2018 REVIEW OF SYSTEMS: CONSTITUTIONAL: No unexpected weight change or fatigue CV: No Chest Pain with Exertion. RESPIRATORY: No SOB or Cough BREAST: No breast abnormalities or lumps GI: Hemorrhoids and hematochezia. See's her GI next weeks. No melena : No Dysuria or Hematuria. No Vaginal Discharge. No vaginal bleeding. No dyspareunia. Occasional UI (improved from last year, no longer wears a pad daily). NEURO: No CVA, Migraines, Seizure Hx, or Limb Weakness DERM: No Rash, Itching, Mole Changes or Cancer PSYCH: Depression and anxiety controlled. No SI. MUSCULOSKELETAL: arthritis in hands and feet HEME and LYMPH: Anemia of unknown cause. Following with hematology. No Lymphoma, Von Willebrand's, Hemophillia or Bleeding History PHYSICAL EXAM: Vitals: 03/12/25 1042 BP: 117/68 Weight: 154 lb (69.9 kg) Height: 5' (1.524 m) Body mass index is 30.08 kg/m . TERMINAL SYSTEM OPERATOR: BREASTS: normal, no masses, tenderness or skin changes. EXTERNAL GENITALIA: normal female structures VAGINA: atrophy CERVIX: cervical stenosis, no lesions. UTERUS: N/A ADNEXA: normal, non tender no masses. URETHRA: normal. nontender BLADDER: non tender. PELVIC SUPPORT DEFECTS: Normal support of vagina, uterus, and bladder ANUS/PERINEUM: no hemorrhoids, masses or warts noted. GENERAL EXAM CONSTITUTIONAL: Well developed, well nourished, well groomed. no acute distress NECK: no thyromegaly, supple. CARDIOVASCULAR: normal rate, no edema LUNGS: Normal effort, ABDOMEN:soft, non-tender, non-distended, no hepatospleenomegaly NEUROLOGICAL: no gross motor or sensory deficits noted. . LYMPH NODES: no lymphadenapathy axillary or inguinal. SKIN: intact, dry MUSCULOSKELETAL: normal gait, no cyanosis. PSYCHIATRIC Normal mood and affect, A&O x3. ASSESSMENT/PLAN: Ronnie was seen today for annual exam. Diagnoses and all orders for this visit: Well woman exam with routine gynecological exam (Primary) - Pap Smear Screening mammogram for breast cancer - Bilateral screening mammogram with tomosynthesis; Future Follow up in about 1 year (around 03/12/2026) for Annual. Routine health maintenance per patients PCP. [1] Past Medical History: Diagnosis Date Allergic Seasonal Diverticulitis Family history of breast cancer in mother 09/06/2017 Fibrocystic breast changes Hyperlipidemia Hypothyroidism thyroidectomy-Graves' disease Irritable bowel Kidney stone Neuropathy bilateral in feet [2] Past Surgical History: Procedure Laterality Date APPENDECTOMY BREAST BIOPSY Left 2006 benign BREAST BIOPSY Right 2019 Benign fibrocystic changes SECTION (HISTORICAL) COLONOSCOPY 2019 COLONOSCOPY 2013 Excision of hyperplastic polyps FOOT SURGERY Right 2020 neuroma FOOT SURGERY 2011 FOOT SURGERY Right 08/13/2022 FOOT SURGERY Left 09/10/2022 HERNIA REPAIR Right PARTIAL HYSTERECTOMY 2005 Laparoscopic supracervical hysterectomy THYROIDECTOMY, COMPLETION (HISTORICAL) 2014 Graves' disease TUBAL LIGATION [3] Family History Problem Relation Name Age of Onset Heart disease Father Prakash Hypertension Father Prakash Prostate cancer Father Prakash Heart attack Brother 56 No Known Problems Brother No Known Problems Other No Known Problems Maternal Grandmother No Known Problems Daughter No Known Problems Daughter Alzheimer's disease Paternal Grandfather Lung cancer Maternal Grandfather No Known Problems Son Breast cancer Mother Rosy 70 No Known Problems Paternal Grandmother [4] Current Outpatient Medications Medication Sig Dispense Refill calcitriol (Rocaltrol) 0.5 MCG capsule Take 0.5 mcg by mouth in the morning. gabapentin (Neurontin) 300 MG capsule Take 300 mg by mouth in the morning and 300 mg at noon and 300 mg in the evening. levothyroxine (Synthroid, Levoxyl) 137 MCG tablet take one a day, but only half pill on Tuesday (6 & 1/2 per week) Probiotic Product (Align) chewable tablet Chew. estradiol (Vivelle-DOT) 0.025 MG/24HR Place 1 patch on the skin Twice a Week. 24 patch 4 No current facility-administered medications for this visit. documented in this [facility]06-09-2025 Telephone encounter Note* Telephone Encounter - Darrell Bai MD - 03/11/2025 5:53 PM EDT The reason was because of her anemia without an etiology. Please let Dr. Richards's office know, though whether he wants to pursue this is up to him. [facility]06-05-2025 Telephone encounter Note* Telephone Encounter - Deborah Gutierrez - 03/07/2025 4:51 PM EDT Melonie from Dr Jeffrey Richards's office is calling Darrell Bai MD today to request Wheel Assembler- Other Patient has been identified by name and birthdate. Yes Duration of symptoms: N/A Person calling: Melonie from Dr Jeffrey Richards's Call patient at: [phone] Was an appointment scheduled: No Closing statement: Results or non-symptom based questions: Thank you for calling [facility], your call will be returned within the next business day. Melonie from Dr Jeffrey Richards's calling regarding the recommendation that the patient has a colonoscopy; the patient is not due for one and they would like more information and visit notes. Please advise. Thank you, Deborah Gutierrez [facility]06-05-2025 Instructions* Patient Instructions* Darrell Bai MD - 03/07/2025 1:33 PM EDT Assessment / Plan Assessment: 1) Surgical hypothyroidism for resolution of Graves disease (she failed 2 rounds of tapazole). TSH has dropped, necessitating decreasing doses of thyroid hormone that may be related to her losing weight. She has iron deficiency along with decreased appetite, which has been a diagnostic dilemma. I'll drop her to 112 mcg daily, and have her return in 6 weeks. 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 TG undetectable with low Ab 2) Vaccine hesitancy, never vaccinated against COVID. Plan: 1) decrease the dose of levothyroxine to 112 mcg daily 2) return to dc in 6 weeks with labs before the visit. Darrell Bai MD Data Free T4 TSH Ref Rng 0.9 - 1.7 ng/dL 0.270 - 4.200 mIU/L 12/21/2022 1.9 (H) 0.266 (L) 02/16/2023 1.8 (H) 0.908 07/22/2023 1.6 5.300 (H) 08/15/2023 1.9 (H) 1.970 02/28/2024 1.5 4.530 (H) 09/11/2024 1.8 0.614 01/31/2024 2.2 0.057 03/04/2025 1.8 0.113 documented in this [facility] NoteHNO ID: [id number] Author: DARRELL BIA MD Service: ? Author Type: Physician Type: Progress Notes Filed: 03/07/2025 13:34 Note Text: Virtual Visit utilizing both audio and video components MyChart-Zoom I have communicated my name and active licensure. The patient's identity and physical location were verified at the time of this visit. Either the patient or their legal entry level sales representative has been informed of the risks and benefits of -- and alternatives to -- treatment through a remote evaluation and consents to proceed with the evaluation remotely. Patient location: at parents' home in [place], [place] Assessment / Plan Assessment: 1) Surgical hypothyroidism for resolution of Graves disease (she failed 2 rounds of tapazole). TSH has dropped, necessitating decreasing doses of thyroid hormone that may be related to her losing weight. She has iron deficiency along with decreased appetite, which has been a diagnostic dilemma. I'll drop her to 112 mcg daily, and have her return in 6 weeks. 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 TG undetectable with low Ab 2) Vaccine hesitancy, never vaccinated against COVID. Plan: 1) decrease the dose of levothyroxine to 112 mcg daily 2) return to dc in 6 weeks with labs before the visit. Darrell Bai MD Data Free T4 TSH Ref Rng 0.9 - 1.7 ng/dL 0.270 - 4.200 mIU/L 12/21/2022 1.9 (H) 0.266 (L) 02/16/2023 1.8 (H) 0.908 07/22/2023 1.6 5.300 (H) 08/15/2023 1.9 (H) 1.970 02/28/2024 1.5 4.530 (H) 09/11/2024 1.8 0.614 01/31/2024 2.2 0.057 03/04/2025 1.8 0.113 History Problem name: hypothyroidism Quality: postsurgical Severity: complete Duration: surgery 12/26/15 Context: 1) Graves disease, s/p failed 2 cycles of tapazole 2) Incidental papillary microcarcinoma, multifocal, largest nodule <0.1cm Modifying factors: levothyroxine 125 mc daily since around 01/31/25 symptoms of dizziness have been issue also hot, shaky sweaty palpitations, these are better, but still there. Thyroid CA History Surgery (12/26/15): total thyroidectomy, Dr. Ibarra Pathology (05/18/16): multifocal papillary microcarcinoma in right lobe, 2 foci, <0.1cm max diam, no extrathyroidal extension, one node=neg, Scan (05/18/16): not needed LOMBARDO (05/18/16): not needed Thyroglobulin Component Thyroglobulin TG Antibody Screen Latest Ref Rng AND Units <14.4 IU/mL 10/15/2016 <0.2 (L) 2.1 04/27/2017 <0.2 (L) 1.4 03/23/2019 <0.2 <1.0 ([facility]) 01/28/2022 Janay Assay <0.2 <1.0 <4.0 IU/mL 02/28/2024 0.3 <0.9 Graves Ab Component TSI Latest Ref Rng <150 % Normal 08/11/2011 833 (H) Vitamin D Component Vitamin D 25 Hydroxy Latest Ref Rng 31.0 - 80.0 ng/mL 11/03/2015 24.9 (L) 12/06/18 49 (done at [facility]) ROS PHYSICAL EXAM PAST MED / [...] Never Smokeless tobacco: Never Vaping Use Vaping status: Never Used Substance Use Topics Alcohol use: Yes Alcohol/week: 2.6 standard drinks of alcohol Types: 2 Mixed Drinks per week Drug use: No MEDICATIONS AND ALLERGIES Current Outpatient Medications Medication Sig Dispense Refill levothyroxine (LEVOXYL) 137 mcg tablet Take 1 tablet by mouth [...] tab Gummies BIOTIN ORAL Take 5,000 mcg (more content not included)...[facility]06-05-2025 History of Present illness Narrative* Darrell Bai MD - 03/07/2025 1:10 PM EDT Virtual Visit utilizing both audio and video components MyChart-Zoom I have communicated my name and active licensure. The patient's identity and physical location wereverified at the time of this visit. Either the patient or their legal entry level sales representative has been informed of the risks and benefits of -- and alternatives to -- treatment through a remote evaluation andconsents to proceed with the evaluation remotely. Patient location: at parents' home in [place], [place] Assessment / Plan Assessment: 1) Surgical hypothyroidism for resolution of Graves disease (she failed 2 rounds of tapazole). TSH has dropped, necessitating decreasing doses of thyroid hormone that may be related to her losing weight. She has iron deficiency along with decreased appetite, which has been a diagnostic dilemma. I'll drop her to 112 mcg daily, and have her return in 6 weeks. 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 TG undetectable with low Ab 2) Vaccine hesitancy, never vaccinated against COVID. Plan: 1) decrease the dose of levothyroxine to 112 mcg daily 2) return to dc in 6 weeks with labs before the visit. Darrell Bai MD Data Free T4 TSH Ref Rng 0.9 - 1.7 ng/dL 0.270 - 4.200 mIU/L 12/21/2022 1.9 (H) 0.266 (L) 02/16/2023 1.8 (H) 0.908 07/22/2023 1.6 5.300 (H) 08/15/2023 1.9 (H) 1.970 02/28/2024 1.5 4.530 (H) 09/11/2024 1.8 0.614 01/31/2024 2.2 0.057 03/04/2025 1.8 0.113 History Problem name: hypothyroidism Quality: postsurgical Severity: complete Duration: surgery 12/26/15 Context: 1) Graves disease, s/p failed 2 cycles of tapazole 2) Incidental papillary microcarcinoma, multifocal, largest nodule <0.1cm Modifying factors: levothyroxine 125 mc daily since around 01/31/25 symptoms of dizziness have been issue also hot, shaky sweaty palpitations, these are better, but still there. Thyroid CA History Surgery (12/26/15): total thyroidectomy, Dr. Ibarra Pathology (05/18/16): multifocal papillary microcarcinoma in right lobe, 2 foci, <0.1cm max diam, no extrathyroidal extension, one node=neg, Scan (05/18/16): not needed LOMBARDO (05/18/16): not needed Thyroglobulin Component Thyroglobulin TG Antibody Screen Latest Ref Rng & Units <14.4 IU/mL 10/15/2016 <0.2 (L) 2.1 04/27/2017 <0.2 (L) 1.4 03/23/2019 <0.2 <1.0 ([facility]) 01/28/2022 Janay Assay <0.2 <1.0 <4.0 IU/mL 02/28/2024 0.3 <0.9 Graves Ab Component TSI Latest Ref Rng <150 % Normal 08/11/2011 833 (H) Vitamin D Component Vitamin D 25 Hydroxy Latest Ref Rng 31.0 - 80.0 ng/mL 11/03/2015 24.9 (L) 12/06/18 49 (done at [facility]) ROS PHYSICAL EXAM PAST MED / [...] Never Smokeless tobacco: Never Vaping Use Vaping status: Never Used Substance Use Topics Alcohol use: Yes Alcohol/week: 2.6 standard drinks of alcohol Types: 2 Mixed Drinks per week Drug use: No MEDICATIONS & ALLERGIES Current Outpatient Medications Medication Sig Dispense Refill levothyroxine (LEVOXYL) 137 mcg tablet Take 1 tablet by mouth [...] daily. Olopatadine 0.6 % spry Use 1 [place] in each nostril once daily. (Patient not taking: Reported on 11/13/2021 ) Carbinoxamine Maleate (PALGIC) 4 mg ORAL Tab Take 1 tablet by mouth once daily. 0 COMPOUNDED PRESCRIPTION Allergy injections ever 2-3 weeks (Patient not taking: Reported on 11/13/2021 ) 0 No current facility-administered medications for this visit. ALLERGIES Allergen Reactions Chlorhexidine Rash [facility] encounter Note * Telephone Encounter - Monserrat Jordan - 02/18/2025 11:27 AM EDT Patient calling in to see if the lab work from her primary care's office was received. Patient states she was anemic and her thyroid levels were out of whack. Patient wants to make sure provider has it before upcoming visit in March. Contact Information [phone] Thank you [facility]05-19-[facility]25 Miscellaneous Notes* Telephone Encounter - Monserrat Jordan - 02/18/2025 11:27 AM EDT Patient calling in to see if the lab work from her primary care's office was received. Patient states she was anemic and her thyroid levels were out of whack. Patient wants to make sure provider has it before upcoming visit in March. Contact Information [phone] Thank you [facility] Evaluation note* Diagnosis Onset Date Resolution Status Admit Date Iron deficiency anemia due t o chronic blood loss chronic January 16 025 12:50pm Iron deficiency anemia due t o chronic blood loss chronic March 28 1:31pm [facility] Work Phone: 1(276) 828-920503-19-2025 Evaluation note* Diagnosis Onset Date Resolution Status Admit Date Anemia acute December 19 2:39pm Hemorrhoids chronic December 19 025 2:39pm [facility] Work Phone: 1(154) 948-986303-19-2025 Evaluation note* Diagnosis Onset Date Resolution Status Admit Date Anemia acute December 19 2:39pm Hemorrhoids chronic December 19 025 2:39pm Iron deficiency anemia due t o chronic blood loss chronic January 16 2 025 12:50pm Iron deficiency anemia due t o chronic blood loss chronic March 28 1:31pm [email or web address] [facility] Work Phone: 1(369) 739-385912-12-2024 Instructions* Patient Instructions* Darrell Bai MD - 09/13/2024 10:33 AM EST Assessment / Plan Assessment: 1) Surgical hypothyroidism for resolution of Graves disease (she failed 2 rounds of tapazole). TSH ideal on 137 mcg/d levothyroxine, will continue her on this and followup in 6 months. 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 TG undetectable with low Ab 2) Vaccine hesitancy, never vaccinated against COVID. Plan: 1) increase the dose of levothyroxine to 137 mcg daily 2) return to dc in 6 months with labs before the visit. Darrell Bai MD Data Free T4 TSH Ref Rng 0.9 - 1.7 ng/dL 0.270 - 4.200 mIU/L 12/21/2022 1.9 (H) 0.266 (L) 02/16/2023 1.8 (H) 0.908 07/22/2023 1.6 5.300 (H) 08/15/2023 1.9 (H) 1.970 02/28/2024 1.5 4.530 (H) 09/11/2024 1.8 0.614 documented in this encounter[facility] NoteHNO ID: [id number] Author: DARRELL BAI MD Service: ? Author Type: Physician Type: Progress Notes Filed: 09/13/2024 10:34 Note Text: Virtual Visit utilizing both audio and video components [employer] I have communicated my name and active licensure. The patient's identity and physical location were verified at the time of this visit. Either the patient or their legal entry level sales representative has been informed of the risks and benefits of -- and alternatives to -- treatment through a remote evaluation and consents to proceed with the evaluation remotely. Patient location: at parents' home in [place], [place] Assessment / Plan Assessment: 1) Surgical hypothyroidism for resolution of Graves disease (she failed 2 rounds of tapazole). TSH ideal on 137 mcg/d levothyroxine, will continue her on this and followup in 6 months. 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 TG undetectable with low Ab 2) Vaccine hesitancy, never vaccinated against COVID. Plan: 1) increase the dose of levothyroxine to 137 mcg daily 2) return to dc in 6 months with labs before the visit. Darrell Bai MD Data Free T4 TSH Ref Rng 0.9 - 1.7 ng/dL 0.270 - 4.200 mIU/L 12/21/2022 1.9 (H) 0.266 (L) 02/16/2023 1.8 (H) 0.908 07/22/2023 1.6 5.300 (H) 08/15/2023 1.9 (H) 1.970 02/28/2024 1.5 4.530 (H) 09/11/2024 1.8 0.614 History Problem name: hypothyroidism Quality: postsurgical Severity: complete Duration: surgery 12/26/15 Context: 1) Graves disease, s/p failed 2 cycles of tapazole 2) Incidental papillary microcarcinoma, multifocal, largest nodule <0.1cm Modifying factors: levothyroxine 137 mc daily Thyroid CA History Surgery (12/26/15): total thyroidectomy, Dr. Ibarra Pathology (05/18/16): multifocal papillary microcarcinoma in right lobe, 2 foci, <0.1cm max diam, no extrathyroidal extension, one node=neg, Scan (05/18/16): not needed LOMBARDO (05/18/16): not needed Thyroglobulin Component Thyroglobulin TG Antibody Screen Latest Ref Rng AND Units <14.4 IU/mL 10/15/2016 <0.2 (L) 2.1 04/27/2017 <0.2 (L) 1.4 03/23/2019 <0.2 <1.0 ([facility]) 01/28/2022 Janay Assay <0.2 <1.0 <4.0 IU/mL 02/28/2024 0.3 <0.9 Graves Ab Component TSI Latest Ref Rng <150 % Normal 08/11/2011 833 (H) Vitamin D Component Vitamin D 25 Hydroxy Latest Ref Rng 31.0 - 80.0 ng/mL 11/03/2015 24.9 (L) 12/06/18 49 (done at [facility]) ROS PHYSICAL EXAM PAST MED / SURG / FAMILY / SOCIAL HISTORY PAST MEDICAL HISTORY Diagnosis Date Diverticulitis Goiter Graves disease IBS (irritable bowel syndrome) Kidney stones Postsurgical hypothyroidism Seasonal allergies 11/30/2018 Thyroid cancer (HCC) PAST SURGICAL HISTORY Procedure Laterality Date APPENDECTOMY BREAST BIOPSY 2009 benign BREAST BIOPSY INCISIONAL RIGHT 12/01/2018 EXCISION [...] Never Smokeless tobacco: Never Vaping Use Vaping status: Never Used Substance Use Topics Alcohol use: Yes Alcohol/week: 2.6 standard drinks of alcohol Types: 2 Mixed Drinks per week Drug use: No MEDICATIONS AND ALLERGIES Current Outpatient Medications Medication Sig Dispense Refill levothyroxine (LEVOXYL) 137 mcg tablet Take 1 tablet by mouth [...] daily. Olopatadine 0.6 % spry Use 1 [place] in each nostril once daily. (Patient not taking: Reported on 11/13/2021 ) Carbinoxamine Maleate (PALGIC) 4 mg ORAL Tab Jimmei (more content not included)... [facility]12-12-2024 History of Present illness Narrative* Darrell Bai MD - 09/13/2024 10:12 AM EST Virtual Visit utilizing both audio and video components [employer] I have communicated my name and active licensure. The patient's identity and physical location wereverified at the time of this visit. Either the patient or their legal entry level sales representative has been informed of the risks and benefits of -- and alternatives to -- treatment through a remote evaluation andconsents to proceed with the evaluation remotely. Patient location: at parents' home in [place], [place] Assessment / Plan Assessment: 1) Surgical hypothyroidism for resolution of Graves disease (she failed 2 rounds of tapazole). TSH ideal on 137 mcg/d levothyroxine, will continue her on this and followup in 6 months. 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 TG undetectable with low Ab 2) Vaccine hesitancy, never vaccinated against COVID. Plan: 1) increase the dose of levothyroxine to 137 mcg daily 2) return to dc in 6 months with labs before the visit. Darrell Bai MD Data Free T4 TSH Ref Rng 0.9 - 1.7 ng/dL 0.270 - 4.200 mIU/L 12/21/2022 1.9 (H) 0.266 (L) 02/16/2023 1.8 (H) 0.908 07/22/2023 1.6 5.300 (H) 08/15/2023 1.9 (H) 1.970 02/28/2024 1.5 4.530 (H) 09/11/2024 1.8 0.614 History Problem name: hypothyroidism Quality: postsurgical Severity: complete Duration: surgery 12/26/15 Context: 1) Graves disease, s/p failed 2 cycles of tapazole 2) Incidental papillary microcarcinoma, multifocal, largest nodule <0.1cm Modifying factors: levothyroxine 137 mc daily Thyroid CA History Surgery (12/26/15): total thyroidectomy, Dr. Ibarra Pathology (05/18/16): multifocal papillary microcarcinoma in right lobe, 2 foci, <0.1cm max diam, no extrathyroidal extension, one node=neg, Scan (05/18/16): not needed LOMBARDO (05/18/16): not needed Thyroglobulin Component Thyroglobulin TG Antibody Screen Latest Ref Rng & Units <14.4 IU/mL 10/15/2016 <0.2 (L) 2.1 04/27/2017 <0.2 (L) 1.4 03/23/2019 <0.2 <1.0 ([facility]) 01/28/2022 Janay Assay <0.2 <1.0 <4.0 IU/mL 02/28/2024 0.3 <0.9 Graves Ab Component TSI Latest Ref Rng <150 % Normal 08/11/2011 833 (H) Vitamin D Component Vitamin D 25 Hydroxy Latest Ref Rng 31.0 - 80.0 ng/mL 11/03/2015 24.9 (L) 12/06/18 49 (done at [facility]) ROS PHYSICAL EXAM PAST MED / [...] HYSTERECTOMY HX 2003 without bso LITHOTRIPSY ESWL FORT 2003 THYROIDECTOMY TOTAL/COMPLETE 12/23/2014 FAMILY HISTORY Problem Relation Age of Onset Breast Cancer Mother Ischemic Heart Disease Father Prostate Cancer Father Asthma Father COPD Father Heart Attack Brother other (Liver disease) Brother Social History Tobacco Use Smoking status: Never Smokeless tobacco: Never Vaping Use Vaping status: Never Used Substance Use Topics Alcohol use: Yes Alcohol/week: 2.6 standard drinks of alcohol Types: 2 Mixed Drinks per week Drug use: No MEDICATIONS & ALLERGIES Current Outpatient Medications Medication Sig Dispense Refill levothyroxine (LEVOXYL) 137 mcg tablet Take 1 tablet by mouth [...] daily. Olopatadine 0.6 % spry Use 1 [place] in each nostril once daily. (Patient not taking: Reported on 11/13/2021 ) Carbinoxamine Maleate (PALGIC) 4 mg ORAL Tab Take 1 tablet by mouth once daily. 0 COMPOUNDED PRESCRIPTION Allergy injections ever 2-3 weeks (Patient not taking: Reported on 11/13/2021 ) 0 No current facility-administered medications for this visit. ALLERGIES Allergen Reactions Chlorhexidine Rash [facility] Instructions* Patient Instructions* Darrell Bai MD - 03/01/2024 11:20 AM EDT Assessment / Plan Assessment: 1) Surgical hypothyroidism for resolution of Graves disease (she failed 2 rounds of tapazole). TSH up a little, may be because of some weight gain in last 6 months. I will ask her to up her dose [id number] to 137 mcg daily. 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 TG undetectable with low Ab 2) Vaccine hesitancy, never vaccinated against COVID. Plan: 1) increase the dose of levothyroxine to 137 mcg daily 2) return to dc in 6 months with labs before the visit. Darrell Bai MD Data Free T4 TSH Latest Ref Rng 0.9 - 1.7 ng/dL 0.270 - 4.200 mIU/L 12/21/2022 1.9 (H) 0.266 (L) 02/16/2023 1.8 (H) 0.908 07/22/2023 1.6 5.300 (H) 08/15/2023 1.9 (H) 1.970 02/28/2024 1.5 4.530 (H) documented in this encounter[facility] History of Present illness Narrative* Darrell Bai MD - 03/01/2024 11:08 AM EDT Virtual Visit utilizing both audio and video components [employer] I have communicated my name and active licensure. The patient's identity and physical location wereverified at the time of this visit. Either the patient or their legal entry level sales representative has been informed of the risks and benefits of -- and alternatives to -- treatment through a remote evaluation andconsents to proceed with the evaluation remotely. Patient location: at parents' home in [place], [place] Assessment / Plan Assessment: 1) Surgical hypothyroidism for resolution of Graves disease (she failed 2 rounds of tapazole). TSH up a little, may be because of some weight gain in last 6 months. I will ask her to up her dose [id number] to 137 mcg daily. 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 TG undetectable with low Ab 2) Vaccine hesitancy, never vaccinated against COVID. Plan: 1) increase the dose of levothyroxine to 137 mcg daily 2) return to dc in 6 months with labs before the visit. Darrell Bai MD Data Free T4 TSH Latest Ref Rng 0.9 - 1.7 ng/dL 0.270 - 4.200 mIU/L 12/21/2022 1.9 (H) 0.266 (L) 02/16/2023 1.8 (H) 0.908 07/22/2023 1.6 5.300 (H) 08/15/2023 1.9 (H) 1.970 02/28/2024 1.5 4.530 (H) History Problem name: hypothyroidism Quality: postsurgical Severity: [...] 04/27/2017 <0.2 (L) 1.4 03/23/2019 <0.2 <1.0 ([facility]) 01/28/2022 Janay Assay <0.2 <1.0 <4.0 IU/mL 02/28/2024 0.3 <0.9 Graves Ab Component TSI Latest Ref Rng <150 % Normal 08/11/2011 833 (H) Vitamin D Component Vitamin D 25 Hydroxy Latest Ref Rng 31.0 - 80.0 ng/mL 11/03/2015 24.9 (L) 12/06/18 49 (done at [facility]) ROS PHYSICAL EXAM PAST MED / [...] Substance Use Topics Alcohol use: Yes Alcohol/week: 2.6 standard drinks of alcohol Types: 2 Mixed [...] daily. Olopatadine 0.6 % spry Use 1 [place] in each nostril once daily. (Patient not taking: Reported on 11/13/2021 ) Carbinoxamine Maleate (PALGIC) 4 mg ORAL Tab Take 1 tablet by mouth once daily. 0 COMPOUNDED PRESCRIPTION Allergy injections ever 2-3 weeks (Patient not taking: Reported on 11/13/2021 ) 0 No current facility-administered medications for this visit. ALLERGIES Allergen Reactions Chlorhexidine Rash documented in this encounterAv[facility] History of Present illness Narrative* Wilber Wu MD - 2024 11:40 AM EDT Ronnie Cohen Meng 2024 58 y.o. Primary Care Physician: Richard Richards Chief Complaint Patient presents with Annual Exam HPI : Ronnie Cohen Meng is a 58 y.o. female here for annual exam On estrogen patch 0.025 mg for vasomotor symptoms, symptoms are well controlled. She tried to go off a couple months ago, but reports the hot flashes were not easily tolerated. Father in Oct 2021. She lives with her elderly Mother. S/p supracervical hysterectomy Gynecologic History: No LMP recorded. Patient has had a hysterectomy. Vaginal Bleeding in past year: No Sexually Active: Yes, with Rik of 29 years. Monogamous relationship. Feels safe. 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 Past Surgical History: Procedure Laterality Date APPENDECTOMY BREAST BIOPSY Left 2006 benign BREAST BIOPSY Right 2019 Benign fibrocystic changes SECTION (HISTORICAL) COLONOSCOPY 2019 COLONOSCOPY 2012 Excision of hyperplastic polyps FOOT SURGERY Right 2020 neuroma FOOT SURGERY 2011 FOOT SURGERY Right 08/13/2022 FOOT SURGERY Left 09/10/2022 HERNIA REPAIR Right PARTIAL HYSTERECTOMY 2005 Laparoscopic supracervical hysterectomy THYROIDECTOMY, COMPLETION (HISTORICAL) 2014 Graves' disease TUBAL LIGATION Family History Problem Relation Name Age of Onset Heart disease Father Heart attack Brother 56.00 Hypertension Father Prostate cancer Father No Known Problems Brother No Known Problems Other No Known Problems Maternal Grandmother No Known Problems Daughter No Known Problems Daughter Alzheimer's disease Paternal Grandfather Lung cancer Maternal Grandfather No Known Problems Son Breast cancer Mother 70.00 No Known Problems Paternal Grandmother Social History Socioeconomic History Marital status: Spouse name: Not on file Number of children: Not on file Years of education: Not on file Highest education level: Not on file Occupational History Not on file Tobacco Use Smoking status: Former Types: Cigarettes Smokeless tobacco: Never Vaping Use Vaping Use: Never used Substance and Sexual Activity Alcohol use: Yes Drug use: No Sexual activity: Yes Comment: Tubal ligation Other Topics Concern Not on file Social History Narrative Not on file Social Determinants of Health Financial Resource Strain: Low Risk (2024) Overall Financial Resource Strain (CARDIA) Difficulty of Paying Living Expenses: Not hard at all Food Insecurity: Not on file Transportation Needs: No Transportation Needs (2024) PRAPARE - Transportation Lack of Transportation (Medical): No Lack of Transportation (Non-Medical): No Physical Activity: Not on file Stress: No Stress Concern Present (2024) [employer] - Occupational Stress Questionnaire Feeling of Stress : Not at all Social Connections: Not on file Intimate Partner Violence: Not At Risk (2024) Humiliation, Afraid, Rape, and Kick questionnaire Fear of Current or Ex-Partner: No Emotionally Abused: No Physically Abused: No Sexually Abused: No Housing Stability: Unknown (2024) Housing Stability Vital Sign Unable to Pay for Housing in the Last Year: No Number of Places Lived in the Last Year: Not on file Unstable Housing in the Last Year: No MEDICATIONS: Current Outpatient Medications Medication Sig Dispense Refill calcitriol (Rocaltrol) 0.5 MCG capsule Take 0.5 mcg by mouth in the morning. gabapentin (Neurontin) 300 MG capsule Take 300 mg by mouth in the morning and 300 mg at noon and 300 mg in the evening. levothyroxine (Synthroid, Levoxyl) 137 MCG tablet take one a day, but only half pill on Tuesday (6 & 1/2 per week) Probiotic Product (Align) chewable tablet Chew. [START ON 02/16/2024] estradiol (Vivelle-DOT) 0.025 MG/24HR Place 1 patch on the skin Twice a Week. 24 patch 4 No current facility-administered medications for this visit. ALLERGIES: Allergies as of 2024 - Reviewed 2024 Allergen Reaction Noted Chlorhexidine Rash 12/06/2018 REVIEW OF SYSTEMS: CONSTIUTIONAL: No weight change or fatigue CV: No Chest Pain with Exertion, Palpitations, Syncope RESPIRATORY: No SOB or Cough BREAST: No breast abnormalities or lumps GI: No Bloody Stools or melena : No Dysuria or Hematuria. No Vaginal Discharge. No vaginal bleeding. No dyspareunia. Wears thin pad daily for UI. NEURO: No CVA, Migraines,Seizure Hx, or Limb Weakness DERM: No Rash, Itching, Mole Changes or Cancer PSYCH: Depression and anxiety controlled. No SI. MUSCULOSKELETAL: arthritis in hands HEME and LYMPH :No Lymphoma, Von Willebrand's, Hemophillia or Bleeding History PHYSICAL EXAM: Vitals: 02/14/24 1131 BP: 118/72 Pulse: 86 Weight: 156 lb 3.2 oz (70.9 kg) Height: 5' (1.524 m) Body mass index is 30.51 kg/m . TERMINAL SYSTEM OPERATOR: BREASTS: normal, no masses, tenderness or skin changes. EXTERNAL GENITALIA: normal female structures VAGINA: atrophy CERVIX: cervical stenosis, no lesions. UTERUS: N/A ADNEXA: normal, non tender no masses. URETHRA: normal. nontender BLADDER: non tender. PELVIC SUPPORT DEFECTS: Normal support of vagina, uterus, and bladder ANUS/PERINEUM: no hemorrhoids, masses or warts noted. GENERAL EXAM CONSTITUTIONAL: Well developed, well nourished, well groomed. no acute distress NECK: no thyromegaly, supple. CARDIOVASCULAR: normal rate, no edema LUNGS: Normal effort, ABDOMEN:soft, non-tender, non-distended, no hepatospleenomegaly NEUROLOGICAL: no gross motor or sensory deficits noted. . LYMPH NODES: no lymphadenapathy axillary or inguinal. SKIN: intact, dry MUSCULOSKELETAL: normal gait, no cyanosis. PSYCHIATRIC Normal mood and affect, A&O x3. ASSESSMENT/PLAN: Ronnie was seen today for annual exam. Diagnoses and all orders for this visit: Well woman exam with routine gynecological exam (Primary) Hot flashes - estradiol (Vivelle-DOT) 0.025 MG/24HR; Place 1 patch on the skin Twice a Week. Follow up in about 1 year (around 02/13/2025) for Annual. Routine health maintenance per patients PCP. documented in this [facility]03-25-2024 Evaluation + Plan note Extracted from: Title:Clinical Document Author:ALBERT RIZO Date:12/26/23 [place] ADMISSION HISTORY AN D PHYSICIAL CHIEF COMPLAINT: HISTORY OF PRESENT ILLNESS: REVIEW OF SYSTEMS: ACTIVE PROBLEMS: (6) GERD (gastroesophageal reflux disease) (621893519) Graves disease (088736982) Hemorrhoid ([id number]) Hypothyroidism (74322391) IBS (irritable bowel syndrome) (40548073) Melena ([id number]) MEDICATIONS: Active Inpt Meds: None Active PRN Meds: None One Time Meds: None Active IV Meds: Lactated Ringers Infusion 1,000 mL (LR 1,000 mL) Start: 12/26/23 7:57:00 EDT, Rate: 50 mL/hr, 12/26/23 7:57:00 EDT ALLERGIES: (1) NKA FAMILY HISTORY: SOCIAL HISTORY: PHYSICAL EXAM: VITALS: [id number](kg) 12/25 08:1236.3--728593--68/25 69.0 24 Hr Tmax: 36.3 at 12/25 08:12 36 Hr Tmax: 36.3 at 12/25 08:12 Vital Signs are the last 5 in the past 48 hours. Weights display the last 5 within 7 days. Initial Wt: 12/25 69.0 kg 152 lb Current Wt: 12/25 69.0 kg 152 lb GENERAL: HEENT: CARDIOVASCULAR: RESPIRATORY: ABDOMEN: EXREMETIES: NEUROLOGICAL: PSYCHIATRIC: LABS: No 36hr Lab Data DIAGNOSTICS: IMPRESSION: PLAN: History and Physical Update I have examined the patient; reviewed the H&P and there are no changes to the H&P unless noted below. [facility] 03-25-2024 Hospital Discharge instructions Patient Education 12/26/2023 10:00:28 Monitored Anesthesia Care, Care After Monitored Anesthesia Care, Care After These instructions provide you with information about caring for yourself after your procedure. Your health care provider may also give you more specific instructions. Your treatment has been plannedaccording to current medical practices, but problems sometimes occur. Call your health care provider if you have any problems or questions after your procedure. What can I expect after the procedure? After your procedure, you may: Feel sleepy for several hours. Feel clumsy and have poor balance for several hours. Feel forgetful about what happened after the procedure. Have poor judgment for several hours. Feel nauseous or vomit. Have a sore throat if you had a breathing tube during the procedure. Follow these instructions at home: For at least 24 hours after the procedure: Have a responsible adult stay with you. It is important to have someone help care for you until youare awake and alert. Rest as needed. Do not: ?Participate in activities in which you could fall or become injured. ?Drive. ?Use heavy machinery. ?Drink alcohol. ?Take sleeping pills or medicines that cause drowsiness. ?Make important decisions or sign legal documents. ?Take care of children on your own. Eating and drinking Follow the diet that is recommended by your health care provider. If you vomit, drink water, juice, or soup when you can drink without vomiting. Make sure you have little or no nausea before eating solid foods. General instructions Take [id number] and prescription medicines only as told by your health care provider. If you have sleep apnea, surgery and certain medicines can increase your risk for breathing problems. Follow instructions from your health care provider about wearing your sleep device: ?Anytime you are sleeping, including during daytime naps. ?While taking prescription pain medicines, sleeping medicines, or medicines that make you drowsy. If you smoke, do not smoke without supervision. Keep all follow-up visits as told by your health care provider. This is important. Contact a health care provider if: You keep feeling nauseous or you keep vomiting. You feel light-headed. You develop a rash. You have a fever. Get help right away if: You have trouble breathing. Summary For several hours after your procedure, you may feel sleepy and have poor judgment. Have a responsible adult stay with you for at least 24 hours or until you are awake and alert. This information is not intended to replace advice given to you by your health care provider. Make sure you discuss any questions you have with your health care provider. Document Released: 01/09/2017 Document Revised: 12/18/2018 Document Reviewed: 01/09/2017 [employer] Patient Education 2020 [employer]. 12/26/2023 10:00:25 9 - AO Minor Esophagogastroduodenoscopy (12/14) (CUSTOM) Esophagogastroduodenoscopy This is an endoscopic procedure (a procedure that uses a device like a flexible telescope) that allows your caregiver to view the upper stomach and small bowel. This test allows your caregiver to look at the esophagus. The esophagus carries food from your mouth to your stomach. They can also look at your duodenum. This is the first part of the small intestine that attaches to the stomach. This test is used to detect problems in the bowel such as ulcers and inflammation. MEANING OF TEST Your caregiver will go over the test results with you and discuss the importance and meaning of your results, as well as treatment options and the need for additional tests if necessary. OBTAINING THE TEST RESULTS Your caregiver s office will call you with the results of the test. POST SEDATION INSTRUCTIONS Rest at home today. Since your coordination may be impaired, be cautious on stairways, do not drive any vehicle or operate any heavy machinery, or use any sharp instruments for the remainder of the day. Do not drink any alcoholic beverages or make any major decisions for 24 hours. POST PROCEDURE INSTRUCTIONS Progress slowly with full liquids then resume previous diet and medications. Belching or passing of gas is to be expected. Notify the physician if you have severe chest pain, fever, or if difficulty when swallowing persists. 12/11/13 Custom Follow Up Care 12/15/2023 10:05:07 With:ALBERT RIZO MD Address: [address] [facility] [address] [place] [address] [phone] [facility]: [facility] Note Discharge Instructions Thank you for allowing [facility] to assist you with your healthcare needs. The following is importantdischarge information regarding your hospital visit. Your Care Team SUSIE CHAVEZ, RICHARD Rizo What to do next Follow Up Appointments Follow Up with ALBERT RIZO MD When Where: [address] [facility] [address] [place], [place] [id number] [phone] Allergies NKA Medications Please ask your primary doctor or pharmacist before taking any other medication not listed, including over the counter drugs, herbal medications, vitamins and or supplements as they may interact withyour home medications. What How Much When Instructions Last Dose Unchanged calcitriol (calcitriol 0.5 mcg oral capsule) 1 cap by mouth Every day Unchanged escitalopram (escitalopram 10 mg oral tablet) 1 tab(s) by mouth Once a day Unchanged gabapentin (gabapentin 300 mg oral capsule) 1 cap by mouth Two (2) times a day Unchanged ipratropium nasal (ipratropium 42 mcg/ inh (0.06%) nasal spray) instill 2 sprays in EACH nostril THREE TIMES DAILY NEEDED Unchanged levothyroxine (levothyroxine 125 mcg (0.125 mg) oral tablet) 1 tab(s) by mouth Once a day Unchanged omeprazole (omeprazole 40 mg oral delayed release capsule) TAKE 1 CAPSULE BY MOUTH DAILY Please take this list to your next doctor s visit. Bring all medications you take, including over the counter medications, herbals and other supplements with you to your doctor s visit. Patients and families are reminded to discard old lists and to update any records with all medication providers or retail pharmacies. Education Materials Monitored Anesthesia Care, Care After These instructions provide you with information about caring for yourself after your procedure. Your health care provider may also give you more specific instructions. Your treatment has been plannedaccording to current medical practices, but problems sometimes occur. Call your health care provider if you have any problems or questions after your procedure. What can I expect after the procedure? After your procedure, you may: Feel sleepy for several hours. Feel clumsy and have poor balance for several hours. Feel forgetful about what happened after the procedure. Have poor judgment for several hours. Feel nauseous or vomit. Have a sore throat if you had a breathing tube during the procedure. Follow these instructions at home: For at least 24 hours after the procedure: Have a responsible adult stay with you. It is important to have someone help care for you until youare awake and alert. Rest as needed. Do not: ? Participate in activities in which you could fall or become injured. ? Drive. ? Use heavy machinery. ? Drink alcohol. ? Take sleeping pills or medicines that cause drowsiness. ? Make important decisions or sign legal documents. ? Take care of children on your own. Eating and drinking Follow the diet that is recommended by your health care provider. If you vomit, drink water, juice, or soup when you can drink without vomiting. Make sure you have little or no nausea before eating solid foods. General instructions Take inln-xpt-nnzvgmu and prescription medicines only as told by your health care provider. If you have sleep apnea, surgery and certain medicines can increase your risk for breathing problems. Follow instructions from your health care provider about wearing your sleep device: ? Anytime you are sleeping, including during daytime naps. ? While taking prescription pain medicines, sleeping medicines, or medicines that make you drowsy. If you smoke, do not smoke without supervision. Keep all follow-up visits as told by your health care provider. This is important. Contact a health care provider if: You keep feeling nauseous or you keep vomiting. You feel light-headed. You develop a rash. You have a fever. Get help right away if: You have trouble breathing. Summary For several hours after your procedure, you may feel sleepy and have poor judgment. Have a responsible adult stay with you for at least 24 hours or until you are awake and alert. This information is not intended to replace advice given to you by your health care provider. Make sure you discuss any questions you have with your health care provider. Document Released: 01/09/2017 Document Revised: 12/18/2018 Document Reviewed: 01/09/2017 [employer] Patient Education 2020 [employer] Esophagogastroduodenoscopy This is an endoscopic procedure (a procedure that uses a device like a flexible telescope) that allows your caregiver to view the upper stomach and small bowel. This test allows your caregiver to look at the esophagus. The esophagus carries food from your mouth to your stomach. They can also look at your duodenum. This is the first part of the small intestine that attaches to the stomach. This test is used to detect problems in the bowel such as ulcers and inflammation. MEANING OF TEST Your caregiver will go over the test results with you and discuss the importance and meaning of your results, as well as treatment options and the need for additional tests if necessary. OBTAINING THE TEST RESULTS Your caregiver s office will call you with the results of the test. POST SEDATION INSTRUCTIONS Rest at home today. Since your coordination may be impaired, be cautious on stairways, do not drive any vehicle or operate any heavy machinery, or use any sharp instruments for the remainder of the day. Do not drink any alcoholic beverages or make any major decisions for 24 hours. POST PROCEDURE INSTRUCTIONS Progress slowly with full liquids then resume previous diet and medications. Belching or passing of gas is to be expected. Notify the physician if you have severe chest pain, fever, or if difficulty when swallowing persists. 12/11/13 Custom Additional Information VACCINATE! IT SAVES LIVES! Members of the community who have not yet received the COVID-19 vaccine and would like to receive it can visit one of [facility] vaccine clinics. There are many vaccine clinic locations within the [facility]. For locations and available times, please visit [email or web address].coronavirus.[place].gov/. It is important to note that some COVID mobile vaccine clinics are held outdoors and may be canceled in rainy or stormy conditions. To learn more about pediatric vaccinations (ages 5-11), we invite you to visit the [facility] webpage. https://www.[email or web address].org/pages/[email or web address]-Cnbem-Vhmdzqzxlll-Vndaytnouq-Xgdie-Qgd stions.htmlTo learn more about the COVID-19 vaccine, we invite you to visit the CDC website for a list of frequently asked questions.https://www.cdc.gov/coronavirus/2019-ncov/vaccines/faq.html [facility] Patient Portal Access Instructions: Stay connected with your healthcare team and access your personal medical information anytime with the [facility] Patient Portal. Please follow the directions below to create your [facility] account: 1.Access the email account you provided upon registration to the hospital/physician office.2.Look for an invitation email from [facility].3.Open the email and access the invitation link: AcceptInvitation to [facility].4.Fill in the required inman to create your account. To access your account, visit [email or web address]. Click the blue button labeled Access Patient Portal and then log in with the username and password that you created in the steps above. You will be able to view your test results, lab results, a summary of your visits, upcoming appointments and more. There is also a convenient messaging option where you can send secure messages to your p rovider. In addition, you will have the ability to download any documents or summaries to your computer and/or send the information securely to a physician. Remember that your healthcare information is confidential, so carefully consider who you will allowto register on the [facility] Patient Portal for access to your information. You can also access the [facility] Patient Portal on the [place] [facility] victoriano. Simply click on Patient Portal and then log into your account. If you would like to receive a full copy of your medical records, please contact the [facility] Medical Records Department by calling [phone], Tuesday through Tuesday between 8 a.m. and 4:30 p.m. HOW TO SAFELY DISPOSE OF PRESCRIPTION MEDICATIONS Please use one of the following methods to safely dispose of your unused medications. 1.Use a drug disposal kit: the drug disposal pouch allows you to safely discard your old and unuseddrugs. Ask your nurse to give you one when you are discharged.2.Visit a local take-back location: Many local pharmacies and police departments have programs that collect old and unwanted prescriptiondrugs. Call your local pharmacy or go to http://bit.[employer]/3A0As5n to find one close to you.3.Make use of household items: Use cat litter or old coffee grounds to dispose medications if other options arenot available. Mix your drugs with these household products, seal them in an airtight container andthrow it into the garbage. Call [facility]: [phone] to be sure your drugs can be disposed of in this way. Some medicines may require a different approach.4.Never flush your medications down the toilet. IF YOU HAVE BEEN PRESCRIBED AN OPIOID FOR PAIN If you have been prescribed an opioid (such as hydrocodone, oxycodone or morphine), it is critical to understand the possible side effects and risks of opioid pain medications. Even when taken as directed, opioids can have several side effects including: Tolerance, meaning you might need to take more of a medication for the same pain relief. Nausea, vomiting and/or constipation. Sleepiness, dizziness, dry mouth, confusion, depression or itching. Physical dependence, meaning you have withdrawal symptoms when a medication is stopped, can develop within a few days. KNOW YOUR RESPONSIBILITIES It is important to know exactly how much and how often to take the opioid pain medications you are prescribed. Never take opioids in higher amounts or more often than prescribed. Do not combine opioids with alcohol or other drugs that cause drowsiness, such as benzodiazepines, also known as benzos, including diazepam and alprazolam, muscle relaxants or sleep aids. Never sell or share prescription opioids. This is illegal. Store opioids in a secure place and out of reach of others (including children, family, friends and visitors). The last page of this document has been signed and retained as a CHART COPY. Signatures Patient Education Materials Monitored Anesthesia Care, Care After 9 - AO Minor Esophagogastroduodenoscopy (12/14) (CUSTOM) Medication Leaflets My discharge plan and instructions have been reviewed and explained to me and I,RONNIE HOPE understand my current condition and have read and understand these discharge instructions. I have received a written copy of the plan/instructions. If I have questions, I am aware that I should contact my d octor. 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 Signature: Date/Time: Relationship to Patient: Witness Name/Signature: Date/Time: [facility]03-25-2024 Anesthesiology Consult note Patient: RONNIE HOPE Age: 58 years Sex: Female : 1965 Associated Diagnoses: None Author: JOE MORIN Assessment Postanesthesia assessment Vitals: Vital signs from flowsheet : Vital Signs 12/26/2023 9:40 EDT Heart Rate Monitored 64 bpm bpm Respiratory Rate - Anes 15 br/min br/min Systolic Blood Pressure Non-Invasive 123 mmHg mmHg Diastolic Blood Pressure Non-Invasive 78 mmHg mmHg 12/26/2023 9:35 EDT Respiratory Rate - Anes 47 br/min br/min Systolic Blood Pressure Non-Invasive 135 mmHg mmHg Diastolic Blood Pressure Non-Invasive 74 mmHg mmHg 12/26/2023 8:12 EDT Temperature Temporal Artery 36.3 DegC Peripheral Pulse Rate 67 bpm Respiratory Rate 13 br/min LOW Systolic Blood Pressure Non-Invasive 113 mmHg Diastolic Blood Pressure Non-Invasive 84 mmHg , Measurements from flowsheet . Mental status: alert & oriented x 4. Respiratory function: respirations are non-labored. Respiratory support: none. CV function: Normal rate. Cardiovascular support: none. Pain. Nausea status: see nursing documentation of medications. Postoperative hydration status: within normal limits. Digitally Signed by JOE MORIN on 12/26/2023 09:46 AM [facility]03-25-2024 Anesthesiology Consult note Patient: RONNIE HOPE Age: 58 years Sex: Female : 1965 Associated Diagnoses: None Author: JOE MORIN Preoperative Information Time of last food or liquid consumption: 12/26/2023 00:00:00 Anesthesia history Patient's history: negative. Family's history: negative. Health Status Allergies: Allergic Reactions (Selected) NKA, Allergies (1) ActiveReaction NKANone Documented Current medications: (Selected) Inpatient Medications Ordered LR 1,000 mL: 50 mL/hr, Intravenous Documented Medications Documented calcitriol 0.5 mcg oral capsule: 0.5 mcg, 1 cap(s), Oral, Daily, 0 Refill(s) escitalopram 10 mg oral tablet: 10 mg, 1 tab(s), Oral, qDay, 30 tab(s), 0 Refill(s) gabapentin 300 mg oral capsule: 300 mg, 1 cap(s), Oral, BID, 60 cap(s), 0 Refill(s) ipratropium 42 mcg/inh (0.06%) nasal spray: instill 2 sprays in EACH nostril THREE TIMES DAILY NEEDED levothyroxine 125 mcg (0.125 mg) oral tablet: 125 mcg, 1 tab(s), Oral, qDay, 30 tab(s), 0 Refill(s) omeprazole 40 mg oral delayed release capsule: TAKE 1 CAPSULE BY MOUTH DAILY, Medications (1) Active Scheduled: (0) Continuous: (1) Lactated Ringers 1,000 mL 1,000 mL, Intravenous, 50 mL/hr PRN: (0) Problem list: Active Problems (6) GERD (gastroesophageal reflux disease) Graves disease Hemorrhoid Hypothyroidism IBS (irritable bowel syndrome) Melena Histories Past Medical History: No active or resolved past medical history items have been selected or recorded. Family History: No family history items have been selected or recorded. Procedure history: History of total thyroidectomy ([id number]). H/O: hysterectomy ([id number]). Social History Social & Psychosocial Habits No Data Available . Physical Examination Vital Signs 12/26/2023 8:12 EDT Temperature Temporal Artery 36.3 DegC Peripheral Pulse Rate 67 bpm Respiratory Rate 13 br/min LOW Systolic Blood Pressure Non-Invasive 113 mmHg Diastolic Blood Pressure Non-Invasive 84 mmHg Vital Signs(last 24 hrs) Last Charted APF091 mmHg (DEC 25 08:12) DBP84 mmHg (DEC 25 08:12) Measurements from flowsheet : Measurements 12/26/2023 8:12 EDT Height 152.4 cm Admission Weight 69 kg [place] Body Weight 45.50 kg Admission Body Mass Index 29.71 m2 Pain assessment: Pain Assessment 12/26/2023 8:12 EDT Primary Pain Intensity 0 Pain Scale Type 0-10 Pain scale . General: Alert and oriented. Airway: Normal temporomandibular joint mobility, Normal mouth, Normal neck range of motion. Mallampati classification: III (soft palate, base of uvula visible). Dentition Evaluation: Denies loose/chipped teeth. Respiratory: Respirations are non-labored. Cardiovascular: Normal rate. Neurologic: Alert, Oriented. Review / Management Results review: No qualifying data available , Lab results 12/26/2023 9:36 EDT SN - Proc - Anesthesia Type MAC SN - Proc - Actual Procedure ESOPHAGOGASTRODUODENOSCOPY 12/26/2023 9:35 EDT SN - PP - Body Position Lateral Right Side-up Standard Intra-op 12/26/2023 9:35 EDT SN - GCD - ASA Class 3 SN - GCD - Post-operative Diagnosis MELENA SN - GCD - Case Level OPD Level 3 12/26/2023 9:34 EDT [place] History and Physical 12/26/2023 9:33 EDT SN - CAt - Case Attendee SN - CAt - Case Attendee SN - CAt - Case Attendee SN - CAt - Case Attendee SN - CAt - Case Attendee SN - CAt - Case Attendee SN - CAt - Case Attendee SN - CAt - Case Attendee SN - CAt - Role Performed Primary Surgeon SN - CAt - Role Performed Frame Pulley Mortising Machine Operator 1 SN - CAt - Role Performed Television Writer SN - CAt - Role Performed INTERNATIONAL GUEST COORDINATOR 12/26/2023 8:21 EDT Lactated Ringers Injection Begin Bag 1,000 mL mL 12/26/2023 8:20 EDT Hand Right 22 gauge Peripheral IV Activity: Insert new site Peripheral IV Dressing Condition: Clean, Dry, Intact Peripheral IV Dressing Activity: Transparent dressing Peripheral IV Line Status/Patency: Continuous infusion Peripheral IV Site Condition: No complications Peripheral IV Equipment: Extension set Peripheral IV Number of Attempts: 1 12/26/2023 8:12 EDT Height 152.4 cm Admission Weight 69 kg [place] Body Weight 45.50 kg Admission Body Mass Index 29.71 m2 Temperature Temporal Artery 36.3 DegC Peripheral Pulse Rate 67 bpm Respiratory Rate 13 br/min LOW Systolic Blood Pressure Non-Invasive 113 mmHg Diastolic Blood Pressure Non-Invasive 84 mmHg Primary Pain Intensity 0 Pain Scale Type 0-10 Pain scale Heart Rhythm Regular Respirations Unlabored Oxygen Saturation 97 % Abdomen Description Non-distended, Soft Skin Temperature Warm Skin Description [place] Skin Integrity Intact Mucous Membrane Color [place] Neurological Symptoms Patient denies Characteristics of Speech Clear Level of Consciousness Alert Strength All Extremities Strong Affect/Behavior Appropriate, Calm, Cooperative Orientation Oriented x 4 Standard Safety ID band on, Call device within reach, Bed in low position, Wheels locked 12/26/2023 8:10 EDT IV Present Present Allergies Yes [employer] Teacher On Yes Consent Form Signed Yes Patient Dressed In Hospital gown History & Physical Update On Chart Yes History & Physical On Chart Yes Obstructive Sleep Apnea Assess Completed Yes Belongings At Bedside Pants, Shirt, Shoes Personal Home Medications Received No home medications were brought in NPO Status Maintained Patient ID Band on and Verified Yes Implants Verified Yes Site Verified by Patient/Family Yes Anesthesia Consent Signed Yes Last Fluid Intake 12/25/2023 20:00 Last Food Intake 12/25/2023 20:00 12/26/2023 8:06 EDT Designated Person #1 We May Share SHAKA Jolly Meng [phone] Designated Person #1 Relationship Spouse Status Sensory Deficits None Infectious Disease Symptoms Patient states no symptoms Infectious Disease Recent Exposure No Alcohol and Drug Use No Employee of Institutional Living No Health Care Employee No History of Exposure to TB No History of Positive Chest X-Ray for TB No History of Positive TB Skin Test No Homeless No Known Immunosuppression No Recent Immigrant No Resident of Institutional Living No Bloody Sputum No Fatigue No Fever No Loss of Appetite No Night Sweats No Persistent Cough > 3 Weeks No Weight Loss No Barriers to Learning None evident Teaching Method Demonstration Preferred Spoken Language Sammarinese Preferred Written Language Sammarinese Information Given by Patient Patient's Current Physicians Dr. Richards Discharge To, Anticipated Home with family care Prev Test Positive/Diagnosis w/COVID-19 No Current Quarantine/Isolated any Illness No Any Contact with Sick Animals/Birds No Traveled Anywhere in Last 30 Days Yes Travel Where Within [place] State[place]s) [place] Lost Weight Unintentionally Recently No Unable to obtain Personal Devices, Patient Valuables Glasses Admission Note-Nursing Procedure/Therapy Intake . Assessment and Plan [place] Society of Anesthesiologists (ASA) physical status classification: Class III. Anesthetic Preoperative Plan Anesthetic technique: MAC. Informed consent: signed by patient. Digitally Signed by JOE MORIN on 12/26/2023 09:39 AM [facility]03-25-2024 Note [place] ADMISSION HISTORY AND PHYSICIAL CHIEF COMPLAINT: HISTORY OF PRESENT ILLNESS: REVIEW OF SYSTEMS: ACTIVE PROBLEMS: (6) GERD (gastroesophageal reflux disease) (792514897) Graves disease (744020065) Hemorrhoid (972430600) Hypothyroidism (85166668) IBS (irritable bowel syndrome) (49756194) Melena ([id number]) MEDICATIONS: Active Inpt Meds: None Active PRN Meds: None One Time Meds: None Active IV Meds: Lactated Ringers Infusion 1,000 mL (LR 1,000 mL) Start: 12/26/23 7:57:00 EDT, Rate: 50 mL/hr, 12/26/23 7:57:00 EDT ALLERGIES: (1) NKA FAMILY HISTORY: SOCIAL HISTORY: PHYSICAL EXAM: VITALS: [id number](kg) 12/25 08:1236.3--723763--49/25 69.0 24 Hr Tmax: 36.3 at 12/25 08:12 36 Hr Tmax: 36.3 at 12/25 08:12 Vital Signs are the last 5 in the past 48 hours. Weights display the last 5 within 7 days. Initial Wt: 12/25 69.0 kg 152 lb Current Wt: 12/25 69.0 kg 152 lb GENERAL: HEENT: CARDIOVASCULAR: RESPIRATORY: ABDOMEN: EXREMETIES: NEUROLOGICAL: PSYCHIATRIC: LABS: No 36hr Lab Data DIAGNOSTICS: IMPRESSION: PLAN: History and Physical Update I have examined the patient; reviewed the H&P and there are no changes to the H&P unless noted below. Digitally Signed by ALBERT RIZO MD on 12/26/2023 09:36 AM [facility]12-04-2023 Telephone encounter Note* Telephone Encounter - Jonny Parmar MA - 09/05/2023 12:55 PM EST Spoke with patient, Patient will contact insurance [employer] and get back with us. [id number] Miscellaneous Notes* Telephone Encounter - Jonny Parmar MA - 09/05/2023 12:55 PM EST Spoke with patient, Patient will contact insurance [employer] and get back with us. * Telephone Encounter - Yolie Sanders - 08/30/2023 3:28 PM EST Name of caller: Ronnie Hope Contact phone number: [phone] Relationship to Patient: patient Provider: Dr Wu Practice: [facility] location Chief Complaint/Reason for Call: 08/30/23 Pt [...] return their call: Yes documented in this [facility]11-28-2023 Telephone encounter Note* Telephone Encounter - Yolie Sanders - 08/30/2023 3:28 PM EST Name of caller: Ronnie Hope Contact phone number: [phone] Relationship to Patient: patient Provider: Dr Wu Practice: [facility] location Chief Complaint/Reason for Call: 08/30/23 Pt calling to check to see if medication very expensive estradiol (Vivelle-DOT) 0.0375 MG/24HR asking if anything is comparable too but cheaper for her ? pt would like a call back to discuss options Best time of day caller can be reached: PM Patient advised that office/PCP has 24-48 business hours to return their call: Yes [id number] Instructions* Patient Instructions* Darrell Bai MD - 08/18/2023 7:08 PM EST Assessment / Plan Assessment: 1) Surgical hypothyroidism for resolution of Graves disease (she failed 2 rounds of tapazole). 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 TG undetectable with low Ab 2) Vaccine hesitancy, never vaccinated against COVID. Plan: 1) continue on 125 mcg levothyroxine daily. 2) return to dc in 6 months with labs before the visit. Darrell Bai MD Data Component Latest Ref Rng & Units 02/16/2023 07/22/2023 08/15/2023 Free T4 0.9 - 1.7 ng/dL 1.8 (H) 1.6 1.9 (H) TSH 0.270 - 4.200 mIU/L 0.908 5.300 (H) 1.970 documented in this [facility] History of Present illness Narrative* Darrell Bai MD - 08/18/2023 6:59 PM EST Virtual Visit utilizing both audio and video components MyChart-Zoom I have communicated my name and active licensure. The patient's identity and physical location wereverified at the time of this visit. Either the patient or their legal entry level sales representative has been informed of the risks and benefits of -- and alternatives to -- treatment through a remote evaluation andconsents to proceed with the evaluation remotely. Patient location: at parents' home in [place], [place] Assessment / Plan Assessment: 1) Surgical hypothyroidism for resolution of Graves disease (she failed 2 rounds of tapazole). 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 TG undetectable with low Ab 2) Vaccine hesitancy, never vaccinated against COVID. Plan: 1) continue on 125 mcg levothyroxine daily. 2) return to dc in 6 months with labs before the visit. Darrell Bai MD Data Component Latest Ref Rng & Units 02/16/2023 07/22/2023 08/15/2023 Free T4 0.9 - 1.7 ng/dL 1.8 (H) 1.6 1.9 (H) TSH 0.270 - 4.200 mIU/L 0.908 5.300 (H) 1.970 History Problem name: hypothyroidism Quality: postsurgical Severity: complete Duration: surgery 325/16 Context: 1) Graves disease, s/p failed 2 [...] 04/27/2017 <0.2 (L) 1.4 03/23/2019 <0.2 <1.0 ([facility]) Graves Ab Component TSI Latest Ref Rng <150 % Normal 08/11/2011 833 (H) Vitamin D Component Vitamin D 25 Hydroxy Latest Ref Rng 31.0 - 80.0 ng/mL 11/03/2015 24.9 (L) 12/06/18 49 (done at [facility]) ROS PHYSICAL EXAM PAST MED / [...] daily. Olopatadine 0.6 % spry Use 1 [place] in each nostril once daily. (Patient not taking: Reported on 11/13/2021 ) Carbinoxamine Maleate (PALGIC) 4 mg ORAL Tab Take 1 tablet by mouth once daily. 0 COMPOUNDED PRESCRIPTION Allergy injections ever 2-3 weeks (Patient not taking: Reported on 11/13/2021 ) 0 No current facility-administered medications for this visit. ALLERGIES Allergen Reactions Chlorhexidine Rash documented in this encounterAv[facility]04-24-2023 Telephone encounter Note * Telephone Encounter - Courtney Saleem MA - 01/24/2023 10:39 AM EDT 01/24/23 Pt requesting Estradiol 0.0375 mg patch Last visit 12/14/22 Next visit [place] [id number] Miscellaneous Notes* Telephone Encounter - Courtney Saleem MA - 01/24/2023 10:39 AM EDT 01/24/23 Pt requesting Estradiol 0.0375 mg patch Last visit 12/14/22 Next visit documented in this encounterSMcKitrick [id number] Telephone encounter Note* Telephone Encounter - Mai Stevenson - 01/24/2023 8:16 AM EDT Name of caller: Ronnie Contact phone number: [phone] Relationship to Patient: patient Provider: Bryce Practice: [facility] Oralia Guzman Chief Complaint/Reason for Call: Patient reported that her estradiol (Vivelle- DOT) 0.025 MG/24HR isnot working to control her hot flashes. Patient requesting to go back to the marco a dose - estradiol(Vivelle-DOT) 0.0375 MG/24HR. Please advise. Best time of day caller can be reached: Any Patient advised that office/PCP has 24-48 business hours to return their call: No [place] [id number] Miscellaneous Notes* Telephone Encounter - Mai Stevenson - 01/24/2023 8:16 AM EDT Name of caller: Ronnie Contact phone number: [phone] Relationship to Patient: patient Provider: Bryce Practice: [facility] Oralia Guzman Chief Complaint/Reason for Call: Patient reported that her estradiol (Vivelle- DOT) 0.025 MG/24HR isnot working to control her hot flashes. Patient requesting to go back to the marco a dose - estradiol(Vivelle-DOT) 0.0375 MG/24HR. Please advise. Best time of day caller can be reached: Any Patient advised that office/PCP has 24-48 business hours to return their call: No documented in this [facility]03-14-2023 History of Present illness Narrative* Wilber Wu MD - 12/14/2022 8:20 AM EDT Ronnie Cohen Meng 12/14/2022 57 y.o. Primary Care Physician: Richadr Richards Chief Complaint Patient presents with Annual Exam La/pap 11/03/21, mamm 01/11/22 HPI : Ronnie Cohen Meng is a 57 y.o. female here for annual exam. On estrogen patch 0.0375 mg for vasomotor symptoms, symptoms are well controlled and she would liketo eventually discontinue. Requests decreasing to 0.025 mg. Father in Oct 2021. She lives with her elderly Mother. S/p supracervical hysterectomy Gynecologic History: No LMP recorded. Patient has had a hysterectomy. Vaginal Bleeding in past year: No Sexually Active: Yes, with Rik of 29 years. Monogamous relationship. Feels safe. 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 Past Surgical History: Procedure Laterality Date APPENDECTOMY BREAST BIOPSY Left 2009 BREAST BIOPSY Right 2019 Benign fibrocystic changes SECTION (HISTORICAL) COLONOSCOPY 2019 COLONOSCOPY 2012 Excision of hyperplastic polyps FOOT SURGERY Right 2020 neuroma FOOT SURGERY 2011 FOOT SURGERY Right 08/13/2022 FOOT SURGERY Left 09/10/2022 HERNIA REPAIR Right PARTIAL HYSTERECTOMY 2005 Laparoscopic supracervical hysterectomy THYROIDECTOMY, COMPLETION (HISTORICAL) 2014 Graves' disease TUBAL LIGATION Family History Problem Relation Name Age of Onset Heart disease Father Heart attack Brother 56.00 Hypertension Father Prostate cancer Father No Known Problems Brother No Known Problems Other No Known Problems Maternal Grandmother No Known Problems Daughter No Known Problems Daughter Alzheimer's disease Paternal Grandfather Lung cancer Maternal Grandfather No Known Problems Son Breast cancer Mother 70.00 No Known Problems Paternal Grandmother Social History Socioeconomic History Marital status: Spouse name: Not on file Number of children: Not on file Years of education: Not on file Highest education level: Not on file Occupational History Not on file Tobacco Use Smoking status: Never Smokeless tobacco: Never Vaping Use Vaping Use: Never used Substance and Sexual Activity Alcohol use: Yes Drug use: No Sexual activity: Yes Comment: Tubal ligation Other Topics Concern Not on file Social History Narrative Not on file Social Determinants of Health Financial Resource Strain: Not on file Food Insecurity: Not on file Transportation Needs: Not on file Physical Activity: Not on file Stress: Not on file Social Connections: Not on file Intimate Partner Violence: Not on file Housing Stability: Not on file MEDICATIONS: Current Outpatient Medications Medication Sig Dispense Refill calcitriol (Rocaltrol) 0.5 MCG capsule Take 0.5 mcg by mouth in the morning. escitalopram (Lexapro) 10 MG tablet Take 10 mg by mouth. gabapentin (Neurontin) 300 MG capsule Take 300 mg by mouth in the morning and 300 mg at noon and 300 mg in the evening. levothyroxine (Synthroid, Levoxyl) 137 MCG tablet take one a day, but only half pill on Tuesday (6 & 1/2 per week) Probiotic Product (Align) chewable tablet Chew. aspirin 81 MG EC tablet Take 81 mg by mouth in the morning. [START ON 12/16/2022] estradiol (Vivelle-DOT) 0.025 MG/24HR Place 1 patch on the skin Twice a Week. 24 patch 4 Potassium Gluconate 2.5 MEQ tablet Take by mouth. therapeutic multivitamin-minerals (Theragran-M) tablet Take 1 tablet by mouth daily. No current facility-administered medications for this visit. ALLERGIES: Allergies as of 12/14/2022 - Reviewed 12/14/2022 Allergen Reaction Noted Chlorhexidine Rash 12/06/2018 REVIEW OF SYSTEMS: CONSTIUTIONAL: No unexpected weight change or fatigue CV: No Chest Pain with Exertion, Palpitations, Syncope RESPIRATORY: No SOB or Cough BREAST: No breast abnormalities or lumps GI: No Bloody Stools or melena : No Dysuria or Hematuria. No Vaginal Discharge. No vaginal bleeding. No dyspareunia. Wears thin pad daily for UI. NEURO: No CVA, Migraines,Seizure Hx, or Limb Weakness DERM: No Rash, Itching, Mole Changes or Cancer PSYCH: Depression and anxiety controlled. No SI. MUSCULOSKELETAL: arthritis in hands HEME and LYMPH :No Lymphoma, Von Willebrand's, Hemophillia or Bleeding History PHYSICAL EXAM: Vitals: 12/14/22 0823 BP: 110/70 Temp: 36.2 C (97.1 F) TempSrc: Temporal Weight: 155 lb 9.6 oz (70.6 kg) Body mass index is 30.39 kg/m . TERMINAL SYSTEM OPERATOR: BREASTS: normal, no masses, tenderness or skin changes. EXTERNAL GENITALIA: normal female structures VAGINA: atrophy CERVIX: cervical stenosis, no lesions. UTERUS: N/A ADNEXA: normal, non tender no masses. URETHRA: normal. nontender BLADDER: non tender. PELVIC SUPPORT DEFECTS: Normal support of vagina, uterus, and bladder ANUS/PERINEUM: no hemorrhoids, masses or warts noted. GENERAL EXAM CONSTITUTIONAL: Well developed, well nourished, well groomed. no acute distress NECK: no thyromegaly, supple. CARDIOVASCULAR: normal rate, no edema LUNGS: Normal effort, ABDOMEN:soft, non-tender, non-distended, no hepatospleenomegaly NEUROLOGICAL: no gross motor or sensory deficits noted. . LYMPH NODES: no lymphadenapathy axillary or inguinal. SKIN: intact, dry MUSCULOSKELETAL: normal gait, no cyanosis. PSYCHIATRIC Normal mood and affect, A&O x3. ASSESSMENT/PLAN: Ronnie was seen today for annual exam. Diagnoses and all orders for this visit: Well woman exam with routine gynecological exam (Primary) - Bilateral screening mammogram with tomosynthesis; Future Hot flashes - estradiol (Vivelle-DOT) 0.025 MG/24HR; Place 1 patch on the skin Twice a Week. Follow up in about 1 year (around 12/15/2023) for Annual. Routine health maintenance per patients PCP. documented in this [facility]03-09-2023 Telephone encounter Note* Telephone Encounter - Chris Lou LPN - 12/09/2022 10:44 AM EST S: Patient called the clinical access center refill line to request refill on the estradiol (Vivelle-DOT) 0.0375 MG/24HR B:Last filled 11/30/22 for #8 with no refills by [facility]. This was printed not Escribed and pt does nothave it. Called pharmacy to give verbal per protocol less than 30 days from prescribed. Pt state she will be out on Tuesday. A:Last annual:11/03/21 [place]:12/14/22 [id number] Pharmacist- Konstantine [address] [place], [place] [id number] R:Called pt let her know script called into the pharmacy. Left message. [facility] [id number] Miscellaneous Notes* Telephone Encounter - Chris Lou LPN - 12/09/2022 10:44 AM EST S: Patient called the clinical access center refill line to request refill on the estradiol (Vivelle-DOT) 0.0375 MG/24HR B:Last filled 11/30/22 for #8 with no refills by [facility]. This was printed not Escribed and pt does nothave it. Called pharmacy to give verbal per protocol less than 30 days from prescribed. Pt state she will be out on Tuesday. A:Last annual:11/03/21 [place]:12/14/22 [id number] Pharmacist- Konstantine [address] [place] [id number] R:Called pt let her know script called into the pharmacy. Left message. documented in this [facility]02-28-2023 Telephone encounter Note* Telephone Encounter - Antonia Lugo MA - 11/30/2022 1:59 PM EST Last seen 01/11/22 [facility] [id number] Miscellaneous Notes* Telephone Encounter - Antonia Lugo MA - 11/30/2022 1:59 PM EST Last seen 01/11/22 documented in this [facility]01-16-2023 Telephone encounter Note* Telephone Encounter - Antonia Lugo MA - 10/18/2022 9:03 AM EST Next appt 11/09/22 [facility] [id number] Miscellaneous Notes* Telephone Encounter - Antonia Lugo MA - 10/18/2022 9:03 AM EST Next appt 11/09/22 documented in this [facility]01-05-2023 Telephone encounter Note* Telephone Encounter - Antonia Lguo MA - 10/07/2022 4:13 PM EST Next appt 11/09/22 [facility] [id number] Miscellaneous Notes* Telephone Encounter - Antonia Lugo MA - 10/07/2022 4:13 PM EST Next appt 11/09/22 documented in this [facility]11-11-2022 Hospital Discharge instructions Additional Instructions Patient keep dressing dry and intact and follow-up in 1 week. Patient remain nonweightbearing in her cam walking boot assisted by either crutches or knee scooter until incision healing at approximately 2 to 3 weeks. Patient will take daily 81 mg aspirin for DVT prophylaxis. Prescription for oxycodone 5 mg and Zofran were prescribed, patient will take this as directed Patient will rest as much as possible and avoid any prolonged standing or crouching. Patient should elevate limb above the level of heart while at rest. Patient should ice behind the knee 3 times a day for 15 minutes.[facility] Work Phone: [phone]) 786-999805-16-2022 Instructions* Patient Instructions* Darrell Bai MD - 02/15/2022 4:01 PM [...] rest of the week. 2) return to dc in 1 year, with labs before the visit, by virtual visit Darrell Bai MD Data Review Component Latest Ref Rng & Units 01/28/2022 TSH 0.270 - 4.200 mIU/L 0.393 Free T4 0.9 - 1.7 ng/dL 1.7 Thyroglobulin Ab <14.4 IU/mL <1.0 Thyroglobulin 1.6 - 59.9 ng/mL <0.2 (L) documented in this encounterAvita [facility]05-16-2022 History of Present illness Narrative* Darrell Bai MD - 02/15/2022 3:40 PM EDT This Team Access Model visit is a phone encounter. It required patient-provider interaction for themedical decision making as documented below. The patient [...] 04/27/2017 <0.2 (L) 1.4 03/23/2019 <0.2 <1.0 ([facility]) Graves Ab Component TSI Latest Ref Rng <150 % Normal 08/11/2011 833 (H) Vitamin D Component Vitamin D 25 Hydroxy Latest Ref Rng 31.0 - 80.0 ng/mL 11/03/2015 24.9 (L) 12/06/18 49 (done at [facility]) ROS PHYSICAL EXAM PAST MED / [...] daily. Olopatadine 0.6 % spry Use 1 [place] in each nostril once daily. (Patient not taking: Reported on 11/13/2021 ) Carbinoxamine Maleate (PALGIC) 4 mg ORAL Tab Take 1 tablet by mouth once daily. 0 COMPOUNDED PRESCRIPTION Allergy injections ever 2-3 weeks (Patient not taking: Reported on 11/13/2021 ) 0 No current facility-administered medications for this visit. ALLERGIES Allergen Reactions Chlorhexidine Rash documented in this encounterAvita [facility]04-25-2022 Miscellaneous Notes* Telephone Encounter - Monserrat Jordan - 01/25/2022 9:04 AM EDT Patient scheduled for first VV available 02/[address] Bai. Patient requesting lab work be ordered for her to complete prior to visit and for her levothyroxine to be refilled because she just took her last one today. Callback: [phone] Thank you documented in this encounterAvita [facility]04-21-2022 Miscellaneous Notes* Telephone Encounter - Monserrat Jordan - 01/21/2022 2:20 PM EDT Patient has been identified by name and date of : Yes RX INSTRUCTIONS: Patient aware RX will be sent to pharmacy. No need to notify patient. Pharmacy verified:Yes Monserrat Jordan e- [id number] [place] [address] [address] [facility] [phone] [facility] [id number] documented [facility] this [facility] noteNo assessment information availableWMercy Health St. [facility] Work Phone: Evaluation note* Diagnosis Postsurgical hypothyroidism- Primary Papillary microcarcinoma of thyroid (HCC) documented [facility]* Diagnosis Postsurgical hypothyroidism- Primary documented in this encounter [facility] note* Diagnosis Onset Date Resolution Status Prieto's neuroma of right foot acute Neuroma of second interspace of right foot acute [facility] Work Phone: Evaluation note* Diagnosis Onset Date Resolution Status Prieto's neuroma of right foot acute Neuroma of second interspace of right foot acute Neuroma of second interspace of left foot acute [facility] Work Phone: Evaluation note* Diagnosis Hot flashes- Primary documented in this encounter [facility] note* Diagnosis Postsurgical hypothyroidism- Primary documented in this encounter [facility] note* Diagnosis Well woman exam with routine gynecological exam- Primary Routine gynecological examination Hot flashes documented in this encounter [facility] note* Diagnosis Encounter for screening mammogram for malignant neoplasm of breast [facility]* Diagnosis Postsurgical hypothyroidism- Primary documented in this encounter [facility]* Diagnosis Postsurgical hypothyroidism- Primary documented in this encounter [facility]* Diagnosis Encounter for screening mammogram for malignant neoplasm of breast- Primary Encounter for screening mammogram for malignant neoplasm of breast documented [facility] this [facility]* Diagnosis Preoperative examination- Primary Preoperative examination, unspecified Breast calcifications Other (abnormal) findings on radiological examination of breast Papillary microcarcinoma of thyroid (HCC) Postsurgical hypothyroidism- Primary documented in this encounter [facility]* Diagnosis Well woman exam with routine gynecological exam- Primary Routine gynecological examination Hot flashes documented [facility]* Diagnosis Preoperative examination- Primary Preoperative examination, unspecified Breast calcifications Other (abnormal) findings on radiological examination of breast Papillary microcarcinoma of thyroid (HCC) Postsurgical hypothyroidism- Primary documented in this encounter [facility]* Diagnosis Well woman exam with routine gynecological exam- Primary Routine gynecological examination Screening mammogram for breast cancer documented in this [facility]* Diagnosis Screening mammogram for breast cancer documented in this [facility]* Diagnosis Preoperative examination- Primary Preoperative examination, unspecified Breast calcifications Other (abnormal) findings on radiological examination of breast Papillary microcarcinoma of thyroid (HCC) Postsurgical hypothyroidism- Primary documented in this encounter [facility]* Diagnosis Hot flashes [facility] Narrative No data available for this section [facility] Discharge instructions Additional Instructions Keep dressing clean dry and intact left lower extremity until follow-up. remain nonweightbearing using knee scooter until follow-up. Take prescriptions as directed. Elevate left lower extremity above level of heart while at rest in the supine position. Take baby aspirin 81 mg daily for DVT prophylaxis. Follow-up in 1 week for dressing change, patient can ice behind knee 3 times a day for 15 minutes at a time to help with pain and swelling.[facility] Work Phone: Hospital Discharge instructionsAmbulatory Orders* Prior Authorization Referral - ONC/HEM Location: None Selected [facility] Work Phone: Reason for referral (narrative)No reason for referral information availableWMercy Health St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 Advance Directive(s) 11/05/2020 7:33 PM Advance Directive(s) 12/01/2018 8:14 AM Advance Directive(s) 09/19/2018 2:14 PM Advance Directive Response Recorded Date/ Time Living Will No August 06 12:06pm Power of Gear Tooth Lapping 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 Operator No August 06, 2022 12:06pm Advance Directive Response Recorded Date/ Time Living Will No September 03 3:34pm Power of Gear Tooth Lapping Machine Operator No September 03, 2022 3:34pm Advance Directive Response Recorded Date/ Time Living Will No September 03 4:34pm Power of Gear Tooth Lapping Machine Operator No September 03, 2022 4:34pm Chief Complaint and Reason for Visit Chief Complaint SP EORDER LEFT FOOT PAIN Chief Complaint SP EORDER LEFT FOOT PAIN CAPSULITIS, FOOT PAIN Chief Complaint RT EXCISION OF FOOT 2ND INTERSPACE STUMP NEUROMA Reason for Visit Prieto's neuroma of right foot Neuroma of second interspace of right foot Chief Complaint RT EXCISION OF FOOT 2ND INTERSPACE STUMP NEUROMA EXC NEUROMA LEFT FOOT Reason for Visit Prieto's neuroma of right foot Neuroma of second interspace of right foot Neuroma of second interspace of left foot Chief Complaint EORDER Chief Complaint Admit Date 2OOMG VENOFER December 05, 2024 10:5 8am 2OOMG VENOFER December 07, 2024 8:52 am Chief Complaint Admit Date 2OOMG VENOFER December 05, 2024 10:5 8am 2OOMG VENOFER December 07, 2024 8:52 am 2OOMG VENOFER December 10, 2024 10: 21am Chief Complaint Admit Date 2OOMG VENOFER December 05, 2024 10:5 8am 2OOMG VENOFER December 07, 2024 8:52 am 2OOMG VENOFER December 10, 2024 10: 21am 2OOMG VENOFER December 12, 2024 10: 38am Chief Complaint Admit Date 2OOMG VENOFER December 05, 2024 10:5 8am 2OOMG VENOFER December 07, 2024 8:52 am 2OOMG VENOFER December 10, 2024 10: 21am 2OOMG VENOFER December 12, 2024 10: 38am 2OOMG VENOFER December 14, 2024 10: 28am Chief Complaint Admit Date 2OOMG VENOFER December 05, 2024 10:5 8am 2OOMG VENOFER December 07, 2024 8:52 am 2OOMG VENOFER December 10, 2024 10: 21am 2OOMG VENOFER December 12, 2024 10: 38am 2OOMG VENOFER December 14, 2024 10: 28am Anemia December 19, 2024 2:3 9pm MED ONC December 19, 2024 3:4 7pm EORDER December 20, 2024 11: 45am Reason for Visit Admit Date Anemia December 19, 2024 2:3 9pm Hemorrhoids December 19, 2024 2:3 9pm Chief Complaint Admit Date 2OOMG VENOFER December 05, 2024 10:5 8am 2OOMG VENOFER December 07, 2024 8:52 am 2OOMG VENOFER December 10, 2024 10: 21am 2OOMG VENOFER December 12, 2024 10: 38am 2OOMG VENOFER December 14, 2024 10: 28am Anemia December 19, 2024 2:3 9pm EORDER December 20, 2024 11: 45am MED ONC January 15, 2025 9:4 3am [facility] SWITCHED T0 DR Bradley January [id number] 12:50pm SEE ORDER March 20, 2025 2:12 pm [facility] PR[facility] March 28, 2025 1:31 pm Reason for Visit Admit Date Anemia December 19, 2024 2:3 9pm Hemorrhoids December 19, 2024 2:3 9pm Iron deficiency anemia due to chronic bl ood loss January 16, 2025 12:50pm Iron deficiency anemia due to chronic bl ood loss March 28, 2025 1:31pm Chief Complaint Admit Date [facility] PR[facility] SWITCHED T0 DR Bradley January [id number] 12:50pm SEE ORDER March 20, 2025 2:12 pm [facility] PRIOR March 28, 2025 1:31 pm MED ONC April 25, 2025 10:0 0am CONSULT TO DISCUSS CAPSULE May 03 9:21am Reason for Visit Admit Date Iron deficiency anemia due to chronic bl ood loss January 16, 2025 12:50pm Iron deficiency anemia due to chronic bl ood loss March 28, 2025 1:31pm Additional Source Comments INFORMATION SOURCE (unrecogn ized section and content) DATE CREATED AUTHOR 11/06/2020 [facility] [place] DATE CREATED AUTHOR AUTHOR'S ORGANIZ ATION 01/12/2022 [facility] DATE CREATED AUTHOR AUTHOR'S ORGANIZ ATION 01/02/2024 [facility] ([place]) DATE CREATED AUTHOR AUTHOR'S ORGANIZ ATION 04/05/2025 [facility] DATE CREATED AUTHOR AUTHOR'S ORGANIZ ATION 04/21/2025 [facility] DATE CREATED AUTHOR AUTHOR'S ORGANIZ ATION 04/24/2025 [facility] DATE CREATED AUTHOR AUTHOR'S ORGANIZ ATION 05/14/2025 [facility] DATE CREATED AUTHOR AUTHOR'S ORGANIZ ATION 05/20/2025 [facility] Goals (unrecognized section and content) Goals may be documented in a n alternate sectionGoals may be documented in an alternate sectionGoals may be documented in an alternate sectionGoals may be documented in an alternate sectionGoals may be documented in an alternate sectionGoals may be documented in an alternate sectionGoals may be documented in an alternate sectionGoals may be documented in an alternate sectionGoals may be documented in an alternate section No data available for this sectionGoals may be documented in an alternate sectionGoals may be documented in an alternate sectionGoals may be documented in an alternate sectionGoals may be documented in an alternate sectionGoals may be documented in an alternate sectionGoals may be documented in an alternate sectionGoals may be documented in an alternate section No data available for this sectionGoals may be documented in an alternate sectionGoals may be documented in an alternate section Source Comments (unrecognize d section and content) In the event this informatio n is protected by the Federal Confidentiality of Alcohol and Drug Abuse Patient Records regulations: The Federal rules restrict any use of the information to criminally investigate or prosecute any alcohol or drug abuse patient.[facility] the event this information is protected by the Federal Confidentiality of Alcohol and Drug Abuse Patient Records regulations: The Federal rules restrict any use of the information to criminally investigate or prosecute any alcohol or drug abuse patient.[facility] HospitalIn the event this information is protected by the Federal Confidentiality of Alcohol and Drug Abuse Patient Records regulations: The Federal rules restrict any use of the information to criminally investigate or prosecute any alcohol or drug abuse patient.[facility] HospitalIn the event this information is protected by the Federal Confidentiality of Alcohol and Drug Abuse Patient Records regulations: The Federal rules restrict any use of the information to criminally investigate or prosecute any alcohol or drug abuse patient.[facility] HospitalIn the event this information is protected by the Federal Confidentiality of Alcohol and Drug Abuse Patient Records regulations: The Federal rules restrict any use of the information to criminally investigate or prosecute any alcohol or drug abuse patient.[facility] HospitalIn the event this information is protected by the Federal Confidentiality of Alcohol and Drug Abuse Patient Records regulations: The Federal rules restrict any use of the information to criminally investigate or prosecute any alcohol or drug abuse patient.[facility] HospitalIn the event this information is protected by the Federal Confidentiality of Alcohol and Drug Abuse Patient Records regulations: The Federal rules restrict any use of the information to criminally investigate or prosecute any alcohol or drug abuse patient.[facility] HospitalIn the event this information is protected by the Federal Confidentiality of Alcohol and Drug Abuse Patient Records regulations: The Federal rules restrict any use of the information to criminally investigate or prosecute any alcohol or drug abuse patient.[facility] HospitalIn the event this information is protected by the Federal Confidentiality of Alcohol and Drug Abuse Patient Records regulations: The Federal rules restrict any use of the information to criminally investigate or prosecute any alcohol or drug abuse patient.[facility] HospitalIn the event this information is protected by the Federal Confidentiality of Alcohol and Drug Abuse Patient Records regulations: The Federal rules restrict any use of the information to criminally investigate or prosecute any alcohol or drug abuse patient.[facility] HospitalIn the event this information is protected by the Federal Confidentiality of Alcohol and Drug Abuse Patient Records regulations: The Federal rules restrict any use of the information to criminally investigate or prosecute any alcohol or drug abuse patient.[facility] HospitalIn the event this information is protected by the Federal Confidentiality of Alcohol and Drug Abuse Patient Records regulations: The Federal rules restrict any use of the information to criminally investigate or prosecute any alcohol or drug abuse patient.[facility] HospitalIn the event this information is protected by the Federal Confidentiality of Alcohol and Drug Abuse Patient Records regulations: The Federal rules restrict any use of the information to criminally investigate or prosecute any alcohol or drug abuse patient.[facility] HospitalIn the event this information is protected by the Federal Confidentiality of Alcohol and Drug Abuse Patient Records regulations: The Federal rules restrict any use of the information to criminally investigate or prosecute any alcohol or drug abuse patient.[facility] Reason for Visit (unrecogniz ed section and content) Reason Onset Date Comments Refill Request 01/21/2022 Reason Comments thyroid Reason Comments Med Refill Reason Onset Date Comments Medication Problem 01/24/2023 Reason Comments Thyroid Problem Reason Onset Date Comments Medication Problem 08/30/2023 08/30/23 Pt c alling to check to see if medication very expensive estradiol (Vivelle-DOT) 0.0375 MG/24HR asking if anything is comparable too but cheaper for her ? 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 Ayan Richards MD Family Provider Active Dr. Ayan Richards MD Primary Care Provider Activ e Team Status: Inactive Member Role Status Dates Dr. Ayan Richards MD Primary Care Provider Activ e Dr. Hernando Gonzalez DPM Attending Provider, Referring Provider Active Team Status: Inactive Member Role Status Dates Dr. 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 Ayan Richards MD Primary Care Provider Activ e Dr. Fredo Lai MD Attending Provider Active Team Status: Active Member Role Status Dates Dr. Richard Richards MD Family Provider Active Dr. Richard Richards MD Primary Care Provider Acti ve Team Status: Inactive Member Role Status Dates Dr. Richard Richards MD Primary Care Provider, Attending Provider, Referring Provider Active Team Status: Inactive Member Role Status Dates Dr. Richard Richards MD Primary Care Provider Acti ve Dr. Fredo Lai MD Attending Provider Active Team Status: Inactive Member Role Status Dates Dr. 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 Relationship Specialty Start Date End Date Richard Richards MD [address] [place] [address] PCP - General Family Medicine 04/15/20 Boat Painter Relationship Specialty Start Date End Date Richard Richards [address] [place] [address] PCP - General 10/09/19 Boat Painter Relationship Specialty Start Date End Date Richard Richards MD [address] [place] [address] PCP - General Family Medicine 04/15/20 Boat Painter Relationship Specialty Start Date End Date Richard Richards [address] [place] [address] PCP - General 10/09/19 Boat Painter Relationship Specialty Start Date End Date Richard Richards [address] [place] [address] PCP - General 10/09/19 Boat 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 Richard Richards MD Primary Care Provider Acti ve Team Status: Inactive Member Role Status Dates Dr. Richard Richards MD Primary Care Provider Acti ve Start: November 06, 2024 End: November 06, 2024 Dr. Richard Richards MD Referring Provider Active Start: November 06, 2024 End: November 06, 2024 Richard HARRIS MD Attending Provider Active Start: November 06, 2024 End: November 06, 2024 Team Status: Active Member Role Status Dates Dr. Richard Richards MD Primary Care Provider Acti ve Start: December 03, 2024 Dr. Richard Richards MD Attending Provider Active Start: December 03, 2024 Dr. Richard Richards MD Referring Provider Active Start: December 03, 2024 Team Status: Inactive Member Role Status Dates Dr. Richard Richards MD Primary Care Provider Acti ve Start: December 05, 2024 End: December 05, 2024 Dr. Richard Richards MD Attending Provider Active Start: December 05, 2024 End: December 05, 2024 Dr. Richard Richards MD Referring Provider Active Start: December 05, 2024 End: December 05, 2024 Team Status: Inactive Member Role Status Dates Dr. Richard Richards MD Primary Care Provider Acti ve Start: December 07, 2024 End: December 07, 2024 Dr. Richard Richards MD Attending Provider Active Start: December 07, 2024 End: December 07, 2024 Dr. Richard Richards MD Referring Provider Active Start: December 07, 2024 End: December 07, 2024 Team Status: Inactive Member Role Status Dates Dr. Richard Richards MD Primary Care Provider Acti ve Start: December 10, 2024 End: December 10, 2024 Dr. Richard Richards MD Attending Provider Active Start: December 10, 2024 End: December 10, 2024 Dr. Richard Richards MD Referring Provider Active Start: December 10, 2024 End: December 10, 2024 Team Status: Inactive Member Role Status Dates Dr. Richard Richards MD Primary Care Provider Acti ve Start: December 12, 2024 End: December 12, 2024 Dr. Richard Richards MD Attending Provider Active Start: December 12, 2024 End: December 12, 2024 Dr. Richard Richards MD Referring Provider Active Start: December 12, 2024 End: December 12, 2024 Team Status: Inactive Member Role Status Dates Dr. Richard Richards MD Primary Care Provider Acti ve Start: December 03, 2024 End: December 03, 2024 Dr. Richard Richards MD Attending Provider Active Start: December 03, 2024 End: December 03, 2024 Dr. Richard Richards MD Referring Provider Active Start: December 03, 2024 End: December 03, 2024 Team Status: Active Member Role Status Dates Dr. Richard Richards MD Primary Care Provider Acti ve Start: December 14, 2024 Dr. Richard Richards MD Attending Provider Active Start: December 14, 2024 Dr. Richard Richards MD Referring Provider Active Start: December 14, 2024 Team Status: Inactive Member Role Status Dates Dr. Richard Richards MD Primary Care Provider Acti ve Start: December 14, 2024 End: December 14, 2024 Dr. Richard Richards MD Attending Provider Active Start: December 14, 2024 End: December 14, 2024 Dr. Richard Richards MD Referring Provider Active Start: December 14, 2024 End: December 14, 2024 Team Status: Inactive Member Role Status Dates Dr. Richard Richards MD Primary Care Provider Acti ve Start: December 19, 2024 End: December 19, 2024 Dr. Richard Richards MD Referring Provider Active Start: December 19, 2024 End: December 19, 2024 Dr. Joe Camarena MD Attending Provider Active S tart: December 19, 2024 End: December 19, 2024 Team Status: Active Member Role Status Dates Dr. Richard Richards MD Primary Care Provider Acti ve Start: December 19, 2024 Dr. Joe Camarena MD Attending Provider Active S tart: December 19, 2024 Dr. Joe Camarena MD Referring Provider Active S tart: December 19, 2024 Team Status: Inactive Member Role Status Dates Dr. Richard Richards MD Primary Care Provider Acti ve Start: December 20, 2024 End: December 20, 2024 Dr. Joe Camarena MD Attending Provider Active S tart: December 20, 2024 End: December 20, 2024 Dr. 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 Relationship Specialty Start Date End Date Richard Richards MD [address] [place] [address] PCP - General Family Medicine 04/15/20 Boat Painter Relationship Specialty Start Date End Date Richard Richards MD [address] [place] [address] PCP - General Family Medicine 04/15/20 Boat Painter Relationship Specialty Start Date End Date Richard Richards [address] [place] [address] PCP - General 10/09/19 Boat Painter Relationship Specialty Start Date End Date Richard Richards MD [address] [place] [address] PCP - General Family Medicine 04/15/20 Team Status: Active Member Role Status Dates Dr. Richard Richards MD Primary Care Provider Acti ve Start: January 15, 2025 Dr. Joe Camarena MD Attending Provider Active S tart: January 15, 2025 Dr. Joe Camarena MD Referring Provider Active S tart: January 15, 2025 Team Status: Inactive Member Role Status Dates Dr. Richard Richards MD Primary Care Provider Acti ve Start: January 16, 2025 End: January 16, 2025 Dr. Richard Richards MD Referring Provider Active Start: January 16, 2025 End: January 16, 2025 Dr. Daniel Flynn MD Attending Provider Active Start: January 16, 2025 End: January 16, 2025 Team Status: Inactive Member Role Status Dates Dr. Richard Richards MD Primary Care Provider Acti ve Start: January 30, 2025 End: January 30, 2025 Dr. Richard Richards MD Attending Provider Active Start: January 30, 2025 End: January 30, 2025 Dr. Richard Richards MD Referring Provider Active Start: January 30, 2025 End: January 30, 2025 Team Status: Active Member Role Status Dates Dr. Richard Richards MD Primary Care Provider Acti ve Start: March 20, 2025 Dr. Albert Rizo MD Attending Provider Active Start: March 20, 2025 Dr. Albert Rizo MD Referring Provider Active Start: March 20, 2025 Team Status: Inactive Member Role Status Dates Dr. Richard Richards MD Primary Care Provider Acti ve Start: March 28, 2025 End: March 28, 2025 Dr. Richard Richards MD Referring Provider Active Start: March 28, 2025 End: March 28, 2025 Dr. Daniel Flynn MD Attending Provider Active Start: March 28, 2025 End: March 28, 2025 Boat Painter Relationship Specialty Start Date End Date Richard Richards MD [address] [place], [place] [phone] PCP - General Family Medicine 04/15/20 Boat Painter Relationship Specialty Start Date End Date Richard Richards [address] [place] [address] PCP - General 10/09/19 Boat Painter Relationship Specialty Start Date End Date Richard Richards [address] [place] [id number] PCP - General 10/09/19 Team Status: Active Member Role/Relationship Status Dates Dr. Richard Richards MD Primary Care Provider Acti ve Team Status: Inactive Member Role/Relationship Status Dates Dr. Richard Richards MD Primary Care Provider Acti ve Start: January 16, 2025 End: January 16, 2025 Dr. Richard Richards MD Referring Provider Active Start: January 16, 2025 End: January 16, 2025 Dr. Daniel Flynn MD Attending Provider Active Start: January 16, 2025 End: January 16, 2025 Team Status: Inactive Member Role/Relationship Status Dates Dr. Richard Richards MD Primary Care Provider Acti ve Start: January 30, 2025 End: January 30, 2025 Dr. Richard Richards MD Attending Provider Active Start: January 30, 2025 End: January 30, 2025 Dr. Richard Richards MD Referring Provider Active Start: January 30, 2025 End: January 30, 2025 Team Status: Active Member Role/Relationship Status Dates Dr. Richard Richards MD Primary Care Provider Acti ve Start: March 20, 2025 Dr. Albert Rizo MD Attending Provider Active Start: March 20, 2025 Dr. Albert Rizo MD Referring Provider Active Start: March 20, 2025 Team Status: Inactive Member Role/Relationship Status Dates Dr. Richard Richards MD Primary Care Provider Acti ve Start: March 28, 2025 End: March 28, 2025 Dr. Richard Richards MD Referring Provider Active Start: March 28, 2025 End: March 28, 2025 Dr. Daniel Flynn MD Attending Provider Active Start: March 28, 2025 End: March 28, 2025 Team Status: Active Member Role/Relationship Status Dates Dr. Richard Richards MD Primary Care Provider Acti ve Start: April 25, 2025 Dr. Joe Camarena MD Attending Provider Active S tart: April 25, 2025 Dr. Joe Camarena MD Referring Provider Active S tart: April 25, 2025 Team Status: Inactive Member Role/Relationship Status Dates Dr. Richard Richards MD Primary Care Provider Acti ve Start: May 03, 2025 End: May 03, 2025 Dr. Richard Richards MD Referring Provider Active Start: May 03, 2025 End: May 03, 2025 DEBORAH Coffman Attending Provider Active S tart: May 03, 2025 End: May 03, 2025 FOR RECORDS PERTAINING TO PATIENTS WHO ARE [...] BE BASED ON THE PRIMARY CLINICAL RECORDS. [facility], [facility]. provides no warranty or guarantee of the accuracy or completeness of information in this document.
--- NOTE | 2025-05-21 06:27 | PCM.HP.STD ---
[facility] - General General Date of Admission: 05/21/25 Date of Service: 05/21/25 Chief Complaint: Anemia HPI Narrative RONNIE REINOSO, is a 60 F who presents with the Chief Complaint: Anemia RONNIE REINOSO is a 60 F who presents regarding possible capsule endoscopy. She has been working with a another GI provider with last colonoscopy performed March 2025, without upper endoscopy as it was felt unnecessary at that time, last EGD done was this provider December 2023. She has been treated for acute blood loss anemia by her PCP since November of this year. She is transition from oral iron to IV iron infusions. She is also working with hematology, Dr. Flynn. She reports dark stools, but notes she is on iron. She is familiar with dark tarry stools from GI bleeding. She states that she has a BM every other day with occasional straining, increased flatulence, and uses MiraLAX 3 times a week. She denies heartburn, reflux, nausea, diarrhea, abdominal pain, hematochezia, and melena. [facility] Medical History Low iron Restless legs Diverticulosis Iron deficiency anemia due to chronic blood loss Arthritis Anemia Contact dermatitis due to poison fartun Wears glasses Wears contact lenses Alcohol use Thyroid disease History of IBS Non-smoker Graves disease Home Medications ?Medication ?Instructions ?Recorded ?Last Taken ?Type levothyroxine 137 mcg tablet 137 mcg PO DAILY 01/02/18 09/10/22 05:00 History (Synthroid) allergy shots 1 ea IM .Q3W 01/06/19 Unknown History carbinoxamine maleate 4 mg tablet 4 mg PO DAILY ALLERGIES 01/06/19 Unknown History calcitriol 0.5 mcg capsule 0.5 mcg PO DAILY 08/06/22 Unknown History gabapentin 300 mg capsule 300 mg PO TID 08/06/22 Unknown History ascorbic acid (vitamin C) 1,000 mg 1 g PO DAILY 12/05/24 Unknown History tablet (C-1000) biotin 1 mg capsule 1 mg PO DAILY 12/05/24 Unknown History escitalopram oxalate 10 mg tablet 10 mg PO DAILY 12/05/24 Unknown History ferrous sulfate 325 mg (65 mg 325 mg PO QDAY 12/05/24 Unknown History iron) tablet multivitamin (Daily Multi-Vitamin 1 tab PO DAILY 12/05/24 Unknown History tablet) omeprazole 40 mg capsule,delayed 40 mg PO DAILY PRN gerd 12/05/24 Unknown History release cholecalciferol (vitamin D3) 25 25 mcg PO QDAY 12/19/24 Unknown History mcg (1,000 unit) capsule glucosamine 750 mg-chondr 600 1 ea PO BID 12/19/24 Unknown History mg-Gaylord 50 mg-turmeric 125 mg tablets magnesium oxide 400 mg (241.3 mg 400 mg PO QDAY 12/19/24 Unknown History magnesium) tablet potassium 99 mg tablet 99 mg PO QDAY 12/19/24 Unknown History Allergy/AdvReac Type Severity Reaction Status Date / Time No Known Allergies Allergy Verified 05/21/25 06:28 Family History Mother Breast cancer Father Prostate cancer Surgical History History of colonoscopy History of foot surgery History of breast biopsy History of lithotripsy History of partial hysterectomy Hx of section History of thyroidectomy Social History Smoking Status: Never smoker alcohol intake: current alcohol intake frequency: a few times a month substance use type: does not use ROS Constitutional Constitutional: Denies fatigue, fever(s), poor appetite, weight gain or weight loss Gastrointestinal Gastrointestinal: Denies belching, bloating, change in bowel habits, change in stool character, chewing difficulty, coffee ground emesis, constipation, cramping, diarrhea, dyspepsia, dysphagia, early satiety, excessive flatus, fecal incontinence, heartburn, hematemesis, hematochezia, hemorrhoids, loose stools, melena, nausea, odynophagia, rectal bleeding, tenesmus, vomiting or weight changes Physical Exam Const alert, oriented x3, no apparent distress and healthy appearing General Appearance: cooperative GI normal to inspection, nondistended, normoactive bowel sounds, soft to palpation, non-tender and non-distended Percussion: normal to percussion Rectal Exam: deferred Assessment & Plan Assessment/Plan (1) Anemia: QUALIFIERS: Anemia type: iron deficiency Iron deficiency anemia type: chronic blood loss Qualified Code(s): D50.0 - Iron deficiency anemia secondary to blood loss (chronic) (2) Iron deficiency anemia due to chronic blood loss: PLAN: Assessment and Plan Assessment and Plan (1) Iron deficiency anemia due to chronic blood loss: Status: Chronic Plan RONNIE REINOSO, is a 60 F who presents to the office today for for establishment with [facility] regarding possible capsule endoscopy. With consideration of her recent blood loss anemia symptoms since November this year, and her last EGD done December 2023, it is highly recommended that she repeat EGD as well as have capsule endoscopy to investigate the length of her bowels for GI losses of blood. She is uncertain if she would like [facility] to perform the EGD, or return to Dr. Ferrari. I advised her to schedule EGD and capsule endoscopy before leaving this office visit and then check in with Dr. Ferrari to see if he would like to perform the EGD. She is welcome to continue under his GI care and return to us for the [facility]. Schedule upper endoscopy Schedule capsule endoscopy Office follow-up 3 weeks after endoscopies
[2025-05-21] MEDS: Lactated Ringers 1,000 ML 15 ML IV (06:35)
--- NOTE | 2025-05-21 06:45 | PCM.PRE.AN2 ---
ASA Classification* ASA Classification ASA Classification: 2 Assessment & Plan Anesthesia* Anesthesia Assessment Anesthesia Assessment: Discussed sedation and/or anesthesia options, risks, benefits, and alternatives with patient/parents/legal guardian/POA. Questions invited. The patient/parents/legal guardian/POA seems to understand and agrees to proceed with anesthesia plan. Reviewed the physical assessment, medical history, allergy history and patient home medications list prior to surgery/procedure/anesthetic and documented any changes. Performed airway and anesthesia risk assessments. Anesthesia Type Anesthesia Type: MAC History Source History Obtained from:: Patient and Chart Anesthesia Focused Assessment* Temperature: 97.0 F Pulse Rate: 61 Blood Pressure: 96/64 Respiratory Rate: 18 Pulse Ox: 100 Oxygen Delivery Method: Room Air Airway Assessment Mouth opens: 2 cm Mallampati Score: IV Teeth Condition: Missing (Patient is missing couple teeth. The rest are tight.) Neck Range of motion (ROM): Limited ROM (Somewhat Decreased) Labs Anesthesia Preop lab: CBC WBC 4.1 K/mm3 (4.4-11.0) L 04/03/25 10:46 04/03/25 RBC 3.69 M/mm3 (4.2-5.4) L 04/03/25 10:46 04/03/25 Hgb 10.5 g/dL (12.0-15.0) L 04/03/25 10:46 04/03/25 Hct 32.1 % (37-47) L 04/03/25 10:46 04/03/25 Plt Count 322 K/mm3 (150-450) 04/03/25 10:46 04/03/25 CHEMISTRY Potassium 3.8 mmol/L (3.3-5.1) 01/30/25 09:25 01/30/25 Sodium 139 mmol/L (133-145) 01/30/25 09:25 01/30/25 Magnesium 2.0 mg/dL (1.6-2.6) 02/18/21 09:39 02/18/21 Phosphorus 3.5 mg/dL (2.5-4.9) 12/10/21 08:36 12/10/21 BUN 15 mg/dL (4-19) 01/30/25 09:25 01/30/25 Creatinine 0.94 mg/dL (0.70-1.20) 01/30/25 09:25 01/30/25 Glucose 92 mg/dL (70-99) 01/30/25 09:25 01/30/25 TSH 0.057 uIU/mL (0.300-4.200) L 01/30/25 09:25 01/30/25 COAG Tst Clinic Negative 01/02/18 15:47 01/02/18 Pre-Assessment Diagnosis/Proposed Procedure Planned Operative Procedure(s): egd Anesthesia History Anesthesia History - insulation cutter: Anesthesia History - insulation cutter Hx Hospitalization No 05/20/25 09:45 Any Problems With Anesthesia No 05/20/25 09:45 Cholinesterase deficiency No 05/20/25 09:45 You/Your Family Experience No 05/20/25 09:45 fever (hyperthermia) with Relationship Recent Exposure to Contagious No 05/21/25 06:29 Disease Does patient have nerve No 05/20/25 09:45 stimulator Patient instructed to have device shut off --Does patient have Pacemaker No 05/21/25 06:29 or ICD? When Was Last Pacemaker Check QUESTION #4 FULL TEXT: You/Your Family Experience fever (hyperthermia) with Anesthesia Last Oral Intake Last Oral intake: Last Oral Intake NPO since 18:00 05/21/25 06:29 Meds taken in AM with sips of Yes 05/21/25 06:29 water? Meds patient instructed to levothyroxine 05/21/25 06:29 take am of surgery PONV PONV - insulation cutter: PONV - insulation cutter Female Yes 05/20/25 09:45 HX of Motion Sickness No 05/20/25 09:45 HX of N/V After Surgery No 05/20/25 09:45 Non-Smoker Yes 05/20/25 09:45 Duration of Surgery greater No 05/20/25 09:45 than 60 minutes Number of Risk Factors 2 05/20/25 09:45 PONV Score Moderate Risk 05/20/25 09:45 Height & Weight Height & Weight: Anesthesia: Height & Weight Height 5 ft 05/21/25 06:29 Weight: 71.8 kg 05/21/25 06:29 Body Mass Index (BMI) 30.9 05/21/25 06:29 Respiratory Assessment Respiratory Assessment - insulation cutter: Respiratory Tract Infection Hx - insulation cutter Hx Respiratory Tract Infection No 05/20/25 09:45 STOP Sleep Apnea STOP Sleep Apnea - insulation cutter: STOP Sleep Apnea - insulation cutter Hx Hypertension No 05/20/25 09:45 Hx Sleep Apnea No 05/20/25 09:45 CPAP No 09/10/22 08:44 BIPAP Do you snore loudly (louder No 05/20/25 09:45 than talking or can be heard Do you often feel tired/ No 05/20/25 09:45 fatigued/ sleepy during daytime? Has anyone observed you stop No 05/20/25 09:45 breathing during sleep? STOP Results Negative 05/20/25 09:45 QUESTION #5 FULL TEXT : Do you snore loudly (louder than talking or can be heard through closed doors)? 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 Specify any problems Hx of Preganancy in last 3 N/A 05/20/25 09:45 Months Nurse Filling Out Transfusion NBUCHER 05/20/25 09:45 & Questions: Date: 05/20/25 05/20/25 09:45 Time: 09:46 05/20/25 09:45 Patient unable to answer at this time (ie. confused, unrespo /Reproduction History /Reproductive History - insulation cutter: /Reproductive Hx- insulation cutter Hx Now No 05/20/25 09:45 Gestational Age (in weeks): EDC: Hx Hx Para Hx Section SAB No 05/20/25 09:45 Active Medications Active Medications: Current Medications Generic Name Dose Route Start Last Admin Trade Name Freq PRN Reason Stop Dose Admin Lactated Ringer's 1,000 mls @ 15 mls/hr 05/21/25 06:15 05/21/25 06:35 IV 15 mls/hr .Q48H AJAY Administration PFSH Medical History Low iron Restless legs Diverticulosis Iron deficiency anemia due to chronic blood loss Arthritis Anemia Contact dermatitis due to poison fartun Wears glasses Wears contact lenses Alcohol use Thyroid disease History of IBS Non-smoker Graves disease Home Medications ?Medication ?Instructions ?Recorded ?Last Taken ?Type levothyroxine 137 mcg tablet 137 mcg PO DAILY 01/02/18 05/21/25 History (Synthroid) allergy shots 1 ea IM .Q3W 01/06/19 Unknown History carbinoxamine maleate 4 mg tablet 4 mg PO DAILY ALLERGIES 01/06/19 05/20/25 History calcitriol 0.5 mcg capsule 0.5 mcg PO DAILY 08/06/22 05/20/25 History gabapentin 300 mg capsule 300 mg PO TID 08/06/22 05/20/25 History ascorbic acid (vitamin C) 1,000 mg 1 g PO DAILY 12/05/24 05/20/25 History tablet (C-1000) biotin 1 mg capsule 1 mg PO DAILY 12/05/24 05/20/25 History escitalopram oxalate 10 mg tablet 10 mg PO DAILY 12/05/24 05/20/25 History ferrous sulfate 325 mg (65 mg 325 mg PO QDAY 12/05/24 05/20/25 History iron) tablet multivitamin (Daily Multi-Vitamin 1 tab PO DAILY 12/05/24 05/20/25 History tablet) omeprazole 40 mg capsule,delayed 40 mg PO DAILY PRN gerd 12/05/24 05/20/25 History release cholecalciferol (vitamin D3) 25 25 mcg PO QDAY 12/19/24 05/20/25 History mcg (1,000 unit) capsule glucosamine 750 mg-chondr 600 1 ea PO BID 12/19/24 05/20/25 History mg-Michael 50 mg-turmeric 125 mg tablets magnesium oxide 400 mg (241.3 mg 400 mg PO QDAY 12/19/24 05/20/25 History magnesium) tablet potassium 99 mg tablet 99 mg PO QDAY 12/19/24 05/20/25 History Allergy/AdvReac Type Severity Reaction Status Date / Time No Known Allergies Allergy Verified 05/21/25 06:28 Family History Mother Breast cancer Father Prostate cancer Surgical History History of colonoscopy History of foot surgery History of breast biopsy History of lithotripsy History of partial hysterectomy Hx of section History of thyroidectomy Social History Smoking Status: Never smoker alcohol intake: current alcohol intake frequency: a few times a month substance use type: does not use Review of Systems (Anesthesia) ROS Narrative System reviewed and no additional complaints, except as documented.
--- NOTE | 2025-05-21 07:00 | EGD_PTH ---
PATIENT: RONNIE REINOSO LOC: EN U#:[id number] AGE/SX: 60/F ROOM: RE05/21/[address]: Dr. lA Kyle DO : 1965 BED: DIS: 05/21/2025 SPEC #: [id number] RECD: 05/21/25 07:34 STATUS: DELIO SHIRLEY #: [id number] SOPHIE: 05/21/25 07:[address]: Al Kyle DEPT: SURGICAL PATHOLOGY RECD BY: Justen Cassidy ENTERED: 05/21/25 13:25 SP TYPE: EGD BIOPSY KAREN DR: Dr. Albino Richards MD Tissues: A - Duodenum, NOS B - Gastric mucous membrane Procedures: Immunohistochemical Stains Surgery Specimen Level IV HEADER OPERATION: EGD with biopsy PRE-OP DIAGNOSIS: Anemia, iron deficiency anemia due to chronic blood loss TISSUE SUBMITTED: A- Duodenum biopsy, B- Gastric body biopsy MICROSCOPIC DIAGNOSIS A. Duodenum, biopsy: - No specific pathologic change. B. Gastric body, biopsy: - Active chronic gastritis. - IHC negative for H. pylori organisms. MICROSCOPIC DESCRIPTION Slides are reviewed. ?All matched controls reacted appropriately. These tests were developed and their performance characteristics determined by [facility]. They may not have been cleared or approved by the U.S. Food and Drug Administration. The FDA has determined that such clearance or approval is not necessary.? The above immunohistochemical?markers and/or special stains have been reviewed by the Pathologist. GROSS DESCRIPTION A. Received in fixative is one container labeled with the patient's name and designated Duodenum biopsy. The specimen consists of four irregular fragments of light angulo soft tissue that measure 0.1 to 0.4 cm. Smallest fragment may not survive processing. The specimen is totally submitted in one cassette. B. Received in fixative is one container labeled with the patient's name and designated Gastric body biopsy. The specimen consists of multiple irregular fragments of light angulo soft tissue that in aggregate measure 1 x 0.5 x 0.1 cm. The specimen is totally submitted in one cassette. VT 05/21/2025 CPT:85841c8 ,[id number]
--- NOTE | 2025-05-21 07:25 | PCM.POST.ANE ---
Anesthesia: Postop Eval I Current Vital Signs Temperature: 97.1 F Pulse Rate: 71 Blood Pressure: 91/57 Respiratory Rate: 16 Pulse Ox: 94 Oxygen Delivery Method: Room Air Assessment Airway patent: Yes Spontaneous unlabored respirations: Yes Mental status: Asleep nausea: No Vomiting: No Anesthesia Complication: No Fluid Hydration Crystalloid volume administer (ml): 300 Total IV fluid infused: 300 Progress Note Anesthesia document: Postop Eval 1 completed: Yes
--- NOTE | 2025-05-21 07:26 | OP.EGD_ITS ---
Patient Name: Ewa Hope Procedure Date: 05/21/2025 6:56 AM Date of : 1965 Age: 60 Procedure: Upper GI endoscopy Indications: Iron deficiency anemia Providers: Al Kyle DO Referring MD: Ayan Richards Medicines: Monitored Anesthesia Care Patient Profile: This is a 60 year old female. Refer to note in patient chart for documentation of history and physical. Patient has symptoms. Complications: No immediate complications. Procedure: Pre-Anesthesia Assessment: - Prior to the procedure, a History and Physical was performed, and patient medications and allergies were reviewed. The patient is competent. The risks and benefits of the procedure and the sedation options and risks were discussed with the patient. All questions were answered and informed consent was obtained. Patient identification and proposed procedure were verified by the physician in the pre-procedure area. Mental Status Examination: alert and oriented. Airway Examination: normal oropharyngeal airway and neck mobility. Respiratory Examination: clear to auscultation. CV Examination: normal. Prophylactic Antibiotics: The patient does not require prophylactic antibiotics. Prior Anticoagulants: The patient has taken no anticoagulant or antiplatelet agents except for NSAID medication. ASA Grade Assessment: II - A patient with mild systemic disease. After reviewing the risks and benefits, the patient was deemed in satisfactory condition to undergo the procedure. The anesthesia plan was to use monitored anesthesia care (MAC). Immediately prior to administration of medications, the patient was re-assessed for adequacy to receive sedatives. The heart rate, respiratory rate, oxygen saturations, blood pressure, adequacy of pulmonary ventilation, and response to care were monitored throughout the procedure. The physical status of the patient was re-assessed after the procedure. After obtaining informed consent, the endoscope was passed under direct vision. Throughout the procedure, the patient's blood pressure, pulse, and oxygen saturations were monitored continuously. The Endoscope was introduced through the mouth, and advanced to the third part of the duodenum. Small bowel enteroscopy was deemed necessary. The upper GI endoscopy was accomplished without difficulty. The patient tolerated the procedure well. Scope In: 7:01:42 AM Scope Out: 7:06:09 AM Total Procedure Duration Time 0 hours 4 minutes 27 seconds Findings: The examined esophagus was normal. Diffuse mildly congested mucosa was found in the entire examined stomach. Biopsies were taken with a cold forceps for histology. Verification of patient identification for the specimen was done. Estimated blood loss was minimal. Biopsies were taken with a cold forceps for Helicobacter pylori testing. Verification of patient identification for the specimen was done. Estimated blood loss was minimal. No gross lesions were noted in the entire examined duodenum. Biopsies were taken with a cold forceps for histology. Verification of patient identification for the specimen was done. Estimated blood loss was minimal. Impression: - Normal esophagus. - Congestive gastropathy. Biopsied. - No gross lesions in the entire examined duodenum. Biopsied. Recommendation: - Discharge patient to home. - Resume previous diet. - Continue present medications. - Await pathology results. 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 All rights reserved. The codes documented in this report are preliminary and upon automotive professional review may be revised to meet current compliance requirements. Al Kyle DO 05/21/2025 7:25:38 AM This report has been signed electronically. Number of Addenda: 0 Note Initiated On: 05/21/2025 6:56 AM
--- NOTE | 2025-05-21 07:26 | OP.PROVAT_ITS ---
05/21/2025 Ayan Richards [address] [place] [address] Re : Upper GI endoscopy procedure for Ewa Hope Dear Dr. Richards This procedure was performed on Wednesday, May 21, 2025. My impressions and recommendations are as follows: Impressions : - Normal esophagus. - Congestive gastropathy. Biopsied. - No gross lesions in the entire examined duodenum. Biopsied. Recommendations : - Discharge patient to home. - Resume previous diet. - Continue present medications. - Await pathology results. 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 If I can be of further assistance, please feel free to contact me at . Sincerely, Al Friend, 05/21/2025 7:25:38 AM This report has been signed electronically.
--- NOTE | 2025-05-21 08:43 | PCM.POSTANE2 ---
Anesthesia Postop Eval I Sum Postop Eval Completion status Anesthesia document: Postop Eval 1 completed: Yes Anesthesia Postop Eval I Summary Anesthesia Postop Eval I Summary: Anesthesia Postop Eval I: Assessment Summary Airway patent Yes 05/21/25 07:25 [email or web address] Spontaneous unlabored Yes 05/21/25 07:25 [email or web address] respirations Mental status Asleep 05/21/25 07:25 [email or web address] nausea No 05/21/25 07:25 [email or web address] Vomiting No 05/21/25 07:25 [email or web address] Anesthesia Postop Eval I: Fluid Summary Crystalloid volume administer 300 05/21/25 07:25 [email or web address] (ml) Colloids volume administered ( ml) Blood Product volume administered (ml) Total IV fluid infused 300 05/21/25 07:25 [email or web address] Anesthesia Postop Eval I: Summary Notes Anesthesia Complication No 05/21/25 07:25 [email or web address] Anesthesia Complication Comment: Post-operative progress note Anesthesia: Postop Eval II Evaluation Mental status: Awake Pain Level: 0 nausea: No Vomiting: No Complications Anesthesia Complication: No
== END 2025-05-21 07:57 | disposition home or self-care (01) ==
LOC: EN 05:48 → AC 05:49
PROVIDERS: PCP Family Medicine; Referring Provider Family Medicine; Visit Provider Internal Medicine Gastroenterology
PROC: 0DJ08ZZ Inspection of Upper Intestinal Tract, Via Natural or Artificial Opening Endoscopic (ICD-10-PCS; CPT 43235; principal; 2025-05-21 06:55)
DX: D50.0 Iron deficiency anemia secondary to blood loss (chronic) (principal); Z90.710 Acquired absence of both cervix and uterus; K31.9 Disease of stomach and duodenum, unspecified; K29.00 Acute gastritis without bleeding
CPT/HCPCS: 43239; 88305; 88342; J2405

== ENCOUNTER → 2025-06-14 | Outpatient (CLI) | payer OTHER, SELFPAY ==
[2025-06-14 13:10] LABS: CRP < 3.00 mg/L (0.0-3.0)
[2025-06-18 12:08] LABS: ACCA 5 units (0-90); ALCA 5 units (0-60); AMCA 30 units (0-100)
== END | disposition home or self-care (01) ==
LOC: LAB 11:03
PROVIDERS: PCP Family Medicine; Referring Provider Student in an Organized Health Care Education/Training Program; Visit Provider Student in an Organized Health Care Education/Training Program
DX: D50.0 Iron deficiency anemia secondary to blood loss (chronic) (principal)
CPT/HCPCS: 36415; 83516; 86036; 86140; 86671

== ENCOUNTER → 2025-06-18 | Outpatient (CLI) | payer OTHER, SELFPAY ==
[2025-06-20 14:08] LABS: Calprotectin, Stool 114 ug/g (0-120)
== END | disposition home or self-care (01) ==
LOC: LABSPEC 10:34
PROVIDERS: PCP Family Medicine; Referring Provider Student in an Organized Health Care Education/Training Program; Visit Provider Student in an Organized Health Care Education/Training Program
DX: D50.0 Iron deficiency anemia secondary to blood loss (chronic) (principal)
CPT/HCPCS: 83993

== ENCOUNTER → 2025-07-01 | Outpatient (CLI) | payer OTHER, SELFPAY ==
--- OUTSIDE RECORDS SUMMARY | 2025-06-19 09:22 | XMS RPT_ITS ---
Author Name Auto Generated Organization OHIP Care Team Providers Care Parent Educator Name Role Phone WILBER ZAMBRANO Attending Unavailable WILBER ZAMBRANO Referring Unavailable RICHARD RICHARDS Primary Care Unavailable WILBER ZAMBRANO Attending Unavailable RICHARD RICHARDS Primary Care Unavailable DARRELL BAI Referring Unavailable RICHARD RICHARDS Primary Care UnavailDARRELL Wiley Referring Unavailable RICHARD RICHARDS Primary Care UnavailDARRELL Wiley Referring Unavailable RICHARD RICHARDS Primary Care UnavailDARRELL Wiley Referring Unavailable RICAHRD RICHARDS Primary Care Unavailwanda RIZO MD, DR FRASER Attending Unavailwanda RICHARDS MD, DR RAMOS Primary Care DARRELL Levin Attending Unavailable RICHARD RICHARDS Primary Care UnavailDARRELL Wiley Attending Unavailable RICHARD RICHARDS Primary Care UnavailDARRELL Wiley Attending Unavailable RICHARD RICHARDS Primary Care Unavailwanda baumann PROBLEMS DATE TYPE CONDITION / CODE ATTENDING STATUS [facility] 04/10/2025 Admitting Diagnosis Encounter for screening mammogram for malignant neoplasm of breast / Z12.31(ICD-10) WILBER ZAMBRANO [facility] 03/12/2025 Admitting Diagnosis Encounter for gynecological examination (general) (routine) without abnormal findings / Z01.419(ICD-10) WILBER ZAMBRANO Active [facility] 05/18/2016 Active 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 Order Comment: Specimen Type : BLOOD SPECIMEN Ordering Facility: [facility] Address: [address] [place] [address] TYPE CODE TESTS RESULT OUT OF RANGE REFERENCE UNITS LAB 3024-7(LOINC) T4 Free SerPl-mCnc 1.9 High 0.9-1.7 ng/dL Performed By: #### 3024-7 ## ## [facility] CLIA [id number] [address] [place] [address] OF [facility] TSH SERPL-ACNC Collected: 06/19/2025 9:26 AM Status: F Source: [facility] Order Comment: Specimen Type : BLOOD SPECIMEN Ordering Facility: [facility] Address: [address] [place], [place] [address] TYPE CODE TESTS RESULT OUT OF RANGE REFERENCE UNITS LAB 3016-3(LOINC) TSH SerPl-aCnc 0.626 0.270-4.200 mIU/L Performed By: #### 3016-3 ## ## [facility] CLIA [id number] [address] [place] [address] OF [facility] 36 Observed: 04/22/2025 2:49 PM Status: COMPLETED Source: [facility] EVON: 03/12/2025 NOV: 04/01/2026 Refill pended for approval Grace with 4 refills. PROGRESS Observed: 04/18/2025 10:03 AM Status: COMPLETED Source: [facility] HNO ID: [id number] Author: DARRELL BAI MD Service: ? Author Type: Physician Type: Progress Notes Filed: 04/18/2025 10:21 Note Text: Virtual Visit utilizing both audio and video components MyChart-Zoom I have communicated my name and active licensure. The patient's identity and physical location were verified at the time of this visit. Either the patient or their legal inventory representative has been informed of the risks and benefits of -- and alternatives to -- treatment through a remote evaluation and consents to proceed with the evaluation remotely. Patient location: at parents' home in [place], [place] Assessment / Plan Assessment: 1) Surgical [...] levothyroxine 112 mcg daily 2) return to ms in 3 months with labs before the [...] 04/27/2017 <0.2 (L) 1.4 03/23/2019 <0.2 <1.0 ([facility]) 01/28/2022 Janay Assay <0.2 <1.0 <4.0 IU/mL 02/28/2024 0.3 <0.9 Graves Ab Component TSI Latest Ref Rng <150 % Normal 08/11/2011 833 (H) Vitamin D Component Vitamin D 25 Hydroxy Latest Ref Rng 31.0 - 80.0 ng/mL 11/03/2015 24.9 (L) 12/06/18 49 (done at [facility]) ROS PHYSICAL EXAM PAST MED / SURG [...] daily. Olopatadine 0.6 % spry Use 1 [place] in each nostril once daily. (Patient not taking: Reported on 11/13/2021 ) Carbinoxamine Maleate (PALGIC) 4 mg ORAL Tab Take 1 tablet by mouth once daily. 0 COMPOUNDED PRESCRIPTION Allergy injections ever 2-3 weeks (Patient not taking: Reported on 11/13/2021 ) 0 No current facility-administered medications for this visit. ALLERGIES Allergen Reactions Chlorhexidine Rash T4 FREE SERPL-MCNC Collected: 04/03/2025 8:02 AM Sta tus: F Source: [facility] Order Comment: Specimen Type : BLOOD SPECIMEN Ordering Facility: [facility] Address: [address] [place] [address] TYPE CODE TESTS RESULT OUT OF RANGE REFERENCE UNITS LAB 3024-7(LOINC) T4 Free SerPl-mCnc 1.7 0.9-1.7 ng/dL Performed By: #### 3024-7 ## ## [facility] CLIA [id number] [address] [id number] [place] TSH SERPL-ACNC Collected: 04/03/2025 8:02 AM Status: F Source: [facility] Order Comment: Specimen Type : BLOOD SPECIMEN Ordering Facility: [facility] Address: [address] [place], [place] [address] TYPE CODE TESTS RESULT OUT OF RANGE REFERENCE UNITS LAB 3016-3(LOINC) TSH SerPl-aCnc 1.150 0.270-4.200 mIU/L Performed By: #### 3016-3 ## ## [facility] CLIA [id number] [address] [place] [address] [place] HPV HIGH RISK PCR Observed: 03/12/2025 11:21 AM Status: F Source: [facility] Order Comment: THIS IS A CAR VE-OUT LAB: SPECIMEN MUST BE SENT TO [facility] FOR PROCESSING HUMAN PAPILLOMA VIRUS 18 DNA (PRESENCE) Reference Not Detected Not Detected HUMAN PAPILLOMA VIRUS 16 DNA (PRESENCE) Reference Not Detected Not Detected HUMAN PAPILLOMA VIRUS OTHERS DNA (PRESENCE) Reference Not Detected Not Detected HUMAN PAPILLOMA VIRUS 16 AND 18 AND OTHERS DNA (INTERP)Reference The other high risk HPV results include HPV types: 31, 33, 35, 39, 45, 51, 52, 56, 58, 59, 66, and 68. Methodology: Galilea Robert HPV PCR Assay Performed By: #### [id number] # ### Licensed Dispensing Optician: HARESH RIVAS ([id number]) [facility] ([address] PAP SMEAR Collected: 11:21 AM Status: F Source: [facility] Order Comment: THIS IS A CAR VE-OUT LAB: SPECIMEN MUST BE SENT TO [facility] FOR PROCESSING TYPE CODE TESTS RESULT OUT OF RANGE REFERENCE UNITS PATHOLOGY 1499 LAB AP CASE REPORT Result Comment: Gynecologic Cytology Case: [id number] Authorizing Provider: Wilber Zambrano MD Collected: 03/12/2025 1121 Ordering Location: [facility] Obstetrics Received: 03/13/20252055 and Gynecology - Vick First Screen: YOJANA Melendez Specimen: ThinPrep, Pap, Cervical/Endocervical PATHOLOGY 18 LAB AP WASTE RECYCLER SPECIMEN ADEQUACY The specimen is satisfactory for evaluation. No endocervical/tra nsformation zone present. PATHOLOGY 16 LAB AP WASTE RECYCLER INTERPRETATION Result Comment: NEGATIVE FOR SQUAMOUS INTRAEPITHELIAL LESION OR MALIGNANCY. at 1012 EDT PATHOLOGY 94 LAB AP WASTE RECYCLER OTHER FINDINGS Parakeratosis present. PATHOLOGY 393 LAB AP WASTE RECYCLER ADDITIONAL INFORMATION Gynecologic cytology smear evaluation is subject to false positive and false negative interpretation as evidenced by published data. Your patient's Pap test results should thus be interpreted in conjunction with their clinical history and physical examination. PATHOLOGY [id number] AP CASE SCREENING LOCATION [facility], [address] [address]; CLIA: [id number]; Joint Commission: [id number]; CAP: [id number] PATHOLOGY EMBDOC OUTGOING CLINICAL RESULTS EMBEDDED DOCUMENT Performed By: #### LAB4 #### Licensed Dispensing Optician: WENDI FRAGA ([id number]) [facility] ([facility]) [address] PROGRESS NOTE Observed: 03/12/2025 11:00 AM Status: COMPLETED Source: [facility] Ronnie Cohen Meng 03/12/2025 60 y.o. Primary [...] past year: No Sexually Active: Yes, with Shay of 30 years. Monogamous relationship. Feels safe. OB History Para Term AB Living 3 3 3 3 SAB IAB Ectopic Multiple Live Births 3 # Outcome Date GA Lbr Jamin/2nd Weight Sex Type Anes PTL Lv 3 Term 1996 M CS-Unspec DOMINGO 2 Term 1993 F [...] file Stress: No Stress Concern Present (2024) [place] [employer] - Occupational Stress Questionnaire [...] m) Body mass index is 30.08 kg/m?. WASTE RECYCLER: BREASTS: normal, no masses, tenderness or skin [...] No current facility-administered medications for this visit. OFFICE VISIT Observed: 03/12/2025 11:00 AM Status: COMPLETED Source: [facility] [id number] Ronnie Hope 1964 F Date Provider Department Center 03/12/2025 [id number] ZAMBRANO [facility] Offi Family [...] Alive Mother Alive Paternal Grandmother Level of Service:14359 [place] PERIODIC PREVENTIVE MED EST PATIENT 40-64YRS Reason for Visit and Comments: Annual Exam [83] PROGRESS NOTE Observed: 03/12/2025 11:00 AM Status: COMPLETED Source: [facility] Visual Manager was offered to the patient for exam. Patient declined offer of carbon lamp cleaner PROGRESS Observed: 03/07/2025 1:10 PM Status: COMPLETED Source: [facility] HNO ID: [id number] Author: DARRELL BAI MD Service: ? Author Type: Physician Type: Progress Notes Filed: 03/07/2025 13:34 Note Text: Virtual Visit utilizing both audio and video components [employer] I have communicated my name and active licensure. The patient's identity and physical location were verified at the time of this visit. Either the patient or their legal inventory representative has been informed of the risks and benefits of -- and alternatives to -- treatment through a remote evaluation and consents to proceed with the evaluation remotely. Patient location: at parents' home in [place], [place] Assessment / Plan Assessment: 1) Surgical [...] to 112 mcg daily 2) return to ms in 6 weeks with labs before the [...] 04/27/2017 <0.2 (L) 1.4 03/23/2019 <0.2 <1.0 ([facility]) 01/28/2022 Janay Assay <0.2 <1.0 <4.0 IU/mL 02/28/2024 0.3 <0.9 Graves Ab Component TSI Latest Ref Rng <150 % Normal 08/11/2011 833 (H) Vitamin D Component Vitamin D 25 Hydroxy Latest Ref Rng 31.0 - 80.0 ng/mL 11/03/2015 24.9 (L) 12/06/18 49 (done at [facility]) ROS PHYSICAL EXAM PAST MED / SURG [...] daily. Olopatadine 0.6 % spry Use 1 [place] in each nostril once daily. (Patient not taking: Reported on 11/13/2021 ) Carbinoxamine Maleate (PALGIC) 4 mg ORAL Tab Take 1 tablet by mouth once daily. 0 COMPOUNDED PRESCRIPTION Allergy injections ever 2-3 weeks (Patient not taking: Reported on 11/13/2021 ) 0 No current facility-administered medications for this visit. ALLERGIES Allergen Reactions Chlorhexidine Rash CNPN Observed: 03/07/2025 12:00 AM Status: COMPLETED Source: [facility] Telephone (ENDLKW) RONNIE HOPE ([id number]) 1965 F Date Time Provider Department 03/07/25 DARRELL BAI During your visit today, we recorded the following information about you: Deborah Gutierrez 03/07/2025 4:56 PM Signed Melonie from Dr Jeffrey Richards's office is calling Darrell Bai MD today to request A And P Technician - Other Patient has been identified by name and birthdate. Yes Duration of symptoms: N/A Person calling: Melonie from Dr Jeffrey Richards's Call patient at: [phone] Was an appointment scheduled: No Closing statement: Results or non-symptom based questions: Thank you for calling [facility], your call will be returned within [...] pursue this is up to him. Beata Liu, RN 03/12/2025 11:25 AM Addendum RN spoke with Rafaela nurse at Dr. Richards and explained that Dr. Bai reasoning regarding colonoscopy. Rafaela states that patient has been refereed to GI already. Most recent chart note faxed to them [phone] with confirmation. Allergies As of Date: 03/07/2025 Noted Allergy Reaction CHLORHEXIDINE 12/06/2018 2 - Rash Date Reviewed: 11/13/2021 Reviewed by: Clara Crocker MA - Fully Assessed Reason for Visit: A And P Technician - Other [5160] Prescriptions as of 03/12/2025 - levothyroxine (SYNTHROID) [...] mouth once daily. - glucosamine HCl/chondroitin pierce (GLUCOSAMINE-CHONDROITIN ORAL) 1,000 mg. - mv,Ca,min-folic acid-vit K1 (ONE-A-DAY WOMEN'S 50 PLUS) 400-20 mcg tab Gummies - BIOTIN ORAL Take 5,000 mcg by mouth. - L.acid/B.bifidum/B.animal/FOS (PROBIOTIC COMPLEX ORAL) Take by mouth. Align gummies - Cholecalciferol, Vitamin D3, 25 mcg (1,000 unit) cap Take 1 capsule by mouth once daily. - Olopatadine 0.6 % spry Use 1 [place] in each nostril once daily. - Carbinoxamine [...] cervical spine [M*04/16/2020 Encounter Status:Closed by BEATA LIU on 03/12/25 TSH SERPL-ACNC Collected: 5 10:01 AM Status: F Source: [facility] Order Comment: Specimen Type : BLOOD SPECIMEN Ordering Facility: [facility] Address: [address] [place] [address] TYPE CODE TESTS RESULT OUT OF RANGE REFERENCE UNITS LAB 3016-3(LOINC) TSH SerPl-aCnc 0.113 Low 0.270-4.200 mIU/L Performed By: #### 3016-3 ## ## [facility] CLIA [id number] [address] [place] [address] T4 FREE SERPL-MCNC Collected: 5 10:01 AM Status: F Source: [facility] Order Comment: Specimen Type : BLOOD SPECIMEN Ordering Facility: [facility] Address: [address] [place] [address] TYPE CODE TESTS RESULT OUT OF RANGE REFERENCE UNITS LAB 3024-7(LOINC) T4 Free SerPl-mCnc 1.8 High 0.9-1.7 ng/dL Performed By: #### 3024-7 ## ## [facility] CLIA [id number] [address] CNPN Observed: 02/18/2025 12:00 AM Status: COMPLETED Source: [facility] Telephone (ENDLKW) RONNIE HOPE ([id number]) 1965 F Date Time Provider Department 02/18/25 [...] before upcoming visit in March. Contact Information [phone] Thank you Chitra Woo RN 02/20/2025 9:29 [...] mouth once daily. - glucosamine HCl/chondroitin pierce (GLUCOSAMINE-CHONDROITIN ORAL) 1,000 mg. - mv,Ca,min-folic acid-vit K1 (ONE-A-DAY WOMEN'S 50 PLUS) 400-20 mcg tab Gummies - BIOTIN ORAL Take 5,000 mcg by mouth. - L.acid/B.bifidum/B.animal/FOS (PROBIOTIC COMPLEX ORAL) Take by mouth. Align gummies - Cholecalciferol, Vitamin D3, 25 mcg (1,000 unit) cap Take 1 capsule by mouth once daily. - Olopatadine 0.6 % spry Use 1 [place] in each nostril once daily. - Carbinoxamine [...] Encounter Status:Closed by DIOGENES HARP on 02/18/25 PROGRESS Observed: 09/13/2024 10:12 AM Status: COMPLETED Source: [facility] HNO ID: [id number] Author: DARRELL BAI MD Service: ? Author Type: Physician Type: Progress Notes Filed: 09/13/2024 10:34 Note Text: Virtual Visit utilizing both audio and video components MyChart-Zoom I have communicated my name and active licensure. The patient's identity and physical location were verified at the time of this visit. Either the patient or their legal inventory representative has been informed of the risks and benefits of -- and alternatives to -- treatment through a remote evaluation and consents to proceed with the evaluation remotely. Patient location: at parents' home in [place], [place] Assessment / Plan Assessment: 1) Surgical [...] to 137 mcg daily 2) return to ms in 6 months with labs before the [...] 04/27/2017 <0.2 (L) 1.4 03/23/2019 <0.2 <1.0 ([facility]) 01/28/2022 Janay Assay <0.2 <1.0 <4.0 IU/mL 02/28/2024 0.3 <0.9 Graves Ab Component TSI Latest Ref Rng <150 % Normal 08/11/2011 833 (H) Vitamin D Component Vitamin D 25 Hydroxy Latest Ref Rng 31.0 - 80.0 ng/mL 11/03/2015 24.9 (L) 12/06/18 49 (done at [facility]) ROS PHYSICAL EXAM PAST MED / SURG [...] daily. Olopatadine 0.6 % spry Use 1 [place] in each nostril once daily. (Patient not taking: Reported on 11/13/2021 ) Carbinoxamine Maleate (PALGIC) 4 mg ORAL Tab Take 1 tablet by mouth once daily. 0 COMPOUNDED PRESCRIPTION Allergy injections ever 2-3 weeks (Patient not taking: Reported on 11/13/2021 ) 0 No current facility-administered medications for this visit. ALLERGIES Allergen Reactions Chlorhexidine Rash T4 FREE SERPL-MCNC Collected: 09/11/2024 9:42 AM Sta tus: F Source: [facility] Order Comment: Specimen Type : BLOOD SPECIMEN Ordering Facility: [facility] Address: [address] [place] [address] TYPE CODE TESTS RESULT OUT OF RANGE REFERENCE UNITS LAB 3024-7(LOINC) T4 Free SerPl-mCnc 1.8 High 0.9-1.7 ng/dL Performed By: #### 3024-7 ## ## [facility] CLIA [id number] [address] STATES OF [facility] TSH SERPL-ACNC Collected: 09/11/2024 9:42 AM Status: F Source: [facility] Order Comment: Specimen Type : BLOOD SPECIMEN Ordering Facility: [facility] Address: [address] [place] [address] TYPE CODE TESTS RESULT OUT OF RANGE REFERENCE UNITS LAB 3016-3(LOINC) TSH SerPl-aCnc 0.614 0.270-4.200 mIU/L Performed By: #### 3016-3 ## ## [facility] CLIA [id number] [address] [place] [address] [place] ALLERGIES DATE TYPE / CODE NAME / CODE REACTION SEVERITY SOURCE 12/06/2018 DRUG INGREDI/[id number](SN OMED CT) CHLORHEXIDINE RASH [facility] ENCOUNTERS ADMIT/DISCHARGE ACCOUNT NUMBER ADMITTING ENCOUNTER CLASS LOCATION SOURCE 06/19/2025/ 5 [id number] 5 [id number] Ambulatory [facility] 04/10/2025/ 5 [id number] Ambulatory [place] [id number] [facility] 04/03/2025/ 5 [id number] [facility] 03/25/2025/ 5 [id number] [facility] 03/12/2025/ 5 [id number] Ambulatory [facility] [id number] [facility] 03/07/2025/ 5 [id number] Ambulatory [facility] ing:[facility] 03/04/2025/ 5 [id number] [facility] 09/13/2024/ 4 [id number] Ambulatory [facility] 09/11/2024/ 4 [id number] [facility] PAYERS ENCOUNTER GUARANTOR PAYER SUBSCRIBER SOURCE 06/19/2025 [place] PREFERRED CHOICEPolicy Number: [id number] Date:8088-86-74Lusm Name:Ayla Cohen ESTEBANGDOB: [id number] [place], [place] [address] [place] [address] 04/18/2025 [place] PREFERRED CHOICEPolicy Number: [id number] Date:1962-20-57Glmb Name:Ayla ORELLANAGDOB: [id number] [place] [address] [facility] 04/10/2025 Primary Insurance:SUMMACAREPo licy Number: [id number] Date:6370-60-16Mnsk Name:Commercial RONNIE ORELLANAGDOB: [id number] [place] [address] [facility] 04/03/2025 [place] PREFERRED CHOICEPolicy Number: [id number] Date:9127-60-75Etug Name:Ayla ORELLANAGDOB: [id number] [place] [address] [facility] 03/25/2025 RONNIE Cohen MENGDOB: [place] [address] Primary Insurance:SUMMACARE INSCOPolicy Number: [id number] Date:3910-53-02Zlbv Name:FUNERAL DIRECTOR/EMBALMER JOSE [address], [place] [address]FG: RONNIE Cohen MENGDOB: [id number] [place], [place] [address]Yck: () [facility] 03/12/2025 Primary Insurance:SUMMACAREPo licy Number: [id number] Date:8032-06-50Gugl Name:Lubna DAY MENGDOB: [id number] [place] [address] [facility] 03/07/2025 [place]anc e[place] PREFERRED CHOICE SELF FUNDEDPolicy Number: [id number] Date:4042-46-38Pkwy Name:Ayla ORELLANAGDOB: [id number] [place] [address] [facility] 03/04/2025 [place]uranc e[place] PREF[place]ED CHO[place] SELF FUNDEDPolicy Number: [id number] Date:7773-92-43Ucsm Name:Ayla Cohen MENGDOB: [id number] [place] [address] [facility] 09/13/2024 Primary [place]anc e[place] PREF[place]ED CHO[place] SELF FUNDEDPolicy Number: [id number] Date:1950-75-97Gipq Name:Ayla ORELLANASTEVEOB: [id number] [place] [address] [facility] 09/11/2024 Primary [place]uranc e:[place] PREF[place]ED CHO[place] SELF FUNDEDPolicy Number: [id number] Date:6992-25-16Smij Name:Ayla ORELLANASTEVEOB: [id number] [place] [address] [facility]
--- OUTSIDE RECORDS SUMMARY | 2025-06-19 09:22 | XMS RPT_ITS ---
Author Name Auto Generated Organization OHIP Care Team Providers Care Scrub Wheel Operator Name Role Phone WILBER ZAMBRANO Attending Unavailable WILBER ZAMBRANO Referring Unavailable RICHARD RICHARDS Primary Care Unavailable WILBER ZAMBRANO Attending Unavailable RICHARD RICHARDS Primary Care Unavailable DARRELL BAI Referring Unavailable RICHRAD RICHARDS Primary Care UnavailDARRELL Wiley Referring Unavailable RICHARD RICHARDS Primary Care UnavailDARRELL Wiley Referring Unavailable RICHARD RICHARDS Primary Care UnavailDARRELL Wiley Referring Unavailable RICHARD RICHARDS Primary Care Unavailwanda RIZO MD, DR FRASER Attending Unavailwanda RICHARDS MD, DR RAMOS Primary Care DARRELL Levin Attending Unavailable RICHRAD RICHARDS Primary Care UnavailADRRELL Wiley Attending Unavailable RICHARD RICHARDS Primary Care UnavailDARRELL Wiley Attending Unavailable RICHARD RICHARDS Primary Care Unavailwanda baumann PROBLEMS DATE TYPE CONDITION / CODE ATTENDING STATUS [facility] 04/10/2025 Admitting Diagnosis Encounter for screening mammogram for malignant neoplasm of breast / Z12.31(ICD-10) WILBER ZAMBRANO [facility] 03/12/2025 Admitting Diagnosis Encounter for gynecological examination (general) (routine) without abnormal findings / Z01.419(ICD-10) WILBER ZAMBRANO Active [facility] 05/18/2016 Active 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 TSH SERPL-ACNC Collected: 06/19/2025 9:26 AM Status: F Source: [facility] Order Comment: Specimen Type : BLOOD SPECIMEN Ordering Facility: [facility] Address: [address] [place], [place] [address] TYPE CODE TESTS RESULT OUT OF RANGE REFERENCE UNITS LAB 3016-3(LOINC) TSH SerPl-aCnc 0.626 0.270-4.200 mIU/L Performed By: #### 3016-3 ## ## [facility] CLIA [id number] [address] [place] [address] OF [facility] 36 Observed: 04/22/2025 2:49 PM Status: COMPLETED Source: [facility] EVON: 03/12/2025 NOV: 04/01/2026 Refill pended for approval Grace with 4 refills. PROGRESS Observed: 04/18/2025 10:03 AM Status: COMPLETED Source: [facility] HNO ID: [id number] Author: DARRELL BAI MD Service: ? Author Type: Physician Type: Progress Notes Filed: 04/18/2025 10:21 Note Text: Virtual Visit utilizing both audio and video components MyChart-Zoom I have communicated my name and active licensure. The patient's identity and physical location were verified at the time of this visit. Either the patient or their legal sales representative health insurance has been informed of the risks and benefits of -- and alternatives to -- treatment through a remote evaluation and consents to proceed with the evaluation remotely. Patient location: at parents' home in [place], [place] Assessment / Plan Assessment: 1) Surgical [...] levothyroxine 112 mcg daily 2) return to mi in 3 months with labs before the [...] 04/27/2017 <0.2 (L) 1.4 03/23/2019 <0.2 <1.0 ([facility]) 01/28/2022 Janay Assay <0.2 <1.0 <4.0 IU/mL 02/28/2024 0.3 <0.9 Graves Ab Component TSI Latest Ref Rng <150 % Normal 08/11/2011 833 (H) Vitamin D Component Vitamin D 25 Hydroxy Latest Ref Rng 31.0 - 80.0 ng/mL 11/03/2015 24.9 (L) 12/06/18 49 (done at [facility]) ROS PHYSICAL EXAM PAST MED / SURG [...] daily. Olopatadine 0.6 % spry Use 1 [place] in each nostril once daily. (Patient not [...] 04/03/2025 8:02 AM Sta tus: F Source: [facility] Order Comment: Specimen Type : BLOOD SPECIMEN Ordering Facility: [facility] Address: [address] [place] [address] TYPE CODE TESTS RESULT OUT OF RANGE REFERENCE UNITS LAB 3024-7(LOINC) T4 Free SerPl-mCnc 1.7 0.9-1.7 ng/dL Performed By: #### 3024-7 ## ## [facility] CLIA [id number] [address] [id number] [place] TSH SERPL-ACNC Collected: 04/03/2025 8:02 AM Status: F Source: [facility] Order Comment: Specimen Type : BLOOD SPECIMEN Ordering Facility: [facility] Address: [address] [place], [place] [address] TYPE CODE TESTS RESULT OUT OF RANGE REFERENCE UNITS LAB 3016-3(LOINC) TSH SerPl-aCnc 1.150 0.270-4.200 mIU/L Performed By: #### 3016-3 ## ## [facility] CLIA [id number] [address] [place] [address] [place] HPV HIGH RISK PCR Observed: 03/12/2025 11:21 AM Status: F Source: [facility] Order Comment: THIS IS A CAR VE-OUT LAB: SPECIMEN MUST BE SENT TO [facility] FOR PROCESSING HUMAN PAPILLOMA VIRUS 18 DNA [...] Robert HPV PCR Assay Performed By: #### [id number] # ### Coil Tier: HARESH RIVAS ([id number]) [facility] ([address] PAP SMEAR Collected: 11:21 AM Status: F Source: [facility] Order Comment: THIS IS A CAR VE-OUT LAB: SPECIMEN MUST BE SENT TO [facility] FOR PROCESSING TYPE CODE TESTS RESULT OUT OF RANGE REFERENCE UNITS PATHOLOGY 1499 LAB AP CASE REPORT Result Comment: Gynecologic Cytology Case: [id number] Authorizing Provider: Wilber Zambrano MD Collected: 03/12/2025 1121 Ordering Location: [facility] Obstetrics Received: 03/13/20252055 and Gynecology - Vick First Screen: YOJANA Melendez Specimen: ThinPrep, Pap, Cervical/Endocervical PATHOLOGY 18 LAB AP MATCH MAKER SPECIMEN ADEQUACY The specimen is satisfactory for evaluation. No endocervical/tra nsformation zone present. PATHOLOGY 16 LAB AP MATCH MAKER INTERPRETATION Result Comment: NEGATIVE FOR SQUAMOUS INTRAEPITHELIAL LESION OR MALIGNANCY. at 1012 EDT PATHOLOGY 94 LAB AP MATCH MAKER OTHER FINDINGS Parakeratosis present. PATHOLOGY 393 LAB AP MATCH MAKER ADDITIONAL INFORMATION Gynecologic cytology smear evaluation is subject to false positive and false negative interpretation as evidenced by published data. Your patient's Pap test results should thus be interpreted in conjunction with their clinical history and physical examination. PATHOLOGY [id number] AP CASE SCREENING LOCATION [facility], [address] [address]; CLIA: [id number]; Joint Commission: [id number]; CAP: [id number] PATHOLOGY EMBDOC OUTGOING CLINICAL RESULTS EMBEDDED DOCUMENT Performed By: #### LAB4 #### Coil Tier: WENDI FRAGA ([id number]) [facility] ([facility]) [address] PROGRESS NOTE Observed: 03/12/2025 11:00 AM Status: COMPLETED Source: [facility] Ronnie Cohen Meng 03/12/2025 60 y.o. [...] file Stress: No Stress Concern Present (2024) [place] of Occupational Health - Occupational Stress Questionnaire [...] m) Body mass index is 30.08 kg/m?. MATCH MAKER: BREASTS: normal, no masses, tenderness or skin [...] Observed: 03/12/2025 11:00 AM Status: COMPLETED Source: [facility] [id number] Ronnie Hope 1964 F Date Provider Department Center 03/12/2025 [id number] ZAMBRANO [facility] [...] Alive Mother Alive Paternal Grandmother Level of Service:87286 NE PERIODIC PREVENTIVE MED EST PATIENT 40-64YRS Reason for Visit and Comments: Annual Exam [83] PROGRESS NOTE Observed: 03/12/2025 11:00 AM Status: COMPLETED Source: [facility] Evp Managing Director was offered to the patient for exam. Patient declined offer of assembly operator PROGRESS Observed: 03/07/2025 1:10 PM Status: COMPLETED Source: [facility] HNO ID: [id number] Author: DARRELL BAI MD Service: ? Author Type: Physician Type: Progress Notes Filed: 03/07/2025 13:34 Note Text: Virtual Visit utilizing both audio and video components cookdinner I have communicated my name and active licensure. The patient's identity and physical location were verified at the time of this visit. Either the patient or their legal sales representative health insurance has been informed of the risks and benefits of -- and alternatives to -- treatment through a remote evaluation and consents to proceed with the evaluation remotely. Patient location: at parents' home in [place], [place] Assessment / Plan Assessment: 1) Surgical [...] to 112 mcg daily 2) return to mi in 6 weeks with labs before the [...] 04/27/2017 <0.2 (L) 1.4 03/23/2019 <0.2 <1.0 ([facility]) 01/28/2022 Janay Assay <0.2 <1.0 <4.0 IU/mL 02/28/2024 0.3 <0.9 Graves Ab Component TSI Latest Ref Rng <150 % Normal 08/11/2011 833 (H) Vitamin D Component Vitamin D 25 Hydroxy Latest Ref Rng 31.0 - 80.0 ng/mL 11/03/2015 24.9 (L) 12/06/18 49 (done at [facility]) ROS PHYSICAL EXAM PAST MED / SURG [...] daily. Olopatadine 0.6 % spry Use 1 [place] in each nostril once daily. (Patient not taking: Reported on 11/13/2021 ) Carbinoxamine Maleate (PALGIC) 4 mg ORAL Tab Take 1 tablet by mouth once daily. 0 COMPOUNDED PRESCRIPTION Allergy injections ever 2-3 weeks (Patient not taking: Reported on 11/13/2021 ) 0 No current facility-administered medications for this visit. ALLERGIES Allergen Reactions Chlorhexidine Rash CNPN Observed: 03/07/2025 12:00 AM Status: COMPLETED Source: [facility] Telephone (ENDLKW) RONNIE HOPE ([id number]) 1965 F Date Time Provider Department 03/07/25 DARRELL BAI During your visit today, we recorded the following information about you: Deborah Gutierrez 03/07/2025 4:56 PM Signed Melonie from Dr Jeffrey Richards's office is calling Darrell Bai MD today to request Welfare Visitor - Other Patient has been identified by name and birthdate. Yes Duration of symptoms: N/A Person calling: Melonie from Dr Jeffrey Richards's Call patient at: [phone] Was an appointment scheduled: No Closing statement: Results or non-symptom based questions: Thank you for calling [facility], your call will be returned within [...] Most recent chart note faxed to them [phone] with confirmation. Allergies As of Date: 03/07/2025 Noted Allergy Reaction CHLORHEXIDINE 12/06/2018 2 - Rash Date Reviewed: 11/13/2021 Reviewed by: Clara Crocker MA - Fully Assessed Reason for Visit: Welfare Visitor - Other [[id number]] Prescriptions as of 03/12/2025 - levothyroxine (SYNTHROID) [...] - Olopatadine 0.6 % spry Use 1 [place] in each nostril once daily. - Carbinoxamine [...] Collected: 5 10:01 AM Status: F Source: [facility] Order Comment: Specimen Type : BLOOD SPECIMEN Ordering Facility: [facility] Address: [address] [place] [address] TYPE CODE TESTS RESULT OUT OF RANGE REFERENCE UNITS LAB 3016-3(LOINC) TSH SerPl-aCnc 0.113 Low 0.270-4.200 mIU/L Performed By: #### 3016-3 ## ## [facility] CLIA [id number] [address] [place] [address] T4 FREE SERPL-MCNC Collected: 5 10:01 AM Status: F Source: [facility] Order Comment: Specimen Type : BLOOD SPECIMEN Ordering Facility: [facility] Address: [address] [place] [address] TYPE CODE TESTS RESULT OUT OF RANGE REFERENCE UNITS LAB 3024-7(LOINC) T4 Free SerPl-mCnc 1.8 High 0.9-1.7 ng/dL Performed By: #### 3024-7 ## ## [facility] CLIA [id number] [address] CNPN Observed: 02/18/2025 12:00 AM Status: COMPLETED Source: [facility] Telephone (ENDLKW) RONNIE HOPE ([id number]) 1965 F Date Time Provider Department 02/18/25 [...] before upcoming visit in March. Contact Information [phone] Thank you Chitra Woo RN 02/20/2025 9:29 [...] - Olopatadine 0.6 % spry Use 1 [place] in each nostril once daily. - Carbinoxamine [...] Observed: 09/13/2024 10:12 AM Status: COMPLETED Source: [facility] HNO ID: [id number] Author: DARRELL BAI MD Service: ? Author Type: Physician Type: Progress Notes Filed: 09/13/2024 10:34 Note Text: Virtual Visit utilizing both audio and video components MyChart-Zoom I have communicated my name and active licensure. The patient's identity and physical location were verified at the time of this visit. Either the patient or their legal sales representative health insurance has been informed of the risks and benefits of -- and alternatives to -- treatment through a remote evaluation and consents to proceed with the evaluation remotely. Patient location: at parents' home in [place], [place] Assessment / Plan Assessment: 1) Surgical [...] to 137 mcg daily 2) return to mi in 6 months with labs before the [...] 04/27/2017 <0.2 (L) 1.4 03/23/2019 <0.2 <1.0 ([facility]) 01/28/2022 Janay Assay <0.2 <1.0 <4.0 IU/mL 02/28/2024 0.3 <0.9 Graves Ab Component TSI Latest Ref Rng <150 % Normal 08/11/2011 833 (H) Vitamin D Component Vitamin D 25 Hydroxy Latest Ref Rng 31.0 - 80.0 ng/mL 11/03/2015 24.9 (L) 12/06/18 49 (done at [facility]) ROS PHYSICAL EXAM PAST MED / SURG [...] daily. Olopatadine 0.6 % spry Use 1 [place] in each nostril once daily. (Patient not [...] 09/11/2024 9:42 AM Sta tus: F Source: [facility] Order Comment: Specimen Type : BLOOD SPECIMEN Ordering Facility: [facility] Address: [address] [place] [address] TYPE CODE TESTS RESULT OUT OF RANGE REFERENCE UNITS LAB 3024-7(LOINC) T4 Free SerPl-mCnc 1.8 High 0.9-1.7 ng/dL Performed By: #### 3024-7 ## ## [facility] CLIA [id number] [address] STATES OF [facility] TSH SERPL-ACNC Collected: 09/11/2024 9:42 AM Status: F Source: [facility] Order Comment: Specimen Type : BLOOD SPECIMEN Ordering Facility: [facility] Address: [address] [place] [address] TYPE CODE TESTS RESULT OUT OF RANGE REFERENCE UNITS LAB 3016-3(LOINC) TSH SerPl-aCnc 0.614 0.270-4.200 mIU/L Performed By: #### 3016-3 ## ## [facility] CLIA [id number] [address] [place] [address] [place] ALLERGIES DATE TYPE / CODE NAME / CODE REACTION SEVERITY SOURCE 12/06/2018 DRUG INGREDI/[id number](SN OMED CT) CHLORHEXIDINE RASH Low [facility] ENCOUNTERS ADMIT/DISCHARGE ACCOUNT NUMBER ADMITTING ENCOUNTER CLASS LOCATION SOURCE 06/19/2025/ 5 [id number] 04/18/2025/ 5 [id number] Ambulatory [facility] 04/10/2025/ 5 [id number] Ambulatory [facility] [address] [facility] 04/03/2025/ 5 [id number] [facility] 03/25/2025/ 5 [id number] [place] [facility] 03/12/2025/ 5 [id number] Ambulatory [place] [id number] [facility] 03/07/2025/ 5 [id number] Ambulatory [facility] 03/04/2025/ 5 [id number] [facility] 09/13/2024/ 4 [id number] Ambulatory [facility] 09/11/2024/ 4 [id number] [facility] PAYERS ENCOUNTER GUARANTOR PAYER SUBSCRIBER SOURCE 06/19/2025 Primary Insuranc e:ID PREFERRED CHOICEPolicy Number: [id number] Date:4276-29-72Wjhf Name:Ayla Cohen ESTEBANGDOB: [id number] [place], [place] [address] [place] [address] 04/18/2025 Primary Insuranc e:ID PREFERRED CHOICEPolicy Number: [id number] Date:2995-13-01Hxlx Name:Ayla ORELLANAGDOB: [id number] [facility] [place] [address] [facility] 04/10/2025 Primary Insurance:SUMMACAREPo licy Number: [id number] Date:4531-51-24Jchl Name:Commercial RONNIE ORELLANAGDOB: [id number] [place] [address] [facility] 04/03/2025 Primary Insuranc e:ID PREFERRED CHOICEPolicy Number: [id number] Date:8332-81-04Nxcn Name:Ayla ORELLANAGDOB: [id number] [facility] [place] [address] [facility] 03/25/2025 RONNIE Cohen MENGDOB: [place] [address] Primary Insurance:SUMMACARE INSCOPolicy Number: [id number] Date:2873-66-40Nigo Name:FLORAL SPECIALIST JOSE [address], [place] [address]CH: RONNIE Cohen MENGDOB: [id number] [place], [place] [address]Stb: () [facility] 03/12/2025 Primary Insurance:SUMMACAREPo licy Number: [id number] Date:5674-78-75Tref Name:Lubna DAY MENGDOB: [id number] [place] [address] [facility] 03/07/2025 Primary Insuranc e:ID PREFERRED CHOICE SELF FUNDEDPolicy Number: [id number] Date:0206-28-52Rxai Name:Ayla ORELLANAGDOB: [id number] [place] [address] [facility] 03/04/2025 Primary Insuranc e:ID PREFERRED CHOICE SELF FUNDEDPolicy Number: [id number] Date:2566-48-22Uhmv Name:Ayla Cohen MENGDOB: [id number] [place] [address] [facility] 09/13/2024 Primary Insuranc e:ID PREFERRED CHOICE SELF FUNDEDPolicy Number: [id number] Date:4777-87-73Hgnn Name:Ayla ORELLANASTEVEOB: [id number] [place] [address] [facility] 09/11/2024 Primary Insuranc e:ID PREFERRED CHOICE SELF FUNDEDPolicy Number: [id number] Date:2626-46-03Ejix Name:Ayla ORELLANASTEVEOB: [id number] [place] [address] [facility]
--- NOTE | 2025-07-01 09:32 | US_ITS ---
PROCEDURE: ABD LIMITED W/ ELASTOGRAPHY 07/01/2025 REASON FOR EXAM: GASTROPATHY TECHNIQUE: Procedure Code: USABDLELPARO Modality: US Procedure: ABD LIMITED W/ ELASTOGRAPHY COMPARISON: None FINDINGS: Liver: Liver is heterogeneous suggesting early fatty infiltration. No discrete lesion. It measures 15.2 cm and there is hepatopetal flow in the portal vein Gallbladder: No stones, sludge, wall thickening or tenderness. Gallbladder wall measures 2.1 mm. Senior Clinical Study Manager notes a negative Dotson's sign Common bile duct: Normal measuring 2.6. Pancreas: Visualized portions are sonographically unremarkable. Kidneys: The right kidney measures 9.7 x 5.5 x 4.6 cm. The cortex measures 1.6 cm. No hydronephrosis or mass, there are nonobstructing stones. Elastography: KPA 4.6, KPA% 11 M/S1.24 M/S% 6.5 Metavir score F0-F1 US/ABD Limited w/ Elastography IMPRESSION: Early fatty infiltration of the liver without a discrete lesion. Metavir score F 0-F 1 Nonobstructing right nephrolithiasis Reading Location: [id number]
--- NOTE | 2025-07-01 09:32 | US_ITS ---
PROCEDURE: ABD LIMITED W/ ELASTOGRAPHY 07/01/2025 REASON FOR EXAM: GASTROPATHY TECHNIQUE: Procedure Code: USABDLELPARO Modality: US Procedure: ABD LIMITED W/ ELASTOGRAPHY COMPARISON: None FINDINGS: Liver: Liver is heterogeneous suggesting early fatty infiltration. No discrete lesion. It measures 15.2 cm and there is hepatopetal flow in the portal vein Gallbladder: No stones, sludge, wall thickening or tenderness. Gallbladder wall measures 2.1 mm. Winemaker notes a negative Dotson's sign Common bile duct: Normal measuring 2.6. Pancreas: Visualized portions are sonographically unremarkable. Kidneys: The right kidney measures 9.7 x 5.5 x 4.6 cm. The cortex measures 1.6 cm. No hydronephrosis or mass, there are nonobstructing stones. Elastography: KPA 4.6, KPA% 11 M/S1.24 M/S% 6.5 Metavir score F0-F1 US/ABD Limited w/ Elastography IMPRESSION: Early fatty infiltration of the liver without a discrete lesion. Metavir score F 0-F 1 Nonobstructing right nephrolithiasis Reading Location: [id number]
== END | disposition home or self-care (01) ==
LOC: US 09:29
PROVIDERS: PCP Family Medicine; Referring Provider Internal Medicine Gastroenterology; Visit Provider Internal Medicine Gastroenterology
DX: K76.6 Portal hypertension (principal); K31.89 Other diseases of stomach and duodenum
CPT/HCPCS: 76705; 76981

== ENCOUNTER → 2025-07-18 | Outpatient (CLI) | payer OTHER, SELFPAY ==
[2025-07-18 10:33] LABS: Immature Reticulocyte Fraction 8.90 % (3.00-15.90); Platelet Count 278 K/mm3 (150-450); Reticulocyte Count 2.58 % (0.5-1.5)
[2025-07-18 11:24] LABS: Ferritin 264 ng/mL (22-378); Iron 140 ug/dL (50-170); Iron Binding Capacity,Total 268 ug/dL (250-450); Iron Binding Capacity,Unsat 128 ug/dL (228-428); Vitamin B12 675 pg/mL (180-914)
[2025-07-21 16:08] LABS: Anti-Parietal Cell AB, QN 123.2 Units (0.0-20.0)
== END | disposition home or self-care (01) ==
LOC: LAB 09:54
PROVIDERS: PCP Family Medicine; Referring Provider Internal Medicine Gastroenterology; Visit Provider Internal Medicine Gastroenterology
DX: D50.0 Iron deficiency anemia secondary to blood loss (chronic) (principal)
CPT/HCPCS: 36415; 82607; 82728; 83516; 83540; 83550; 85045; 86340

== ENCOUNTER → 2025-07-26 | Outpatient (CLI) | payer OTHER, SELFPAY ==
[2025-07-31 10:09] LABS: Calprotectin, Stool 66 ug/g (0-120)
== END | disposition home or self-care (01) ==
LOC: LABSPEC 13:07
PROVIDERS: PCP Family Medicine; Referring Provider Student in an Organized Health Care Education/Training Program; Visit Provider Student in an Organized Health Care Education/Training Program
DX: D50.0 Iron deficiency anemia secondary to blood loss (chronic) (principal)
CPT/HCPCS: 83993

== ENCOUNTER → 2025-07-30 | Outpatient (CLI) | payer OTHER, SELFPAY ==
[2025-07-30 13:08] LABS: Ferritin 240 ng/mL (22-378); Free T3 2.3 pg/mL (2.18-3.98); Iron 178 ug/dL (50-170)
== END | disposition home or self-care (01) ==
LOC: MFPLAB 09:37
PROVIDERS: PCP Family Medicine; Visit Provider Family Medicine
DX: R53.83 Other fatigue (principal); E03.2 Hypothyroidism due to medicaments and other exogenous substances
CPT/HCPCS: 36415; 82728; 83540; 84439; 84443; 84481